=== PATIENT | male | born 1950 | race Caucasian/White ===

== ENCOUNTER → 2017-07-03 | Outpatient (CLI) | payer OTHER, BC ==
--- NOTE | 2017-07-03 09:52 | DIAGNOSTIC IMAGING REPORT ---
L ANKLE MIN 3 VIEWS ROUTINE, L FOOT MIN 3 VIEWS ROUTINE HISTORY: 66 years-old Male LEFT ANKLE AND FOOT PAIN acute left foot and ankle pain without reported trauma COMPARISON: None available TECHNIQUE: 3 views of the left foot and 3 views of the left ankle FINDINGS: ANKLE: There is mild soft tissue swelling about the ankle. No acute fracture, dislocation or osteochondral defect. There is minimal marginal spurring about the ankle. No large joint effusion or opaque foreign body. FOOT: Minimal degenerative changes of the first MTP joint. There is no acute fracture or dislocation. No opaque foreign body. IMPRESSION: 1. No acute fracture or dislocation identified within the left foot or ankle. 2. Mild soft tissue swelling about the ankle. The above report was generated using voice recognition software. It may contain grammatical, syntax or spelling errors. Electronically signed by: Antoine Moore M.D. 07/03/2017 9:51 AM Dictated Date/Time: 07/03/2017 9:49 AM
== END | disposition home or self-care (01) ==
LOC: C.RAD1850 09:35
PROVIDERS: ATTEND Student in an Organized Health Care Education/Training Program
DX: M25.572 Pain in left ankle and joints of left foot (principal)

== ENCOUNTER 2020-07-23 20:48 | Observation (INO) ==
[2020-07-23] MEDS ORDERED: SODIUM CHLORIDE 0.9% 1000ML 1,000 ML IV ONE (21:26)
[2020-07-23 21:36] LABS: Basophils # (auto) 0.03 K/uL (0-0.2); Basophils % (auto) 0.3 %; Eosinophils % (auto) 2.2 %; Hematocrit (blood only) 51.3 % (42-52); Hemoglobin 17.3 g/dL (14.0-18.0); Immature Granulocytes # (auto) 0.03 K/uL (0.00-0.02); Immature Granulocytes % (auto) 0.3 %; Lymphocytes # (auto) 2.68 K/uL (1.2-3.4); Lymphocytes % (auto) 29.4 %; Mean Corpuscular Hemoglobin 33.5 pg (25-34); Mean Corpuscular Hgb Conc 33.7 g/dL (32-36); Mean Corpuscular Volume 99.4 fL (80-100); Mean Platelet Volume 10.9 fL (7.4-10.4); Monocytes # (auto) 0.73 K/uL (0.11-0.59); Neutrophils # (auto) 5.44 K/uL (1.4-6.5); Neutrophils % (auto) 59.8 %; Platelet Count 216 K/uL (130-400); RDW Coefficient of Variation 13.6 % (11.5-14.5); RDW Standard Deviation 49.4 fL (36.4-46.3); Red Blood Count 5.16 M/uL (4.7-6.1); White Blood Count 9.11 K/uL (4.8-10.8)
[2020-07-23] MEDS ORDERED: OPTIRAY 320 125ml IV ONE (21:51)
[2020-07-23 21:58] LABS: Alanine Aminotransferase 31 U/L (12-78); Albumin Level 3.7 gm/dl (3.4-5.0); Aspartate Aminotransferase 20 U/L (15-37); BUN Creatinine Ratio 12.7 (10-20); Blood Urea Nitrogen 10 mg/dl (7-18); Calcium 9.2 mg/dl (8.5-10.1); Carbon Dioxide 27 mmol/L (21-32); Chloride 106 mmol/L (98-107); Est GFR (African American) 105.3; Est GFR (Non-African American) 90.9; Glucose 102 mg/dl (70-99); Magnesium 1.9 mg/dl (1.8-2.4); Potassium 3.7 mmol/L (3.5-5.1); Sodium 142 mmol/L (136-145)
[2020-07-23 22:00] LABS: Partial Thromboplastin Time 28.4 Seconds (21.0-31.0); Prothrombin Time 10.5 Seconds (9.0-12.0)
[2020-07-23 22:08] LABS: Alkaline Phosphatase 84 U/L (45-117); Bilirubin,Total 0.3 mg/dl (0.2-1); Globulin 3.9 gm/dl (2.5-4.0); Lipase 2557 U/L (73-393); Total Protein 7.6 gm/dl (6.4-8.2); Troponin I < 0.015 ng/ml (0-0.045)
[2020-07-23 23:16] LABS: Appearance Urine Cloudy (Clear); Bacteria Urine Automated Negative (Negative); Bilirubin Urine Negative (Negative); Blood Urine Negative (Negative); Cast Urine Automated 0 /lpf (0-5); Color Urine Yellow; Epithelial Cell Urine Auto 0-5 /lpf (0-5); Glucose Urine UA Negative (Negative); Ketones Urine Trace (Negative); Leukocyte Esterase Urine Negative (Negative); Nitrite Urine Negative (Negative); Protein Urine Negative (Negative); RBC Urine Automated 0-4 /hpf (0-4); Specific Gravity Urine 1.025 (1.000-1.030); Urobilinogen Urine Negative (Negative)
--- NOTE | 2020-07-24 02:34 | Emergency Department Note ---
Impression & Plan Stroke-like symptoms, Slurred speech, Peripheral arterial disease, Chronic pancreatitis, Abdominal aortic aneurysm (AAA) 3.0 cm to 5.5 cm in diameter in male ED Provider Note NAME: JOEL ROLDAN AGE: 69 SEX: M ARRIVES VIA: Walk-In INFORMANT: Patient, , daughter ED PROVIDER(S): Connor Butler MD CHIEF COMPLAINT: Slurred speech, left hip pain, ambulatory dysfunction. PLAN: Disposition: Admit MEDICAL DECISION MAKING: The patient is a pleasant 69-year-old gentleman with a past medical history of NIDDM 2, hypertension, hyperlipidemia who presents emergency department accompanied by his concern for slurred speech prior to arrival in the setting of the patient having 2 weeks of acutely worsening left hip and thigh pain where he reports he was in the garage and his leg gave out from from under him and he fell. He reports having a single glass of wine tonight and does not drink more than that on a daily basis. The patient reports his left hip pain has been present for over a year but that 2 weeks ago he began to have increasing pain with exertion and while he has improvement with rest did develop resting pain which was present along the left lateral hip and proximal-mid anterior thigh. The patient's was concerned for his slurred speech however the patient himself feels as though he did not have any slurred speech and feels as though he did not need to come to the hospital. Further he relates his diffi culty walking has been ongoing for the past 2 weeks given the pain in his hip/thigh. Otherwise, denies any fevers, chills, cough, congestion, nausea, vomiting, diarrhea, urinary symptoms. On arrival the patient is fatigued appearing but no acute distress, afebrile stable vital signs. He has no focal neurologic deficits. His speech is fluent without overt dysarthria or aphasia. Normal strength in all extremities. 5/5 strength and SILT x 4 extremities. Cerebellar function intact including fin bennett-to-nose and alternating palms. However, upon ambulation the patient has significant impaired gait where he is unable to bear weight on his left leg and has difficulty maintaining balance because of this which he reports is related to his pain. He does have dopplerable monophasic PT and DP pulses of the left foot has palpable DP and PT pulses of the right foot. Refill is symmetric and less than 2 seconds in bilateral lower extremities. EKG without overt acute ischemia. Chest x-ray negative for acute cardiopulmonary process per my preliminary review. WBC, H/H and platelets within normal limits. Chemistry without metabolic acidosis. Electrolytes and LFTs are unremarkable. Troponin negative/undetectable. The patient's lipase is elevated at 2500 without prior values for comparison is of unclear significance given the patient has no abdominal pain or report of nausea and vomiting. UA negative for infection but with trace ketones consistent with the patient's clinically dry appearance. Of note, the patient's blood alcohol was 96 and while was drawn from his IV site which was prepped with chlorhexidine certainly is suggestive of more than 1 glass of wine. However I did review this with the patient and his family and he denied having more than a glass of wine and the patient family do not feel he has ever had an issue with alcohol in the past. Thus, unclear etiology to this elevation in his blood alcohol. Per preliminary stat read report CT of the head and CTA of the head and neck were negative for ICH, ischemia or severe narrowing or occlusion of large vessels. Per preliminary stat read report, CT abdomen pelvis did demonstrate diffuse atherosclerotic changes of the aorta and branches. Note is made of infrarenal AAA measuring approximately 5 cm. Associated areas of plaque of severe stenosis are noted. In particular, occlusion of the left common femoral and left internal iliac arteries were described. Additionally, there is advanced stenosis of the right iliac arteries as well. Further, there is note of minimal thickening of the fundus of the gallbladder as well as dystrophic calcification in the pancreas suggesting chronic pancreatitis which does correlate to the patient's lipase. I did review the CT findings with [facility] radiologist Dr. Curry, who does describe there is reconstitution within the external iliac artery which explains the patient's present pulses however she does note there is severe arterial disease in the external iliac as well. I did meet with the patient and his family and he continued to have no significant change in his clinical status since initial evaluation. Unfortunately, our vascular surgeon is not available at this time and so we did agree with plan to consult [facility] vascular surgery regarding the patient's iliac occlusion in relation to his symptoms, which are suspicous for proximal claudication of LLE. However, it was the patient's preference to not be transferred if this was not absolutely necessary. Arterial studies were ordered and while pending I did discuss the case/imaging with [facility], Dr. Gonzalez, and we agree that given the patient does have distal pulses present and no exam findings to suggest acute limb ischemia the patient's progression of symptoms and CT findings are suggestive of a chronic occlusive process that does not necessarily require emergent intervention or transfer. However, he offered to accept the patient for transfer if we have any concerns. In the interim the patient did have arterial duplexes completed and per preliminary stat read report there is no complete arterial occlusion though there is severe peripheral arterial disease with monophasic waveforms throughout the left lower extremity. On reevaluation the patient continued to deny any additional complaints. Given the complexity of the patient's findings in the setting of his symptoms, we did agree to admit the patient for further observation and evaluation. Given he denies drinking more than a glass of wine unclear if transient slurred speech could be attributed to alcohol and so MRI could be considered to further exclude TIA/stroke. Consultation with vascular surgery ARACELI Karina Poole could be considered as she is listed occupational health physiotherapist from 8a-5p. Case was discussed with Dr. Javed, [facility] hospitalist, who will evaluate the patient for admission. Triage Nursing notes reviewed and agree them. Prior medical records reviewed Vital Signs: reviewed and remarkable for no significant abnormalities. Differential diagnosis: Infection, dehydration, metabolic abnormality, hypo/hyperglycemia, electrolyte disturbance, anemia, hypoxia, cardiac sources, intracerebral event, toxicologic, neurologic, as well as other pathologies. ER treatment provided: See below. Diagnostics interpreted by me: ECG: Normal sinus rhythm, 83 bpm, no ectopy, no overt ST elevation or depression, QTC 455, QRS 90. Cardiac Monitoring: An order for continuous cardiac monitoring was placed and demonstrated normal sinus rhythm, 83 bpm, no ectopy. Laboratory studies: See below Imaging studies: CXR: No acute cardiopulmonary process per my preliminary review. -- Preliminary Findings Only See Final Report For Complete Findings CT HEAD: No ICH, mass effect or edema. No evidence of acute cortical stroke. Visualized sinuses and mastoid air cells are clear. Radiologist: Lauri Manning M.D. Study ready at 22:51 and initial results transmitted at 22:53 -- Preliminary Findings Only See Final Report For Complete Findings CTA HEAD: No central occlusion related to the [place] Radiologist: Lauri Manning M.D. Study ready at 22:54 and initial results transmitted at 23:00 -- Preliminary Findings Only See Final Report For Complete Findings CTA NECK: No occlusions, high-grade stenoses or dissections. Pulmonary emphysema/cysts. Scarring in the lung apices. Radiologist: Lauri Manning M.D. Study ready at 22:53 and initial results transmitted at 22:58 - Preliminary Findings Only See Final Report For Complete Findings CT ABDOMEN & PELVIS With Contrast: Diffuse atherosclerotic changes of the aorta and its branches. Infrarenal abdominal aortic aneurysm measuring approximately 5cm. Associated plaque with areas of severe luminal stenosis. Occlusion of the left common and left internal iliac arteries. Areas of advanced luminal stenosis in the right iliac arteries Small hiatal hernia/thickening in the distal esophagus. Minimal thickening in the fundus of the gallbladder wall. Mild fatty liver. Dystrophic calcification in the pancreas suggesting chronic pancreatitis. Renal cysts. Radiation seeds in the prostate. Colonic diverticula without diverticulitis. Unremarkable appendix. Pulmonary emphysema. Radiologist: Lauri Manning M.D. Study ready at 23:03 and initial results transmitted at 23:10 Preliminary Findings Only See Final Report For Complete Findings US ARTERIAL BILATERAL LOWER EXTREMITIES: Atherosclerotic changes, left greater than right. No evidence of arterial occlusion. High-grade stenosis suggested in the right common femoral artery Dampened velocities and monophasic waveforms throughout the arterial system on the left side. ABIs Right 0.9 Left 0.4-0.5 Radiologist: Lauri Manning M.D. Study ready at 03:19 and initial results transmitted at 03:23 Consultation(s): [facility] Vascular Surgery, Dr. Gonzalez Case was discussed with Dr. Javed, [facility] hospitalist, who will evaluate the patient for admission. HPI: The patient is a pleasant 69-year-old gentleman with a past medical history of NIDDM 2, hypertension, hyperlipidemia who presents emergency department accompanied by his concern for slurred speech prior to arrival in the setting of the patient having 2 weeks of acutely worsening left hip and thigh pain where he reports he was in the garage and his leg gave out from from under him and he fell. He reports having a single glass of wine tonight and does not drink more than that on a daily basis. The patient reports his left hip pain has been present for over a year but that 2 weeks ago he began to have increasing pain with exertion and while he has improvement with rest did develop resting pain which was present along the left lateral hip and proximal-mid anterior thigh. The patient's was concerned for his slurred speech however the patient himself feels as though he did not have any slurred speech and feels as though he did not need to come to the hospital. Further he relates his difficulty walking has been ongoing for the past 2 weeks given the pain in his hip/thigh. Otherwise, denies any fevers, chills, cough, congestion, nausea, vomiting, diarrhea, urinary symptoms. ROS: See above HPI for pertinent positives & negatives. A total of 10 systems reviewed and were otherwise negative. PAST MEDICAL HISTORY:See Below PAST SURGICAL HISTORY:See Below FAMILY HISTORY:See Below SOCIAL HISTORY:See Below HOME MEDICATIONS:See Below ALLERGIES:See Below VITALS:See Below PHYSICAL EXAMINATION: GENERAL: Awake, alert, fatigued-appearing, in no distress HENT: Normocephalic, atraumatic. Oropharynx with dry mucous membranes and otherwise unremarkable. EYES: Normal conjunctiva. Sclera non-icteric. EOMI. No nystamgus. PEARRL. NECK: Supple. No nuchal rigidity. FROM. No JVD. RESPIRATORY: Clear to auscultation. CARDIAC: Regular rate, normal rhythm. Extremities warm and well perfused. RLE palpable DP/PT pulses. LLE monophasic dopplerable DP/PT pulses. Capillary refill < 2s and symmetric BLE. ABDOMEN: Soft, non-distended. No tenderness to palpation. No rebound or guarding. No masses. RECTAL: Deferred. MUSCULOSKELETAL: Chest examination reveals no tenderness. The back is symmetrical on inspection without obvious abnormality. There is no CVA tenderness to palpation. No joint edema. LOWER EXTREMITIES: Calves are equal size bilaterally and non-tender. No edema. No discoloration. NEURO: Normal sensorium. No sensory or motor deficits noted. Speech is fluent without dysarthria. 5/5 strength and SILT x 4 extremities. Cerebellar function intact including [id number] and alternating palms. SKIN: No rash or jaundice noted. Connor Butler MD Past Med/Surg History Medical History HLD (hyperlipidemia) Hypertension Social History Smoking Status: Current every day smoker Tobacco Type: Cigars Preferred Language: [place] Feels Safe at Home: Yes Allergies Allergies Allergy/AdvReac Type Severity Reaction Status Date / Time No Known Allergies Allergy Unverified 07/23/20 22:51 Home Meds Home Medications Medication Instructions Recorded Confirmed atorvastatin 40 mg PO DAILY 07/23/20 07/23/20 hydrochlorothiazide 25 mg PO DAILY 07/23/20 07/23/20 lisinopril 20 mg PO DAILY 07/23/20 07/23/20 metformin 1,000 mg PO BID 07/23/20 07/23/20 Results & Data (ED) Vital Signs Vital Signs - 24 hr 07/23/20 20:57 07/23/20 21:30 07/23/20 22:00 Temperature 37.3 C Temperature Source Temporal Artery Scan Pulse Rate 84 84 83 Pulse Rate [Finger] Pulse Rate from SpO2 Sensor 85 83 Pulse Rhythm Regular Pulse Strength Normal Respiratory Rate 18 20 19 Respiratory Effort / Characteristics Non-Labored Spontaneous Respiratory Depth Normal Respiratory Pattern Regular Blood Pressure 144/82 H 133/80 139/81 Blood Pressure [Left Arm] Blood Pressure Mean 102 90 99 Blood Pressure Mean [Left Arm] Blood Pressure Position Sitting Pulse Oximetry 98 94 96 Oxygen Delivery Method Room Air Sepsis Recent Fever Within 48 Hours No Sepsis New/Unexplained Change in Mental Status No Sepsis Action Taken by Nursing No Action Required 07/23/20 22:30 07/23/20 22:55 07/23/20 23:00 Temperature Temperature Source Pulse Rate 88 86 Pulse Rate [Finger] Pulse Rate from SpO2 Sensor 88 86 Pulse Rhythm Pulse Strength Respiratory Rate 16 17 Respiratory Effort / Characteristics Respiratory Depth Respiratory Pattern Blood Pressure 143/72 H 162/88 H 139/81 Blood Pressure [Left Arm] Blood Pressure Mean 112 121 100 Blood Pressure Mean [Left Arm] Blood Pressure Position Pulse Oximetry 96 96 Oxygen Delivery Method Sepsis Recent Fever Within 48 Hours Sepsis New/Unexplained Change in Mental Status Sepsis Action Taken by Nursing 07/23/20 23:30 07/24/20 00:00 07/24/20 00:30 Temperature Temperature Source Pulse Rate 78 84 82 Pulse Rate [Finger] Pulse Rate from SpO2 Sensor 78 85 82 Pulse Rhythm Pulse Strength Respiratory Rate 17 15 16 Respiratory Effort / Characteristics Respiratory Depth Respiratory Pattern Blood Pressure 132/75 144/85 H 149/92 H Blood Pressure [Left Arm] Blood Pressure Mean 96 98 102 Blood Pressure Mean [Left Arm] Blood Pressure Position Pulse Oximetry 94 95 95 Oxygen Delivery Method Sepsis Recent Fever Within 48 Hours Sepsis New/Unexplained Change in Mental Status Sepsis Action Taken by Nursing 07/24/20 03:00 07/24/20 04:11 07/24/20 06:10 Temperature Temperature Source Pulse Rate 79 Pulse Rate [Finger] 86 90 Pulse Rate from SpO2 Sensor Pulse Rhythm Pulse Strength Respiratory Rate 18 18 18 Respiratory Effort / Characteristics Respiratory Depth Respiratory Pattern Blood Pressure 133/84 Blood Pressure [Left Arm] 176/95 H 166/96 H Blood Pressure Mean 100 Blood Pressure Mean [Left Arm] 122 119 Blood Pressure Position Pulse Oximetry 94 94 95 Oxygen Delivery Method Room Air Room Air Room Air Sepsis Recent Fever Within 48 Hours Sepsis New/Unexplained Change in Mental Status Sepsis Action Taken by Nursing Laboratory Data Attestation: I reviewed the patient's lab results. Result diagrams: 07/23/20 21:29 07/23/20 21:29 Lab Results 07/23/20 07/23/20 07/23/20 Range/Units 21:29 21:29 21:29 WBC 9.11 (4.8-10.8) K/uL RBC 5.16 (4.7-6.1) M/uL Hgb 17.3 (14.0-18.0) g/dL Hct 51.3 (42-52) % MCV 99.4 (80-100) fL MCH 33.5 (25-34) pg MCHC 33.7 (32-36) g/dL RDW Std Deviation 49.4 H (36.4-46.3) fL RDW Coeff of Matt 13.6 (11.5-14.5) % Plt Count 216 (130-400) K/uL MPV 10.9 H (7.4-10.4) fL Immature Gran % (Auto) 0.3 % Neut % (Auto) 59.8 % Lymph % (Auto) 29.4 % [place] % (Auto) 8.0 % Eos % (Auto) 2.2 % Baso % (Auto) 0.3 % Neut # (Auto) 5.44 (1.4-6.5) K/uL Lymph # (Auto) 2.68 (1.2-3.4) K/uL [place] # (Auto) 0.73 H (0.11-0.59) K/uL Eos # (Auto) 0.20 (0-0.5) K/uL Baso # (Auto) 0.03 (0-0.2) K/uL Immature Gran # (Auto) 0.03 H (0.00-0.02) K/uL ESR (0-14) mm/hr PT 10.5 (9.0-12.0) Seconds INR 1.0 (0.9-1.1) APTT 28.4 (21.0-31.0) Seconds PTT Ratio 1.0 Sodium 142 (136-145) mmol/L Potassium 3.7 (3.5-5.1) mmol/L Chloride 106 (98-107) mmol/L Carbon Dioxide 27 (21-32) mmol/L Anion Gap 9.0 (3-11) BUN 10 (7-18) mg/dl Creatinine 0.82 (0.6-1.4) mg/dl Est Cr Clr Drug Dosing 92.0 ml/min Est GFR ( Amer) 105.3 Est GFR (Non-Af Amer) 90.9 BUN/Creatinine Ratio 12.7 (10-20) Glucose 102 H (70-99) mg/dl Calcium 9.2 (8.5-10.1) mg/dl Phosphorus 4.0 (2.5-4.9) mg/dl Magnesium 1.9 (1.8-2.4) mg/dl Total Bilirubin 0.3 (0.2-1) mg/dl AST 20 (15-37) U/L ALT 31 (12-78) U/L Alkaline Phosphatase 84 (45-117) U/L Troponin I < 0.015 (0-0.045) ng/ml Total Protein 7.6 (6.4-8.2) gm/dl Albumin 3.7 (3.4-5.0) gm/dl Globulin 3.9 (2.5-4.0) gm/dl Albumin/Globulin Ratio 1.0 (0.9-2) Lipase 2557 H (73-393) U/L TSH 2.310 (0.300-4.500) uIu/ml Urine Color Urine Appearance (Clear) Urine pH (4.5-7.5) Ur Specific [place] (1.000-1.030) Urine Protein (Negative) Urine Glucose (UA) (Negative) Urine Ketones (Negative) Urine Blood (Negative) Urine Nitrite (Negative) Urine Bilirubin (Negative) Urine Urobilinogen (Negative) Ur Leukocyte Esterase (Negative) Urine WBC (Auto) (0-5) /hpf Urine RBC (Auto) (0-4) /hpf U Hyaline Cast (Auto) (0-5) /lpf U Epithel Cells (Auto) (0-5) /lpf Urine Bacteria (Auto) (Negative) Ethyl Alcohol mg/dL (0-3) mg/dl SARS-CoV-2 Ag (Rapid) (Negative) 07/23/20 07/23/20 07/24/20 Range/Units 22:52 23:05 04:05 WBC (4.8-10.8) K/uL RBC (4.7-6.1) M/uL Hgb (14.0-18.0) g/dL Hct (42-52) % MCV (80-100) fL MCH (25-34) pg MCHC (32-36) g/dL RDW Std Deviation (36.4-46.3) fL RDW Coeff of Matt (11.5-14.5) % Plt Count (130-400) K/uL MPV (7.4-10.4) fL Immature Gran % (Auto) % Neut % (Auto) % Lymph % (Auto) % [place] % (Auto) % Eos % (Auto) % Baso % (Auto) % Neut # (Auto) (1.4-6.5) K/uL Lymph # (Auto) (1.2-3.4) K/uL [place] # (Auto) (0.11-0.59) K/uL Eos # (Auto) (0-0.5) K/uL Baso # (Auto) (0-0.2) K/uL Immature Gran # (Auto) (0.00-0.02) K/uL ESR (0-14) mm/hr PT (9.0-12.0) Seconds INR (0.9-1.1) APTT (21.0-31.0) Seconds PTT Ratio Sodium (136-145) mmol/L Potassium (3.5-5.1) mmol/L Chloride (98-107) mmol/L Carbon Dioxide (21-32) mmol/L Anion Gap (3-11) BUN (7-18) mg/dl Creatinine (0.6-1.4) mg/dl Est Cr Clr Drug Dosing ml/min Est GFR ( Amer) Est GFR (Non-Af Amer) BUN/Creatinine Ratio (10-20) Glucose (70-99) mg/dl Calcium (8.5-10.1) mg/dl Phosphorus (2.5-4.9) mg/dl Magnesium (1.8-2.4) mg/dl Total Bilirubin (0.2-1) mg/dl AST (15-37) U/L ALT (12-78) U/L Alkaline Phosphatase (45-117) U/L Troponin I (0-0.045) ng/ml Total Protein (6.4-8.2) gm/dl Albumin (3.4-5.0) gm/dl Globulin (2.5-4.0) gm/dl Albumin/Globulin Ratio (0.9-2) Lipase (73-393) U/L TSH (0.300-4.500) uIu/ml Urine Color Yellow Urine Appearance Cloudy A (Clear) Urine pH 5.0 (4.5-7.5) Ur Specific [place] 1.025 (1.000-1.030) Urine Protein Negative (Negative) Urine Glucose (UA) Negative (Negative) Urine Ketones Trace H (Negative) Urine Blood Negative (Negative) Urine Nitrite Negative (Negative) Urine Bilirubin Negative (Negative) Urine Urobilinogen Negative (Negative) Ur Leukocyte Esterase Negative (Negative) Urine WBC (Auto) 1-5 (0-5) /hpf Urine RBC (Auto) 0-4 (0-4) /hpf U Hyaline Cast (Auto) 0 (0-5) /lpf U Epithel Cells (Auto) 0-5 (0-5) /lpf Urine Bacteria (Auto) Negative (Negative) Ethyl Alcohol mg/dL 96.2 H (0-3) mg/dl SARS-CoV-2 Ag (Rapid) Negative (Negative) 07/24/20 Range/Units 05:48 WBC (4.8-10.8) K/uL RBC (4.7-6.1) M/uL Hgb (14.0-18.0) g/dL Hct (42-52) % MCV (80-100) fL MCH (25-34) pg MCHC (32-36) g/dL RDW Std Deviation (36.4-46.3) fL RDW Coeff of Matt (11.5-14.5) % Plt Count (130-400) K/uL MPV (7.4-10.4) fL Immature Gran % (Auto) % Neut % (Auto) % Lymph % (Auto) % [place] % (Auto) % Eos % (Auto) % Baso % (Auto) % Neut # (Auto) (1.4-6.5) K/uL Lymph # (Auto) (1.2-3.4) K/uL [place] # (Auto) (0.11-0.59) K/uL Eos # (Auto) (0-0.5) K/uL Baso # (Auto) (0-0.2) K/uL Immature Gran # (Auto) (0.00-0.02) K/uL ESR 17 H (0-14) mm/hr PT (9.0-12.0) Seconds INR (0.9-1.1) APTT (21.0-31.0) Seconds PTT Ratio Sodium (136-145) mmol/L Potassium (3.5-5.1) mmol/L Chloride (98-107) mmol/L Carbon Dioxide (21-32) mmol/L Anion Gap (3-11) BUN (7-18) mg/dl Creatinine (0.6-1.4) mg/dl Est Cr Clr Drug Dosing ml/min Est GFR ( Amer) Est GFR (Non-Af Amer) BUN/Creatinine Ratio (10-20) Glucose (70-99) mg/dl Calcium (8.5-10.1) mg/dl Phosphorus (2.5-4.9) mg/dl Magnesium (1.8-2.4) mg/dl Total Bilirubin (0.2-1) mg/dl AST (15-37) U/L ALT (12-78) U/L Alkaline Phosphatase (45-117) U/L Troponin I (0-0.045) ng/ml Total Protein (6.4-8.2) gm/dl Albumin (3.4-5.0) gm/dl Globulin (2.5-4.0) gm/dl Albumin/Globulin Ratio (0.9-2) Lipase (73-393) U/L TSH (0.300-4.500) uIu/ml Urine Color Urine Appearance (Clear) Urine pH (4.5-7.5) Ur Specific [place] (1.000-1.030) Urine Protein (Negative) Urine Glucose (UA) (Negative) Urine Ketones (Negative) Urine Blood (Negative) Urine Nitrite (Negative) Urine Bilirubin (Negative) Urine Urobilinogen (Negative) Ur Leukocyte Esterase (Negative) Urine WBC (Auto) (0-5) /hpf Urine RBC (Auto) (0-4) /hpf U Hyaline Cast (Auto) (0-5) /lpf U Epithel Cells (Auto) (0-5) /lpf Urine Bacteria (Auto) (Negative) Ethyl Alcohol mg/dL (0-3) mg/dl SARS-CoV-2 Ag (Rapid) (Negative) Administered Medications Discontinued Medications Aspirin (Aspirin 81 Mg Chew) 324 mg PO NOW ONE Stop: 07/24/20 05:11 Last Admin: 07/24/20 05:19 Dose: 324 mg Documented by: [id number] Sodium Chloride (Nss 1000ml) 1,000 mls @ 999 mls/hr IV .Q1H1M ONE Stop: 07/23/20 22:26 Last Infusion: 07/23/20 22:32 Dose: 0 mls/hr Documented by: [id number] Admin: 07/23/20 21:30 Dose: 999 mls/hr Documented by: [id number] Ioversol (Optiray 320 125ml) 118 ml IV ONCE ONE Stop: 07/23/20 21:52 Last Admin: 07/23/20 21:52 Dose: 118 ml Documented by: [id number] Discharge Plan Visit Data Chief Complaint: Stroke/CVA Symptoms Stated Complaint: slurred speech, left side weakness, balance off ED Provider: Connor Butler Discharge Problem: Stroke-like symptoms, Slurred speech, Peripheral arterial disease, Chronic pancreatitis, Abdominal aortic aneurysm (AAA) 3.0 cm to 5.5 cm in diameter in male Patient Disposition: Admitted As Inpatient Discharge Instructions Interventions: ED Discharge Assessment Last Done: 07/24/20 06:18 Forms Stand Alone Forms: [facility] Prescriptions Prescriptions: No Action atorvastatin 40 mg tablet 40 mg PO DAILY RF: 0 metformin 500 mg tablet 1,000 mg PO BID RF: 0 lisinopril 20 mg tablet 20 mg PO DAILY RF: 0 hydrochlorothiazide 25 mg tablet 25 mg PO DAILY RF: 0 Referrals Referrals: Jeremy Kaiser DO [Primary Care Provider] - Discharge Problem: Chronic pancreatitis Qualifiers: Pancreatitis type: unspecified pancreatitis type Qualified Code(s): K86.1 - Other chronic pancreatitis
[2020-07-24] MEDS ORDERED: ASPIRIN 81 MG CHEW PO ONE (05:10)
--- NOTE | 2020-07-24 05:19 | History & Physical Report ---
Date of Service July 24, 2020 Assessment & Plan (1) Slurred speech: Mr. Alok Salgado is a past medical history HTN, HLD, Pre-diabetic, who presents with CC of Slurred Speech. Complaints of only dizziness from skipping lunch and shoveling show for two hours, then drinking on an empty stomach but only one glass of wine. Family was concerned about acute stroke via slurred speech. But he notes no neuro symptoms. He has had signs of left pain that is claudication related which is diagnosed by extensive peripheral vascular disease on workup. - TIA currently working diagnosis. - He does have genetic and smoking as accelerated risk factors. He notes pre- diabetes well controlled on Metformin for 20 years or so. He notes well controlled HTN. He recently just started a statin within past year. - He has occulsion of major vessels in left leg but there is collateral flow and no need for surgical transfer. Current vascular surgical services unavailable until 07/28. - Plan will be for a TIA workup and follow up for outpatient management of his extensive peripheral disease. - No signs of acute process on cranial imaging thus far. Since he has extensive disease elsewhere I suspect has some some cranial. Will get Brain MRI and Neck MRA for full workup for clinical picture. - ESR for vasculitis workup. - Neuro consult appreciated - Neuro checks. - Echo for consideration for extensive plaque disease and to rule out PFO for cause of event. FENGI: Heart healthy, DM2 diet. DVT ppx: SCDs, no anticoagulation increase of acute stroke although unlikely. Dipso: PCU/tele - Obs Code: Full Code (2) Peripheral arterial disease: Increase atorvastatin to 80mg. - Presense of such extensive disease is worrisome for widespead disease that is undiagnosed and finally presenting with symptoms from a longstanding process. US ARTERIAL BILATERAL LOWER EXTREMITIES: Atherosclerotic changes, left greater than right. No evidence of arterial occlusion. High-grade stenosis suggested in the right common femoral artery Dampened velocities and monophasic waveforms throughout the arterial system on the left side. This appears to have been chronic for many years as he developed collateral vessel in the present of having occlusion of major arterial vessels in his left leg. However, he is now having narrowing of colateral vessels. With extensive findings on imaging, he probably is finally experience symptoms of complications from lab of blood flow. Will put in Consult for vascular but Dr. Polanco not available until 07/28. No signs of acute process and this could be worked up as outpatient for options for treatment. (3) Claudication of left lower extremity: This is the most likely etiology of his leg pain. defer benefit for meds such as cilostazol. (4) Chronic pancreatitis: He notes no acute symptoms currently. Notes no alcohol abuse. Had an elevated Lipase but findings of chronic pancreatitis on CT ABD. He has no abdominal pain. Defer if further workup is needed. Does not appear acute. He denies alcohol abuse, which could be cause. He did have a mildly elevated EtOH in ED of 92. (5) Abdominal aortic aneurysm (AAA) 3.0 cm to 5.5 cm in diameter in male: Undiagnosed. 5.0cm. Defer futher workup. Not 5.5cm so usually that's the cut off for surgery, but would need outpatient follow up to ensure doesn't get bigger. (6) Hypertension: notes well controll. Well continue with home Lisinopril and HCTZ. (7) Pre-diabetes: notes well controlled Hgb A1C ordered hold Metformin since received IV contrast for kidney protection. (8) HLD (hyperlipidemia): Lipid panel ordered (9) Tobacco abuse: smoking cessation CTA NECK: Pulmonary emphysema/cysts. Scarring in the lung apices. wheezing on exam, suspect lung disease present has no complaints of dyspnea History of Present Illness Chief Complaint: Slurred speech Primary Care Provider: Jeremy Kaiser DO Mr. Alok Salgado is a past medical history HTN, HLD, Pre-diabetic, who presents with CC of Slurred Speech. He notes events of today of being waking up at 6am, having oatmeal, later eating breakfast "cyr and eggs." Then, he notes skipping lunch, early afternoon he spent 2 hours show shoveling/extrenous work and then had dizziness denies room spinning type. He does know how long this last but it resovled before, he went to his daughter's house "down the street" to visit. He notes he had one glass of wine at his daughters and was going to drive back to his house to eat dinner. Instead, he is vague, but endorses family thought he had slurred speech. However, he doesn't note speaking any differently or having any acute symptoms since dizziness earlier in the day. He thought dizziness was from skipping lunch. In the ED, he had a workup for TIA with normal neuro findings on exam. He denied having any chest pain, shortness of breath, nausea, diaphoresis. He notes he has been suffering from left leg pain that has been recently chronic for maybe a year but that has worsened in intensity for the past 2 week. It went from only with exertion to starting to hurt at rest as well. He saw his PCP this past Monday and had an Xray of left hip that showed no acute bony abnormality. He notes it is located proximal thigh of left leg anteriorly to medial thigh. It is not relieved with NSAIDs. He states his father had a genetic heart condition and lived to 72, but thinks dad his dad had severe atherosclerotic disease. He drinks glass of wine daily. He smokes cigars daily. He notes hx of well controlled. He states he is prediabetic for many years and has been on Metformin many years, denies Type 2 DM diagnosis. He notes starting atorvastatin 20mg about 6 months to a year ago. He takes HCTZ and Lisinopril for HTN. He states he takes baby ASA. In the ED, he had no acute neuro symptoms but was found to have severe extensive atherosclerotic disease on workup. He had a CT ABD With Contrast: Diffuse atherosclerotic changes of the aorta and its branches. Infrarenal abdominal aortic aneurysm measuring approximately 5cm. Associated plaque with areas of severe luminal stenosis. Occlusion of the left common and left internal iliac arteries. Areas of advanced luminal stenosis in the right iliac arteries. US ARTERIAL BILATERAL LOWER EXTREMITIES: Atherosclerotic changes, left greater than right. No evidence of arterial occlusion. High-grade stenosis suggested in the right common femoral artery Dampened velocities and monophasic waveforms throughout the arterial system on the left side. CT HEAD:No ICH, mass effect or edema. No evidence of acute cortical stroke. CTA HEAD: No central occlusion related to the [place] CTA NECK:No occlusions, high-grade stenoses or dissections. Pulmonary emphysema/cysts. Scarring in the lung apices. He notes no acute symptoms currently. Notes no alcohol abuse. Had an elevated Lipase but findings of chronic pancreatitis on CT ABD. He has no abdominal pain. Allergies Allergy/AdvReac Type Severity Reaction Status Date / Time No Known Allergies Allergy Unverified 07/23/20 22:51 Home Medications Medication Instructions Recorded Confirmed Type atorvastatin 40 mg PO DAILY 07/23/20 07/23/20 History hydrochlorothiazide 25 mg PO DAILY 07/23/20 07/23/20 History lisinopril 20 mg PO DAILY 07/23/20 07/23/20 History metformin 1,000 mg PO BID 07/23/20 07/23/20 History Past Med/Surg History Medical History HLD (hyperlipidemia) Hypertension Social History Smoking Status: Current every day smoker Tobacco Type: Cigars Preferred Language: Polish Feels Safe at Home: Yes Review of Systems Review of Systems: All systems reviewed & are unremarkable except as noted in HPI & below Constitutional: no fever, no chills and no fatigue Eyes: no blind spots and no diplopia Ear, Nose, Mouth, Throat: no nasal congestion, no nasal obstruction and no epistaxis Respiratory: no cough, no dyspnea and no dyspnea on exertion Cardiovascular: + lightheadedness and + claudication; no chest pain, no chest pain at rest, no chest pain with activity, no palpitations, no edema and no calf pain Gastrointestinal: no abdominal pain, no nausea and no vomiting Genitourinary: no dysuria and no urinary frequency Musculoskeletal: no back pain and no neck pain Integumentary: no rash and no lesions Neurologic: as per Subjective / HPI and + abnormal speech (per family, not at bedside); no unsteadiness, no falls, no localized weakness, no generalized weakness, no loss of sensation, no numbness, no syncope and no memory loss Endocrine: no polydipsia, no polyphagia and no polyuria Physical Exam Constitutional: WD/WN, vitals as above + obese, cooperative and comfortable; no acute distress and not ill appearing Eyes: PERRL, conjunctivae normal, anicteric sclerae ENMT: external ear and nose normal, oropharynx normal Neck: trachea midline, no thyromegaly Respiratory: no respiratory distress and no labored breathing Auscultation: + wheezes (diffuse inspiratory at bilateral bases); no rales Cardiovascular: RRR, no murmur, no edema Extremities: no calf tenderness Gastrointestinal (Abdomen): Inspection/Auscultation: + abdomen distended and normal bowel sounds Percussion/Palpation: abdomen soft; abdomen nontender, no guarding and abdomen not rigid Musculoskeletal: no cyanosis or clubbing, extremities motor strength 5/5 feet are cold bilaterally but N/V intact. Motor intact. Skin: no rashes, warm and dry Neurologic: CN's II-XI intact bilaterally, moves all extremities and awake; no focal motor deficits and not confused Cranial Nerves: EOM intact bilaterally Psychiatric: Orientation: alert and oriented x 3 does seem mildly vague with some details of dizziness to arrival to ED in history taking. Results & Data Results & Data ([facility]) Vital Signs (Past 12 Hours) Vital Signs Temp Pulse Pulse Resp BP BP Pulse Ox 07/24/20 04:11 86 18 176/95 H 94 07/24/20 03:00 79 18 133/84 94 07/24/20 00:30 82 16 149/92 H 95 07/24/20 00:00 84 15 144/85 H 95 07/23/20 23:30 78 17 132/75 94 07/23/20 23:00 86 17 139/81 96 07/23/20 22:55 88 16 162/88 H 96 07/23/20 22:30 143/72 H 07/23/20 22:00 83 19 139/81 96 07/23/20 21:30 84 20 133/80 94 07/23/20 20:57 37.3 C 84 18 144/82 H 98 Laboratory Results Laboratory Results - last 24 hr 07/23/20 07/23/20 07/23/20 21:29 21:29 21:29 WBC 9.11 RBC 5.16 Hgb 17.3 Hct 51.3 MCV 99.4 MCH 33.5 MCHC 33.7 RDW Std Deviation 49.4 H RDW Coeff of Matt 13.6 Plt Count 216 MPV 10.9 H Immature Gran % (Auto) 0.3 Neut % (Auto) 59.8 Lymph % (Auto) 29.4 Winkler % (Auto) 8.0 Eos % (Auto) 2.2 Baso % (Auto) 0.3 Neut # (Auto) 5.44 Lymph # (Auto) 2.68 Winkler # (Auto) 0.73 H Eos # (Auto) 0.20 Baso # (Auto) 0.03 Immature Gran # (Auto) 0.03 H PT 10.5 INR 1.0 APTT 28.4 PTT Ratio 1.0 Sodium 142 Potassium 3.7 Chloride 106 Carbon Dioxide 27 Anion Gap 9.0 BUN 10 Creatinine 0.82 Est Cr Clr Drug Dosing 92.0 Est GFR ( Amer) 105.3 Est GFR (Non-Af Amer) 90.9 BUN/Creatinine Ratio 12.7 Glucose 102 H Calcium 9.2 Phosphorus 4.0 Magnesium 1.9 Total Bilirubin 0.3 AST 20 ALT 31 Alkaline Phosphatase 84 Troponin I < 0.015 Total Protein 7.6 Albumin 3.7 Globulin 3.9 Albumin/Globulin Ratio 1.0 Lipase 2557 H TSH 2.310 Urine Color Urine Appearance Urine pH Ur Specific [place] Urine Protein Urine Glucose (UA) Urine Ketones Urine Blood Urine Nitrite Urine Bilirubin Urine Urobilinogen Ur Leukocyte Esterase Urine WBC (Auto) Urine RBC (Auto) U Hyaline Cast (Auto) U Epithel Cells (Auto) Urine Bacteria (Auto) Ethyl Alcohol mg/dL SARS-CoV-2 Ag (Rapid) 07/23/20 07/23/20 07/24/20 22:52 23:05 04:05 WBC RBC Hgb Hct MCV MCH MCHC RDW Std Deviation RDW Coeff of Matt Plt Count MPV Immature Gran % (Auto) Neut % (Auto) Lymph % (Auto) [place] % (Auto) Eos % (Auto) Baso % (Auto) Neut # (Auto) Lymph # (Auto) [place]inkler # (Auto) Eos # (Auto) Baso # (Auto) Immature Gran # (Auto) PT INR APTT PTT Ratio Sodium Potassium Chloride Carbon Dioxide Anion Gap BUN Creatinine Est Cr Clr Drug Dosing Est GFR ( Amer) Est GFR (Non-Af Amer) BUN/Creatinine Ratio Glucose Calcium Phosphorus Magnesium Total Bilirubin AST ALT Alkaline Phosphatase Troponin I Total Protein Albumin Globulin Albumin/Globulin Ratio Lipase TSH Urine Color Yellow Urine Appearance Cloudy A Urine pH 5.0 Ur Specific [place] 1.025 Urine Protein Negative Urine Glucose (UA) Negative Urine Ketones Trace H Urine Blood Negative Urine Nitrite Negative Urine Bilirubin Negative Urine Urobilinogen Negative Ur Leukocyte Esterase Negative Urine WBC (Auto) 1-5 Urine RBC (Auto) 0-4 U Hyaline Cast (Auto) 0 U Epithel Cells (Auto) 0-5 Urine Bacteria (Auto) Negative Ethyl Alcohol mg/dL 96.2 H SARS-CoV-2 Ag (Rapid) Negative Diagnostic Findings CT ABD With Contrast: Diffuse atherosclerotic changes of the aorta and its branches. Infrarenal abdominal aortic aneurysm measuring approximately 5cm. Associated plaque with areas of severe luminal stenosis. Occlusion of the left common and left internal iliac arteries. Areas of advanced luminal stenosis in the right iliac arteries. US ARTERIAL BILATERAL LOWER EXTREMITIES: Atherosclerotic changes, left greater than right. No evidence of arterial occlusion. High-grade stenosis suggested in the right common femoral artery Dampened velocities and monophasic waveforms throughout the arterial system on the left side. CT HEAD:No ICH, mass effect or edema. No evidence of acute cortical stroke. CTA HEAD: No central occlusion related to the [place] CTA NECK:No occlusions, high-grade stenoses or dissections. Pulmonary emphysema/cysts. Scarring in the lung apices. Code Status & VTE Plan Code Status Full VTE Prophylaxis Plan VTE Prophylaxis will be ordered: Yes Reason for no VTE drug order: Contraindicated Supervising Physician Co-Signing Physician Notes Patient seen and examined, chart reviewed, case discussed with Dr. Alexander and I agree with his assessment and plan as documented above. Briefly, patient is a 69yo C male with history of HTN, DM, extensive atherosclerotic disease presenting with transient neurological deficit - slurred speech which occurred after shoveling snow. Patient also found to have significant atherosclerotic disease of bilateral LE, L > R with collateral vessels. On exam he is afebrile, mildly hypertensive otherwise HD stable, NAD Skin - no rash HEENT - NC/AT, PERRL, EOMI, MMM, Neck supple Heart - +S1/S2, regular, no m/r/g Lung s- CTA Abd - +BS, soft, NT/ND Ext - No edema. feet are cool - palpable pulses in RLE, dopplerable in LLE Neuro - no deficits. Speech clear, CN intact, MS 5/5 in UE/LE bilaterally Labs and images reviewed. Elevated lipase - history of chronic pancreatitis. No abdominal pain Assessment/Plan: ?TIA -Check MRI/MRA -Check 2D echo -Increase statin -ASA 81mg po daily -Neurology consultation appreciated LLE pain - ?claudication, patient with atherosclerotic disease. -ASA and Statin -Vascular surgery consultation appreciated. No ischemia of limb at present Remainder of plan as above Resident Activity Tracking Resident Involvement: Resident Care Provided Care Provided: Adult [facility] Medicine
--- NOTE | 2020-07-24 06:17 | Ultrasound Report ---
US arterial duplex LE BI CLINICAL HISTORY: Proximal claudication/rest pain COMPARISON STUDY: No previous studies for comparison. TECHNIQUE: Bilateral ankle to brachial indices were obtained. Grayscale, color and duplex Doppler son ography of the arterial systems of the lower extremities was then performed. FINDINGS: Right ankle-brachial index measured 0.92 when using posterior tibial artery and 0.90 when u sing dorsalis pedis. The left ankle to brachial index measured 0.51 when using posterior tibial arter y and 0.39 when using the dorsalis pedis. There is no evidence for arterial occlusion within the lowe r extremity. However, there is monophasic flow throughout the left lower extremity which raises the p ossibility of inflow disease. There are no elevated velocities within the left lower extremity. Moder ate atherosclerotic plaque is noted. A mildly elevated peak systolic velocity of 295 cm/s is noted wi thin the right common femoral artery. No additional elevated velocities are identified. There is biph asic flow throughout the right lower extremity IMPRESSION: 1. Monophasic flow throughout the left lower extremity which suggests inflow disease. Diminished left ankle to brachial index of 0.5. 2. Biphasic flow throughout the right lower extremity. Mildly elevated peak systolic velocity within the right common femoral artery. 3. Moderate atherosclerotic plaque within the lower extremities. ACT 112: Negative or not required by law. Electronically signed by: Juanjose Stephens M.D. 07/24/2020 6:16 AM
[2020-07-24 06:44] LABS: Estimated Average Glucose 137 mg/dl; Hemoglobin A1C 6.4 % (4.5-5.6)
--- NOTE | 2020-07-24 06:48 | Billing Data ---
Date of Service July 24, 2020 Coding Level of Care Code 08095 OBS Care - Level 3
[2020-07-24 06:54] LABS: Chol HDL Ratio 5; Cholesterol 123 mg/dl (0-200); HDL Cholesterol 26 mg/dl; LDL Cholesterol Calculated 43 mg/dl; Triglycerides 272 mg/dl (0-150); Troponin I < 0.015 ng/ml (0-0.045); VLDL Cholesterol 54 mg/dl
--- NOTE | 2020-07-24 07:07 | CT Scan Report ---
HEAD CTA HISTORY: imbalance, transient slurred speech TECHNIQUE: Multiaxial CT images of the head were performed following the intravenous administration o f contrast to evaluate the major cerebral vessels. Maximum intensity projection images were also obta ined. A dose lowering technique was utilized adhering to the principles of ALARA. COMPARISON: Head CT 07/23/2020. FINDINGS: There is no mass, hematoma, midline shift, or acute infarct. Visualized intracranial biomedical engineering internship al carotid arteries, distal vertebral arteries, and basilar artery are widely patent. There is no sig nificant stenosis, occlusion, or aneurysm seen within the bilateral ACAs, MCAs, or brilliandeer lopper. IMPRESSION: No significant stenosis, occlusion, or aneurysm within the [place]. ACT 112: Negative or not required by law. Electronically signed by: Rolando Santos M.D. 07/24/2020 7:06 AM
[2020-07-24] MEDS ORDERED: GADOBUTROL 30ML VIAL IV ONE (07:08)
--- NOTE | 2020-07-24 07:38 | CT Scan Report ---
ABDOMEN AND PELVIS CT WITH IV CONTRAST CT DOSE: 1812.85 mGy.cm HISTORY: elevated lipase,left hip pain TECHNIQUE: Multiaxial CT images of the abdomen and pelvis were performed following the use of intrave nous contrast. A dose lowering technique was utilized adhering to the principles of ALARA. COMPARISON STUDY: None. FINDINGS: Mild emphysema at the lung bases. No pneumoperitoneum. No pneumatosis. No suspicious lytic or blastic osseous lesions. The liver, gallbladder, adrenal glands, and pancreas are within normal li mits. A few bilateral renal hypodense lesions. These likely represent cysts. No hydronephrosis. Calci fications within the renal sinuses appear to be vascular. No retroperitoneal lymphadenopathy. There i s a 5.3 x 5.1 cm infrarenal abdominal aortic aneurysm. The left common iliac artery is completely occ luded with reconstitution at the left external iliac artery. There is also mild aneurysmal dilatation of the distal right common iliac artery measuring 1.9 cm. The bladder is unremarkable. Multiple brac hytherapy seeds noted within the prostate gland. Colonic diverticulosis. No evidence for acute divert iculitis. Small left omental nodule on image 194 measuring 9 mm. This contains fat and calcification. Therefore, this likely benign. No bowel wall thickening or obstruction. Normal appendix. Multiple pu nctate calcification seen scattered throughout the pancreas consistent with a chronic pancreatitis. N o peripancreatic inflammatory change to suggest an acute pancreatitis at this time. Mild distal esoph ageal thickening. IMPRESSION: 1. Mild distal esophageal thickening. This could represent a mild esophagitis. 2. Otherwise, no bowel wall thickening or obstruction within the abdomen. 3. A 5.3 x 5.1 cm infrarenal abdominal aortic aneurysm. 4. The left common iliac arteries completely occluded with reconstitution at the left external iliac artery. 5. 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 6. Emphysema. 7. Chronic pancreatitis. No evidence for acute pancreatitis. 8. Additional findings as described above. ACT 112: Negative or not required by law. Electronically signed by: Rolando Santos M.D. 07/24/2020 7:37 AM
--- NOTE | 2020-07-24 07:53 | CT Scan Report ---
CT OF THE HEAD WITHOUT CONTRAST CLINICAL HISTORY: imbalance, transient slurred speech COMPARISON STUDY: No previous studies for comparison. TECHNIQUE: Helical axial images of the head were obtained without IV contrast. Automated exposure con trol was utilized for the study. A dose lowering technique was utilized adhering to the principles o f ALARA. FINDINGS: No acute intracranial hemorrhage, midline shift or mass effect is present. White matter hyp odensity suggests small vessel disease. The ventricular system is unremarkable. The basal cisterns ar e patent. No extra-axial collections are present. There are no findings to suggest acute dural sinus thrombosis or acute territorial infarct. No significant calvarial abnormalities are present. Visualiz ed portions of the sinuses and mastoid air cells are clear. IMPRESSION: No acute intracranial findings. ACT 112: Negative or not required by law. Electronically signed by: Juanjose Stephens M.D. 07/24/2020 7:52 AM
--- NOTE | 2020-07-24 07:55 | Magnetic Resonance Report ---
NECK CTA HISTORY: Fall. TIA/slurred speech TECHNIQUE: Multiaxial CT images of the neck were performed following the intravenous administration o f contrast to evaluate the major cervical vessels. Maximum intensity projection images were also obta ined. All measurements were calculated based on NASCET criteria. A dose lowering technique was utili zed adhering to the principles of ALARA. COMPARISON STUDY: Neck CTA 07/23/2020. FINDINGS: The aortic arch and proximal great vessels are widely patent. There is no significant sten osis, occlusion, or dissection identified within the bilateral common carotid, internal carotid, or v ertebral arteries. IMPRESSION: No significant stenosis, occlusion, or dissection identified within the carotid or vertebral arteries . ACT 112: Negative or not required by law. Electronically signed by: Rolando Santos M.D. 07/24/2020 7:53 AM
--- NOTE | 2020-07-24 08:00 | CT Scan Report ---
CT ANGIOGRAPHY OF THE NECK WITH CONTRAST CLINICAL HISTORY: imbalance, transient slurred speech COMPARISON STUDY: No previous studies for comparison. Technique: CT angiography of the carotid and vertebral arteries was obtained using [employer] Core 320 IV and 3D reconstruction on an independent workstation. NASCET criteria was utilized. Automated exposure c ontrol was utilized for the study. A dose lowering technique was utilized adhering to the principles of ALARA. Findings: There is no cervical lymphadenopathy. No acute cervical spine fracture is noted. Emphysema is noted within the lung apices. Less likely, this could reflect cystic lung disease. The bilateral c ommon carotid, cervical internal carotid and vertebral arteries are patent. There is no intraluminal thrombus. There is no dissection or aneurysm within the major vessels within the neck. Mild to modera te atherosclerotic plaque is noted without associated stenosis. IMPRESSION: No stenosis or dissection within the major vessels of the neck. ACT 112: Negative or not required by law. Electronically signed by: Juanjose Stephens M.D. 07/24/2020 7:59 AM
[2020-07-24] MEDS ORDERED: ONDANSETRON INJ 2 MG/ML 2 ML VIAL IV PRN (08:01)
[2020-07-24] MEDS ORDERED: POLYETHYLENE (MIRALAX) 17 GM PACK PO PRN (08:01)
[2020-07-24] MEDS ORDERED: NITROGLYCERIN SL 0.4 MG/TAB TAB SL PRN (08:01)
[2020-07-24] MEDS ORDERED: ACETAMINOPHEN 325 MG TAB PO PRN (08:01)
[2020-07-24] MEDS ORDERED: PHARMACIST DISCHARGE MED REC CONSULT PRN (08:01)
[2020-07-24] MEDS ORDERED: MAGNESIUM HYDROXIDE SUSP 30 ML UDC PO PRN (08:01)
[2020-07-24] MEDS ORDERED: ALUMINUM/MAGNESIUM SUSP 30 ML UDC PO PRN (08:01)
--- NOTE | 2020-07-24 08:05 | XRay Report ---
XR chest 1V portable HISTORY: Atypical Chest Pain COMPARISON: None. FINDINGS: The lungs are clear. Cardiac silhouette is normal in size. No pleural effusions. No pneumot horax. IMPRESSION: No acute process. ACT 112: Negative or not required by law. Electronically signed by: Rolando Santos M.D. 07/24/2020 8:04 AM
--- NOTE | 2020-07-24 08:40 | Magnetic Resonance Report ---
MRI OF THE BRAIN WITHOUT AND WITH IV CONTRAST CLINICAL HISTORY: TIA/slurred speech COMPARISON STUDY: Head CT and CTA of the head July 23, 2020. TECHNIQUE: Utilizing a 1.5 Mar magnet and dedicated coil, multiplanar, multiecho imaging of the br ain was performed pre and postcontrast administration. IV administration of 9.2 mL of Gadavist contr ast was uneventful. Thin cut T1 post contrast imaging was performed. FINDINGS: There are no foci of restricted diffusion to suggest acute infarct. No acute intracranial h emorrhage, midline shift or mass effect is present. Ventricular system is normal. Basilar cisterns ar e patent. There are no extra-axial collections. Flow-voids for the major intracranial vessels are pre sent. No intracranial mass or pathologic enhancement is identified. This exam is mildly compromised b y motion artifact. There is no suspicious calvarial replacement. Moderate white matter T2 hyperintens e foci suggest small vessel disease. IMPRESSION: 1. No acute intracranial findings. 2. No intracranial mass or pathologic enhancement. 3. White matter T2 hyperintense foci suggestive of small vessel disease. ACT 112: Negative or not required by law. Electronically signed by: Juanjose Stephens M.D. 07/24/2020 8:38 AM
[2020-07-24] MEDS ORDERED: metFORMIN HCL 500 MG TAB PO SCH (09:00)
[2020-07-24] MEDS ORDERED: hydroCHLOROthiazide 25 MG TAB PO SCH (09:00)
[2020-07-24] MEDS ORDERED: lisinopril 20 MG TAB PO SCH (09:00)
[2020-07-24] MEDS ORDERED: ATORVASTATIN 40 MG TAB PO SCH ×2 (09:00→21:00)
[2020-07-24] MEDS ORDERED: ASPIRIN 81 MG ECTAB PO SCH (09:00)
--- NOTE | 2020-07-24 10:07 | Neurology Consultation ---
Date of Consultation July 24, 2020 Assessment & Plan (1) Slurred speech: Episode of slurred speech likely related to alcohol intoxication. Symptoms not highly suggestive of TIA or stroke. However, patient does have several stroke risk factors including tobacco use, diabetes mellitus, h ypertension, and dyslipidemia. He has been found to have peripheral vascular disease as well. Patient informed me that he takes a daily low-dose aspirin as an outpatient. He should continue with this medication. He should continue with atorvastatin as well as his treatment for hypertension and diabetes mellitus. Smoking cessation needs to be stressed. Follow-up with vascular surgery recommendations regarding peripheral vascular disease. Follow-up with results of echocardiogram. No further immediate neurologic recommendations. History of Present Illness Reason for Consultation: Slurred speech Requesting Physician: Kevin Alexander DO Attending Physician: Sierra Rucker MD History of Present Illness The patient is a 69-year-old male who presented to the emergency department yesterday for further evaluation of slurred speech that had been noted by family members yesterday afternoon. He had been out shoveling snow for several hours when he began to feel dizzy. He had not eaten since breakfast. He remarks that he then went to his daughter's house and consumed 2 glasses of wine. His speech became slurred and he was brought to the emergency department for further evaluation given concern for possible TIA. Past medical history is notable for diabetes mellitus, hypertension, and hyperlipidemia. He has been complaining of chronic left leg pain as well. He has undergone thorough neuro imaging including CT of the head, CT angiography of the head and neck, MRI of the brain, and MRA of the neck. Other than chronic cerebrovascular disease, no significant abnormalities were identified. Imaging described in further detail below. A lower extremity arterial duplex does reveal diminished flow within the left lower limb. Vascular surgery has been consulted for this issue. Family history noncontributory Allergies Allergy/AdvReac Type Severity Reaction Status Date / Time No Known Allergies Allergy Unverified 07/23/20 22:51 Home Medications Medication Instructions Recorded Confirmed Type atorvastatin 40 mg PO DAILY 07/23/20 07/23/20 History hydrochlorothiazide 25 mg PO DAILY 07/23/20 07/23/20 History lisinopril 20 mg PO DAILY 07/23/20 07/23/20 History metformin 1,000 mg PO BID 07/23/20 07/23/20 History Patient History Medical History HLD (hyperlipidemia) Hypertension Social History Smoking Status: Current every day smoker Tobacco Type: Cigars Second Hand Exposure: Yes; Hx Alcohol Use: Yes Alcohol type: wine Hx Substance Use: No Preferred Language: Kiswahili Communication Ability: Effective 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[employer] Assembly Required: No Beliefs That Will Affect Care: None Current Living Situation: Spouse Feels Safe at Home: Yes Assistive Devices: Cane Review of Systems Constitutional: no fever and no chills Eyes: no blind spots and no diplopia Ear, Nose, Mouth, Throat: no hearing loss Respiratory: no cough and no dyspnea Cardiovascular: no chest pain and no palpitations Gastrointestinal: no nausea and no vomiting Genitourinary: no dysuria Musculoskeletal: no myalgia Integumentary: no rash and no lesions Neurologic: as per Subjective / HPI; no gait abnormality, no localized weakness, no loss of sensation, no headache(s), no confusion and no memory loss Psychiatric: no depression and no anxiety Hematologic / Lymphatic: no easy bleeding and no easy bruising Exam (Neuro) Constitutional: well developed and well nourished; no acute distress Eyes: normal visual jimenez by confrontation, PERRL, normal accommodation and EOM intact bilaterally; no fundoscopic abnormality, no nystagmus and no papilledema Cardiovascular: Vessels: normal carotid upstroke; no carotid bruit Neurologic: Oriented to:: Person, Place and Time Memory: Short Term Intact and Remote Intact Attention: Span Intact and Concentration Intact Language: Naming Objects and Repeating Phrases Speech Fluency: negative Dysarthria Speech Aphasia: negative Aphasia Fund of Knowledge: Current Events, Past History and Vocabulary Cranial Nerves: Normal II (Visual jimenez full to confrontation, visual acuity normal), III, IV, (Pupils equal round reactive to light and accommodation, eye movements normal), V (Facial sensation intact), VII (There is no facial droop or weakness), VIII (Hearing intact), IX, X (Palate elevates to midline), XI (Shoulder shrug intact) and XII (Tongue protrudes to midline) Motor Strength: Normal Lower Extremities and Normal Upper Extremities; negative Pronator Drift Motor Tone: Normal Lower Extremities and Normal Upper Extremities Muscle Bulk/Involuntary Movements: No Involuntary Movements; negative Muscle Atrophy Sensation: Light Touch Intact, Pain/Temperature Intact, Vibration Intact and Proprioception Intact Coordination: Normal; negative Limited Balance, Dysdiadochokinesia, Finger-Nose Abnormal and Heel-Dougherty Abnormal Deep Tendon Reflexes: Rt Triceps: 1+, Lt Triceps: 1+, Rt Biceps: 1+, Lt Biceps: 1+, Rt Brachioradialis: 1+, Lt Brachiora dialis: 1+, Rt Patellar: 1+, Lt Patellar: 1+, Rt Ankle: 1+ and Lt Ankle: 1+ S pecial Tests: negative Babinski Present Gait: Normal Station and Gait Results & Data ([facility]) Vital Signs (Past 12 Hours) Vital Signs Temp Pulse Pulse Resp BP BP Pulse Ox 07/24/20 07:55 36.9 C 87 20 164/94 H 96 07/24/20 06:10 90 18 166/96 H 95 07/24/20 04:11 86 18 176/95 H 94 07/24/20 03:00 79 18 133/84 94 07/24/20 00:30 82 16 149/92 H 95 07/24/20 00:00 84 15 144/85 H 95 07/23/20 23:30 78 17 132/75 94 07/23/20 23:00 86 17 139/81 96 07/23/20 22:55 88 16 162/88 H 96 07/23/20 22:30 143/72 H 07/23/20 22:00 83 19 139/81 96 Laboratory Results WBC 9.11, hemoglobin 17.3, hematocrit 51.3, platelet count 216, ESR 17, sodium 142, potassium 3.7, BUN 10, creatinine 0.82, glucose 102, hemoglobin A1c 6.4, calcium 9.2, magnesium 1.9, AST 20, ALT 31, troponin less than 0.015, triglycerides 272, cholesterol 123, LDL 43, VLDL 54, HDL 26, lipase 2557, TSH 2.310, ethyl alcohol level 96.[address] of the head negative for hemorrhage or acute process. CTA of the head and neck negative for stenosis, occlusion, aneurysm, or dissection. MRI of the brain negative for acute or subacute stroke. There is evidence of moderate chronic small vessel ischemic disease. MRA of the neck negative. These findings were observed by the interpreting radiologist. I reviewed the images and agree. An electrocardiogram reveals a normal sinus rhythm, 83 bpm. Coding Level of Care Code 44924 Initial Inpt Care Lvl 3 Diagnoses Slurred speech R47.81
--- NOTE | 2020-07-24 10:47 | Consultation ---
Date of Consultation July 24, 2020 Assessment & Plan (1) Abdominal aortic aneurysm (AAA) 3.0 cm to 5.5 cm in diameter in male: Pt with large AAA (5.3cm) by CT, as well as L common iliac art occlusion with reconstitution by collaterals in external iliac art. Recommend CTAngio to be performed prior to discharge and will see as outpt in office to discuss surgical options. Pt is agreeable. (2) Claudication of left lower extremity: Left hip/thigh claudication sx likely caused by L iliac occlusion. Will see in office as outpt to discuss surgical options after his CTA. Pt agreeable. Please call if needed otherwise. History of Present Illness Reason for Consultation: LLE claudication, AAA Attending Physician: Sierra Rucker MD History of Present Illness 69 yo m with hx of HTN, pre-diabetes, hyperlipidemia, admitted with possible TIA d/t slurred speech, seen in consultation today for claudication of LLE and AAA noted on imaging. Pt states he takes metformin daily and did not eat lunch yesterday, then worked outside [employer] for afew hrs, then drank some wine at his daughter's house and his family made him come to ED d/t his speech was not clear for a few minutes. No hx of TIA/CVA in past. Pt states no prior knowledge of AAA. Admits L hip/thigh claudication after walking about 1 block distance. Denies rest pain, ulcers, discoloration of LLE. No sx in RLE. No hx of cardiac problems or seeing beam dyer in past. Denies SMITH, fever, chest pa in, SOB, abd pain, N/V, other complaints. Arterial US demonstrates monophasic flow in LLE and JENNA of 0.5. CT with contrast demonstrates 5.3 x 5.1 cm AAA and L common iliac occlusion. CTA neck demonstrates no carotid stenosis. Allergies Allergy/AdvReac Type Severity Reaction Status Date / Time No Known Allergies Allergy Unverified 07/23/20 22:51 Home Medications Medication Instructions Recorded Confirmed Type atorvastatin 40 mg PO DAILY 07/23/20 07/23/20 History hydrochlorothiazide 25 mg PO DAILY 07/23/20 07/23/20 History lisinopril 20 mg PO DAILY 07/23/20 07/23/20 History metformin 1,000 mg PO BID 07/23/20 07/23/20 History Patient History Medical History HLD (hyperlipidemia) Hypertension Social History Smoking Status: Current every day smoker Tobacco Type: Cigars Second Hand Exposure: Yes; Hx Alcohol Use: Yes Alcohol type: wine Hx Substance Use: No Preferred Language: Albanian Communication Ability: 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 Beliefs That Will Affect Care: None Current Living Situation: Spouse Feels Safe at Home: Yes Assistive Devices: Cane Review of Systems Review of Systems: All systems reviewed & are unremarkable except as noted in HPI & below Physical Exam Constitutional: WD/WN, vitals as above healthy appearing, cooperative and comfortable; not in distress Eyes: PERRL, conjunctivae normal, anicteric sclerae ENMT: Ears: no hearing impairment Neck: trachea midline Respiratory: normal respiratory effort, lungs clear to auscultation Auscultation: + diminished lung sounds Cardiovascular: RRR, no murmur, no edema Vessels: abdominal aortic pulse present, femoral pulses present (+3 RLE, nonpalpable LLE), posterior tibial pulses present (+2 RLE, nonpalpable LLE), dorsalis pedis pulses present (+2 RLE, +1 LLE) and brachial pulses present; + abnormal peripheral pulses Extremities: normal capillary refill; no edema Gastrointestinal (Abdomen): normal bowel sounds, soft, nontender, no hepatosplenomegaly Percussion/Palpation: + pulsatile mass (difficult to palpate d/t body habitus) Musculoskeletal: no cyanosis or clubbing, extremities motor strength 5/5 Skin: no rashes, warm and dry Neurologic: moves all extremities and awake; no focal motor deficits and not confused Psychiatric: A+Ox3, euthymic affect Results & Data ([facility]) Vital Signs (Past 12 Hours) Vital Signs Temp Pulse Pulse Resp BP BP Pulse Ox 07/24/20 08:01 90 20 157/89 H 98 07/24/20 08:00 79 07/24/20 07:55 36.9 C 87 20 164/94 H 96 07/24/20 06:10 90 18 166/96 H 95 07/24/20 04:11 86 18 176/95 H 94 07/24/20 03:00 79 18 133/84 94 07/24/20 00:30 82 16 149/92 H 95 07/24/20 00:00 84 15 144/85 H 95 07/23/20 23:30 78 17 132/75 94 07/23/20 23:00 86 17 139/81 96 07/23/20 22:55 88 16 162/88 H 96
[2020-07-24] MEDS ORDERED: OPTIRAY 320 125ml IV ONE (13:52)
--- NOTE | 2020-07-24 14:27 | CT Scan Report ---
CT angio abd pelvis wo/w con CLINICAL HISTORY: Abdominal aortic aneurysm. COMPARISON STUDY: CT of the abdomen and pelvis July 23, 2020. TECHNIQUE: Unenhanced and arterial phase imaging of the abdomen and pelvis was performed. Intravenous injection 119 cc of Optiray 320 IV was uneventful. Sagittal and coronal reconstructions were viewed as well as maximal intensity projections on an independent 3-D workstation. Automated exposure contro l was utilized for the study. A dose lowering technique was utilized adhering to the principles of A CRISTIANA. FINDINGS: Moderate emphysema is noted within the lower lungs. A 5 mm left lower lobe nodule on image 47 of 411 is noted. No pneumatosis, free air or portal venous gas is present. Arterial phase images o f the liver, spleen, adrenal glands and pancreas are unremarkable with exception of parenchymal calci fications within the pancreas which suggests chronic pancreatitis. There is no peripancreatic infiltr ation. No biliary or pancreatic ductal dilatation is noted. Water attenuation bilateral renal lesions reflect cysts. Nephrograms are symmetric. There is colonic diverticulosis without evidence for acute diverticulitis. There is no evidence for a bowel obstruction. The appendix is normal. No lymphadenop athy is present. There are brachytherapy seeds within the prostate. There are no suspicious osseous l esions within the visualized skeletal structures. Note is made of a 5.2 x 5.1 cm infrarenal abdominal aortic aneurysm which contains extensive mural th rombus. Aneurysmal dilatation begins 2.8 cm inferior to the takeoff of the single bilateral renal art eries. There is mild stenosis at origin of the left renal artery. The celiac axis and superior mesent neville artery are patent. There is probable backfilling of the inferior mesenteric artery. There is occ lusion of the left common iliac artery with reconstitution at the level of the left iliac bifurcation . Note is made of moderate stenosis of the left external iliac artery. Note is made of mild dilatatio n of the right common iliac artery, measuring 1.8 cm. There is also mild dilatation of the right inte rnal iliac artery, measuring 1.1 cm with extensive mural thrombus which results in severe stenosis of this vessel. The right external carotid artery contains moderate plaque but is patent without severe stenosis. Right common femoral artery is also patent. There is no dissection. There is no evidence f or rupture. Note is made of angulation of the proximal right common iliac artery just beyond the bifu rcation. IMPRESSION: 1. 5.2 x 5.1 cm infrarenal abdominal aortic aneurysm which contains extensive mural thrombus. Aneurys mal dilatation begins 2.8 cm inferior to the origins of the single bilateral renal arteries. Angulati on of the proximal right common iliac artery just beyond the bifurcation. Mild aneurysmal dilatation of the right common iliac artery, measuring 1.8 cm. Occluded left common iliac artery with reconstitu tion at the level of the left iliac bifurcation. No rupture. 2. No acute process within the abdomen or pelvis. 3. Emphysema. 4. Colonic diverticulosis without evidence for acute diverticulitis. ACT 112: Negative or not required by law. Electronically signed by: Juanjose Stephens M.D. 07/24/2020 2:25 PM
--- NOTE | 2020-07-24 15:23 | Discharge Summary ---
Date of Service July 24, 2020 Admission HPI Per Admitting Provider Mr. Alok Salgado is a past medical history HTN, HLD, Pre-diabetic, who presents with CC of Slurred Speech. He notes events of today of being waking up at 6am, having oatmeal, later eating breakfast "cyr and eggs." Then, he notes skipping lunch, early afternoon he spent 2 hours show shoveling/extrenous work and then had dizziness denies room spinning type. He does know how long this last but it resovled before, he went to his daughter's house "down the street" to visit. He notes he had one glass of wine at his daughters and was going to drive back to his house to eat dinner. Instead, he is vague, but endorses family thought he had slurred speech. However, he doesn't note speaking any differently or having any acute symptoms since dizziness earlier in the day. He thought dizziness was from skipping lunch. In the ED, he had a workup for TIA with normal neuro findings on exam. He denied having any chest pain, shortness of breath, nausea, diaphoresis. He notes he has been suffering from left leg pain that has been recently chronic for maybe a year but that has worsened in intensity for the past 2 week. It went from only with exertion to starting to hurt at rest as well. He saw his PC P this past Monday and had an Xray of left hip that showed no acute bony abnormality. He notes it is located proximal thigh of left leg anteriorly to medial thigh. It is not relieved with NSAIDs. He states his father had a genetic heart condition and lived to 72, but thinks dad his dad had severe atherosclerotic disease. He drinks glass of wine daily. He smokes cigars daily. He notes hx of well controlled. He states he is prediabetic for many years and has been on Metformin many years, denies Type 2 DM diagnosis. He notes starting atorvastatin 20mg about 6 months to a year ago. He takes HCTZ and Lisinopril for HTN. He states he takes baby ASA. In the ED, he had no acute neuro symptoms but was found to have severe extensive atherosclerotic disease on workup. He had a CT ABD With Contrast: Diffuse atherosclerotic changes of the aorta and its branches. Infrarenal abdominal aortic aneurysm measuring approximately 5cm. Associated plaque with areas of severe luminal stenosis. Occlusion of the left common and left internal iliac arteries. Areas of advanced luminal stenosis in the right iliac arteries. US ARTERIAL BILATERAL LOWER EXTREMITIES: Atherosclerotic changes, left greater than right. No evidence of arterial occlusion. High-grade stenosis suggested in the right common femoral artery Dampened velocities and monophasic waveforms throughout the arterial system on the left side. CT HEAD:No ICH, mass effect or edema. No evidence of acute cortical stroke. CTA HEAD: No central occlusion related to the alutiiq of Jeffery CTA NECK:No occlusions, high-grade stenoses or dissections. Pulmonary emphysema/cysts. Scarring in the lung apices. He notes no acute symptoms currently. Notes no alcohol abuse. Had an elevated Lipase but findings of chronic pancreatitis on CT ABD. He has no abdominal pain. Admission Exam Per Admitting Provider Constitutional: WD/WN, vitals as above + obese, cooperative and comfortable; no acute distress and not ill appearing Eyes: PERRL, conjunctivae normal, anicteric sclerae ENMT: external ear and nose normal, oropharynx normal Neck: trachea midline, no thyromegaly Respiratory: no respiratory distress and no labored breathing Auscultation: + wheezes (diffuse inspiratory at bilateral bases); no rales Cardiovascular: RRR, no murmur, no edema Extremities: no calf tenderness Gastrointestinal (Abdomen): Inspection/Auscultation: + abdomen distended and normal bowel sounds Percussion/Palpation: abdomen soft; abdomen nontender, no guarding and abdomen not rigid Musculoskeletal: no cyanosis or clubbing, extremities motor strength 5/5 feet are cold bilaterally but N/V intact. Motor intact. Skin: no rashes, warm and dry Neurologic: CN's II-XI intact bilaterally, moves all extremities and awake; no focal motor deficits and not confused Cranial Nerves: EOM intact bilaterally Psychiatric: Orientation: alert and oriented x 3 does seem mildly vague with some details of dizziness to arrival to ED in history taking. Principal Diagnosis Slurred Speech Abdominal Aortic Aneurysm Peripheral Vascular Disease Discharge Exam Constitutional Well-appearing 69-year-old gentleman who is lying back in his hospital, relaxed, and is interactive, engaged, alert, and oriented fully throughout our discussion. NAD. Respiratory Good respiratory effort with symmetric expansion of chest. Lungs did demonstrate some wheezing in upper lung jimenez, otherwise were CTAB. Cardiovascular RRR, no murmur, no edema Neurologic CN II - XII grossly intact. Upper and lower extremity strength is 5/5 bilaterally. Sensation to light touch is grossly intact. Biceps, brachioradialis, patellar, and Achilles' reflexes globally 2+. No clonus. Gait not assessed. Psychiatric A+Ox3, euthymic affect Discharge Data Allergies Allergy/AdvReac Type Severity Reaction Status Date / Time No Known Allergies Allergy Unverified 07/23/20 22:51 Consultations 07/24/20 03:40 ED Decision to Admit Stat 07/24/20 08:01 Consult Case Management - Discharge Planning Routine Consult Neurology Routine Consult Vascular Surgery Routine Ordered Studies 07/23/20 21:23 NECK CTA HISTORY: Fall. TIA/slurred speech TECHNIQUE: Multiaxial CT images of the neck were performed following the intravenous administration of contrast to evaluate the major cervical vessels. Maximum intensity projection images were also obtained. All measurements were calculated based on NASCET criteria. A dose lowering technique was utilized adhering to the principles of ALARA. COMPARISON STUDY: Neck CTA 07/23/2020. FINDINGS: The aortic arch and proximal great vessels are widely patent. There is no significant stenosis, occlusion, or dissection identified within the bilateral common carotid, internal carotid, or vertebral arteries. IMPRESSION: No significant stenosis, occlusion, or dissection identified within the carotid or vertebral arteries. ---- MRI OF THE BRAIN WITHOUT AND WITH IV CONTRAST CLINICAL HISTORY: TIA/slurred speech COMPARISON STUDY: Head CT and CTA of the head July 23, 2020. TECHNIQUE: Utilizing a 1.5 Mar magnet and dedicated coil, multiplanar, multiecho imaging of the brain was performed pre and postcontrast administration. IV administration of 9.2 mL of Gadavist contrast was uneventful. Thin cut T1 post contrast imaging was performed. FINDINGS: There are no foci of restricted diffusion to suggest acute infarct. No acute intracranial hemorrhage, midline shift or mass effect is present. Ventricular system is normal. Basilar cisterns are patent. There are no extra- axial collections. Flow-voids for the major intracranial vessels are present. No intracranial mass or pathologic enhancement is identified. This exam is mildly compromised by motion artifact. There is no suspicious calvarial replacement. Moderate white matter T2 hyperintense foci suggest small vessel disease. IMPRESSION: 1. No acute intracranial findings. 2. No intracranial mass or pathologic enhancement. 3. White matter T2 hyperintense foci suggestive of small vessel disease. ---- 07/23/20 22:[address] WITH IV CONTRAST CT DOSE: 1812.85 mGy.cm HISTORY: elevated lipase,left hip pain TECHNIQUE: Multiaxial CT images of the abdomen and pelvis were performed following the use of intravenous contrast. A dose lowering technique was utilized adhering to the principles of ALARA. COMPARISON STUDY: None. FINDINGS: Mild emphysema at the lung bases. No pneumoperitoneum. No pneumatosis. No suspicious lytic or blastic osseous lesions. The liver, gallbladder, adrenal glands, and pancreas are within normal limits. A few bilateral renal hypodense lesions. These likely represent cysts. No hydronephrosis. Calcifications within the renal sinuses appear to be vascular. No retroperitoneal lymphadenopathy. The re is a 5.3 x 5.1 cm infrarenal abdominal aortic aneurysm. The left common iliac artery is completely occluded with reconstitution at the left external iliac artery. There is also mild aneurysmal dilatation of the distal right common iliac artery measuring 1.9 cm. The bladder is unremarkable. Multiple brachytherapy seeds noted within the prostate gland. Colonic diverticulosis. No evidence for acute diverticulitis. Small left omental nodule on image 194 measuring 9 mm. This contains fat and calcification. Therefore, this likely benign. No bowel wall thickening or obstruction. Normal appendix. Multiple punctate calcification seen scattered throughout the pancreas consistent with a chronic pancreatitis. No peripancreatic inflammatory change to suggest an acute pancreatitis at this time. Mild distal esophageal thickening. IMPRESSION: 1. Mild distal esophageal thickening. This could represent a mild esophagitis. 2. Otherwise, no bowel wall thickening or obstruction within the abdomen. 3. A 5.3 x 5.1 cm infrarenal abdominal aortic aneurysm. 4. The left common iliac arteries completely occluded with reconstitution at the left external iliac artery. 5. 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 6. Emphysema. 7. Chronic pancreatitis. No evidence for acute pancreatitis. 8. Additional findings as described above. ----- 07/24/20 00:55 US arterial duplex LE BI CLINICAL HISTORY: Proximal claudication/rest pain COMPARISON STUDY: No previous studies for comparison. TECHNIQUE: Bilateral ankle to brachial indices were obtained. Grayscale, color and duplex Doppler sonography of the arterial systems of the lower extremities was then performed. FINDINGS: Right ankle-brachial index measured 0.92 when using posterior tibial a rtery and 0.90 when using dorsalis pedis. The left ankle to brachial index measured 0.51 when using posterior tibial artery and 0.39 when using the dorsalis pedis. There is no evidence for arterial occlusion within the lower extremity. However, there is monophasic flow throughout the left lower extremity which raises the possibility of inflow disease. There are no elevated velocities within the left lower extremity. Moderate atherosclerotic plaque is noted. A mildly elevated peak systolic velocity of 295 cm/s is noted within the right common femoral artery. No additional elevated velocities are identified. There is biphasic flow throughout the right lower extremity IMPRESSION: 1. Monophasic flow throughout the left lower extremity which suggests inflow disease. Diminished left ankle to brachial index of 0.5. 2. Biphasic flow throughout the right lower extremity. Mildly elevated peak systolic velocity within the right common femoral artery. 3. Moderate atherosclerotic plaque within the lower extremities. ---- 07/24/20 09:56 CT angio abd pelvis wo/w con CLINICAL HISTORY: Abdominal aortic aneurysm. COMPARISON STUDY: CT of the abdomen and pelvis July 23, 2020. TECHNIQUE: Unenhanced and arterial phase imaging of the abdomen and pelvis was performed. Intravenous injection 119 cc of Optiray 320 IV was uneventful. Sagittal and coronal reconstructions were viewed as well as maximal intensity projections on an independent 3-D workstation. Automated exposure control was utilized for the study. A dose lowering technique was utilized adhering to the principles of ALARA. FINDINGS: Moderate emphysema is noted within the lower lungs. A 5 mm left lower lobe nodule on image 47 of 411 is noted. No pneumatosis, free air or portal venous gas is present. Arterial phase images of the liver, spleen, adrenal glands and pancreas are unremarkable with exception of parenchymal calcifications within the pancreas which suggests chronic pancreatitis. There is no peripancreatic infiltration. No biliary or pancreatic ductal dilatation is noted. Water attenuation bilateral renal lesions reflect cysts. Nephrograms are symmetric. There is colonic diverticulosis without evidence for acute diverticulitis. There is no evidence for a bowel obstruction. The appendix is normal. No lymphadenopathy is present. There are brachytherapy seeds within the prostate. There are no suspicious osseous lesions within the visualized skeletal structures. Note is made of a 5.2 x 5.1 cm infrarenal abdominal aortic aneurysm which contains extensive mural thrombus. Aneurysmal dilatation begins 2.8 cm inferior to the takeoff of the single bilateral renal arteries. There is mild stenosis at origin of the left renal artery. The celiac axis and superior mesenteric artery are patent. There is probable backfilling of the inferior mesenteric artery. There is occlusion of the left common iliac artery with reconstitution at the level of the left iliac bifurcation. Note is made of moderate stenosis of the left external iliac artery. Note is made of mild dilatation of the right common iliac artery, measuring 1.8 cm. There is also mild dilatation of the right internal iliac artery, measuring 1.1 cm with extensive mural thrombus which results in severe stenosis of this vessel. The right external carotid artery contains moderate plaque but is patent without severe stenosis. Right common femoral artery is also patent. There is no dissection. There is no evidence for rupture. Note is made of angulation of the proximal right common iliac artery just beyond the bifurcation. IMPRESSION: 1. 5.2 x 5.1 cm infrarenal abdominal aortic aneurysm which contains extensive mural thrombus. Aneurysmal dilatation begins 2.8 cm inferior to the origins of the single bilateral renal arteries. Angulation of the proximal right common iliac artery just beyond the bifurcation. Mild aneurysmal dilatation of the right common iliac artery, measuring 1.8 cm. Occluded left common iliac artery with reconstitution at the level of the left iliac bifurcation. No rupture. 2. No acute process within the abdomen or pelvis. 3. Emphysema. 4. Colonic diverticulosis without evidence for acute diverticulitis. ---- XR chest 1V portable HISTORY: Atypical Chest Pain COMPARISON: None. FINDINGS: The lungs are clear. Cardiac silhouette is normal in size. No pleural effusions. No pneumothorax. IMPRESSION: No acute process. Hospital Course (1) Slurred speech: Alok Salgado is a very pleasant 69-year-old gentleman with a notable past medical history of HTN, HLD, and pre-diabetes who presented to [facility] on 07/24 at the recommendation of his family for evaluation of slurred speech, "dizziness," and a fall in the setting of a skipped meal, strenuous physical activity, and alcohol intake, subsequently found to have no evidence of acute ischemic changes or intracranial processes on CT/MRI. He also complained of ongoing LLE pain with exertion, and was found to have extensive vascular disease on imaging while here. Incidentally, he was found to have a large, 5.3cm AAA on CT. Slurred Speech - Clinically, patient reported feeling "off" yesterday after having skipping lunch, engaging in strenuous shoveling/snowblowing, and subsequently consuming 2 glasses of wine; felt somewhat "dizzy," but not really lightheaded or vertigo. Later in the evening, he reported walking through his daughter's garage when he tripped and fell. Around this time, family reported that he was slurring his speech. No reports of FNDs, sensory disturbances, or cardiac symptoms. Resolved prior to presentation. - R/O TIA and CVA -- especially in setting of extensive vascular disease - Head CT negative for acute insults / changes - Head MRI demonstrated some hyperintense foci suggestive of small vessel disease - Neck CTA negative for significant stenosis - ECG demonstrated NSR without acute ST-T changes - Awaiting echocardiogram, r/o PFO - ESR was mildly elevated at 17 - Troponin < 0.015 x 2 - CBC, electrolytes WNL - EtOH notably positive at 96.2 mg/dL - Neurology consulted, appreciate insight and recommendations: - Impression of symptoms was likely d/t alcohol intoxication rather than TIA/CVA, however, does have multiple risk factors (tobacco use, HTN, HLD, PVD) - Continue ASA 81, lipid control, blood sugar control, HTN control - Await echocardiogram Peripheral Arterial Disease with intermittent claudication - Clinically, patient reports several months of worsening LLE pain worse with exertion, relieved by rest - Imaging w/u demonstrated significant arterial disease: - US of b/l lower extremities demonstrated significant atherosclerotic changes (L>R) with JENNA of ~0.5 in LLE - CT Abd/Pelvis and CT-A demonstrated "left common iliac arteries completely occluded with reconstitution at the left external iliac artery" and "mild aneurysmal dilatation of the right common iliac artery measuring 1.9 cm." - Vascular surgery consulted, appreciate insight and recommendations: Likely cause of claudication symptoms is the left iliac occlusion -- f/u as outpatient to discuss interventional options - Atorvastatin increased from 40 --> 80mg PO daily - Continue ASA 81, lipid control, blood sugar control (A1c 6.4% at this visit), HTN control as medical therapy Abdominal Aortic Aneurysm - No signs or symptoms of acute process, discovered incidentally w/ CT Abdomen/Pelvis - CT-A demonstrated: "5.2 x 5.1 cm infrarenal abdominal aortic aneurysm which contains extensive mural thrombus. Aneurysmal dilatation begins 2.8 cm inferior to the origins of the single bilateral renal arteries" - Vascular surgery aware: discuss interventional management strategies as outpatient, will require close f/u (and, if immediate intervention deferred, q6mo US) - No need for anticoagulation at present per vascular surgery - Counselled on smoking cessation Chronic Pancreatitis - CT abdomen/pelvis revealing of imaging changes consistent with chronic pancreatitis - Lipase notably elevated to >2000 in ED - No symptoms. Patient denied alcohol abuse on admission. TGs elevated, but not grossly. Is on HCTZ. - EtOH was mildly elevated on admission to 92, which was noted - Continue to follow clinically in outpatient setting HTN - Patient notes this is usually well-controlled, but was found to have pressures between 140-160s/90s while here - Continue lisinopril-HCTZ at present dose for now, consider changes / augmentation in outpatient setting, especially in setting of significant vascular disease - Counselled on regular exercise, healthy diet as lifestyle modifications Pre-Diabetes - A1c returned at 6.4% - Continue metformin 1000mg PO b.i.d. - Consider augmentation in outpatient setting: given ASCVD, can consider SGLT1 or GLP1 in future - Lifestyle counselling as above HLD - Lipid panel revealing of TG 272; Chol 123, LDL 43, VLDL 54, HDL low at 26 - Atorvastatin 40mg --> 80mg PO daily prior to d/c given extensive vascular disease Tobacco Abuse - Patient endorses multi-year h/o cigar use - Counselled on cessation and its effects with relation to ASCVD, AAA - Consider low-dose lung CT per USPSTF in outpatient setting Pulmonary Emphysema on Imaging - CT Abd/Pelvis suggestive of emphysematous changes in the lungs - Significant tobacco use history, as above - Wheezing was appreciable on physical examination, although patient denies any sort of dyspnea - Consider PFTs in outpatient setting, ?COPD (2) Peripheral arterial disease: (3) Abdominal aortic aneurysm (AAA) 3.0 cm to 5.5 cm in diameter in male: (4) Claudication of left lower extremity: (5) Pre-diabetes: (6) Hypertension: (7) Chronic pancreatitis: Total Time Total Time Spent Total Time Spent (In Minutes): see attending attestation Discharge Plan Discharge Items Patient Disposition: Home - Self-Care Reason For Visit: SLURRED SPEECH Discharge Diagnosis: Slurred Speech Abdominal Aortic Aneurysm Peripheral Arterial Disease Condition on Discharge: Good Activity: Per Instructions section Non-emergency contact: Primary Care Provider and Surgeon Call non-emergency contact if: you have any medication questions, your symptoms worsen, your pain is unusual for you and your temperature is above 101 Follow-up/Referrals: Jeremy Kaiser, [Primary Care Provider] - 07/28/20 9:50 am Diet: Carb Consistent or DM2 and Heart Healthy Addtl Attending Provider Instructions: You were seen at [facility] on 07/24/20 primarily for evaluation of slurred speech and a fall, but also ongoing leg pain. Upon your arrival to the Emergency Room, you underwent several tests to determine the cause of these symptoms. You received blood tests, an ECG, head scans (CT, MRI, and a form of MRI that allows for visualization of your head and neck blood vessels), and imaging of your abdomen and legs' blood vessels. These tests did not demonstrate any acute (new) changes within the brain or neck that might suggest an immediate cause of your symptoms, like a major stroke. The CT scan of your abdomen did show the presence of an abdominal aortic aneurysm (also called AAA; an enlargement of the blood vessel at a particular area), imaging findings that might be suggestive of inflammatory changes within the pancreas ("chronic pancreatitis") and emphysema within the lungs. Further, a scan of your legs demonstrated reduced flow in some of the arteries of your legs due to buildup of plaque. Based on these findings, it is difficult to elucidate the exact cause of your slurred speech and fall. Certainly, low blood sugar following missing a meal, then engaging in rigorous physical activity (e.g., shoveling snow/using snowblower) followed by alcohol consumption could produce these symptoms. Further, while the head scans did not demonstrate evidence of a stroke, it is possible that a mini-stroke (transient ischemic attack, TIA) could have occurred/contributed and self-resolved without evidence on imaging. The findings of plaque in your leg's arteries likely explains the pain you have been experiencing while walking around. ---- Moving forward, please follow-up with your PCP within 1 week to discuss this visit. You should focus on addressing the various factors we talked about that can progress the development of plaque, as well as the AAA: notably, controlling blood pressure, optimizing blood sugar control, reducing your cholesterol, smoking cessation, and regular exercise. You were seen by physical therapy prior to discharge to ensure you had a safe functional status prior to reporting home. Further, please follow-up with vascular surgery within the next 2-3 weeks to discuss interventional planning for your peripheral vascular disease (plaque in the legs) as well as the AAA. If you experience any recurrence of your symptoms, or new, sudden-onset weakness, slurred speech, numbness/tingling, chest/abdominal pain, or other concerning symptoms, please do not hesitate to report to the ER for prompt evaluation (or by calling 911). ---- MEDICATION CHANGES - ADD: aspirin 81mg (baby aspirin) by mouth, once daily - CHANGE: atorvastatin 40mg once daily was increased to: --> atorvastatin 80mg once daily, by mouth Pending Studies at Discharge: No Stand-Alone Forms: My [facility] [employer] Smoking Cessation Medications and DC Order Prescriptions: New aspirin 81 mg Tablet,Delayed Release (Dr/Ec) 81 mg PO DAILY 30 Days Qty: 30 RF: 1 atorvastatin 80 mg tablet 80 mg PO DAILY Qty: 30 RF: 1 Continued metformin 500 mg tablet 1,000 mg PO BID RF: 0 lisinopril 20 mg tablet 20 mg PO DAILY RF: 0 hydrochlorothiazide 25 mg tablet 25 mg PO DAILY RF: 0 Discontinued atorvastatin 40 mg tablet 40 mg PO DAILY RF: 0 Discharge Orders: Discharge Order (Routine); Ordered 07/24/20 Ordered By: Santos Guevara/Other Patient Handouts: Quit-Smoking Tools Help for ..., Prediabetes, 5 Steps for Eating Healthier, Aneurysm Abdominal Aortic, PAD, Smoking and PAD, A1C Admission Data Admit Date/Time: 07/24/20 05:11 Attending Provider: Sierra Rucker Admit Provider: Promise Javed Primary Care Provider: Jeremy Kaiser Other Providers: Promise Javed ; Jignesh Crespo ; Blayne Polanco Other Interventions: Discharge Summary Assessment (RN) Last Done: 07/24/20 15:56 Supervising Physician Co-Signing Physician Notes Resident Physician Supervision Note: I independently interviewed and examined the patient and verified the chacko history and physical, reviewed labs and image studies, discussed the case with the resident Dr. Rod and agree with the findings and care plan. Resident Activity Tracking Resident Involvement: Resident Care Provided Care Provided: Adult Hospital Medicine
--- NOTE | 2020-07-24 19:58 | XCELERA ---
[id number]
--- NOTE | 2020-07-25 06:02 | Electrocardiogram Report ---
Test Reason : Blood Pressure : / mmHG Vent. Rate : 083 BPM Atrial Rate : 083 BPM P-R Int : 162 ms QRS Dur : 090 ms QT Int : 388 ms P-R-T Axes : 058 074 056 degrees QTc Int : 455 ms Normal sinus rhythm Normal ECG No previous ECGs available Confirmed by Angelo Arguelles ([id number]) on 07/25/2020 6:02:29 AM Referred By: REFERRED SELF Confirmed By:Angelo Arguelles
[2020-07-26] MEDS ORDERED: metFORMIN HCL 500 MG TAB PO SCH (08:00)
== END 2020-07-24 16:42 | disposition home or self-care (01) ==
LOC: 1E 20:48 → ED 20:48 → SUATTDRO 07-24 05:11 → 1E 07-24 06:18

== ENCOUNTER 2021-05-26 12:15 | Inpatient (IN) ==
[2021-05-26 13:24] LABS: Basophils # (auto) 0.01 K/uL (0-0.2); Basophils % (auto) 0.1 %; Eosinophils # (auto) 0.01 K/uL (0-0.5); Eosinophils % (auto) 0.1 %; Hematocrit (blood only) 50.3 % (42-52); Hemoglobin 17.9 g/dL (14.0-18.0); Immature Granulocytes # (auto) 0.02 K/uL (0.00-0.02); Immature Granulocytes % (auto) 0.2 %; Lymphocytes # (auto) 1.69 K/uL (1.2-3.4); Lymphocytes % (auto) 16.6 %; Mean Corpuscular Hemoglobin 34.5 pg (25-34); Mean Corpuscular Hgb Conc 35.6 g/dL (32-36); Mean Corpuscular Volume 96.9 fL (80-100); Mean Platelet Volume 11.2 fL (7.4-10.4); Monocytes # (auto) 0.72 K/uL (0.11-0.59); Monocytes % (auto) 7.1 %; Neutrophils # (auto) 7.75 K/uL (1.4-6.5); Neutrophils % (auto) 75.9 %; Platelet Count 261 K/uL (130-400); RDW Coefficient of Variation 13.7 % (11.5-14.5); RDW Standard Deviation 48.6 fL (36.4-46.3); Red Blood Count 5.19 M/uL (4.7-6.1)
[2021-05-26 13:36] LABS: Partial Thromboplastin Time 25.9 Seconds (21.0-31.0)
[2021-05-26 13:43] LABS: Albumin Level 3.4 gm/dl (3.4-5.0); BUN Creatinine Ratio 18.3 (10-20); Calcium 10.4 mg/dl (8.5-10.1); Creatinine Clr Calc Pharmacy 62.9 ml/min; Est GFR (African American) 88.6 ml/min; Est GFR (Non-African American) 76.5 ml/min; Potassium 3.7 mmol/L (3.5-5.1)
[2021-05-26 13:50] LABS: Albumin Globulin Ratio 0.8 (0.9-2); Bilirubin,Total 0.6 mg/dl (0.2-1); Globulin 4.5 gm/dl (2.5-4.0); Total Protein 7.9 gm/dl (6.4-8.2); Troponin I 4.17 ng/ml (0-0.045)
[2021-05-26] MEDS ORDERED: Heparin IV Adult Wt-Based Low-Dose WITH Bolus Protocol STA (14:17)
--- NOTE | 2021-05-26 14:24 | XRay Report ---
SINGLE VIEW CHEST CLINICAL HISTORY: Atypical chest pain. FINDINGS: 2 AP, portable, upright chest radiographs are compared to study dated 07/23/2020. The cardi omediastinal silhouette is unremarkable noting atherosclerotic calcification of the thoracic aorta. E mphysema and chronic interstitial thickening is similar to previous. No airspace consolidation or lar ge pleural effusion is identified. Question a subcentimeter nodular density in the right midlung. No pneumothorax is seen. The bony thorax is grossly intact. IMPRESSION: 1. Emphysematous change with no acute cardiopulmonary abnormality. 2. Question a subcentimeter nodular density in the right midlung. Follow-up with a nonemergent chest CT is recommended for further evaluation and to exclude underlying pulmonary lesion. ACT 112: Negative or not required by law. Electronically signed by: Mc Nelson M.D. 05/26/2021 2:23 PM
[2021-05-26] MEDS ORDERED: METOPROLOL TARTRATE 1 MG/ML VIAL IV STA (14:27)
--- NOTE | 2021-05-26 14:27 | Emergency Department Note ---
Impression & Plan NSTEMI (non-ST elevated myocardial infarction), Hematuria, Abnormal ECG ED Provider Note NAME: JOEL ROLDAN AGE: 70 SEX: M : 1950 ARRIVES VIA: Walk-In INFORMANT: Patient ED PROVIDER(S): Santos Leal DO CHIEF COMPLAINT: Chest pain and hematuria HPI: Patient is a 70-year-old male who presents the ER for chest pressure which started last night around 7pm. He was seen several days ago and diagnosed with hematuria and urinary retention. Wheeler was placed. Last night around 8:53 PM he had a small episode of chest pressure/heaviness. He notes it felt like indigestion and it resolved. He went to an outpatient PCP who referred him in due to the chest pain. He has had some intermittent hematuria for the past day. Denies any belly pain, nausea, vomiting, or diarrhea. No dysuria, urgency, or frequency. No other exacerbating or remitting factors. ROS: See above HPI for pertinent positives & negatives. A total of 10 systems reviewed and were otherwise negative. PAST MEDICAL HISTORY:See Below PAST SURGICAL HISTORY:See Below FAMILY HISTORY:See Below SOCIAL HISTORY:See Below HOME MEDICATIONS:See Below ALLERGIES:See Below VITALS:See Below PHYSICAL EXAMINATION: GENERAL: Sitting up in bed, alert, well appearing, well nourished, no distress, non-toxic EYE EXAM: normal conjunctiva. PERRL and EOM's grossly intact. OROPHARYNX: no exudate, no erythema, lips, buccal mucosa, and tongue normal and mucous membranes are moist NECK: supple, no nuchal rigidity, no adenopathy, non-tender LUNGS: Clear to auscultation. Normal chest wall mechanics HEART: no murmurs, S1 normal and S2 normal ABDOMEN: abdomen soft, non-tender, normo-active bowel sounds, no masses, no rebound or guarding. UPPER EXTREMITIES: upper extremities are grossly normal. LOWER EXTREMITIES: No pitting edema. Calves are equal bilateral. NEURO EXAM: Normal sensorium, cranial nerves II-XII grossly intact, normal speech, no gross weakness of arms, no gross weakness of legs. MEDICAL DECISION MAKING: Patient is a 70-year-old male who presents the ER referred in by PCP for chest pain which he had last night as well as hematuria in his Wheeler. Past medical history includes diabetes, PAD pancreatitis and hypertension as well as tobacco use. IV was established blood work was obtained. Labs show no significant leukocytosis or anemia. INR unremarkable. BMP slightly elevated glucose. LFTs bilirubin was unremarkable. Troponin was elevated at 4.1. EKG showed diffuse ST wave and ischemic changes. He has no chest pain at this time. Discussed with Dr. Wes Howard who reviewed troponin blood work as well as EKG. Discussed with the interventionalist who evaluate the patient at bedside. He will watch him through the night and is he is pain-free currently. Recommended to complete work-up for hematuria at this time. Patient was given aspirin. Given IV fluids. Blood pressure improved and heart rate trended down to the 80s. Discussed with Wes rodriguez her in regards to heparin bolus which he recommended holding due to the hematuria. Will defer to the hospitalist and cardiology from here. Triage Nursing notes reviewed. Limited review of prior medical records performed Vital Signs: reviewed and remarkable for HTN, hypotension Differential diagnosis: Differential diagnoses includes but is not limited to acute coronary syndrome, myocardial infarction, pericarditis, pulmonary embolus, aortic dissection, pneumonia, pneumothorax, musculoskeletal, shingles, esophageal. ER treatment provided: See below Diagnostics interpreted by me: ECG: Sinus rhythm rate 102 ST depressions in the inferior leads as well as V3 through V6 with T wave inversions Septal Q waves EKG is new from earlier this year. Cardiac Monitoring: An order was placed for continuous cardiac monitoring. The monitor shows a rate of 98 with sinus rhythm. Laboratory studies: As stated above and show below. Imaging studies: Portable AP upright 1 view chest shows no focal infiltrate or pneumothorax Consultation(s): Discussed with Dr. Wes Gomez as stated above Discussed with Sarah Garcia at bedside Discussed with the hospitalist for further evaluation Procedures: none Critical Care: None Past Med/Surg History Medical History HLD (hyperlipidemia) Hypertension Stroke-like symptoms Social History Smoking Status: Current some day smoker Tobacco Type: Cigars Second Hand Exposure: Yes; Hx Alcohol Use: Yes Alcohol type: wine Hx Substance Use: No Preferred Language: Estonian Communication Ability: Effective Video Games Mechanic Required: No Beliefs That Will Affect Care: None marital status: Current Living Situation: Spouse Feels Safe at Home: Yes Assistive Devices: Cane Allergies Allergies Allergy/AdvReac Type Severity Reaction Status Date / Time No Known Allergies Allergy Verified 05/26/21 14:58 Home Meds Home Medications Medication Instructions Recorded Confirmed hydrochlorothiazide 25 mg tablet 25 mg PO DAILY 07/23/20 05/26/21 lisinopril 20 mg tablet 20 mg PO DAILY 07/23/20 05/26/21 metformin 500 mg tablet 1,000 mg PO BIDM 07/23/20 05/26/21 icosapent ethyl 1 gram capsule 1 g PO BID 05/22/21 05/26/21 atorvastatin 80 mg tablet 80 mg PO HS 05/26/21 05/26/21 Previous Rx's Medication Instructions Recorded aspirin 81 mg tablet,delayed 81 mg PO DAILY 30 Days #30 tab 07/24/20 release doxycycline hyclate 100 mg tablet 100 mg PO Q12H 21 Days #42 tab 05/22/21 Results & Data (ED) Vital Signs Vital Signs - 24 hr 05/26/21 12:21 05/26/21 14:26 05/26/21 14:30 Temperature 36.7 C Temperature Source Temporal Artery Scan Pulse Rate 119 H 94 H 95 H Pulse Rate from SpO2 Sensor 94 H 89 Pulse Rhythm Regular Pulse Strength Normal Respiratory Rate 20 21 17 Respiratory Effort / Characteristics Non-Labored Spontaneous Respiratory Depth Normal Respiratory Pattern Regular Blood Pressure 91/58 L 107/71 Blood Pressure Mean 69 83 Blood Pressure Position Sitting Pulse Oximetry 95 95 94 Oxygen Delivery Method Room Air Sepsis Recent Fever Within 48 Hours No Sepsis New/Unexplained Change in Mental Status N/A Sepsis Action Taken by Nursing No Action Required 05/26/21 15:00 05/26/21 15:30 Temperature Temperature Source Pulse Rate 89 89 Pulse Rate from SpO2 Sensor 89 87 Pulse Rhythm Pulse Strength Respiratory Rate 23 20 Respiratory Effort / Characteristics Respiratory Depth Respiratory Pattern Blood Pressure 130/80 127/82 Blood Pressure Mean 96 97 Blood Pressure Position Pulse Oximetry 96 96 Oxygen Delivery Method Room Air Room Air Sepsis Recent Fever Within 48 Hours Sepsis New/Unexplained Change in Mental Status Sepsis Action Taken by Nursing Laboratory Data Result diagrams: 05/26/21 13:04 05/26/21 13:04 Lab Results 05/26/21 05/26/21 05/26/21 Range/Units 13:04 13:04 13:04 WBC 10.20 (4.8-10.8) K/uL RBC 5.19 (4.7-6.1) M/uL Hgb 17.9 (14.0-18.0) g/dL Hct 50.3 (42-52) % MCV 96.9 (80-100) fL MCH 34.5 H (25-34) pg MCHC 35.6 (32-36) g/dL RDW Std Deviation 48.6 H (36.4-46.3) fL RDW Coeff of Matt 13.7 (11.5-14.5) % Plt Count 261 (130-400) K/uL MPV 11.2 H (7.4-10.4) fL Immature Gran % (Auto) 0.2 % Neut % (Auto) 75.9 % Lymph % (Auto) 16.6 % Johnston % (Auto) 7.1 % Eos % (Auto) 0.1 % Baso % (Auto) 0.1 % Neut # (Auto) 7.75 H (1.4-6.5) K/uL Lymph # (Auto) 1.69 (1.2-3.4) K/uL Johnston # (Auto) 0.72 H (0.11-0.59) K/uL Eos # (Auto) 0.01 (0-0.5) K/uL Baso # (Auto) 0.01 (0-0.2) K/uL Immature Gran # (Auto) 0.02 (0.00-0.02) K/uL PT 10.0 (9.0-12.0) Seconds INR 1.0 (0.9-1.1) APTT 25.9 (21.0-31.0) Seconds PTT Ratio 1.0 Sodium 139 (136-145) mmol/L Potassium 3.7 (3.5-5.1) mmol/L Chloride 106 (98-107) mmol/L Carbon Dioxide 25 (21-32) mmol/L Anion Gap 8.0 (3-11) BUN 18 (7-18) mg/dl Creatinine 1.00 (0.6-1.4) mg/dl Est Cr Clr Drug Dosing 62.9 ml/min Est GFR ( Amer) 88.6 ml/min Est GFR (Non-Af Amer) 76.5 ml/min BUN/Creatinine Ratio 18.3 (10-20) Glucose 126 H (70-99) mg/dl Calcium 10.4 H (8.5-10.1) mg/dl Total Bilirubin 0.6 (0.2-1) mg/dl AST 43 H (15-37) U/L ALT 35 (12-78) U/L Alkaline Phosphatase 100 (45-117) U/L Troponin I 4.170 H* (0-0.045) ng/ml Total Protein 7.9 (6.4-8.2) gm/dl Albumin 3.4 (3.4-5.0) gm/dl Globulin 4.5 H (2.5-4.0) gm/dl Albumin/Globulin Ratio 0.8 L (0.9-2) Administered Medications Discontinued Medications Aspirin (Aspirin Chew 324 Mg) 243 mg PO NOW STA Stop: 05/26/21 14:46 Last Admin: 05/26/21 15:01 Dose: 243 mg Documented by: [id number] Heparin Sodium/Dextrose (Heparin Iv Adult Wt-Based Low-Dose With Bolus Protocol) 1 ea N/A NOW STA; Protocol Stop: 05/26/21 14:18 Last Admin: 05/26/21 15:04 Dose: Not Given Documented by: [id number] Sodium Chloride (Nss) 500 mls @ 999 mls/hr IV .Q31M ONE Stop: 05/26/21 15:13 Last Infusion: 05/26/21 15:30 Dose: 0 mls/hr Documented by: [id number] Admin: 05/26/21 14:58 Dose: 999 mls/hr Documented by: [id number] Metoprolol Tartrate (Metoprolol Tartrate 1 Mg/Ml Vial) 2.5 mg IV NOW STA Stop: 05/26/21 14:28 Last Admin: 05/26/21 15:05 Dose: Not Given Documented by: [id number] Imaging Data Radiologist's Impression: Chest X-Ray 05/26/21 12:24 SINGLE VIEW CHEST CLINICAL HISTORY: Atypical chest pain. FINDINGS: 2 AP, portable, upright chest radiographs are compared to study dated 07/23/2020. The cardiomediastinal silhouette is unremarkable noting atherosclerotic calcification of the thoracic aorta. Emphysema and chronic interstitial thickening is similar to previous. No airspace consolidation or large pleural effusion is identified. Question a subcentimeter nodular density in the right midlung. No pneumothorax is seen. The bony thorax is grossly intact. IMPRESSION: 1. Emphysematous change with no acute cardiopulmonary abnormality. 2. Question a subcentimeter nodular density in the right midlung. Follow-up with a nonemergent chest CT is recommended for further evaluation and to exclude underlying pulmonary lesion. ACT 112: Negative or not required by law. Electronically signed by: Mc Nelson M.D. 05/26/2021 2:23 PM Discharge Plan Visit Data Chief Complaint: Hematuria Stated Complaint: BLOOD IN URINE, PAIN IN THAT AREA ED Provider: Santos Leal Discharge Problem: NSTEMI (non-ST elevated myocardial infarction), Hematuria, Abnormal ECG Discharge Instructions Interventions: ED Discharge Assessment Last Done: 05/26/21 14:47 Forms Stand Alone Forms: My [facility] [facility] Prescriptions Prescriptions: No Action metformin 500 mg tablet 1,000 mg PO BIDM RF: 0 lisinopril 20 mg tablet 20 mg PO DAILY RF: 0 hydrochlorothiazide 25 mg tablet 25 mg PO DAILY RF: 0 aspirin 81 mg Tablet,Delayed Release (Dr/Ec) 81 mg PO DAILY 30 Days Qty: 30 RF: 1 icosapent ethyl 1 gram capsule 1 g PO BID RF: 0 doxycycline hyclate 100 mg tablet 100 mg PO Q12H 21 Days Qty: 42 RF: 0 atorvastatin 80 mg tablet 80 mg PO HS RF: 0 Referrals Referrals: Jeremy Kaiser DO [Primary Care Provider] -
[2021-05-26] MEDS ORDERED: HEPARIN SOD (PORCINE) 1000 UNIT/ML IV ONE ×2 (14:33→14:45)
[2021-05-26] MEDS ORDERED: ASPIRIN CHEW 324 MG PO STA ×2 (14:43→14:45)
[2021-05-26] MEDS ORDERED: SODIUM CHLORIDE 0.9% 500 ML IV ONE (14:43)
[2021-05-26] MEDS ORDERED: HEPARIN SODIUM/DEXTROSE 25,000 UNITS/500 ML BAG IV SCH (14:45)
--- NOTE | 2021-05-26 15:14 | Cardiology Consultation ---
Date of Consultation May 26, 2021 Assessment & Plan (1) NSTEMI (non-ST elevated myocardial infarction): (2) Peripheral arterial disease: (3) Hypertension: (4) Hematuria: 1. NSTEMI: He presents with a positive troponin and anterolateral T wave inversions with a description of brief chest tightness the evening before presentation. A myocardial infarction last evening is possibly consistent with his current presentation, however his description does not suggest it and it is possible that it is more recent. He is not having ST elevation is not having discomfort currently however it is clearly a recent event. I discussed the possibility of going to the [facility] with him for at least a diagnostic procedure, including the possibility of worsening hematuria if we have to modify his antiplatelet regimen (he is already on aspirin). He is agreeable, I did discuss with Dr. Garcia and we decided to consider catheterization today. 2. Peripheral arterial disease: He does have well-defined peripheral arterial disease involving his legs. 3. Hypertension: He does have a history of hypertension in the past has had significant blood pressure elevations although currently they are not. 4. Hematuria: He does have hematuria, however his hemoglobin has not changed and is not clear to the extent of it or the cause of it. He has not seen a urologist as yet. This could potentially be an issue depending on what needs to be done with his coronary artery disease. I would recommend continuing his aspirin, atorvastatin, lisinopril and adding a beta-antonio and heparin but keeping a close eye on his hematuria. History of Present Illness Reason for Consultation: NSTEMI History of Present Illness This is a 70-year-old male who has a history of hypertension, hyperlipidemia and a history of smoking. He also has a history of prostate cancer. He has extensive peripheral vascular disease which has been evaluated in the past as well as an infrarenal abdominal aortic aneurysm. In general he appears to be a poor historian. He was in the emergency room on May 22, 2021 for difficulty with urination and hematuria, a catheter was placed and arrangements were made for him to see urology as an outpatient. He was not anemic with a hemoglobin of 17.9 at that visit. He presents now with some discomfort related to his catheter, however on further questioning he reported having some chest tightness last evening. When I discussed with him he is a little bit vague about the description of discomfort but he tells me he had some tightness around 7 or 8:00 last evening which lasted about 5 minutes in his estimation. Other than that he denies chest discomfort to me. Of note he did have a pharmacologic stress test on September 15, 2020 which was negative for ischemia. At the moment he denies chest symptoms. Despite the hematuria his hemoglobin is 17.9 today, identical to his visit several days ago. Allergies Allergy/AdvReac Type Severity Reaction Status Date / Time No Known Allergies Allergy Verified 05/26/21 14:58 Home Medications Medication Instructions Recorded Confirmed Type hydrochlorothiazide 25 mg tablet 25 mg PO DAILY 07/23/20 05/26/21 History lisinopril 20 mg tablet 20 mg PO DAILY 07/23/20 05/26/21 History metformin 500 mg tablet 1,000 mg PO BIDM 07/23/20 05/26/21 History aspirin 81 mg tablet,delayed 81 mg PO DAILY 30 Days #30 tab 07/24/20 05/26/21 Rx release doxycycline hyclate 100 mg tablet 100 mg PO Q12H 21 Days #42 tab 05/22/21 05/26/21 Rx icosapent ethyl 1 gram capsule 1 g PO BID 05/22/21 05/26/21 History atorvastatin 80 mg tablet 80 mg PO HS 05/26/21 05/26/21 History Patient History Medical History HLD (hyperlipidemia) Hypertension Stroke-like symptoms Social History Smoking Status: Current some day smoker Tobacco Type: Cigars Second Hand Exposure: Yes; Hx Alcohol Use: Yes Alcohol type: wine Hx Substance Use: No Preferred Language: Faroese Communication Ability: Effective Chief Information Security Officer Required: No Beliefs That Will Affect Care: None marital status: Current Living Situation: Spouse Feels Safe at Home: Yes Assistive Devices: Cane Review of Systems Review of Systems: All systems reviewed & are unremarkable except as noted in HPI & below Physical Exam Physical Exam: Constitutional: Alert, cooperative and in no distress. HEENT: Unremarkable Neck: No jugular venous distention, carotid pulses are normal and equal bilaterally without bruits. Pulmonary: Clear to auscultation bilaterally. Cardiac: Regular rhythm with no murmur, gallop or rub. Abdomen: Soft, nontender with normal bowel sounds. Extremities: No edema. Distal pulses are nonpalpable. Neurologic: No focal findings. Gait was not tested. Skin: No rash, ecchymoses or petechiae. Results & Data ([facility]) Vital Signs (Past 12 Hours) Vital Signs Temp Pulse Resp BP Pulse Ox 05/26/21 15:00 89 23 130/80 96 05/26/21 14:30 95 H 17 107/71 94 05/26/21 14:26 94 H 21 95 05/26/21 12:21 36.7 C 119 H 20 91/58 L 95 Laboratory Results Cardiac Enzymes 05/26/21 Range/Units 13:04 AST 43 H (15-37) U/L Troponin I 4.170 H* (0-0.045) ng/ml Coagulation 05/26/21 Range/Units 13:04 PT 10.0 (9.0-12.0) Seconds APTT 25.9 (21.0-31.0) Seconds CBC 05/26/21 Range/Units 13:04 WBC 10.20 (4.8-10.8) K/uL RBC 5.19 (4.7-6.1) M/uL Hgb 17.9 (14.0-18.0) g/dL Hct 50.3 (42-52) % Plt Count 261 (130-400) K/uL Neut # (Auto) 7.75 H (1.4-6.5) K/uL Lymph # (Auto) 1.69 (1.2-3.4) K/uL [place] # (Auto) 0.72 H (0.11-0.59) K/uL Eos # (Auto) 0.01 (0-0.5) K/uL Baso # (Auto) 0.01 (0-0.2) K/uL Comprehensive Metabolic Panel 05/26/21 Range/Units 13:04 Sodium 139 (136-145) mmol/L Potassium 3.7 (3.5-5.1) mmol/L Chloride 106 (98-107) mmol/L Carbon Dioxide 25 (21-32) mmol/L BUN 18 (7-18) mg/dl Creatinine 1.00 (0.6-1.4) mg/dl Glucose 126 H (70-99) mg/dl Calcium 10.4 H (8.5-10.1) mg/dl AST 43 H (15-37) U/L ALT 35 (12-78) U/L Alkaline Phosphatase 100 (45-117) U/L Total Protein 7.9 (6.4-8.2) gm/dl Albumin 3.4 (3.4-5.0) gm/dl Intake and Output 05/26/21 05/26/21 05/26/21 06:59 14:59 22:59 Other: Weight 71.8 kg Patient Weight 05/27/21 06:59 Weight 71.8 kg Diagnostic Findings An electrocardiogram demonstrates sinus rhythm with an anteroseptal myocardial infarction of indeterminate age and anterolateral T wave inversions. The last electrocardiogram I see is from July 2020 and was normal. PG Care Time/CCT Total # of Minutes Spent Total Time Spent with Patient: Total time spent is greater than 50% in coordination of care (as documented) at patient's floor/unit and/or counseling patient: Coding Level of Care Code 00316 Initial Inpt Care Lvl 3 Diagnoses NSTEMI (non-ST elevated myocardial infarction) I21.4 Peripheral arterial disease I73.9 Hypertension I10 Hematuria R31.9
--- NOTE | 2021-05-26 16:47 | XCELERA ---
[id number]
--- NOTE | 2021-05-26 17:11 | Ultrasound Report ---
RENAL ULTRASOUND CLINICAL HISTORY: hematuria COMPARISON STUDY: CTA of the abdomen and pelvis July 24, 2020. TECHNIQUE: Sonography of the kidneys and the urinary bladder was performed. FINDINGS: Right kidney measures 11.5 cm in maximal dimension and the left measures 11.4 cm. There is no hydronephrosis. Several renal cysts are noted. The largest is a 3.4 cm left renal cyst. Renal echo genicity, size and cortical thickness are normal. No renal calculi or masses are identified by sonogr aphy. Hweeler balloon within the bladder is present. IMPRESSION: 1. No hydronephrosis. 2. Several renal cysts. ACT 112: Negative or not required by law. Electronically signed by: Juanjose Stephens M.D. 05/26/2021 5:09 PM
--- NOTE | 2021-05-26 20:24 | History & Physical Report ---
Date of Service May 26, 2021 Assessment & Plan (1) NSTEMI (non-ST elevated myocardial infarction): Plan: Will admit to MED/tele consult cardio place on heparin IV will need to monitor trop first set above 4 likely will need cardiac cath during stay. (2) Tobacco abuse: Plan: order nicotine patch in am. (3) Pre-diabetes: Plan: recommend life style changes (4) Peripheral arterial disease: Plan: cont. asa atorvastatin (5) Hypertension: Plan: resume home meds (6) Hematuria: Plan: currently has a blas bag with no gross hematuria today. consider Urology consult History of Present Illness Chief Complaint: chest pain Primary Care Provider: Jeremy Kaiser, DO 70 yo male with h/o of HTN, hyperlipidemia, peripheral vascular disease and smoking comes in with a presentation of chest pain. Patient reports his chest pain occured yesterday evening at 7 while he was watching TV, He reports the pain lasted for a few minutes and then subsided. He denies any SOB. Patient is more concerned about his hematuria. Allergies Allergy/AdvReac Type Severity Reaction Status Date / Time No Known Allergies Allergy Verified 05/26/21 14:58 Home Medications Medication Instructions Recorded Confirmed Type hydrochlorothiazide 25 mg tablet 25 mg PO DAILY 07/23/20 05/26/21 History lisinopril 20 mg tablet 20 mg PO DAILY 07/23/20 05/26/21 History metformin 500 mg tablet 1,000 mg PO BIDM 07/23/20 05/26/21 History aspirin 81 mg tablet,delayed 81 mg PO DAILY 30 Days #30 tab 07/24/20 05/26/21 Rx release doxycycline hyclate 100 mg tablet 100 mg PO Q12H 21 Days #42 tab 05/22/21 05/26/21 Rx icosapent ethyl 1 gram capsule 1 g PO BID 05/22/21 05/26/21 History atorvastatin 80 mg tablet 80 mg PO HS 05/26/21 05/26/21 History Past Med/Surg History Medical History HLD (hyperlipidemia) Hypertension Stroke-like symptoms Social History Smoking Status: Current some day smoker Tobacco Type: Cigars Second Hand Exposure: No; Do You Dip or Chew Tobacco: No; Hx Alcohol Use: Yes Alcohol type: wine Hx Substance Use: No Preferred Language: Kiswahili Communication Ability: Effective Unclaimed Property Officer Required: No Beliefs That Will Affect Care: None marital status: Current Living Situation: Spouse Other Information That Helps Us Care for You: No Feels Safe at Home: Yes Safety Concerns: Feels Safe At This Time Assistive Devices: Glasses Review of Systems Review of Systems: All systems reviewed & are unremarkable except as noted in HPI & below Physical Exam Constitutional: WD/WN, vitals as above Eyes: PERRL, conjunctivae normal, anicteric sclerae ENMT: external ear and nose normal, oropharynx normal Neck: trachea midline, no thyromegaly Respiratory: normal respiratory effort, lungs clear to auscultation Cardiovascular: RRR, no murmur, no edema Gastrointestinal (Abdomen): normal bowel sounds, soft, nontender, no hepatosplenomegaly Musculoskeletal: no cyanosis or clubbing, extremities motor strength 5/5 Skin: no rashes, warm and dry Neurologic: PERRL, EOMI, accommodation nl, no face palsy, no dysarthria Psychiatric: A+Ox3, euthymic affect Genitourinary: blas bag filled with dark yellow urine Lymphatic: no cervical or axillary lymphadenopathy Results & Data Results & Data ([facility]) Vital Signs (Past 12 Hours) Vital Signs Temp Pulse Resp BP Pulse Ox 05/26/21 20:00 83 20 98 05/26/21 19:30 83 23 98 05/26/21 19:00 83 20 98 05/26/21 18:30 89 24 98 05/26/21 18:00 85 22 98 05/26/21 17:30 83 20 97 05/26/21 17:00 86 21 129/72 97 05/26/21 16:44 85 20 96 05/26/21 16:00 87 16 96 05/26/21 15:30 89 20 127/82 96 05/26/21 15:00 89 23 130/80 96 05/26/21 14:30 95 H 17 107/71 94 05/26/21 14:26 94 H 21 95 05/26/21 12:21 36.7 C 119 H 20 91/58 L 95 PG Care Time/CCT Total # of Minutes Spent Total Time Spent with Patient: Total time spent is greater than 50% in coordination of care (as documented) at patient's floor/unit and/or counseling patient: Coding Level of Care Code 37901 Initial Inpt Care Lvl 3 Diagnoses NSTEMI (non-ST elevated myocardial infarction) I21.4 Tobacco abuse Z72.0 Pre-diabetes R73.03 Peripheral arterial disease I73.9 Hypertension I10 Hematuria R31.9 Hematuria type: unspecified type (1) Hematuria Hematuria type: unspecified type Qualified Code(s): R31.9 - Hematuria, unspecified
[2021-05-26] MEDS ORDERED: PHARMACY GLYCEMIC MGMT CONSULT PRN (21:10)
[2021-05-26] MEDS ORDERED: CARBOHYDRATES FOR HYPOGLYCEMIA PO PRN (21:30)
[2021-05-26] MEDS ORDERED: GLUCAGON FOR INJ 1 MG VIAL IM PRN (21:30)
[2021-05-26] MEDS ORDERED: INSULIN ASPART 100 UNITS/ML 3 ML PEN SC ONE (21:30)
[2021-05-26] MEDS ORDERED: INSULIN GLARGINE SOLOSTAR 100 UNITS/ML 3 ML PEN SC ONE (21:30)
[2021-05-26] MEDS ORDERED: DEXTROSE 50% 50 ML SYRINGE IV PRN (21:30)
[2021-05-26] MEDS ORDERED: GLUCOSE 10 TABS/TUBE PO PRN (21:30)
[2021-05-26] MEDS ORDERED: GLUCOSE 40% GEL 15 GM TUBE PO PRN (21:30)
[2021-05-26] MEDS: METOPROLOL TARTRATE 25 MG TAB PO SCH (22:19)
[2021-05-26] MEDS: ATORVASTATIN 40 MG TAB PO SCH (22:19)
[2021-05-26] MEDS ORDERED: Heparin IV Adult Wt-Based Standard *NO* Bolus Protocol IV ONE (22:44)
[2021-05-26] MEDS: HEPARIN SODIUM/DEXTROSE 25,000 UNITS/500 ML BAG IV SCH (23:47)
[2021-05-26 23:54] LABS: Basophils # (auto) 0.01 K/uL (0-0.2); Basophils % (auto) 0.1 %; Eosinophils # (auto) 0.15 K/uL (0-0.5); Eosinophils % (auto) 1.6 %; Hematocrit (blood only) 44.6 % (42-52); Hemoglobin 15.6 g/dL (14.0-18.0); Immature Granulocytes # (auto) 0.01 K/uL (0.00-0.02); Immature Granulocytes % (auto) 0.1 %; Lymphocytes # (auto) 1.87 K/uL (1.2-3.4); Lymphocytes % (auto) 20.3 %; Mean Corpuscular Hemoglobin 33.8 pg (25-34); Mean Corpuscular Volume 96.5 fL (80-100); Mean Platelet Volume 10.7 fL (7.4-10.4); Monocytes # (auto) 1.13 K/uL (0.11-0.59); Monocytes % (auto) 12.3 %; Neutrophils # (auto) 6.05 K/uL (1.4-6.5); Neutrophils % (auto) 65.6 %; Platelet Count 265 K/uL (130-400); RDW Coefficient of Variation 13.7 % (11.5-14.5); RDW Standard Deviation 48.7 fL (36.4-46.3); Red Blood Count 4.62 M/uL (4.7-6.1); White Blood Count 9.22 K/uL (4.8-10.8)
[2021-05-27 00:06] LABS: Partial Thromboplastin Time 25.8 Seconds (21.0-31.0); Prothrombin Time 10.2 Seconds (9.0-12.0)
[2021-05-27 03:12] LABS: Basophils # (auto) 0.02 K/uL (0-0.2); Basophils % (auto) 0.2 %; Eosinophils # (auto) 0.15 K/uL (0-0.5); Eosinophils % (auto) 1.7 %; Hematocrit (blood only) 44.8 % (42-52); Hemoglobin 15.7 g/dL (14.0-18.0); Immature Granulocytes # (auto) 0.02 K/uL (0.00-0.02); Immature Granulocytes % (auto) 0.2 %; Lymphocytes # (auto) 2.31 K/uL (1.2-3.4); Lymphocytes % (auto) 26.5 %; Mean Corpuscular Hemoglobin 33.8 pg (25-34); Mean Corpuscular Volume 96.3 fL (80-100); Mean Platelet Volume 10.4 fL (7.4-10.4); Monocytes # (auto) 1.11 K/uL (0.11-0.59); Monocytes % (auto) 12.7 %; Neutrophils # (auto) 5.11 K/uL (1.4-6.5); Neutrophils % (auto) 58.7 %; Platelet Count 255 K/uL (130-400); RDW Coefficient of Variation 13.7 % (11.5-14.5); RDW Standard Deviation 48.4 fL (36.4-46.3); Red Blood Count 4.65 M/uL (4.7-6.1); White Blood Count 8.72 K/uL (4.8-10.8)
[2021-05-27 03:26] LABS: Partial Thromboplastin Ratio 1.6; Partial Thromboplastin Time 42.4 Seconds (21.0-31.0)
[2021-05-27 04:23] LABS: Albumin Globulin Ratio 0.7 (0.9-2); Albumin Level 2.7 gm/dl (3.4-5.0); BUN Creatinine Ratio 17.6 (10-20); Bilirubin,Total 0.5 mg/dl (0.2-1); Calcium 9.3 mg/dl (8.5-10.1); Creatinine Clr Calc Pharmacy 60.5 ml/min; Est GFR (African American) 84.5 ml/min; Est GFR (Non-African American) 72.9 ml/min; Globulin 3.7 gm/dl (2.5-4.0); Potassium 3.6 mmol/L (3.5-5.1); Total Protein 6.4 gm/dl (6.4-8.2)
[2021-05-27 04:32] LABS: Troponin I 5.25 ng/ml (0-0.045)
[2021-05-27 05:19] LABS: Appearance Urine Turbid (Clear); Bacteria Urine Automated Negative (Negative); Bilirubin Urine Negative (Negative); Blood Urine 3+ (Negative); Color Urine Orange; Epithelial Cell Urine Auto 0-5 /lpf (0-5); Glucose Urine UA Negative (Negative); Ketones Urine 1+ (Negative); Leukocyte Esterase Urine 1+ (Negative); Nitrite Urine Negative (Negative); Protein Urine 2+ (Negative); RBC Urine Automated >30 /hpf (0-4); Specific Gravity Urine 1.017 (1.000-1.030); Urobilinogen Urine Negative (Negative)
[2021-05-27 07:58] LABS: Estimated Average Glucose 157 mg/dl; Hemoglobin A1C 7.1 % (4.5-5.6)
[2021-05-27 08:12] LABS: Partial Thromboplastin Time 53.2 Seconds (21.0-31.0)
[2021-05-27] MEDS: INSULIN ASPART 100 UNITS/ML 3 ML PEN SC SCH ×4 (09:07→20:40)
[2021-05-27] MEDS: ASPIRIN 81 MG ECTAB PO SCH (09:07)
[2021-05-27] MEDS: lisinopril 20 MG TAB PO SCH (09:11)
[2021-05-27] MEDS: METOPROLOL TARTRATE 25 MG TAB PO SCH ×2 (09:11→20:57)
[2021-05-27 10:00] LABS: Partial Thromboplastin Ratio 2.1
[2021-05-27 10:02] LABS: Partial Thromboplastin Time 54.8 Seconds (21.0-31.0)
--- NOTE | 2021-05-27 10:04 | Hospitalist Progress Note ---
Date of Service May 27, 2021 Assessment & Plan (1) Hematuria: Plan: Alok Salgado is a 70-year-old patient here for abdominal discomfort and hematuria. Incidentally found to have NSTEMI. NSTEMI Patient reported mild chest tightness in the day preceding admission, otherwise did not have any overt chest paincurrently no chest pain or cardiac symptoms EKG with NSR and no ST/T changes Echocardiogram with normal LV function and no wall motion abnormalities Cardiology consulted -Discussed the possibility of going to the [facility], including the possibility of worsening hematuria if we have to modify his antiplatelet regimen Plan for cath in a.m. Continue aspirin Continue heparin drip Continue metoprolol tartrate 12.5 mg p.o. 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 Urology can help manage hematuria as needed. Hypertension Metoprolol as above Continue lisinopril 20 mg daily Diabetes mellitus type 2 Hold home Metformin Sliding scale insulin while admitted Tobacco abuse Consider nicotine patch while in hospital DVT prophylaxis: Heparin drip for NSTEMI as above Diet: HH, DM 2, n.p.o. at midnight for cath tomorrow Dispo: [facility] telemetry Code: Full code (2) NSTEMI (non-ST elevated myocardial infarction): (3) Tobacco abuse: (4) Hypertension: Admission and Anticipated Discharge Date Admission Date: May 26, 2021 Supervising Physician Co-Signing Physician Notes Resident Physician Supervision Note: I independently interviewed and examined the patient and verified the chacko history and physical, reviewed labs and image studies and agree with resident Dr. Price findings and care plan. Subjective No acute events overnight. Patient reporting resolution of catheter related symptoms. He mentions that initially he had come in due to catheter discomfort and noticing blood in his urine. He feels that the urine is looking better and he no longer has abdominal discomfort. He mentions that he had a mild chest tightness in the the day preceding his hospital admission but no overt chest pain. Denies current chest pain, palpitations, shortness of breath, nausea, vomiting or any other concerning symptoms. Review of Systems Review of Systems: per subjective Physical Exam Physical Exam: GENERAL: A&Ox3. NAD. CHEST/LUNGS: CTAB A/P. No crackles, wheezes, rales, rhonchi. HEART: RRR. No m/g/r. No carotid bruits. ABDOMEN: NT/ND, soft. BS+ x4 : Wheeler in place draining christopher-colored urine EXTREMITIES: No cyanosis, no clubbing, no edema SKIN: Warm and dry. No rashes or lesions. PSYCHIATRIC: Euthymic affect, no SI, no pressured speech, no hallucinations NEUROLOGIC: No FND. CN II-XII grossly intact. Results & Data Results & Data ([facility]) Vital Signs (Past 12 Hours) Vital Signs Temp Pulse Pulse Resp BP Pulse Ox 05/27/21 09:16 82 132/76 05/27/21 07:47 36.6 C 80 18 100/60 94 05/27/21 04:00 36.7 C 80 16 102/55 L 96 05/27/21 00:00 82 05/26/21 23:16 36.7 C 81 18 109/66 93 Resident Activity Tracking Resident Involvement: Resident Care Provided Care Provided: Adult Hospital Medicine (1) Hematuria Hematuria type: unspecified type Qualified Code(s): R31.9 - Hematuria, unspecified
--- NOTE | 2021-05-27 10:41 | Urology Consultation ---
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 - Labs reviewed, Wbc and creatinine normal. Hemoglobin stable. - Urine culture from 05/22 negative for infection - No acute intervention warranted at this time - Maintain Blas catheter, can gently irrigate as needed for clots, retention, and suprapubic pain - Plan for follow-up with urology as scheduled on 05/31 for voiding trial and further work-up - Continue supportive care and close monitoring - Prioritize cardiac treatment given recent findings, continue anticoagulants per cardiology. Urology can help manage hematuria as needed. - Will continue to follow peripherally Supervising Physician Co-Signing Physician Notes Discussed patient with [facility]. Agree with plan. Hematuria is mild and likely radiation induced. Will need hematuria work up as outpatient to rule out malignancy. Priority should be addressing cardiac concerns. Urology will manage hematuria with whatever anticoagulation patient requires from cardiac perspective. History of Present Illness Reason for Consultation: hematuria, h/o prosate ca Attending Physician: Sierra Rucker MD History of Present Illness 70yo M with a past medical history of HTN, PAD, pre-diabetes, and tobacco use admitted with NSTEMI and hematuria. Urology consulted for hematuria, history of prostate cancer Patient initially presented to the ED on 05/22 for difficulty with urination and hematuria. He was found to be in urinary retention. A Blas catheter was placed and he was discharged home. He then presented again to the ED yesterday with complaints of chest pain and continued hematuria in his catheter. He was found to have an elevated troponin and EKG showing diffuse ST wave and ischemic changes. He was admitted for further work-up and evaluation. Chart review: Afebrile Wbc 8.72 Hgb 15.7 Cr 1.04 Urinalysis with 3+ blood, 1+ leukocytes, >30RBC, negative bacteria, negative nitrates Urine culture from 05/22 negative for infection On heparin gtt BETH IMPRESSION: 1. No hydronephrosis. 2. Several renal cysts. Patient examined at bedside today. Awake, resting in bed on arrival. He denies any pain or discomfort at present. Blas catheter intact, draining christopher urine. Denies dysuria. No fevers or chills. No nausea or vomiting. Tolerating diet. He does report occasional bladder spasms. Patient states that prior to his ED visit on 05/22, he had no urinary issues or symptoms. He first noticed some blood and difficulty with urination on 05/22. He reported to the ED, had a Blas catheter placed, and felt much better. However he then began to feel nauseous, and noted some intermittent hematuria. He then presented to the ED yesterday with chest pain and hematuria. Hx of prostate cancer s/p brachytherapy and radiation therapy Followed with Urology in [facility] Has not seen urology in >5 years He reports his PSA has been undetectable Allergies Allergy/AdvReac Type Severity Reaction Status Date / Time No Known Allergies Allergy Verified 05/26/21 14:58 Home Medications Medication Instructions Recorded Confirmed Type hydrochlorothiazide 25 mg tablet 25 mg PO DAILY 07/23/20 05/26/21 History lisinopril 20 mg tablet 20 mg PO DAILY 07/23/20 05/26/21 History metformin 500 mg tablet 1,000 mg PO BIDM 07/23/20 05/26/21 History aspirin 81 mg tablet,delayed 81 mg PO DAILY 30 Days #30 tab 07/24/20 05/26/21 Rx release doxycycline hyclate 100 mg tablet 100 mg PO Q12H 21 Days #42 tab 05/22/21 05/26/21 Rx icosapent ethyl 1 gram capsule 1 g PO BID 05/22/21 05/26/21 History atorvastatin 80 mg tablet 80 mg PO HS 05/26/21 05/26/21 History Patient History Medical History HLD (hyperlipidemia) Hypertension Stroke-like symptoms Social History Smoking Status: Current some day smoker Tobacco Type: Cigars Second Hand Exposure: No; Do You Dip or Chew Tobacco: No; Hx Alcohol Use: Yes Alcohol type: wine Hx Substance Use: No Preferred Language: Armenian Communication Ability: Effective Security Installation Technician Required: No Beliefs That Will Affect Care: None marital status: Current Living Situation: Spouse Other Information That Helps Us Care for You: No Feels Safe at Home: Yes Safety Concerns: Feels Safe At This Time Assistive Devices: None Review of Systems Review of Systems: All systems reviewed & are unremarkable except as noted in HPI & below Physical Exam Constitutional: well developed and well nourished; no acute distress and not ill appearing Neck: normal visual inspection Respiratory: normal respiratory effort and able to speak in complete sentences; no labored breathing and no audible wheezes Gastrointestinal (Abdomen): Inspection/Auscultation: abdomen normal to inspec tion; abdomen not distended Musculoskeletal: Head/Neck/Chest: normocephalic Skin: No visible rashes or lesions to exposed skin areas Neurologic: moves all extremities and awake Psychiatric: Orientation: alert, oriented x 3 and cooperative Genitourinary: Blas catheter intact, draining christopher urine Results & Data ([facility]) Vital Signs (Past 12 Hours) Vital Signs Temp Pulse Pulse Resp BP Pulse Ox 05/27/21 09:16 82 132/76 05/27/21 07:47 36.6 C 80 18 100/60 94 05/27/21 04:00 36.7 C 80 16 102/55 L 96 05/27/21 00:00 82 05/26/21 23:16 36.7 C 81 18 109/66 93 PG Care Time/CCT Total # of Minutes Spent Total Time Spent with Patient: Total time spent is greater than 50% in coordination of care (as documented) at patient's floor/unit and/or counseling patient: Coding Level of Care Code 37607 Initial Inpt Care Lvl 2 Diagnoses Hematuria R31.9 Hematuria type: unspecified type Acute urinary retention R33.8 (1) Hematuria Hematuria type: unspecified type Qualified Code(s): R31.9 - Hematuria, unspecified
--- NOTE | 2021-05-27 10:47 | Pharmacy Report ---
Pharmacy Glycemic Short Note 2 - Date of Service May 27, 2021 - Glycemic Short BSG Results (Last 24 hours): 05/26/21 05/26/21 05/27/21 13:04 22:18 03:02 Glucose 126 H 117 H POC Glucose 121 H 05/27/21 09:05 Glucose POC Glucose 127 H OUTPATIENT ANTIDIABETIC REGIMEN: * Metformin * A1c = 7.1% on 05/27/21 ASSESSMENT: * 70yo T2DM male with adequate outpatient control per recent A1c. * Pt admitted for NSTEMI- currently NPO for cath. * Pt is maintained on oral antidiabetic agents as an outpatient * Oral agents are not recommended for inpatient use d/t drug interactions, changing PO intake, and difficulty titrating for acute hyper/hypoglycemia. ADA recommends re-initiating outpatient oral agents 1-2 days prior to discharge if/when appropriate if they were held on admission. * Will hold oral agents for admission and utilize SQ basal bolus insulin regimen which is the recommended regimen for inpatient glycemic control. * Will initiate weight based insulin dosing for insulin brenda patient and titrate based on BSG trends. PLAN FOR INPATIENT GLYCEMIC CONTROL: * Hold outpatient oral diabetes medications * Basal insulin * Lantus 7 units SQ HS * Bolus insulin * NovoLog per scale ACHS or Q6hrs while NPO * Goal Range: Low 110 mg/dL - High 140 mg/dL * Correction Factor: 25 mg/dL/unit * Nutritional / Prandial insulin per carb ratio of 1 unit per 10 grams CHO consumed PLAN FOR DISCHARGE: * No changes needed at dc. A1c in goal range.
--- NOTE | 2021-05-27 13:06 | Electrocardiogram Report ---
Test Reason : Blood Pressure : / mmHG Vent. Rate : 102 BPM Atrial Rate : 102 BPM P-R Int : 152 ms QRS Dur : 084 ms QT Int : 394 ms P-R-T Axes : 061 068 105 degrees QTc Int : 513 ms Poor data quality, interpretation may be adversely affected Sinus tachycardia Septal infarct , age undetermined Abnormal ECG When compared with ECG of 23-JUL-2020 21:35, Confirmed by Vidal Elizabeth ([id number]) on 05/27/2021 1:05:32 PM Referred By: REFERRED SELF Confirmed By:Vidal Elizabeth
--- NOTE | 2021-05-27 13:31 | Electrocardiogram Report ---
Test Reason : Blood Pressure : / mmHG Vent. Rate : 084 BPM Atrial Rate : 084 BPM P-R Int : 150 ms QRS Dur : 092 ms QT Int : 424 ms P-R-T Axes : 072 087 095 degrees QTc Int : 501 ms Normal sinus rhythm T wave abnormality, consider anterolateral ischemia Prolonged QT Abnormal ECG When compared with ECG of 26-MAY-2021 12:54, (unconfirmed) No significant change Confirmed by Vidal Elizabeth ([id number]) on 05/27/2021 1:31:16 PM Referred By: REFERRED SELF Confirmed By:Vidal Elizabeth
[2021-05-27] MEDS: HEPARIN SODIUM/DEXTROSE 25,000 UNITS/500 ML BAG IV SCH (18:56)
[2021-05-27] MEDS: ATORVASTATIN 40 MG TAB PO SCH (20:57)
[2021-05-27] MEDS: INSULIN GLARGINE SOLOSTAR 100 UNITS/ML 3 ML PEN SC SCH (21:56)
[2021-05-28] MEDS ORDERED: OXYBUTYNIN CHLORIDE 5 MG TAB PO STA (02:10)
[2021-05-28] MEDS ORDERED: Nursing to Pharmacy Communication SCH (03:30)
[2021-05-28 06:40] LABS: Basophils # (auto) 0.02 K/uL (0-0.2); Basophils % (auto) 0.2 %; Eosinophils % (auto) 1.2 %; Hematocrit (blood only) 46.4 % (42-52); Immature Granulocytes # (auto) 0.02 K/uL (0.00-0.02); Immature Granulocytes % (auto) 0.2 %; Lymphocytes # (auto) 1.99 K/uL (1.2-3.4); Lymphocytes % (auto) 24.3 %; Mean Corpuscular Hemoglobin 33.5 pg (25-34); Mean Corpuscular Hgb Conc 34.5 g/dL (32-36); Mean Corpuscular Volume 97.1 fL (80-100); Mean Platelet Volume 11.2 fL (7.4-10.4); Monocytes # (auto) 0.83 K/uL (0.11-0.59); Monocytes % (auto) 10.1 %; Neutrophils # (auto) 5.23 K/uL (1.4-6.5); Platelet Count 254 K/uL (130-400); RDW Coefficient of Variation 13.4 % (11.5-14.5); Red Blood Count 4.78 M/uL (4.7-6.1); White Blood Count 8.19 K/uL (4.8-10.8)
[2021-05-28 07:00] LABS: Partial Thromboplastin Ratio 2.5
[2021-05-28] MEDS ORDERED: OXYBUTYNIN CHLORIDE 5 MG TAB PO ONE (07:00)
[2021-05-28 07:11] LABS: Partial Thromboplastin Time 65.9 Seconds (21.0-31.0)
--- NOTE | 2021-05-28 07:41 | Urology Progress Note ---
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 - Labs reviewed, Wbc normal. Hemoglobin stable. - Urine culture from 05/22 negative for infection - No acute intervention warranted at this time - Maintain Wheeler catheter, can gently irrigate as needed for clots, retention, and suprapubic pain - Will arrange outpatient follow-up with urology for voiding trial and further work-up following discharge - Will need hematuria work-up as outpatient to rule out malignancy including CT urogram and cystoscopy - Continue supportive care and close monitoring - Priority should be addressing cardiac concerns. Urology will manage hematuria with whatever anticoagulation patient requires from cardiac perspective. - Will continue to follow peripherally Admission and Anticipated Discharge Date Admission Date: May 26, 2021 Subjective Pt examined at bedside this AM. Awake, resting in bed on arrival. Appears comfortable, no acute distress. Denies any pain or discomfort at present. No fevers or chills. Denies n/v. Wheeler intact and draining concentrated christopher urine with a few small clots noted in catheter bag He does report noticing some hematuria yesterday, but nothing since No dysuria He has been NPO for a cardiac procedure today Review of Systems Constitutional: as per Subjective / HPI Gastrointestinal: as per Subjective / HPI Genitourinary: + as per Subjective / HPI Physical Exam Constitutional: well developed and well nourished; no acute distress and not ill appearing Neck: normal visual inspection Respiratory: normal respiratory effort and able to speak in complete sentences; no labored breathing and no audible wheezes Gastrointestinal (Abdomen): Inspection/Auscultation: abdomen normal to inspection; abdomen not distended Musculoskeletal: Head/Neck/Chest: normocephalic Skin: No visible rashes or lesions to exposed skin areas Neurologic: moves all extremities and awake Psychiatric: Orientation: alert, oriented x 3 and cooperative Genitourinary: Wheeler catheter intact, draining concentrated christopher urine Results & Data ([facility]) Vital Signs (Past 12 Hours) Vital Signs Temp Pulse Pulse Resp BP Pulse Ox 05/28/21 04:33 36.5 C 82 19 132/81 94 05/28/21 00:33 70 05/27/21 23:11 36.5 C 77 18 129/71 92 PG Care Time/CCT Total # of Minutes Spent Total Time Spent with Patient: Total time spent is greater than 50% in coordination of care (as documented) at patient's floor/unit and/or counseling patient: Coding Level of Care Code 76003 Subseq Hosp Care Lvl 2 Diagnoses Hematuria R31.9 Hematuria type: unspecified type Acute urinary retention R33.8 History of prostate cancer Z85.46 (1) Hematuria Hematuria type: unspecified type Qualified Code(s): R31.9 - Hematuria, unspecified
[2021-05-28] MEDS: METOPROLOL TARTRATE 25 MG TAB PO SCH ×2 (07:56→21:35)
[2021-05-28] MEDS: ASPIRIN 81 MG ECTAB PO SCH (07:56)
[2021-05-28] MEDS: lisinopril 20 MG TAB PO SCH (07:56)
[2021-05-28] MEDS: INSULIN ASPART 100 UNITS/ML 3 ML PEN SC SCH ×4 (07:57→20:33)
--- NOTE | 2021-05-28 08:04 | Hospitalist Progress Note ---
Date of Service May 28, 2021 Assessment & Plan (1) Hematuria: Plan: Alok Salgado is a 70-year-old patient here for abdominal discomfort and hematuria. Incidentally found to have NSTEMI. NSTEMI Patient reported mild chest tightness in the day preceding admission, otherwise did not have any overt chest paincurrently no chest pain or cardiac symptoms EKG with NSR and no ST/T changes Echocardiogram with normal LV function and no wall motion abnormalities Cardiology consulted Cath today showing 80% proximal LAD stenosis drug-eluting stent placed DC heparin drip Continue aspirin Start clopidogrel 75 mg daily Continue metoprolol tartrate 12.5mg p.o. 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 Urology can help manage hematuria as needed. Hypertension Metoprolol as above Continue lisinopril 20 mg daily Diabetes mellitus type 2 Hold home Metformin Sliding scale insulin while admitted Tobacco abuse Consider nicotine patch while in hospital DVT prophylaxis: Heparin drip for NSTEMI as above Diet: HH, DM 2 Dispo: PCU Code: Full code (2) NSTEMI (non-ST elevated myocardial infarction): (3) Tobacco abuse: (4) Hypertension: Admission and Anticipated Discharge Date Admission Date: May 26, 2021 Supervising Physician Co-Signing Physician Notes Resident Physician Supervision Note: I independently interviewed and examined the patient and verified the chacko history and physical, reviewed labs and image studies and agree with resident Dr. Price findings and care plan. Subjective Patient seen at bedside after his catheterization. He is laying in bed comfortably and has no complaints. Denies chest pain, palpitations, shortness of breath, nausea, vomiting, abdominal pain. Discussed his findings on cath, patient understands and agreeable to plan going forward. Review of Systems Review of Systems: per subjective Physical Exam Physical Exam: GENERAL: A&Ox3. NAD. CHEST/LUNGS: CTAB A/P. No crackles, wheezes, rales, rhonchi. HEART: RRR. No m/g/r. No carotid bruits. ABDOMEN: NT/ND, soft. BS+ x4 : Wheeler in place draining christopher-colored urine EXTREMITIES: No cyanosis, no clubbing, no edema SKIN: Warm and dry. No rashes or lesions. PSYCHIATRIC: Euthymic affect, no SI, no pressured speech, no hallucinations NEUROLOGIC: No FND. CN II-XII grossly intact. Results & Data Results & Data ([facility]) Vital Signs (Past 12 Hours) Vital Signs Temp Pulse Pulse Resp BP Pulse Ox 05/28/21 04:33 36.5 C 82 19 132/81 94 05/28/21 00:33 70 05/27/21 23:11 36.5 C 77 18 129/71 92 Resident Activity Tracking Resident Involvement: Resident Care Provided Care Provided: Adult Hospital Medicine (1) Hematuria Hematuria type: unspecified type Qualified Code(s): R31.9 - Hematuria, unspecified
[2021-05-28] MEDS ORDERED: fentaNYL citrate 100 MCG/2 ML VIAL ONE (08:23)
[2021-05-28] MEDS ORDERED: HEPARIN (PORCINE) 1000 UNIT/ML 10 ML (CATH LAB USE ONLY) ONE (08:23)
[2021-05-28] MEDS ORDERED: niCARdipine HCL INJ 2.5 MG/ML 10 ML AMP ONE (08:23)
[2021-05-28] MEDS ORDERED: MIDAZOLAM HCL 1 MG/ML 2ML VIAL ONE (08:23)
[2021-05-28] MEDS ORDERED: NITROGLYCERIN/D5W 100MCG/ML 20ML SYR ONE (08:24)
[2021-05-28] MEDS ORDERED: TICAGRELOR 90 MG TAB PO ONE (09:07)
--- NOTE | 2021-05-28 09:17 | Cardiac Catheterization ---
Cardiac Cath Procedure Full Procedure Date May 28, 2021 Pre-Procedure Diagnosis Pre-Procedure Diagnosis: Angina AUC Score AUC Score: 2 Post-Procedure Diagnosis Post-Procedure Diagnosis: Moderate CAD and Successful PCI Procedure(s) Performed Procedure(s) Performed: Coronary Angiography, Drug Eluting Stent and IVUS [employer] Sarah Garcia MD Estimated Blood Loss Estimated Blood Loss: None Medication(s) Medication(s): 51435 units of heprin Summary of Findings 80% proximal LAD dz succsessfully stented. Pre dilation with 2.0x 15mm ballon and stented with 3.5x18 mm SANTIAGO with IVUS done post to confirm expansion and opposition Hemodynamics Rest Ao:: 119/64 Final Ao: 123/85 LV: not done Recommendations Recommendations: PCI without planned CABG Radiation Exposure (mGy) 1297 mGy Contrast (mls) 80 Fluids (cc crystalloids) Fluids (cc crystalloids): 0 I attest to the content of the Intraoperative Record and any orders documented therein. Any exceptions are noted below. 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 Training Coordinator Cardiac Status Clinical evaluation leading to the procedure CAD Presenation: Unstable angina Anginal Classification: CCS III Heart Failure: No Cardiogenic Shock within 24 Hours: No Cardiac Arrest within 24 Hours: No Imaging Studies Past 6 Months: No Stress Studies Past 6 Months: No Standard Exercise Test: No Stress Echocardiogram: No Stress Testing w/SPECT MPI: No Cardiac CTA: No STEMI OR Non-STEMI Symptom Onset Date: 05/25/21 Symptom Onset Time: 06:00 Thrombolytics: No Coronary Anatomy Dominant: Right Left Main (% Stenosis): Normal LAD (% Stenosis): Proximal (80%) and Distal (60%) Circumflex (% Stenosis): Normal RCA (% Stenosis): Normal Diagnostic Physicians Name: Sarah Garcia MD Closure Device Percutaneous Entry Location: Radial Closure Device: Radial Band Recommendations: PCI without planned CABG PCI Indication: PCI for high risk Non-SHEEBA First Noted: First EKG Reason For Delay in PCI:: pt bleeding Lesion Segment Name: LAD Culprit Artery: Yes Stenosis Prior to Rx (%): 80% IVUS: Yes Lesion Complexity: Non-High/Non-C Lesion Length (mm): 15mm Thrombus Present: No Bifurcation Lesion: No Guidewire Across Lesion: Yes Intraprocedure Events Significant Disection: No
--- NOTE | 2021-05-28 15:04 | Electrocardiogram Report ---
Test Reason : Blood Pressure : / mmHG Vent. Rate : 078 BPM Atrial Rate : 078 BPM P-R Int : 154 ms QRS Dur : 092 ms QT Int : 414 ms P-R-T Axes : 061 074 066 degrees QTc Int : 471 ms Normal sinus rhythm Septal infarct , age undetermined T wave abnormality, consider anterolateral ischemia Abnormal ECG When compared with ECG of 26-MAY-2021 23:06, No significant change was found Confirmed by Vidal Elizabeth ([id number]) on 05/28/2021 3:04:30 PM Referred By: REFERRED SELF Confirmed By:Vidal Elizabeth
[2021-05-28] MEDS: INSULIN GLARGINE SOLOSTAR 100 UNITS/ML 3 ML PEN SC SCH (20:33)
[2021-05-28] MEDS: ATORVASTATIN 40 MG TAB PO SCH (21:34)
[2021-05-29 07:02] LABS: Basophils # (auto) 0.02 K/uL (0-0.2); Basophils % (auto) 0.2 %; Eosinophils # (auto) 0.07 K/uL (0-0.5); Eosinophils % (auto) 0.8 %; Hematocrit (blood only) 47.6 % (42-52); Hemoglobin 16.5 g/dL (14.0-18.0); Immature Granulocytes # (auto) 0.03 K/uL (0.00-0.02); Immature Granulocytes % (auto) 0.3 %; Lymphocytes # (auto) 1.74 K/uL (1.2-3.4); Lymphocytes % (auto) 18.7 %; Mean Corpuscular Hemoglobin 33.5 pg (25-34); Mean Corpuscular Hgb Conc 34.7 g/dL (32-36); Mean Corpuscular Volume 96.6 fL (80-100); Mean Platelet Volume 10.8 fL (7.4-10.4); Monocytes # (auto) 0.96 K/uL (0.11-0.59); Monocytes % (auto) 10.3 %; Neutrophils # (auto) 6.48 K/uL (1.4-6.5); Neutrophils % (auto) 69.7 %; Platelet Count 278 K/uL (130-400); RDW Coefficient of Variation 13.4 % (11.5-14.5); RDW Standard Deviation 47.6 fL (36.4-46.3); Red Blood Count 4.93 M/uL (4.7-6.1)
[2021-05-29 07:09] LABS: Partial Thromboplastin Time 26.2 Seconds (21.0-31.0)
--- NOTE | 2021-05-29 07:10 | Discharge Summary ---
Date of Service May 29, 2021 Admission HPI Per Admitting Provider 70 yo male with h/o of HTN, hyperlipidemia, peripheral vascular disease and smoking comes in with a presentation of chest pain. Patient reports his chest pain occured yesterday evening at 7 while he was watching TV, He reports the pain lasted for a few minutes and then subsided. He denies any SOB. Patient is more concerned about his hematuria. Admission Exam Per Admitting Provider Constitutional: WD/WN, vitals as above Eyes: PERRL, conjunctivae normal, anicteric sclerae ENMT: external ear and nose normal, oropharynx normal Neck: trachea midline, no thyromegaly Respiratory: normal respiratory effort, lungs clear to auscultation Cardiovascular: RRR, no murmur, no edema Gastrointestinal (Abdomen): normal bowel sounds, soft, nontender, no hepatosplenomegaly Musculoskeletal: no cyanosis or clubbing, extremities motor strength 5/5 Skin: no rashes, warm and dry Neurologic: PERRL, EOMI, accommodation nl, no face palsy, no dysarthria Psychiatric: A+Ox3, euthymic affect Genitourinary: blas bag filled with dark yellow urine Lymphatic: no cervical or axillary lymphadenopathy Principal Diagnosis NSTEMI Discharge Exam Vitals reviewed General: Grossly A&O. NAD. Cooperative. HEENT: Atraumatic, normocephalic. EOMI Pulm: CTAB. -wheezes, -rales, -rhonchi. Symmetrical chest rise. No respiratory distress. Cardiac: RRR, -mrg. Radial pulses intact and symmetrical. No LE edema. DP pulses 2+ bilat. Abdominal: Nontender, nondistended, soft. Back: No cva ttp. Integ: TR band site w/o erythema or bleeding. Discharge Data Allergies Allergy/AdvReac Type Severity Reaction Status Date / Time No Known Allergies Allergy Verified 05/26/21 14:58 Consultations 05/26/21 14:48 ED Decision to Admit Stat 05/27/21 08:17 Consult Cardiology Routine 05/27/21 10:04 Consult Urology Routine Procedures Performed Operation Date: 05/26/21 15:00 <No data on this case meets the specified criteria> Operation Date: 05/27/21 09:45 <No data on this case meets the specified criteria> Operation Date: 05/28/21 08:30 Actual Procedures p Cath, Left with Cors and Vent - MD chen Schmid Cineradiography w/Routine Exam - MD chen Schmid Drug Eluting Stent SGl Vessel - MD chen Schmid IVUS Coronary Single Vessel - Sarah Garcia MD Ordered Studies cbc and bmp stable. 05/07/21 lyme IgM equivocal but bands negative. 05/22/21 uc neg. 05/26/21 echo. ef 55-60. mild MR. mild concentric lvh. No RWMA. 05/28/21 cardiac cath: 80% proximal LAD dz succsessfully stented. Pre dilation with 2.0x 15mm ballon and stented with 3.5x18 mm SANTIAGO with IVUS done post to confirm expansion and opposition 05/28/21 ecg Vent. Rate : 078 BPM Atrial Rate : 078 BPM P-R Int : 154 ms QRS Dur : 092 ms QT Int : 414 ms P-R-T Axes : 061 074 066 degrees QTc Int : 471 ms Normal sinus rhythm Septal infarct , age undetermined T wave abnormality, consider anterolateral ischemia Abnormal ECG When compared with ECG of 26-MAY-2021 23:06, No significant change was found Confirmed by Vidal Elizabeth ([id number]) on 05/28/2021 3:04:30 PM 05/29/21 06:42 05/29/21 06:42 Coagulation 05/29/21 Range/Units 06:42 APTT 26.2 (21.0-31.0) Seconds CBC 05/29/21 Range/Units 06:42 WBC 9.30 (4.8-10.8) K/uL RBC 4.93 (4.7-6.1) M/uL Hgb 16.5 (14.0-18.0) g/dL Hct 47.6 (42-52) % Plt Count 278 (130-400) K/uL Neut # (Auto) 6.48 (1.4-6.5) K/uL Lymph # (Auto) 1.74 (1.2-3.4) K/uL [place] # (Auto) 0.96 H (0.11-0.59) K/uL Eos # (Auto) 0.07 (0-0.5) K/uL Baso # (Auto) 0.02 (0-0.2) K/uL Comprehensive Metabolic Panel 05/29/21 Range/Units 06:42 Sodium 140 (136-145) mmol/L Potassium 3.9 (3.5-5.1) mmol/L Chloride 108 H (98-107) mmol/L Carbon Dioxide 26 (21-32) mmol/L BUN 11 (7-18) mg/dl Creatinine 0.91 (0.6-1.4) mg/dl Glucose 124 H (70-99) mg/dl Calcium 9.4 (8.5-10.1) mg/dl Intake and Output 05/28/21 05/29/21 05/29/21 22:59 06:59 14:59 Intake Total 200 / 598.75 200 / 598.75 Output Total 150 / 800 Balance 200 / -201.25 50 / -201.25 Intake: Oral 200 / 400 200 / 400 Output: Urine 150 / 150 Other: Weight 68.6 kg Weight Measurement Method Standing Scale Chest X-Ray 05/26/21 12:24 SINGLE VIEW CHEST CLINICAL HISTORY: Atypical chest pain. FINDINGS: 2 AP, portable, upright chest radiographs are compared to study dated 07/23/2020. The cardiomediastinal silhouette is unremarkable noting atherosclerotic calcification of the thoracic aorta. Emphysema and chronic interstitial thickening is similar to previous. No airspace consolidation or l arge pleural effusion is identified. Question a subcentimeter nodular density in the right midlung. No pneumothorax is seen. The bony thorax is grossly intact. IMPRESSION: 1. Emphysematous change with no acute cardiopulmonary abnormality. 2. Question a subcentimeter nodular density in the right midlung. Follow-up with a nonemergent chest CT is recommended for further evaluation and to exclude underlying pulmonary lesion. ACT 112: Negative or not required by law. Electronically signed by: Mc Nelson M.D. 05/26/2021 2:23 PM Renal Ultrasound 05/26/21 15:54 RENAL ULTRASOUND CLINICAL HISTORY: hematuria COMPARISON STUDY: CTA of the abdomen and pelvis July 24, 2020. TECHNIQUE: Sonography of the kidneys and the urinary bladder was performed. FINDINGS: Right kidney measures 11.5 cm in maximal dimension and the left measures 11.4 cm. There is no hydronephrosis. Several renal cysts are noted. The largest is a 3.4 cm left renal cyst. Renal echogenicity, size and cortical thickness are normal. No renal calculi or masses are identified by sonography. Blas balloon within the bladder is present. IMPRESSION: 1. No hydronephrosis. 2. Several renal cysts. ACT 112: Negative or not required by law. Electronically signed by: Juanjose Stephens M.D. 05/26/2021 5:09 PM Hospital Course (1) Hematuria: Alok Salgado is a 70-year-old patient w/ PMHx of prostate cancer, HTN, DM2 here for abdominal discomfort and hematuria. Incidentally found to have NSTEMI. F/u w/ PCP in 1 wk. F/u w/ urology on 05/31/21. F/u w/ cardiology. NSTEMI Patient reported mild chest tightness in the day preceding admission, otherwise did not have any overt chest paincurrently no chest pain or cardiac symptoms trop 4.17 at admission peaked to 8.18 Echocardiogram with normal LV function and no wall motion abnormalities Cath showing 80% proximal LAD stenosis drug-eluting stent placed Continue aspirin 81mg Start clopidogrel 75 mg daily Added metoprolol tartrate 12.5mg p.o. twice daily Continue atorvastatin 80 mg daily Hematuria with history of prostate cancer Patient recently having issues with hematuria and urinary retention Urology consulted - Hematuria likely secondary to radiation therapy, suspect radiation cystitis - No acute intervention warranted at this time - Sending home w/ Blas catheter, can gently irrigate as needed for clots, retention, and suprapubic pain. Duration of blas per urology. - Plan for follow-up with urology as scheduled on 05/31 for voiding trial and further work-up - Continue supportive care and close monitoring - Outpatient voiding trial by urology. - Added Ditropan 5mg PO daily PRN for bladder spasms; Hypertension -Metoprolol as above -Continue lisinopril 20 mg daily -Discontinued home HCTZ because BPs at goal w/ the above regimen. Will defer to PCP to restart if needed. Diabetes mellitus type 2 Restart home Metformin as outpatient. Tobacco abuse Continue smoking cessation counseling as outpatient. Patient was full code during this admission. (2) NSTEMI (non-ST elevated myocardial infarction): (3) Tobacco abuse: (4) Hypertension: Total Time Total Time Spent Total Time Spent (In Minutes): <30 Discharge Plan Discharge Items Patient Disposition: Home - Self-Care Reason For Visit: NSTEMI Discharge Diagnosis: NSTEMI Activity: Per Instructions section Non-emergency contact: Primary Care Provider, Envelope Folder and Urologist Call non-emergency contact if: you have any medication questions, your symptoms worsen and you have a fever Follow-up/Referrals: Vidal Elizabeth MD [Physician] - 06/03/21 10:30 am (Please follow up with Dr. Elizabeth on 06/03/21 at 10:30 am. Please arrive to the office at 10:15 am for your appointment. If you are unable to keep this appointment, please call the office to reschedule at [phone].) Jeremy Kaiser, [Primary Care Provider] - (f/u w/ pcp w/in 1 wk of hosp discharge) Emily Senior CRNP [Nurse Practitioner] - 05/31/21 9:15 am (Please follow up with KHANH Islas on Monday05/31/21 at 9:15 am. Please arrive to the office at 9:00 am for your appointment. If you are unable to keep this appointment, please call the office to reschedule at [phone].) Diet: Regular Addtl Attending Provider Instructions: Hi Mr. Salgado, You were admitted to [facility] for blood in urine and abdominal discomfort secondary to urinary retention. You were incidentally found to have a heart attack (NSTEMI: heart attack supported by lab markers but without classic ekg changes). You were sent to the cardiac dairy lab technician and had a stent placed. The farm worker provided medication recommendations and added several medications (see below). I also added a medication called Ditropan for overactive bladder symptoms, to be taken as needed once a day. You will be sent home with a blas catheter, duration to be determined by urology. You have a f/u appointment with your urologist on Monday05/31/21 Please follow up with your farm worker, urologist, and primary care providers after you leave the hospital. This should occur within 1-2 wks (1 wk for PCP). Call to inquire if you do not get called about an appointment. Smoking cessation: Smoking is a large risk factor for heart disease and stroke. I encourage cutting back on tobacco use. Over the counter nicotine patches/gum can be helpful. Your PCP may be able to assist in the process. new prescriptions: sent to [facility] Ditropan 1 tab (5mg) daily PRN for bladder spasms. The downside is it can contribute to urinary retention, but you currently have a blas catheter. Urology will adjust dosing as needed Plavix 75mg (for the stent) metoprolol tartrate 25mg BID continue baby aspirin and atorvastatin 80mg daily Home HCTZ (hydrochlorothiazide) has been temporarily discontinued because you have been started on metoprolol which also lowers blood pressure. Your PCP will restart the HCTZ if needed. Continue lisinopril 20mg daily. return precautions: If you develop any new or worsening symptoms including fe flora, chills, sweats, chest pain, chest pressure, difficulty breathing, uncontrolled nausea/vomiting, rash, wheezing, passing out or nearly passing out, bleeding, black/bloody bowel movements, or other new or concerning symptoms please call your primary care physician, or call 911 for re-evaluation in the emergency department if you are very concerned. Pending Studies at Discharge: No Stand-Alone Forms: [facility], Smoking Cessation Medications and DC Order Prescriptions: New clopidogrel 75 mg Tablet 75 mg PO QAM 30 Days Qty: 30 RF: 1 metoprolol tartrate 25 mg Tablet 12.5 mg PO BID 30 Days Qty: 30 RF: 1 oxybutynin chloride 5 mg tablet 5 mg PO DAILY PRN (Reason: bladder spasms) Qty: 30 RF: 0 Continued metformin 500 mg tablet 1,000 mg PO BIDM RF: 0 lisinopril 20 mg tablet 20 mg PO DAILY RF: 0 aspirin 81 mg Tablet,Delayed Release (Dr/Ec) 81 mg PO DAILY 30 Days Qty: 30 RF: 1 icosapent ethyl 1 gram capsule 1 g PO BID RF: 0 atorvastatin 80 mg tablet 80 mg PO HS RF: 0 Discontinued hydrochlorothiazide 25 mg tablet 25 mg PO DAILY RF: 0 doxycycline hyclate 100 mg tablet 100 mg PO Q12H 21 Days Qty: 42 RF: 0 Discharge Orders: Discharge Order (Routine); Ordered 05/29/21 Ordered By: Dale Guevara/Other Patient Handouts: Exercise: Why Fitness Matters, Diabetes: Meal Planning, Type 2 Diabetes Admission Data Admit Date/Time: 05/26/21 15:40 Attending Provider: Sierra Rucker Admit Provider: Charlie Jiménez Primary Care Provider: Jeremy Kaiser Other Providers: Charlie Jiménez ; Vidal Elizabeth ; Tristan Barrett Other Interventions: Discharge Summary Assessment (RN) Last Done: 05/29/21 11:33 Supervising Physician Co-Signing Physician Notes Resident Physician Supervision Note: I independently interviewed and examined the patient and verified the chacko history and physical, reviewed labs and image studies and agree with resident Dr. Noble findings and care plan. Resident Activity Tracking Resident Involvement: Resident Care Provided Care Provided: Adult Hospital Medicine
[2021-05-29 07:32] LABS: BUN Creatinine Ratio 12.6 (10-20); Calcium 9.4 mg/dl (8.5-10.1); Creatinine Clr Calc Pharmacy 69.1 ml/min; Est GFR (African American) 99.3 ml/min; Est GFR (Non-African American) 85.7 ml/min; Potassium 3.9 mmol/L (3.5-5.1)
[2021-05-29] MEDS: INSULIN ASPART 100 UNITS/ML 3 ML PEN SC SCH (08:43)
[2021-05-29] MEDS: METOPROLOL TARTRATE 25 MG TAB PO SCH (08:45)
[2021-05-29] MEDS ORDERED: CLOPIDOGREL BISULFATE 75 MG TAB PO SCH (09:00)
[2021-05-29] MEDS: ASPIRIN 81 MG ECTAB PO SCH (09:21)
[2021-05-29] MEDS: lisinopril 20 MG TAB PO SCH (09:21)
[2021-05-29] MEDS ORDERED: OXYBUTYNIN CHLORIDE 5 MG TAB PO STA (10:39)
--- NOTE | 2021-05-29 11:12 | Cardiology Progress Note ---
Date of Service May 29, 2021 Assessment & Plan (1) NSTEMI (non-ST elevated myocardial infarction): Plan: -troponin I level peaked at 8.18. -SANTIAGO to the proximal LAD yesterday. -60% distal LAD stenosis noted. -continued dual anti-platelet therapy for at least 1 year. -continue metoprolol, atorvastatin, and lisinopril. -stable for hospital discharge. -follow-up with Dr. Elizabeth. (2) Peripheral arterial disease: Plan: -previously documented disease in lower extremities. (3) Hypertension: Plan: -adequate control on current regimen. Admission and Anticipated Discharge Date Admission Date: May 26, 2021 Subjective The patient is resting comfortably in the bedside chair without complaints of chest pain or dyspnea. He is anxious for hospital discharge. Physical Exam Physical Exam: In general this is a well-developed well-nourished white male in no acute distress. HEENT exam is negative. Neck is supple with full carotid upstrokes. There are no carotid bruits. Jugular venous pressure is flat at 90. There is no thyromegaly. Cardiovascular exam reveals a regular rhythm with a normal S1 and S2. No S3, S4, or murmurs are noted. Lungs are clear without rales, rhonchi, or wheezes. Abdomen is soft and nontender without bruits. Extremities reveal a dry dressing over the right radial artery at the wrist. No ecchymoses or bruits. There is no peripheral edema. Results & Data ([facility]) Vital Signs (Past 12 Hours) Vital Signs Temp Pulse Pulse Pulse Resp BP Pulse Ox 05/29/21 10:58 36.6 C 73 19 132/78 96 05/29/21 09:08 89 05/29/21 07:20 81 05/29/21 06:58 36.6 C 80 18 132/84 95 05/29/21 03:15 36.7 C 85 18 118/69 95 Diagnostic Findings manager parking is benign. PG Care Time/CCT Total # of Minutes Spent Total Time Spent with Patient: Total time spent is greater than 50% in coordination of care (as documented) at patient's floor/unit and/or counseling patient: Coding Level of Care Code 43254 Subseq Hosp Care Lvl 3 Diagnoses NSTEMI (non-ST elevated myocardial infarction) I21.4 Peripheral arterial disease I73.9 Hypertension I10
== END 2021-05-29 13:44 | disposition home or self-care (01) | DRG 247 ==
LOC: ED 12:15 → 2W 15:40 → SUATTDRO 15:40 → 2W 20:40 → 2S 05-28 14:14
DX: I10 Essential (primary) hypertension; Z79.899 Other long term (current) drug therapy; Z20.822 Contact with and (suspected) exposure to COVID-19; E11.51 Type 2 diabetes mellitus with diabetic peripheral angiopathy without gangrene; I21.4 Non-ST elevation (NSTEMI) myocardial infarction; Z79.84 Long term (current) use of oral hypoglycemic drugs; E78.5 Hyperlipidemia, unspecified; Z79.82 Long term (current) use of aspirin; Z85.46 Personal history of malignant neoplasm of prostate; I25.10 Atherosclerotic heart disease of native coronary artery without angina pectoris; Y84.2 Radiological procedure and radiotherapy as the cause of abnormal reaction of the patient, or of later complication, without mention of misadventure at the time of the procedure; N30.41 Irradiation cystitis with hematuria; R31.9 Hematuria, unspecified; R33.9 Retention of urine, unspecified; F17.290 Nicotine dependence, other tobacco product, uncomplicated

== ENCOUNTER 2021-06-02 06:37 | Inpatient (IN) ==
--- NOTE | 2021-06-02 07:14 | Emergency Department Note ---
History of Present Illness General Chief complaint: Catheter Replacement Stated complaint: BOGGS BLOCKED Time Seen by Provider: 06/02/21 06:46 History of Present Illness Provider complaint: Boggs catheter not draining. Onset (ago): hour(s) 4 Location: genitals Severity: mild Pain Consistency: + constant Maximum Pain Intensity: 6 Current Pain Intensity: 6 Quality: + aching Relieved By: + none Exacerbated By: + none Associated symptoms: no chest pain, no cough, no fever/chills, no headaches, no nausea/vomiting or no shortness of breath 70-year-old male presents emergency department for catheter blockage. Patient states his Boggs catheter stopped draining approximately 4 hours ago. He is reports pain in the suprapubic area. Patient reports no nausea vomiting or diarrhea. No fevers. Patient states he was recently seen in the emergency d epartment yesterday for similar symptoms. Home Medications Medication Instructions Recorded Confirmed Type lisinopril 20 mg tablet 20 mg PO QAM 07/23/20 06/02/21 History metformin 500 mg tablet 1,000 mg PO BID 07/23/20 06/02/21 History icosapent ethyl 1 gram capsule 1 g PO BID 05/22/21 06/02/21 History atorvastatin 80 mg tablet 80 mg PO HS 05/26/21 06/02/21 History clopidogrel 75 mg tablet 75 mg PO QAM 30 Days #30 tab 05/29/21 06/02/21 Rx metoprolol tartrate 25 mg tablet 12.5 mg PO BID 30 Days #30 tab 05/29/21 06/02/21 Rx oxybutynin chloride 5 mg tablet 5 mg PO DAILY PRN #30 tab 05/29/21 06/02/21 Rx aspirin 81 mg tablet,delayed 81 mg PO QAM 06/02/21 06/02/21 History release Allergies Allergy/AdvReac Type Severity Reaction Status Date / Time No Known Allergies Allergy Verified 05/26/21 14:58 Past Med/Surg History Medical History Abdominal aortic aneurysm (AAA) 3.0 cm to 5.5 cm in diameter in male Acute Lyme disease Chronic pancreatitis Claudication of left lower extremity Gross hematuria HLD (hyperlipidemia) Hypertension NSTEMI (non-ST elevated myocardial infarction) Peripheral arterial disease Pre-diabetes Stroke-like symptoms Tobacco abuse Surgical History History of heart artery stent Social History Smoking Status: Current some day smoker Tobacco Type: Cigars Second Hand Exposure: No; Hx Alcohol Use: Yes Alcohol type: wine Hx Substance Use: No Preferred Language: Namibian Communication Ability: Effective Russian Language Professor Required: No Beliefs That Will Affect Care: None marital status: Current Living Situation: Spouse Feels Safe at Home: Yes Assistive Devices: None Review of Systems A total of 6 systems reviewed and were otherwise negative Physical Exam Vital Signs Vital Signs - 24 hr 06/02/21 06:41 Temperature 36.5 C Temperature Source Temporal Artery Scan Pulse Rate 105 H Respiratory Rate 18 Respiratory Effort / Characteristics Non-Labored Spontaneous Respiratory Depth Normal Respiratory Pattern Regular Blood Pressure 125/79 Blood Pressure Mean 94 Blood Pressure Position Sitting Pulse Oximetry 95 Oxygen Delivery Method Room Air Sepsis Recent Fever Within 48 Hours No Sepsis New/Unexplained Change in Mental Status No Sepsis Action Taken by Nursing No Action Required Physical Exam GENERAL: He is oriented to person, place, and time. He appears well-developed and well-nourished. He does not appear distressed. HENT: Exam performed. - Head: Normocephalic and atraumatic. - Right Ear: External ear normal. No mastoid tenderness. - Left Ear: External ear normal. No mastoid tenderness. - Mouth/Throat: The oropharynx is clear and moist. No trismus in the jaw. No dental abscesses or uvula swelling. No oropharyngeal exudate or tonsillar abscesses. EYES: Conjunctivae and EOM are normal. Pupils are equal, round, and reactive to light. Right eye exhibits no discharge. Left eye exhibits no discharge. No scleral icterus. NECK: Normal range of motion. Neck supple. No JVD present. No spinous process tenderness present. No carotid bruit present. No rigidity. No tracheal deviation and normal range of motion present. No Brudzinski's sign and no Kernig's sign noted. CV: Normal rate, regular rhythm, normal heart sounds and intact distal pulses. There is no peripheral edema. Palpable radial pulses bue. PULM/CHEST: Effort normal and breath sounds normal. No respiratory distress. No stridor. He has no wheezes. He has no rales. - Chest Wall: He exhibits no tenderness. ABD: The abdomen is soft. Bowel sounds are normal. He has no distension. No mass is present. There is no tenderness. There is no rebound, no guarding, no Root's sign and no tenderness at McBurney's point. Rovsig negative. : Boggs catheter in place with blood in the Boggs bag. MUSC/SKEL: Normal range of motion. There is no peripheral edema, tenderness or deformity. LYMPH: No cervical adenopathy. NEURO: He is alert and oriented to person, place, and time. He has normal strength. No cranial nerve deficit or sensory deficit. Coordination and gait normal. GCS eye subscore is 4. GCS verbal subscore is 5. GCS motor subscore is 6. Cerebellar tests wnl. SKIN: Skin is warm and dry. He is not diaphoretic. PSYCH: He has a normal mood and affect. Behavior is normal. Judgment and thought content normal. Course Course 0646: The patient was evaluated in room C6. A complete history and physical exam was performed EMR reviewed. Patient had Boggs catheter placed on Monday. Patient was seen in the emergency department yesterday for catheter not draining and had the catheter irrigated and then is started working properly. 0745: Catheter was replaced by nursing. No drainage. Discussed with urology Dr. Morrison who recommends putting three-way catheter in and try to irrigate out clot. He states his nurse practitioner will be down to evaluate the patient. 0820: Urology PRINCIPAL CLERK Domolarossy at bedside. 0855: Urology placed three-way Boggs catheter. They recommend that the patient be admitted for continuous irrigation. Asked that patient be admitted to the hospital service. [facility] hospitalist will be contacted. 0905: Discussed with Dr. Martinez who agrees to admit the patient. Medical Decision Making Laboratory Data Result diagrams: 06/02/21 07:40 Lab Results 06/02/21 Range/Units 07:40 Sodium 140 (136-145) mmol/L Potassium 3.8 (3.5-5.1) mmol/L Chloride 110 H (98-107) mmol/L Carbon Dioxide 23 (21-32) mmol/L Anion Gap 7.0 (3-11) BUN 13 (7-18) mg/dl Creatinine 0.76 (0.6-1.4) mg/dl Est Cr Clr Drug Dosing 82.8 ml/min Est GFR ( Amer) 107.9 ml/min Est GFR (Non-Af Amer) 93.1 ml/min BUN/Creatinine Ratio 17.1 (10-20) Glucose 134 H (70-99) mg/dl Calcium 10.0 (8.5-10.1) mg/dl [facility] Narrative 0646: The patient was evaluated in room C6. A complete history and physical exam was performed EMR reviewed. Patient had Boggs catheter placed on Monday. Patient was seen in the emergency department yesterday for catheter not draining and had the catheter irrigated and then is started working properly. 0745: Catheter was replaced by nursing. No drainage. Discussed with urology Dr. Morrison who recommends putting three-way catheter in and try to irrigate out clot. He states his nurse practitioner will be down to evaluate the patient. 0820: Urology PRINCIPAL CLERK Domolarossy at bedside. 0855: Urology placed three-way Boggs catheter. They recommend that the patient be admitted for continuous irrigation. Asked that patient be admitted to the hospital service. [facility] any hospitalist will be contacted. 0905: Discussed with Dr. Martinez who agrees to admit the patient. Impression & Plan Acute urinary retention Discharge Plan Visit Data Chief Complaint: Catheter Replacement Stated Complaint: BOGGS BLOCKED ED Provider: Umair Conway Discharge Problem: Acute urinary retention Patient Disposition: Being Evaluated by Hospitalist Forms Stand Alone Forms: [facility] [place] [employer] Prescriptions Prescriptions: No Action metformin 500 mg tablet 1,000 mg PO BID RF: 0 lisinopril 20 mg tablet 20 mg PO QAM RF: 0 icosapent ethyl 1 gram capsule 1 g PO BID RF: 0 atorvastatin 80 mg tablet 80 mg PO HS RF: 0 clopidogrel 75 mg Tablet 75 mg PO QAM 30 Days Qty: 30 RF: 1 metoprolol tartrate 25 mg Tablet 12.5 mg PO BID 30 Days Qty: 30 RF: 1 oxybutynin chloride 5 mg tablet 5 mg PO DAILY PRN (Reason: bladder spasms) Qty: 30 RF: 0 aspirin 81 mg tablet,delayed release (DR/EC) 81 mg PO QAM RF: 0 Referrals Referrals: Jeremy Kaiser DO [Primary Care Provider] -
[2021-06-02 08:10] LABS: BUN Creatinine Ratio 17.1 (10-20); Creatinine Clr Calc Pharmacy 82.8 ml/min; Est GFR (African American) 107.9 ml/min; Est GFR (Non-African American) 93.1 ml/min; Potassium 3.8 mmol/L (3.5-5.1)
--- NOTE | 2021-06-02 09:05 | Urology Consultation ---
Date of Consultation June 02, 2021 Assessment & Plan (1) Gross hematuria: (2) Blocked urinary catheter: 70 year old male with multiple comorbidities presented to the emergency department with complaint of Wheeler catheter not draining and suprapubic pain. - Patient seen and evaluated with Dr. Morrison, urologist convention manager - Pt afebrile, hemodynamically stable, creatinine 0.76, no other lab work pending at this time - Wheeler catheter was exchanged to a 3 way 24F hematuria catheter at bedside - Wheeler manually irrigated by hand with initial return of moderate amount of small clots, irrigated until clear light red - Recommend admit to medicine service for further monitoring and medical tano gemelías - Initiate continuous bladder irrigation - Bladder US now for further evaluation of clot - Keep NPO for now - Continue supportive care - Urology will manage hematuria with the anticoagulation patient requires from cardiac perspective - Dr. Morrison assisted at bedside with successful catheter placement, see attending notes for further details - Will continue to follow closely with primary team Supervising Physician Co-Signing Physician Notes I have seen and examined Mr. Salgado and agree with the above documentation. Catheter was exchanged this morning for a 24 Occitan, three-way hematuria catheter. Hand irrigation was performed with return of a small amount of clots, after which the catheter flushed and aspirated easily suggesting good position in the bladder. Hematuria persists, therefore I would recommend continuing CBI overnight. As the hematuria lessens, this can be weaned and eventually stopped. I suspect with his history of brachytherapy and radiation, he has a contracted and friable bladder. Bleeding is exacerbated by his anticoagulation, but I would recommend he continue the anticoagulation for now as he is only 1 week out from a recent [place]. He is already planning for evaluation of his gross hematuria with CT urogram and cystoscopy. If his urine does not clear with continuous bladder irrigation, he may require cystoscopy and fulguration, but this would also be a risk with his recent [place]. For now would recommend continuing bladder irrigation overnight, perform hand irrigation as needed if the catheter clots off. He may have bladder spasms, which can mimic the Wheeler clotting off, for which he could receive belladonna and opium suppositories. History of Present Illness Reason for Consultation: Hematuria, Obstructed Wheeler Requesting Physician: Dr. Conway History of Present Illness 70 year old male with past medical history of prostate cancer, abdominal aortic aneurysm, prediabetes, peripheral arterial disease, chronic pancreatitis, NSTEMI and coronary artery stent (May 2021), hypertension, and acute urinary retention presented to the emergency department with complaint of Wheeler catheter not draining and suprapubic pain. Patient is known to our service for recent history of acute urinary retention and hematuria. He has history of prostate cancer s/p brachytherapy and radiation. He was initially evaluated at [facility] ER on 05/22 for difficulty voiding and he was found to be in urinary retention. A Wheeler catheter was placed and he was discharged to home. He subsequently was hospitalized at [facility] from 05/26 - 05/29/21 for NSTEMI and coronary artery stent placement. Our service was consulted during his admission for hematuria, hx of prostate cancer. He had an outpatient follow-up with our service on 05/31/21 and successfully passed his voiding trial. He is pending hematuria work-up with CT urogram and cystoscopy. Unfortunately, he returned to the ER on 06/01 with c/o passing large clots and then inability to void, so Wheeler catheter was replaced. He returned to ER this morning with blocked Wheeler catheter and suprapubic discomfort. A 16F Wheeler catheter was replaced by nursing without much urinary output noted. Creatinine 0.76 today. Urology service was consulted by ER physician for further evaluation. Patient was seen and examined in ER this AM, personally and then with Dr. Morrison, urologist convention manager. He is awake, alert and resting in ER litter. He reports waking up around 0200 with suprapubic discomfort and noted that his Wheeler catheter was not draining appropriately, which prompted him to return to ER. He reports ongoing hematuria. Continues to have mild suprapubic discomfort. Reports he was passing medium to large clots after his voiding trial. 16 F Wheeler catheter was replaced in ER today. Wheeler intact and draining rivera red urine, slightly thick appearing with a few clots noted in tubing. He denies nausea or vomiting. No fever or chills. Denies constipation. No chest pain, shortness of breath, or dizziness. Last meal was dinner yesterday. He had a sip of water with his medications this morning. Wheeler catheter was exchanged personally at bedside with Dr. Morrison. 16F Wheeler catheter was removed. Patient prepped using sterile technique, lidocaine jelly was inserted into urethra, then a 3 way 24F catheter was inserted without difficulty with return of rivera red urine with small clots. Wheeler catheter was then manually irrigated by hand using sterile water with initial return of moderate amount of small clots. Irrigated with approximately 300 mL. Irrigated until urine was clear light red. Wheeler catheter was connected and draining at conclusion of procedure. Patient tolerated procedure well. No additional concerns at this time. Allergies Allergy/AdvReac Type Severity Reaction Status Date / Time No Known Allergies Allergy Verified 05/26/21 14:58 Home Medications Medication Instructions Recorded Confirmed Type lisinopril 20 mg tablet 20 mg PO QAM 07/23/20 06/02/21 History metformin 500 mg tablet 1,000 mg PO BID 07/23/20 06/02/21 History icosapent ethyl 1 gram capsule 1 g PO BID 05/22/21 06/02/21 History atorvastatin 80 mg tablet 80 mg PO HS 05/26/21 06/02/21 History clopidogrel 75 mg tablet 75 mg PO QAM 30 Days #30 tab 05/29/21 06/02/21 Rx metoprolol tartrate 25 mg tablet 12.5 mg PO BID 30 Days #30 tab 05/29/21 06/02/21 Rx oxybutynin chloride 5 mg tablet 5 mg PO DAILY PRN #30 tab 05/29/21 06/02/21 Rx aspirin 81 mg tablet,delayed 81 mg PO QAM 06/02/21 06/02/21 History release Patient History Medical History Abdominal aortic aneurysm (AAA) 3.0 cm to 5.5 cm in diameter in male Acute Lyme disease Chronic pancreatitis Claudication of left lower extremity Gross hematuria HLD (hyperlipidemia) Hypertension NSTEMI (non-ST elevated myocardial infarction) Peripheral arterial disease Pre-diabetes Stroke-like symptoms Tobacco abuse Surgical History History of heart artery stent Social History Smoking Status: Current some day smoker Tobacco Type: Cigars Second Hand Exposure: No; Do You Dip or Chew Tobacco: No; Tobacco Cessation Education Requested by Patient: No Hx Alcohol Use: Yes Alcohol type: wine Hx Substance Use: No Preferred Language: Bolivian Communication Ability: Effective Care Provider Required: No Beliefs That Will Affect Care: None marital status: Current Living Situation: Spouse Feels Safe at Home: Yes Safety Concerns: Feels Safe At This Time Assistive Devices: CPAP and Glasses Review of Systems Constitutional: as per Subjective / HPI Respiratory: as per Subjective / HPI Cardiovascular: as per Subjective / HPI Gastrointestinal: as per Subjective / HPI Genitourinary: + as per Subjective / HPI Musculoskeletal: no problem reported Integumentary: no problem reported Neurologic: no problem reported Psychiatric: no problem reported Physical Exam Constitutional: well developed and well nourished; no acute distress and not ill appearing Respiratory: normal respiratory effort and able to speak in complete sentences; no respiratory distress and no labored breathing Cardiovascular: Extremities: no pedal edema Gastrointestinal (Abdomen): Inspection/Auscultation: abdomen normal to inspection; abdomen not distended Percussion/Palpation: abdomen soft; abdomen nontender and no guarding Neurologic: moves all extremities and awake Psychiatric: Orientation: alert, oriented x 3 and cooperative Genitourinary: + circumcised Bladder nondistended, no significant tenderness on palpation Wheeler catheter was exchanged personally at bedside with Dr. Morrison. 16F Wheeler catheter was removed. Patient prepped using sterile technique, lidocaine jelly was inserted into urethra, then a 3 way 24F catheter was inserted without difficulty with return of rivera red urine with small clots. Wheeler catheter was then manually irrigated by hand using sterile water with initial return of moderate amount of small clots. Irrigated with approximately 300 mL. Irrigated until urine was clear light red. Wheeler catheter was connected and draining at conclusion of procedure. Patient tolerated procedure well. Results & Data ([facility]) Vital Signs (Past 12 Hours) Vital Signs Temp Pulse Resp BP Pulse Ox 06/02/21 06:41 36.5 C 105 H 18 125/79 95 PG Care Time/CCT Total # of Minutes Spent Total Time Spent with Patient: Total time spent is greater than 50% in coordination of care (as documented) at patient's floor/unit and/or counseling patient: Coding Level of Care Code 74376 Initial Inpt Care Lvl 3 Diagnoses Gross hematuria R31.0 Blocked urinary catheter T83.098A
--- NOTE | 2021-06-02 09:12 | History & Physical Report ---
Date of Service June 02, 2021 Assessment & Plan (1) Acute urinary retention: Plan: Continuous bladder irrigation - management per urology US bladder pending Discussed case with KHANH Morrissey (2) Gross hematuria: Plan: Stop icosapent ethyl - suspect this is significantly contributing towards ongoing hematuria and likely will need to be stopped indefinitely. Triglycerides previously normal. Half life 37-89 hours. Given recent cardiac stent placed on 05/28 due to NSTEMI will need to continue DAPT unless hematuria does not resolve. Suspect secondary to radiation cystitis - management per urology (3) History of heart artery stent: Plan: Continue ASA, clopidogrel, metoprolol tartrate, lisinopril and atorvastatin (4) Peripheral arterial disease: Plan: Continue ASA, clopidogrel and atorvastatin (5) Type 2 diabetes mellitus: Plan: HbA1C 7.1 May 27 Hold metformin Insulin sliding scale for correction only, BSG ACHS. Plan: VTE Prophylaxis - SCD, chemical prophylaxis contraindicated Diet - heart healthy, T2DM Disposition - observation status to med/tele (due to recent NSTEMI) Admission and Anticipated Discharge Date Admission Date: June 01, 2021 History of Present Illness Chief Complaint: Gross hematuria and urinary retention Primary Care Provider: Jeremy Kaiser DO Alok Salgado is a 70 year old male with recent NSTEMI who presents to the ER for evaluation of urinary retention and gross hematuria. 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 Initially seen in the ER on May 22 for hematuria and a blas catheter was placed for urine retention due to PVR > 300ml. He was to follow up with urology however presented back to the ER 4 days later with chest pain and was diagnosed with NSTEMI. He was started on dual antiplatelets at that time and recommended to blas up with urology regarding the urine retention and hematuria. Planning on CT urogram and cystoscopy as outpatient. He followed up with urology and passed voiding trial on May 31 and blas was discontinued. The following day (yesterday) however he had to return to the ER with gross hematuria and urine retention and blas cather was again placed. He returns today due to suprapubic discomfort despite blas catheter in place and the blas catheter no longer draining. It is currently draining red urine with some clots in the tubing. Urology have been contacted and plan to place a three way catheter for continuous bladder irrigation and recommend admission under medicine at this time. Allergies Allergy/AdvReac Type Severity Reaction Status Date / Time No Known Allergies Allergy Verified 05/26/21 14:58 Home Medications Medication Instructions Recorded Confirmed Type lisinopril 20 mg tablet 20 mg PO QAM 07/23/20 06/02/21 History metformin 500 mg tablet 1,000 mg PO BID 07/23/20 06/02/21 History icosapent ethyl 1 gram capsule 1 g PO BID 05/22/21 06/02/21 History atorvastatin 80 mg tablet 80 mg PO HS 05/26/21 06/02/21 History clopidogrel 75 mg tablet 75 mg PO QAM 30 Days #30 tab 05/29/21 06/02/21 Rx metoprolol tartrate 25 mg tablet 12.5 mg PO BID 30 Days #30 tab 05/29/21 06/02/21 Rx oxybutynin chloride 5 mg tablet 5 mg PO DAILY PRN #30 tab 05/29/21 06/02/21 Rx aspirin 81 mg tablet,delayed 81 mg PO QAM 06/02/21 06/02/21 History release Past Med/Surg History Medical History Abdominal aortic aneurysm (AAA) 3.0 cm to 5.5 cm in diameter in male Acute Lyme disease Chronic pancreatitis Claudication of left lower extremity Gross hematuria HLD (hyperlipidemia) Hypertension NSTEMI (non-ST elevated myocardial infarction) Peripheral arterial disease Pre-diabetes Stroke-like symptoms Tobacco abuse Surgical History History of heart artery stent Social History Smoking Status: Current some day smoker Tobacco Type: Cigars Second Hand Exposure: No; Do You Dip or Chew Tobacco: No; Tobacco Cessation Education Requested by Patient: No Hx Alcohol Use: Yes Alcohol type: wine Hx Substance Use: No Preferred Language: Liberian Communication Ability: Effective Bandoleer Packer Required: No Beliefs That Will Affect Care: None marital status: Current Living Situation: Spouse Feels Safe at Home: Yes Safety Concerns: Feels Safe At This Time Assistive Devices: CPAP and Glasses Review of Systems Review of Systems: All systems reviewed & are unremarkable except as noted in HPI & below Physical Exam Constitutional: WD/WN, vitals as above Eyes: + anicteric sclerae; normal pupil size ENMT: external ear and nose normal, oropharynx normal Neck: trachea midline, no thyromegaly Respiratory: normal respiratory effort, lungs clear to auscultation Cardiovascular: RRR, no murmur, no edema Gastrointestinal (Abdomen): Inspection/Auscultation: abdomen normal to inspection and normal bowel sounds; abdomen not distended Percussion/Palpation: + abdomen tender (mild suprapubic) and abdomen soft; no guarding and abdomen not rigid Musculoskeletal: no cyanosis or clubbing, extremities motor strength 5/5 Skin: no rashes, warm and dry Neurologic: moves all extremities and awake; not confused Psychiatric: A+Ox3, euthymic affect Results & Data Results & Data ([facility]) Vital Signs (Past 12 Hours) Vital Signs Temp Pulse Resp BP Pulse Ox 06/02/21 06:41 36.5 C 105 H 18 125/79 95 Laboratory Results Abnormal lab results 06/02/21 06/02/21 06/02/21 Range/Units 07:40 09:51 14:17 WBC 12.80 H (4.8-10.8) K/uL RBC 4.38 L (4.7-6.1) M/uL Hct 41.9 L (42-52) % RDW Std Deviation 47.9 H (36.4-46.3) fL MPV 10.7 H (7.4-10.4) fL Neut # (Auto) 10.60 H (1.4-6.5) K/uL Lymph # (Auto) 1.04 L (1.2-3.4) K/uL [place] # (Auto) 1.09 H (0.11-0.59) K/uL Immature Gran # (Auto) 0.03 H (0.00-0.02) K/uL Chloride 110 H (98-107) mmol/L Glucose 134 H (70-99) mg/dl POC Glucose 111 H (70-99) mg/dl Medications Administered ER Medications Given: None Code Status & VTE Plan Code Status Full VTE Prophylaxis Plan VTE Prophylaxis will be ordered: Yes Reason for no VTE drug order: Contraindicated PG Care Time/CCT Total # of Minutes Spent Total Time Spent with Patient: Total time spent is greater than 50% in coordination of care (as documented) at patient's floor/unit and/or counseling patient: Coding Level of Care Code INT OBSERVATION CARE 70M LVL 3 Diagnoses Acute urinary retention R33.8 History of heart artery stent Z95.5 Peripheral arterial disease I73.9 Gross hematuria R31.0 Type 2 diabetes mellitus E11.9
[2021-06-02 10:10] LABS: Basophils # (auto) 0.01 K/uL (0-0.2); Basophils % (auto) 0.1 %; Eosinophils # (auto) 0.03 K/uL (0-0.5); Eosinophils % (auto) 0.2 %; Hematocrit (blood only) 41.9 % (42-52); Hemoglobin 14.6 g/dL (14.0-18.0); Immature Granulocytes # (auto) 0.03 K/uL (0.00-0.02); Immature Granulocytes % (auto) 0.2 %; Lymphocytes # (auto) 1.04 K/uL (1.2-3.4); Lymphocytes % (auto) 8.1 %; Mean Corpuscular Hemoglobin 33.3 pg (25-34); Mean Corpuscular Hgb Conc 34.8 g/dL (32-36); Mean Corpuscular Volume 95.7 fL (80-100); Mean Platelet Volume 10.7 fL (7.4-10.4); Monocytes # (auto) 1.09 K/uL (0.11-0.59); Monocytes % (auto) 8.5 %; Neutrophils % (auto) 82.9 %; Platelet Count 300 K/uL (130-400); RDW Coefficient of Variation 13.6 % (11.5-14.5); RDW Standard Deviation 47.9 fL (36.4-46.3); Red Blood Count 4.38 M/uL (4.7-6.1)
--- NOTE | 2021-06-02 12:34 | Ultrasound Report ---
US retro bladder ltd CLINICAL HISTORY: Hematuria, evaluate bladder for clot retention COMPARISON STUDY: CT of the abdomen and pelvis July 24, 2020. Renal ultrasound May 26, 2021. TECHNIQUE: Sonography of the bladder was performed. FINDINGS: Hweeler balloon within the bladder is noted. Evaluation of the bladder is difficult given sub optimal distention. There is an apparent 2.2 x 2.1 x 1.1 cm echogenic focus within the bladder, adjac ent to the Wheeler. This could reflect a clot. Bladder wall thickening is noted. IMPRESSION: Apparent 2.2 x 2.1 x 1.1 cm echogenic focus within the bladder, adjacent to the Wheeler ca theter. This may reflect a clot. ACT 112: Negative or not required by law. Electronically signed by: Juanjose Stephens M.D. 06/02/2021 12:32 PM
[2021-06-02] MEDS ORDERED: OXYBUTYNIN CHLORIDE 5 MG TAB PO PRN (13:44)
[2021-06-02] MEDS ORDERED: DEXTROSE 50% 50 ML SYRINGE IV PRN (19:38)
[2021-06-02] MEDS ORDERED: GLUCOSE 40% GEL 15 GM TUBE PO PRN (19:38)
[2021-06-02] MEDS ORDERED: CARBOHYDRATES FOR HYPOGLYCEMIA PO PRN (19:38)
[2021-06-02] MEDS ORDERED: GLUCAGON FOR INJ 1 MG VIAL SQ PRN (19:38)
[2021-06-02] MEDS ORDERED: GLUCOSE 10 TABS/TUBE PO PRN (19:38)
[2021-06-02] MEDS: ATORVASTATIN 40 MG TAB PO SCH (20:28)
[2021-06-02] MEDS: METOPROLOL TARTRATE 25 MG TAB PO SCH (20:28)
[2021-06-02] MEDS: INSULIN ASPART 100 UNITS/ML 3 ML PEN SC SCH (21:27)
[2021-06-03] MEDS: CLOPIDOGREL BISULFATE 75 MG TAB PO SCH (06:16)
[2021-06-03] MEDS ORDERED: BELLADONNA/OPIUM SUPP 60 MG SUPP PR PRN (06:30)
[2021-06-03 07:19] LABS: Basophils # (auto) 0.01 K/uL (0-0.2); Basophils % (auto) 0.1 %; Eosinophils # (auto) 0.03 K/uL (0-0.5); Eosinophils % (auto) 0.2 %; Hematocrit (blood only) 40.3 % (42-52); Hemoglobin 13.9 g/dL (14.0-18.0); Immature Granulocytes # (auto) 0.02 K/uL (0.00-0.02); Immature Granulocytes % (auto) 0.2 %; Lymphocytes # (auto) 1.47 K/uL (1.2-3.4); Lymphocytes % (auto) 11.4 %; Mean Corpuscular Hemoglobin 32.7 pg (25-34); Mean Corpuscular Hgb Conc 34.5 g/dL (32-36); Mean Corpuscular Volume 94.8 fL (80-100); Monocytes # (auto) 1.26 K/uL (0.11-0.59); Monocytes % (auto) 9.8 %; Neutrophils # (auto) 10.09 K/uL (1.4-6.5); Neutrophils % (auto) 78.3 %; Platelet Count 308 K/uL (130-400); RDW Coefficient of Variation 13.5 % (11.5-14.5); RDW Standard Deviation 46.9 fL (36.4-46.3); Red Blood Count 4.25 M/uL (4.7-6.1); White Blood Count 12.88 K/uL (4.8-10.8)
[2021-06-03] MEDS: METOPROLOL TARTRATE 25 MG TAB PO SCH ×2 (07:30→19:58)
[2021-06-03] MEDS: lisinopril 20 MG TAB PO SCH (07:30)
[2021-06-03] MEDS: ASPIRIN 81 MG ECTAB PO SCH (07:31)
[2021-06-03 07:51] LABS: BUN Creatinine Ratio 13.4 (10-20); Calcium 9.4 mg/dl (8.5-10.1); Est GFR (African American) 109.1 ml/min; Est GFR (Non-African American) 94.1 ml/min; Potassium 3.4 mmol/L (3.5-5.1)
[2021-06-03] MEDS: INSULIN ASPART 100 UNITS/ML 3 ML PEN SC SCH ×3 (07:58→16:54)
--- NOTE | 2021-06-03 08:44 | Urology Progress Note ---
Date of Service June 03, 2021 Assessment & Plan (1) Gross hematuria: Plan: 70 year old male with multiple comorbidities admitted for gross hematuria with blocked Blas catheter. - Plan of care reviewed with Dr. Barrett, urologist environmental projects advisor - Pt afebrile, hemodynamically stable, lab work reviewed - creatinine 0.74, Hgb 13.9, WBC 12.88 - Bladder US reviewed and noted small amount of clot measuring 2.2 x 2.1 x 1.1 cm within the bladder - 3 way 24F hematuria catheter intact, patent and draining clear light rivera red urine with CBI running on slow - No manual irrigation needed overnight - CBI clamped at 0830, RN aware - will reassess later this AM - Plan to titrate CBI with hope of discontinuing later today presuming urine appropriate and he continues to progress as expected - Maintain Blas catheter - Continue supportive care and management per primary service - Urology will manage hematuria with the DAPT patient requiring from cardiac perspective - He is pending hematuria work-up as an outpatient - Recommend CT urogram while inpatient to expedite w/u, will arrange sooner outpatient cystoscopy - Will continue to follow closely with primary team Admission and Anticipated Discharge Date Admission Date: June 02, 2021 Supervising Physician Co-Signing Physician Notes Discussed patient with [facility]. Agree with plan. Continue CBI, titrate when possible. Will attempt to wean off CBI and likely leave blas in place upon discharge. Recommend CTU in house to expedite hematuria workup. Will plan on clinic cystoscopy and void trial next week if possible. Suspect radiation cystitis as cause, may benefit from hyperbaric oxygen therapy in immediate future if that is the case. Subjective Patient awake and sitting up in bed. No acute issues overnight. Tolerating Blas catheter, notes intermittent bladder spasms overnight relieved with prn oxybutynin. No abdominal or suprapubic pain at present. 3 way 24F Blas intact, patent and draining clear light rivera red urine with CBI running on slow. No manual irrigation required overnight. CBI clamped at time of visit @0830, RN aware. No nausea or vomiting. No fever or chills. Review of Systems Constitutional: as per Subjective / HPI Gastrointestinal: as per Subjective / HPI Genitourinary: + as per Subjective / HPI Physical Exam Constitutional: well developed and well nourished; no acute distress Respiratory: normal respiratory effort; no respiratory distress and no labored breathing Cardiovascular: Extremities: no pedal edema Gastrointestinal (Abdomen): Inspection/Auscultation: abdomen normal to inspection; abdomen not distended Musculoskeletal: Head/Neck/Chest: normocephalic and head atraumatic Extremities: extremities normal to inspection Skin: no rashes, warm and dry Neurologic: moves all extremities and awake Psychiatric: Orientation: alert and oriented x 3 Genitourinary: 3 way 24F Blas intact, patent and draining clear light rivera red urine with CBI running on slow Results & Data ([facility]) Vital Signs (Past 12 Hours) Vital Signs Temp Pulse Pulse Resp BP BP Pulse Ox 06/03/21 07:29 36.7 C 88 16 149/78 H 96 06/03/21 04:00 36.8 C 94 H 18 133/76 95 06/02/21 23:00 37.3 C 88 18 117/67 92 06/02/21 22:19 78 PG Care Time/CCT Total # of Minutes Spent Total Time Spent with Patient: Total time spent is greater than 50% in coordination of care (as documented) at patient's floor/unit and/or counseling patient: Coding Level of Care Code 10129 Subseq Hosp Care Lvl 2 Diagnoses Gross hematuria R31.0
[2021-06-03] MEDS: OXYBUTYNIN CHLORIDE 5 MG TAB PO PRN ×2 (09:57→17:57)
[2021-06-03] MEDS ORDERED: POTASSIUM CHLORIDE CRTAB 20 MEQ TABCR PO STA (09:58)
[2021-06-03] MEDS ORDERED: OPTIRAY 320 100ml IV ONE (11:20)
--- NOTE | 2021-06-03 11:52 | CT Scan Report ---
CT abdomen pelvis wo/w con CLINICAL HISTORY: Hematuria protocol TECHNIQUE: Helical axial images of the abdomen and pelvis were obtained. Automated dose lowering tech niques and/or adjustment according to patient size were utilized for this exam. This exam was perfor med with and without intravenous contrast. COMPARISON: Comparison is made to CT abdomen and pelvis 07/24/2020 FINDINGS: Lower chest: No acute abnormality Liver: Unremarkable. No focal lesions are seen. Gallbladder and biliary tree: The gallbladder is contracted. No intra- or extrahepatic biliary ductal dilation. Pancreas: Calcifications are noted in the pancreas which may be secondary to chronic pancreatitis. Spleen: Unremarkable. Adrenals: Unremarkable. Kidneys and ureters: Bilateral renal cysts are unchanged. Bladder: Wheeler catheter is seen. There is a large amount of heterogeneous hypodensity with a few foci of air which may be due to instrumentation. Reproductive organs: Radiation beads are noted in the prostate. Bowel: Diverticulosis is seen without evidence of diverticulitis. The appendix is unremarkable. Lymph nodes Retroperitoneal: Unremarkable. Mesenteric: Unremarkable. Pelvic: Unremarkable. Peritoneum: Normal Vessels: There is an infrarenal abdominal aortic aneurysm measuring up to 54 mm in diameter. This is unchanged from prior exam. There is noticeable mural thrombus with severe stenosis in the middle of t he aneurysm. The origins of the renal, celiac, and superior mesenteric arteries are normal. Flow is s een in the bilateral iliac arteries. 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 Abdominal wall: Unremarkable. Bones: Minimal degenerative changes are seen. No evidence of acute fracture. IMPRESSION: 1. Large soft tissue mass in the bladder occupying almost the entire lumen likely represents a clot, however underlying soft tissue mass cannot be excluded. A Wheeler catheter is seen with expected air i n the bladder. No evidence of abnormal mass in the kidneys or ureters. 2. Large infrarenal abdominal aortic aneurysm with significant luminal narrowing due to mural thromb us, similar in appearance to prior exam. Small right iliac aneurysm. ACT 112: Negative or not required by law. Electronically signed by: Morgan Lee M.D. 06/03/2021 11:50 AM
--- NOTE | 2021-06-03 12:47 | Hospitalist Progress Note ---
Date of Service June 03, 2021 Assessment & Plan (1) Acute urinary retention: Plan: Continuous bladder irrigation - management per urology CT A/P with IV contrast, possible cystoscopy per urology recommendations therefore will consult cardiology for pre-op clearance given recent [place] Discussed case with KHANH Morrissey (2) Gross hematuria: Plan: Stopped icosapent ethyl - suspect this is significantly contributing towards ongoing hematuria and likely will need to be stopped indefinitely. Triglycerides previously normal. Half life 37-89 hours. Given recent cardiac stent placed on 05/28 due to NSTEMI will need to continue DAPT unless hematuria does not resolve. Suspect secondary to radiation cystitis - management per urology (3) History of heart artery stent: Plan: Continue ASA, clopidogrel, metoprolol tartrate, lisinopril and atorvastatin (4) Peripheral arterial disease: Plan: Continue ASA, clopidogrel and atorvastatin (5) Type 2 diabetes mellitus: Plan: HbA1C 7.1 May 27 Hold metformin Patient refusing insulin and BSG checks therefore will stop these Plan: VTE Prophylaxis - SCD, chemical prophylaxis contraindicated Diet - heart healthy, T2DM Disposition - continue observation status to med/tele (due to recent NSTEMI) Admission and Anticipated Discharge Date Admission Date: June 02, 2021 Subjective Having occasional bladder spasms, blood clot on CT today, irrigated by urology. Patient otherwise feeling well. No fever or chills. Very mild suprapubic tenderness. Diluted red urine in catheter. No chest pain, shortness of breath or dizziness. Review of Systems Review of Systems: All systems reviewed & are unremarkable except as noted in HPI & below Physical Exam Constitutional: WD/WN, vitals as above Eyes: + anicteric sclerae; normal pupil size ENMT: external ear and nose normal, oropharynx normal Neck: trachea midline, no thyromegaly Respiratory: normal respiratory effort, lungs clear to auscultation Cardiovascular: RRR, no murmur, no edema Gastrointestinal (Abdomen): Inspection/Auscultation: abdomen normal to inspection and normal bowel sounds; abdomen not distended Percussion/Palpation: + abdomen tender (mild suprapubic) and abdomen soft; no guarding and abdomen not rigid Musculoskeletal: no cyanosis or clubbing, extremities motor strength 5/5 Skin: no rashes, warm and dry Neurologic: moves all extremities and awake; not confused Psychiatric: A+Ox3, euthymic affect Results & Data Results & Data ([facility]) Vital Signs (Past 12 Hours) Vital Signs Temp Pulse Resp BP Pulse Ox 06/03/21 12:35 36.4 C L 66 16 111/66 94 06/03/21 07:29 36.7 C 88 16 149/78 H 96 06/03/21 04:00 36.8 C 94 H 18 133/76 95 PG Care Time/CCT Total # of Minutes Spent Total Time Spent with Patient: Total time spent is greater than 50% in coordination of care (as documented) at patient's floor/unit and/or counseling patient: Coding Level of Care Code 88693 Subseq Hosp Care Lvl 2 Diagnoses Acute urinary retention R33.8 Gross hematuria R31.0 History of heart artery stent Z95.5 Peripheral arterial disease I73.9 Type 2 diabetes mellitus E11.9
[2021-06-03] MEDS: SULFA/TRIMETH 400/80MG TAB PO SCH ×2 (14:50→19:57)
--- NOTE | 2021-06-03 15:33 | Cardiology Consultation ---
Date of Consultation June 03, 2021 Assessment & Plan (1) CAD (coronary artery disease): (2) History of heart artery stent: (3) Tobacco abuse: (4) Preop cardiovascular exam: ASSESSMENT/PLAN: 1. CAD s/p LAD PCI and recent NSTEMI: No angina or heart failure symptoms. Would continue aspirin 81 mg daily indefinitely. Would continue Plavix 75 mg daily for 1 year if able. Would certainly want to continue now on less strongly contraindicated given recent PCI (such as for life threatening bleed). Continue high-intensity statin therapy. Continue beta-antonio and THIEN-inhibitor. 2. Tobacco abuse: Recommended that he stop smoking. 3. Hematuria: As per urology. Discussed with Dr. Ferreira. Currently, he is hoping that he will be able to conservatively manage his hematuria as irrigation has been successful so far this hospital stay. He is agreeable for dual anti- platelet therapy given recent PCI at this time. 4. Preoperative cardiac assessment: No surgery or procedures currently planned. Because he did have evidence of myocardial infarction on 05/26/2021, he would be considered higher risk for any procedure at this point. Cystoscopy itself is likely low risk from a procedural standpoint. If significant bleeding requires cystoscopy, would proceed as necessary. 5. Disposition: Cardiology will sign off at this time. Please call with any other questions or concerns. A message has been sent to cardiology office to reschedule his previously scheduled appointment with Dr. Elizabeth. Patient care communicated directly with Dr. Ferreira of Urology. Thank you for allowing me to participate in the care of your patient. Please call for any other questions or concerns. Sincerely, Carlos A Arguelles M.D. History of Present Illness Reason for Consultation: Preoperative cardiac assessment Requesting Physician: Brien Martinez MD Attending Physician: Brien Martinez MD History of Present Illness Mr. Salgado is a pleasant 70-year-old gentleman with a history significant for CAD s/p LAD PCI (05/28/21), NSTEMI, hypertension, dyslipidemia, prediabetes, peripheral arterial disease and AAA (followed by [facility] vascular). He also has a history of chronic pancreatitis, prostate cancer s/p brachytherapy and radiation, now with radiation cystitis and recent issues with hematuria. His primary escalator constructor is Dr. Elizabeth. He was recently hospitalized on 05/26/2021. According to records his chief complaint was chest pain and hematuria. His chest pain was reportedly the day before presentation. He underwent troponin evaluation which was elevated and peaked at 8.18. He was seen by Urology during that hospitalization and there was no plan for acute intervention and plan was to maintain Wheeler catheter with gentle irrigation. He therefore underwent cardiac catheterization on 05/28/[address] Garcia. He was found to have proximal LAD 80%, distal LAD 60%, and otherwise no other CAD. He underwent PCI of his LAD with 3.5 x 18 mm SANTIAGO. He was discharged on aspirin and Plavix and scheduled to see Dr. Elizabeth today. Unfortunately, he continues to have chi hematuria but presented to the ER today with suprapubic discomfort despite Wheeler catheter in place. There was no further drainage and was found to have further clot burden. Fortunately, urology was able to irrigate with continuous bladder irrigation and he feels much better. Suprapubic pain has resolved. He states that he has not had any chest discomfort since discharge. He also states that he did not have any chest discomfort prior to last hospitalization despite several records recording that he reported such chest discomfort at that time. He states that he is active but does not perform dedicated exercise. He denies shortness of breath, syncope, near-syncope, palpitations, or edema. Dr. Martinez has requested cardiology consultation for preoperative evaluation for possible cystoscopy. Review of systems: As above. Review of systems otherwise negative/unremarkable. Family history: No known premature CAD, however his father had some form of cardiac disorder which she believes was hereditary. Social history: Has smoked cigarettes up to 1 pack per day in the past but now smokes cigars, 1 daily. He consumes 1 glass of wine per day. He lives at home with his . He has a daughter (Cindy fall) who is a dietitian at [employer]. He has a son in [place]. He was unaccompanied in his hospital room. Allergies Allergy/AdvReac Type Severity Reaction Status Date / Time No Known Allergies Allergy Verified 05/26/21 14:58 Home Medications Medication Instructions Recorded Confirmed Type lisinopril 20 mg tablet 20 mg PO QAM 07/23/20 06/02/21 History metformin 500 mg tablet 1,000 mg PO BID 07/23/20 06/02/21 History icosapent ethyl 1 gram capsule 1 g PO BID 05/22/21 06/02/21 History atorvastatin 80 mg tablet 80 mg PO HS 05/26/21 06/02/21 History clopidogrel 75 mg tablet 75 mg PO QAM 30 Days #30 tab 05/29/21 06/02/21 Rx metoprolol tartrate 25 mg tablet 12.5 mg PO BID 30 Days #30 tab 05/29/21 06/02/21 Rx oxybutynin chloride 5 mg tablet 5 mg PO DAILY PRN #30 tab 05/29/21 06/02/21 Rx aspirin 81 mg tablet,delayed 81 mg PO QAM 06/02/21 06/02/21 History release Patient History Medical History (Updated 06/03/21 @ 15:58 by Angelo Arguelles MD) Abdominal aortic aneurysm (AAA) 3.0 cm to 5.5 cm in diameter in male Acute Lyme disease CAD (coronary artery disease) Chronic pancreatitis Claudication of left lower extremity Gross hematuria HLD (hyperlipidemia) Hypertension NSTEMI (non-ST elevated myocardial infarction) Peripheral arterial disease Pre-diabetes Stroke-like symptoms Tobacco abuse Surgical History History of heart artery stent Social History Smoking Status: Current some day smoker Tobacco Type: Cigars Second Hand Exposure: No; Hx Alcohol Use: Yes Alcohol type: wine Hx Substance Use: No Preferred Language: Cuban Communication Ability: Effective Motor Home Electrical 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 Alert and oriented. HEENT: Anicteric sclera. Neck: No JVD. No bruits. Normal carotid upstrokes bilaterally. Cardiac: PMI was nondisplaced. No ventricular heave. Regular. Normal S1-S2. No murmurs, rubs, or gallops. Pulmonary: Clear to auscultation bilaterally without wheezes, rales, or rhonchi. Abdomen: Soft, nontender, nondistended, with normoactive bowel sounds. No bruits noted. Extremities: 2+ radial pulses bilaterally. 2+ posterior tibialis pulses bilaterally. No edema or cyanosis. Psychiatric: Affect appears appropriate. Results & Data ([facility]) Vital Signs (Past 12 Hours) Vital Signs Temp Pulse Resp BP Pulse Ox 06/03/21 12:35 36.4 C L 66 16 111/66 94 06/03/21 07:29 36.7 C 88 16 149/78 H 96 06/03/21 04:00 36.8 C 94 H 18 133/76 95 Laboratory Results Laboratory Results - last 24 hr 06/02/21 06/03/21 06/03/21 20:30 06:39 06:39 WBC 12.88 H RBC 4.25 L Hgb 13.9 L Hct 40.3 L MCV 94.8 MCH 32.7 MCHC 34.5 RDW Std Deviation 46.9 H RDW Coeff of Matt 13.5 Plt Count 308 MPV 11.0 H Immature Gran % (Auto) 0.2 Neut % (Auto) 78.3 Lymph % (Auto) 11.4 [place] % (Auto) 9.8 Eos % (Auto) 0.2 Baso % (Auto) 0.1 Neut # (Auto) 10.09 H Lymph # (Auto) 1.47 [place]ette # (Auto) 1.26 H Eos # (Auto) 0.03 Baso # (Auto) 0.01 Immature Gran # (Auto) 0.02 Sodium 139 Potassium 3.4 L Chloride 106 Carbon Dioxide 23 Anion Gap 10.0 BUN 10 Creatinine 0.74 Est Cr Clr Drug Dosing 85.0 Est GFR ( Amer) 109.1 Est GFR (Non-Af Amer) 94.1 BUN/Creatinine Ratio 13.4 Glucose 120 H POC Glucose 138 H Calcium 9.4 06/03/21 07:40 WBC RBC Hgb Hct MCV MCH MCHC RDW Std Deviation RDW Coeff of Matt Plt Count MPV Immature Gran % (Auto) Neut % (Auto) Lymph % (Auto) [place] % (Auto) Eos % (Auto) Baso % (Auto) Neut # (Auto) Lymph # (Auto) [place] # (Auto) Eos # (Auto) Baso # (Auto) Immature Gran # (Auto) Sodium Potassium Chloride Carbon Dioxide Anion Gap BUN Creatinine Est Cr Clr Drug Dosing Est GFR ( Amer) Est GFR (Non-Af Amer) BUN/Creatinine Ratio Glucose POC Glucose 126 H Calcium Diagnostic Findings Cardiac catheterization report reviewed as summarized in HPI. Telemetry personally reviewed: Sinus rhythm. No arrhythmia. Echo report reviewed from 05/26/2021: Normal LV size, wall motion, systolic function. EF 55-60%. Mild MR. Medications Administered Current Inpatient Medications Aspirin (Aspirin 81 Mg Ectab) 81 mg PO QAM [facility] Stop: 07/03/21 08:59 Last Admin: 06/03/21 07:31 Dose: 81 mg Documented by: Atorvastatin Calcium (Atorvastatin 40 Mg Tab) 80 mg PO HS [facility] Stop: 07/02/21 20:59 Last Admin: 06/02/21 20:28 Dose: 80 mg Documented by: Belladonna Alkaloids/Opium (Belladonna/Opium Supp 60 Mg Supp) 60 mg MD DAILY PRN PRN Reason: bladder spams Stop: 06/17/21 06:29 Clopidogrel Bisulfate (Clopidogrel Bisulfate 75 Mg Tab) 75 mg PO DAILYBB [facility] Stop: 07/03/21 06:29 Last Admin: 06/03/21 06:16 Dose: 75 mg Documented by: Dextrose (Dextrose 50% 50 Ml Syringe) 25 - 50 ml IV UD PRN; Protocol PRN Reason: Hypoglycemia Protocol Stop: 07/02/21 19:37 Glucagon (Glucagon For Inj 1 Mg Vial) 1 mg SQ UD PRN; Protocol PRN Reason: Hypoglycemia Protocol Stop: 07/02/21 19:37 Glucose (Glucose 10 Tabs/Tube) 4 - 8 tabs PO UD PRN; Protocol PRN Reason: Hypoglycemia Protocol Stop: 07/02/21 19:37 Glucose (Glucose 40% Gel 15 Gm Tube) 15 - 30 gm PO UD PRN; Protocol PRN Reason: Hypoglycemia Protocol Stop: 07/02/21 19:37 Insulin Aspart (Insulin Aspart 100 Units/Ml 3 Ml Pen) 0 units SC ACHS [facility] Stop: 07/02/21 20:59 Last Admin: 06/03/21 11:37 Dose: Not Given Documented by: Lisinopril (Lisinopril 20 Mg Tab) 20 mg PO QAM [facility] Stop: 07/03/21 08:59 Last Admin: 06/03/21 07:30 Dose: 20 mg Documented by: Metoprolol Tartrate (Metoprolol Tartrate 25 Mg Tab) 12.5 mg PO BID [facility] Stop: 07/02/21 20:59 Last Admin: 06/03/21 07:30 Dose: 12.5 mg Documented by: Miscellaneous (Carbohydrates For Hypoglycemia ) 15 - 30 gm PO UD PRN PRN Reason: Hypoglycemia Protocol Stop: 07/02/21 19:37 Oxybutynin Chloride (Oxybutynin Chloride 5 Mg Tab) 5 mg PO Q8H PRN PRN Reason: bladder spasms Stop: 07/02/21 13:43 Last Admin: 06/03/21 09:57 Dose: 5 mg Documented by: Trimethoprim/Sulfamethoxazole (Sulfa/Trimeth 400/80mg Tab) 1 tab PO Q12 EDEN Stop: 06/13/21 12:44 Last Admin: 06/03/21 14:50 Dose: 1 tab Documented by: PG Care Time/CCT Total # of Minutes Spent Total Time Spent with Patient: Total time spent is greater than 50% in coordination of care (as documented) at patient's floor/unit and/or counseling patient: Coding Level of Care Code 75087 Initial Inpt Care Lvl 2 Diagnoses CAD (coronary artery disease) I25.10 History of heart artery stent Z95.5 Tobacco abuse Z72.0 Preop cardiovascular exam Z01.810
[2021-06-03] MEDS: ATORVASTATIN 40 MG TAB PO SCH (19:58)
[2021-06-04] MEDS: LIDOCAINE 5% OINT 30 GM TUBE EXT PRN ×2 (01:41→19:40)
[2021-06-04] MEDS: OXYBUTYNIN CHLORIDE 5 MG TAB PO PRN ×3 (03:40→21:55)
[2021-06-04] MEDS: CLOPIDOGREL BISULFATE 75 MG TAB PO SCH (06:09)
[2021-06-04] MEDS: METOPROLOL TARTRATE 25 MG TAB PO SCH ×2 (08:28→20:48)
[2021-06-04] MEDS: ASPIRIN 81 MG ECTAB PO SCH (08:28)
[2021-06-04] MEDS: SULFA/TRIMETH 400/80MG TAB PO SCH ×2 (08:28→20:48)
[2021-06-04] MEDS: lisinopril 20 MG TAB PO SCH (08:28)
[2021-06-04 08:39] LABS: Basophils # (auto) 0.01 K/uL (0-0.2); Basophils % (auto) 0.1 %; Eosinophils # (auto) 0.04 K/uL (0-0.5); Eosinophils % (auto) 0.3 %; Hematocrit (blood only) 40.2 % (42-52); Hemoglobin 13.6 g/dL (14.0-18.0); Immature Granulocytes # (auto) 0.03 K/uL (0.00-0.02); Immature Granulocytes % (auto) 0.2 %; Lymphocytes # (auto) 1.42 K/uL (1.2-3.4); Lymphocytes % (auto) 10.3 %; Mean Corpuscular Hemoglobin 33.2 pg (25-34); Mean Corpuscular Hgb Conc 33.8 g/dL (32-36); Mean Platelet Volume 10.9 fL (7.4-10.4); Monocytes # (auto) 1.12 K/uL (0.11-0.59); Monocytes % (auto) 8.1 %; Neutrophils # (auto) 11.23 K/uL (1.4-6.5); Platelet Count 313 K/uL (130-400); RDW Coefficient of Variation 13.6 % (11.5-14.5); RDW Standard Deviation 48.6 fL (36.4-46.3); White Blood Count 13.85 K/uL (4.8-10.8)
[2021-06-04 09:02] LABS: BUN Creatinine Ratio 11.1 (10-20); Calcium 9.6 mg/dl (8.5-10.1); Creatinine Clr Calc Pharmacy 70.7 ml/min; Est GFR (African American) 101.1 ml/min; Est GFR (Non-African American) 87.2 ml/min; Potassium 3.6 mmol/L (3.5-5.1)
--- NOTE | 2021-06-04 09:16 | Urology Progress Note ---
Date of Service June 04, 2021 Assessment & Plan (1) Gross hematuria: (2) Acute urinary retention: Plan: 70 year old male with multiple comorbidities admitted for gross hematuria with blocked Wheeler catheter. - Plan of care reviewed with Dr. Morrison, urologist sales operations consultant - Pt afebrile, hemodynamically stable, lab work reviewed - creatinine 0.89, Hgb 13.6, WBC 13.85 - CTAP wo/w con 06/03 reviewed and noted large amount of clot within bladder, Wheeler in position - 24F hematuria catheter intact, patent and draining clear light rivera red urine, few small clots, with CBI running on slow - Catheter hand irrigated again this morning with moderate clot return - Continue CBI for now, titrate as appropriate - Patient was started on PO Bactrim empirically yesterday given CBI - Maintain Wheeler catheter - Continue supportive care and management per primary service - Will hold on any surgical intervention for now - Urology will manage hematuria with the DAPT patient requiring from cardiac perspective - Will continue to follow closely with primary team Admission and Anticipated Discharge Date Admission Date: June 02, 2021 Subjective Patient seen and examined at bedside this morning. No acute issues overnight. CTAP w/wo con from yesterday noted large amount of clot within the bladder, Wheeler in place. Moderate to large amount of clot was hand irrigated by urology yesterday afternoon. Wheeler catheter intact, patent and draining clear light rivera red urine, few small clots, with CBI running on slow. Per chart review, no hand irrigation required by nursing overnight. He reports 2 episodes of bladder spasms overnight, oxybutynin provides moderate relief. No abdominal or suprapubic discomfort at present. No nausea or vomiting. No fever or chills. Manual irrigation completed at bedside this AM. Moderate amount of clot was again irrigated - but the urine did not entirely clear. CBI running slow with pink/light fruit punch colored urine at completion. Patient tolerated well. Review of Systems Constitutional: as per Subjective / HPI Gastrointestinal: as per Subjective / HPI Genitourinary: + as per Subjective / HPI Physical Exam Constitutional: well developed and well nourished; no acute distress Respiratory: normal respiratory effort; no respiratory distress and no labored breathing Cardiovascular: Extremities: no pedal edema Gastrointestinal (Abdomen): Inspection/Auscultation: abdomen normal to inspection; abdomen not distended Percussion/Palpation: abdomen soft; abdomen nontender and no guarding Musculoskeletal: Head/Neck/Chest: normocephalic and head atraumatic Extremities: extremities normal to inspection Skin: no rashes, warm and dry Neurologic: moves all extremities and awake Psychiatric: Orientation: alert and oriented x 3 Genitourinary: 3 way 24F Wheeler intact, patent and draining clear light rivera red urine, few small clots noted, with CBI running on slow Manual irrigation completed at bedside. Moderate amount of clot was again irrigated - but the urine did not entirely clear. CBI running slow with pink/light fruit punch colored urine at completion. Patient tolerated well. Results & Data ([facility]) Vital Signs (Past 12 Hours) Vital Signs Temp Pulse Pulse Resp BP BP Pulse Ox 06/04/21 08:41 37.1 C 95 H 15 127/86 95 06/04/21 04:09 37 C 86 18 105/67 94 06/03/21 23:00 37.1 C 83 18 97/59 L 93 06/03/21 22:18 85 PG Care Time/CCT Total # of Minutes Spent Total Time Spent with Patient: Total time spent is greater than 50% in coordination of care (as documented) at patient's floor/unit and/or counseling patient: Coding Level of Care Code 66664 Subseq Hosp Care Lvl 2 Diagnoses Gross hematuria R31.0 Acute urinary retention R33.8
--- NOTE | 2021-06-04 14:05 | Hospitalist Progress Note ---
Date of Service June 04, 2021 Assessment & Plan (1) Acute urinary retention: Plan: Continuous bladder irrigation - management per urology Appreciate ongoing urology management of this (2) Gross hematuria: Plan: Stopped icosapent ethyl - suspect this is significantly contributing towards ongoing hematuria and likely will need to be stopped indefinitely. Triglycerides previously normal. Half life 37-89 hours. Given recent cardiac stent placed on 05/28 due to NSTEMI will need to continue DAPT unless hematuria does not resolve. Suspect secondary to radiation cystitis - management per urology (3) History of heart artery stent: Plan: Continue ASA, clopidogrel, metoprolol tartrate, lisinopril and atorvastatin (4) Peripheral arterial disease: Plan: Continue ASA, clopidogrel and atorvastatin (5) Type 2 diabetes mellitus: Plan: HbA1C 7.1 May 27 Hold metformin Patient refusing insulin and BSG checks therefore will stop these Plan: VTE Prophylaxis - SCD, chemical prophylaxis contraindicated Diet - heart healthy, T2DM Disposition - switched to admission status to med/tele Admission and Anticipated Discharge Date Admission Date: June 02, 2021 Subjective No change in symptoms. No clots in catheter at present time. Rendon red urine. No suprapubic pain. No chest pain, shortness of breath or dizziness. Review of Systems Review of Systems: All systems reviewed & are unremarkable except as noted in HPI & below Physical Exam Constitutional: WD/WN, vitals as above Neck: trachea midline, no thyromegaly Respiratory: normal respiratory effort Gastrointestinal (Abdomen): Inspection/Auscultation: abdomen normal to inspection and normal bowel sounds; abdomen not distended Percussion/Palpation: + abdomen tender (mild suprapubic) and abdomen soft; no guarding and abdomen not rigid Musculoskeletal: no cyanosis or clubbing, extremities motor strength 5/5 Skin: no rashes, warm and dry Neurologic: moves all extremities and awake; not confused Psychiatric: A+Ox3, euthymic affect Genitourinary: Wheeler catheter draining red urine Results & Data Results & Data ([facility]) Vital Signs (Past 12 Hours) Vital Signs Temp Pulse Pulse Resp BP BP Pulse Ox 06/04/21 11:50 36.6 C 79 16 113/70 96 06/04/21 11:44 82 06/04/21 08:41 37.1 C 95 H 15 127/86 95 06/04/21 04:09 37 C 86 18 105/67 94 PG Care Time/CCT Total # of Minutes Spent Total Time Spent with Patient: Total time spent is greater than 50% in coordination of care (as documented) at patient's floor/unit and/or counseling patient: Coding Level of Care Code 87908 Subseq Obs Care Lvl 2 Diagnoses Acute urinary retention R33.8 Gross hematuria R31.0 History of heart artery stent Z95.5 Peripheral arterial disease I73.9 Type 2 diabetes mellitus E11.9
[2021-06-04] MEDS: ATORVASTATIN 40 MG TAB PO SCH (20:48)
[2021-06-05] MEDS: CLOPIDOGREL BISULFATE 75 MG TAB PO SCH (06:16)
[2021-06-05] MEDS: SULFA/TRIMETH 400/80MG TAB PO SCH ×2 (08:18→21:31)
[2021-06-05] MEDS: METOPROLOL TARTRATE 25 MG TAB PO SCH ×2 (08:18→21:30)
[2021-06-05] MEDS: lisinopril 20 MG TAB PO SCH (08:18)
[2021-06-05] MEDS: ASPIRIN 81 MG ECTAB PO SCH (08:18)
[2021-06-05 08:29] LABS: Basophils # (auto) 0.02 K/uL (0-0.2); Basophils % (auto) 0.2 %; Eosinophils # (auto) 0.07 K/uL (0-0.5); Eosinophils % (auto) 0.5 %; Hematocrit (blood only) 38.2 % (42-52); Hemoglobin 12.7 g/dL (14.0-18.0); Immature Granulocytes # (auto) 0.03 K/uL (0.00-0.02); Immature Granulocytes % (auto) 0.2 %; Lymphocytes # (auto) 1.35 K/uL (1.2-3.4); Lymphocytes % (auto) 10.1 %; Mean Corpuscular Hemoglobin 32.2 pg (25-34); Mean Corpuscular Hgb Conc 33.2 g/dL (32-36); Mean Platelet Volume 10.5 fL (7.4-10.4); Monocytes # (auto) 0.91 K/uL (0.11-0.59); Monocytes % (auto) 6.8 %; Neutrophils # (auto) 10.95 K/uL (1.4-6.5); Neutrophils % (auto) 82.2 %; Platelet Count 316 K/uL (130-400); RDW Coefficient of Variation 13.7 % (11.5-14.5); RDW Standard Deviation 48.7 fL (36.4-46.3); Red Blood Count 3.94 M/uL (4.7-6.1); White Blood Count 13.33 K/uL (4.8-10.8)
[2021-06-05 08:55] LABS: BUN Creatinine Ratio 11.9 (10-20); Calcium 9.9 mg/dl (8.5-10.1); Creatinine Clr Calc Pharmacy 69.1 ml/min; Est GFR (African American) 99.3 ml/min; Est GFR (Non-African American) 85.7 ml/min
--- NOTE | 2021-06-05 09:51 | Urology Progress Note ---
Date of Service June 05, 2021 Assessment & Plan (1) Hematuria: Plan: Most likely explanation for hematuria is radiation cystitis, although urinary tract infection may be contributing. This is exacerbated by anticoagulation, but I would still prioritize anticoagulation given his recent WA. Hand irrigation performed this morning with return of moderate clots. At the end of the irrigation, his bladder was flushing well. I trialed clamping his CBI for approximately 30 minutes, but over this time the urine became red once again, suggesting ongoing bleeding. I do not think this is a significant active bleed, but I worry it is enough to cause clot formation, and he is not quite ready for a voiding trial yet. Although cystoscopy with possible fulguration may address the hematuria more quickly, he is high risk for anesthesia given his recent WA. We will hold off operative intervention for now, continuing CBI and letting the bleeding stop on its own. PLAN: -Continue CBI, wean as able. Hand irrigate as needed for catheter obstruction with clots. -If urine is clear on slow drip for 1 hour, would recommend clamping trial. If urine then remains clear for 30 minutes with CBI clamped, can perform a voiding trial. -Urology will plan for office cystoscopy in the upcoming weeks. -Continue antibiotics Admission and Anticipated Discharge Date Admission Date: June 02, 2021 Subjective He reports no issues with the continuous bladder irrigation, did not require hand irrigation overnight. Denies significant pain in the bladder, but has some irritation at the distal urethra He was able to sleep a little bit overnight. Has not been up and ambulating much yet Review of Systems Constitutional: as per Subjective / HPI Gastrointestinal: as per Subjective / HPI Genitourinary: + as per Subjective / HPI Physical Exam Genitourinary: Wheeler catheter in good position, running light pink on slow drip CBI. Hand irrigation performed with moderate clot return. Hematuria now clears quickly with CBI, but is still persistent. Results & Data ([facility]) Vital Signs (Past 12 Hours) Vital Signs Temp Pulse Pulse Resp BP Pulse Ox 06/05/21 08:47 98 H 06/05/21 08:24 36.9 C 104 H 18 133/76 94 06/05/21 02:37 36.7 C 85 18 113/75 95 06/04/21 22:48 36.9 C 82 18 102/68 95 06/04/21 22:21 76 PG Care Time/CCT Total # of Minutes Spent Total Time Spent with Patient: Total time spent is greater than 50% in coordination of care (as documented) at patient's floor/unit and/or counseling patient: Coding Level of Care Code 70796 Subseq Hosp Care Lvl 2 Diagnoses Hematuria R31.9 Hematuria type: unspecified type (1) Hematuria Hematuria type: unspecified type Qualified Code(s): R31.9 - Hematuria, unspecified
[2021-06-05] MEDS: OXYBUTYNIN CHLORIDE 5 MG TAB PO PRN ×2 (10:25→21:30)
[2021-06-05] MEDS: LIDOCAINE 5% OINT 30 GM TUBE EXT PRN (11:42)
--- NOTE | 2021-06-05 13:56 | Hospitalist Progress Note ---
Date of Service June 05, 2021 Assessment & Plan (1) Acute urinary retention: Plan: Continuous bladder irrigation - management per urology, trial without catheter per urology recommendations. Appreciate ongoing urology management of this (2) Gross hematuria: Plan: Stopped icosapent ethyl - suspect this is significantly contributing towards ongoing hematuria and likely will need to be stopped indefinitely. Triglycerides previously normal. Half life 37-89 hours. Given recent cardiac stent placed on 05/28 due to NSTEMI will need to continue DAPT unless hematuria does not resolve. Suspect secondary to radiation cystitis - management per urology (3) History of heart artery stent: Plan: Continue ASA, clopidogrel, metoprolol tartrate, lisinopril and atorvastatin (4) Peripheral arterial disease: Plan: Continue ASA, clopidogrel and atorvastatin (5) Type 2 diabetes mellitus: Plan: HbA1C 7.1 May 27 Hold metformin Patient refusing insulin and BSG checks therefore will stop these Plan: VTE Prophylaxis - SCD, chemical prophylaxis contraindicated Diet - heart healthy, T2DM Disposition - stable for transfer to med/surg, no arrhythmia on telemetry Admission and Anticipated Discharge Date Admission Date: June 05, 2021 Subjective Continue to have clear red urine. Relatively frequent bladder spasms with mild relief from oxybutynin. Belladonna suppository did not help. Urology planning on trial without catheter. No fever or chills. Review of Systems Review of Systems: All systems reviewed & are unremarkable except as noted in HPI & below Physical Exam Constitutional: WD/WN, vitals as above Respiratory: normal respiratory effort, lungs clear to auscultation normal respiratory effort Cardiovascular: RRR, no murmur, no edema Gastrointestinal (Abdomen): Inspection/Auscultation: abdomen normal to inspection and normal bowel sounds; abdomen not distended Percussion/Palpation: abdomen soft; abdomen nontender, no guarding and abdomen not rigid Musculoskeletal: no cyanosis or clubbing, extremities motor strength 5/5 Skin: no rashes, warm and dry Neurologic: moves all extremities and awake; not confused Psychiatric: A+Ox3, euthymic affect Results & Data Results & Data ([facility]) Vital Signs (Past 12 Hours) Vital Signs Temp Pulse Pulse Resp BP Pulse Ox 06/05/21 08:47 98 H 06/05/21 08:24 36.9 C 104 H 18 133/76 94 06/05/21 02:37 36.7 C 85 18 113/75 95 PG Care Time/CCT Total # of Minutes Spent Total Time Spent with Patient: Total time spent is greater than 50% in coordination of care (as documented) at patient's floor/unit and/or counseling patient: Coding Level of Care Code 02559 Subseq Hosp Care Lvl 1 Diagnoses Acute urinary retention R33.8 Gross hematuria R31.0 History of heart artery stent Z95.5 Peripheral arterial disease I73.9 Type 2 diabetes mellitus E11.9
[2021-06-05] MEDS: ATORVASTATIN 40 MG TAB PO SCH (21:31)
[2021-06-06] MEDS: CLOPIDOGREL BISULFATE 75 MG TAB PO SCH (05:52)
[2021-06-06 08:03] LABS: Basophils # (auto) 0.02 K/uL (0-0.2); Basophils % (auto) 0.2 %; Eosinophils # (auto) 0.09 K/uL (0-0.5); Eosinophils % (auto) 0.8 %; Hematocrit (blood only) 36.2 % (42-52); Hemoglobin 12.3 g/dL (14.0-18.0); Immature Granulocytes # (auto) 0.03 K/uL (0.00-0.02); Immature Granulocytes % (auto) 0.3 %; Lymphocytes # (auto) 1.16 K/uL (1.2-3.4); Lymphocytes % (auto) 10.4 %; Mean Corpuscular Hemoglobin 33.3 pg (25-34); Mean Corpuscular Volume 98.1 fL (80-100); Mean Platelet Volume 10.5 fL (7.4-10.4); Monocytes # (auto) 1.13 K/uL (0.11-0.59); Monocytes % (auto) 10.1 %; Neutrophils # (auto) 8.76 K/uL (1.4-6.5); Neutrophils % (auto) 78.2 %; Platelet Count 328 K/uL (130-400); RDW Coefficient of Variation 13.6 % (11.5-14.5); RDW Standard Deviation 48.6 fL (36.4-46.3); Red Blood Count 3.69 M/uL (4.7-6.1); White Blood Count 11.19 K/uL (4.8-10.8)
[2021-06-06] MEDS: lisinopril 20 MG TAB PO SCH (08:45)
[2021-06-06] MEDS: METOPROLOL TARTRATE 25 MG TAB PO SCH (08:45)
[2021-06-06] MEDS: ASPIRIN 81 MG ECTAB PO SCH (08:45)
[2021-06-06 08:48] LABS: Calcium 10.2 mg/dl (8.5-10.1); Creatinine Clr Calc Pharmacy 62.9 ml/min; Est GFR (African American) 88.6 ml/min; Est GFR (Non-African American) 76.5 ml/min; Potassium 4.9 mmol/L (3.5-5.1)
[2021-06-06] MEDS: SULFA/TRIMETH 400/80MG TAB PO SCH (08:48)
--- NOTE | 2021-06-06 09:50 | Urology Progress Note ---
Date of Service June 06, 2021 Assessment & Plan (1) Hematuria: Plan: We discussed his hematuria and management options, including replacing a catheter and performing hand irrigation or continuing to monitor. Since he has been voiding without a catheter for the last 18 hours, he would like to avoid having one replaced. He may still have some clot in the bladder, which is gradually lysing and causing the cranberry red urine. As long as he is able to continue voiding, this can be monitored. I think it would be reasonable to discharge home today. He understands that if he becomes unable to void, he will have to return to the emergency department. If he develops urinary retention, I would favor placement of a 18 [place] coud catheter, as I do not think he needs continuous bladder irrigation at this point. We discussed potentially starting Flomax to help with bladder emptying. I am not sure how much this will help, given his history of radiation in the pelvis, but overall there are low risks associated with this medication. Plan/recommendations: Okay for discharge from urology perspective Recommend starting Flomax, 0.4 mg by mouth, daily If he develops urinary retention, would recommend placement of 18 [place] coud catheter Urology will coordinate outpatient follow-up with cystoscopy for direct visualization of bladder/completion of hematuria work-up. Admission and Anticipated Discharge Date Admission Date: June 05, 2021 Subjective Yesterday after our morning visit, the catheter started draining poorly when he was up for a walk. He also had some bladder spasms. The catheter was able to be repositioned, but eventually got blocked off again. He had approximately 200 mL in his bladder on bladder scan at that time and we elected to perform a voiding trial. Since then he has been able to void with some straining. The urine is still dark vincenzo red, but he has not seen any clots. This morning he reports he is not having any significant discomfort. Review of Systems Genitourinary: + as per Subjective / HPI (Ongoing blood in the urine) Physical Exam Physical Exam: Resting comfortably in bed, no acute distress Genitourinary: Vincenzo red urine with no obvious clots. Results & Data ([facility]) Vital Signs (Past 12 Hours) Vital Signs Temp Pulse Resp BP Pulse Ox 06/06/21 07:19 36.7 C 83 18 122/80 94 06/05/21 23:04 36.8 C 100 H 18 109/71 94 PG Care Time/CCT Total # of Minutes Spent Total Time Spent with Patient: Total time spent is greater than 50% in coordination of care (as documented) at patient's floor/unit and/or counseling patient: Coding Level of Care Code 89142 Subseq Hosp Care Lvl 2 Diagnoses Hematuria R31.9 Hematuria type: unspecified type (1) Hematuria Hematuria type: unspecified type Qualified Code(s): R31.9 - Hematuria, unspecified
[2021-06-06] MEDS: OXYBUTYNIN CHLORIDE 5 MG TAB PO PRN (10:42)
[2021-06-06] MEDS ORDERED: TAMSULOSIN HCL 0.4 MG CAP PO ONE (12:00)
--- NOTE | 2021-06-06 13:00 | Discharge Summary ---
Date of Service June 06, 2021 Admission HPI Per Admitting Provider Alok Salgado is a 70 year old male with recent NSTEMI who presents to the ER for evaluation of urinary retention and gross hematuria. 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 Initially seen in the ER on May 22 for hematuria and a blas catheter was placed for urine retention due to PVR > 300ml. He was to follow up with urology however presented back to the ER 4 days later with chest pain and was diagnosed with NSTEMI. He was started on dual antiplatelets at that time and recommended to blas up with urology regarding the urine retention and hematuria. Planning on CT urogram and cystoscopy as outpatient. He followed up with urology and passed voiding trial on May 31 and blas was discontinued. The following day (yesterday) however he had to return to the ER with gross hematuria and urine retention and blas cather was again placed. He returns today due to suprapubic discomfort despite f oley catheter in place and the blas catheter no longer draining. It is currently draining red urine with some clots in the tubing. Urology have been contacted and plan to place a three way catheter for continuous bladder irrigation and recommend admission under medicine at this time. Principal Diagnosis Urinary retention Hematuria - suspected radiation cystitis Discharge Exam Constitutional WD/WN, vitals as above Eyes + anicteric sclerae; normal pupil size ENMT external ear and nose normal, oropharynx normal Respiratory normal respiratory effort Gastrointestinal (Abdomen) Percussion/Palpation: abdomen soft; abdomen nontender, no guarding and abdomen not rigid Neurologic awake; not confused Psychiatric A+Ox3, euthymic affect Discharge Data Allergies Allergy/AdvReac Type Severity Reaction Status Date / Time No Known Allergies Allergy Verified 05/26/21 14:58 Consultations 06/02/21 08:58 ED Decision to Admit Stat 06/02/21 09:09 Consult Urology Routine 06/03/21 12:54 Consult Cardiology Routine Ordered Studies 06/02/21 09:10 US retro bladder ltd Urgent IMPRESSION: Apparent 2.2 x 2.1 x 1.1 cm echogenic focus within the bladder, adjacent to the Blas catheter. This may reflect a clot. 06/03/21 09:10 CT abdomen pelvis wo/w con Urgent IMPRESSION: 1. Large soft tissue mass in the bladder occupying almost the entire lumen likely represents a clot, however underlying soft tissue mass cannot be excluded. A Blas catheter is seen with expected air in the bladder. No evidence of abnormal mass in the kidneys or ureters. 2. Large infrarenal abdominal aortic aneurysm with significant luminal narrowing due to mural thrombus, similar in appearance to prior exam. Small right iliac aneurysm. Hospital Course (1) Acute urinary retention: Alok Salgado is a 70 year old male admitted to [facility] from June 02 - 2020 due to hematuria causing urinary retention despite blas catheter insertion. Suspect this is from radiation cystitis in the setting of recent dual antiplatelets and Vascepa (icosapent ethyl) use. He should continue the aspirin and clopidogrel due to recent NSTEMI but the Vascepa can be discontinued. After multiple days of continuous bladder irrigation the bleeding has subsided and he passed trial without catheter a day prior to discharge. He is still having gross hematuria on discharge and will continue on Bactrim for prophylaxis for a further 3 days per urology recommendations. He was started on tamsulosin to help with continued passage of small blood clots. He will continue to folley up with urology for management of this. (2) Gross hematuria: (3) History of heart artery stent: (4) Peripheral arterial disease: (5) Type 2 diabetes mellitus: Total Time Total Time Spent Total Time Spent (In Minutes): 35 Discharge Plan Discharge Items Patient Disposition: Home - Self-Care Reason For Visit: URINARY RETENTION,HEMATURIA Discharge Diagnosis: Urine retention, Hematuria Activity: Resume your previous activity Non-emergency contact: Primary Care Provider and Urologist Call non-emergency contact if: you have any medication questions and your symptoms worsen Follow-up/Referrals: Cheikh Morrison MD [Physician] - 06/11/21 10:10 am Jeremy Kaiser DO [Primary Care Provider] - (PLEASE CALL YOUR PRIMARY CARE PHYSICIAN TO SCHEDULE A DISCHARGE FOLLOW-UP APPOINTMENT FOR 7-10 DAYS.) Diet: Carb Consistent or DM2 and Heart Healthy Addtl Attending Provider Instructions: You were admitted to [facility] from June 02 - 2020 due to hematuria causing urinary retention despite blas catheter insertion. Suspect this is from radiation cystitis in the setting of recent dual antiplatelets and Vescepa (icosapent ethyl) use. Please continue the aspirin and clopidogrel due to your recent heart attack but the Vescepa can be discontinued. After multiple days of continuous bladder irrigation the bleeding has subsided and after trial without a catheter you are managing to pass urine freely. If this occurs again please call your urologist or in an emergency return to the ER. You have been started on tamsulosin to help with continued passage of small blood clots. Please follow up with urology as below for continued management of this. From [facility] Urology: You are scheduled for your cystoscopy on 06/11/21 at 10:[address] Morrison. Location: [address] [place] [address]. Call office at [phone] if you have any questions. Blas Catheter care: Keep the catheter well secured with either a leg back or leg strap with large bag. Empty your bag when it's about half full. Use mild soap (such as Dove or Dial) and water to wash the catheter and the head of your penis daily, or more frequently if needed. You may shower as normal. Please avoid tub baths or soaking until catheter removed. Wearing sweat pants while you have the catheter is recommended, they will be more comfortable. Pending Studies at Discharge: No Stand-Alone Forms: My [facility] [employer], Smoking Cessation Medications and DC Order Prescriptions: New tamsulosin 0.4 mg Capsule 0.4 mg PO QAM Qty: 30 RF: 0 sulfamethoxazole-trimethoprim [Bactrim DS] 800-160 mg tablet 1 tab PO BID 3 Days Qty: 6 RF: 0 Continued metformin 500 mg tablet 1,000 mg PO BID RF: 0 lisinopril 20 mg tablet 20 mg PO QAM RF: 0 atorvastatin 80 mg tablet 80 mg PO HS RF: 0 clopidogrel 75 mg Tablet 75 mg PO QAM 30 Days Qty: 30 RF: 1 metoprolol tartrate 25 mg Tablet 12.5 mg PO BID 30 Days Qty: 30 RF: 1 oxybutynin chloride 5 mg tablet 5 mg PO DAILY PRN (Reason: bladder spasms) Qty: 30 RF: 0 aspirin 81 mg tablet,delayed release (DR/EC) 81 mg PO QAM RF: 0 Discontinued icosapent ethyl 1 gram capsule 1 g PO BID RF: 0 Discharge Orders: Discharge Order (Routine); Ordered 06/06/21 Ordered By: Brien Martinez Admission Data Admit Date/Time: 06/05/21 08:04 Attending Provider: Brien Martinez Admit Provider: Brien Martinez Primary Care Provider: Jeremy Kaiser Other Providers: Brien Martinez ; Cheikh Morrison ; Angelo Arguelles Other Interventions: Discharge Summary Assessment (RN) Last Done: 06/06/21 13:03 Coding Level of Care Code D/C DAY MANAGEMENT >30 MINS Diagnoses Acute urinary retention R33.8 Gross hematuria R31.0 History of heart artery stent Z95.5 Peripheral arterial disease I73.9 Type 2 diabetes mellitus E11.9
[2021-06-07] MEDS ORDERED: TAMSULOSIN HCL 0.4 MG CAP PO SCH (09:00)
== END 2021-06-06 13:32 | disposition home or self-care (01) | DRG 698 ==
LOC: 2W 06:37 → ED 06:37 → OBSVTOIN 09:09 → 2W 13:06

== ENCOUNTER 2021-06-10 12:11 | Observation (INO) ==
[2021-06-10] MEDS ORDERED: SODIUM CHLORIDE 0.9% 1000ML 500 ML IV ONE (12:46)
[2021-06-10] MEDS ORDERED: fentaNYL citrate 100 MCG/2 ML VIAL IV STA ×2 (12:49→15:55)
--- NOTE | 2021-06-10 12:49 | Emergency Department Note ---
Impression & Plan Acute urinary retention, Hematuria ED Provider Note Name: JOEL ROLDAN Age: 70 Sex: M Arrives Via: Walk-In Informant: Patient ED Provider: Cheikh Benson MD Chief Complaint: urinary retention Impression: Acute Urinary Retention Gross Hematuria Medical Decision Makin yr old pleasant male with complex last few weeks, having hematuria & urinary retention issues complicated by ACS requiring stenting and needing to take ASA & Plavix. He was sent over by Urology clinic for evaluation, hospitalization and prep for OR later this afternoon. HgB stable though a bit tachy and low BP. Review appears vitals are actually often like this. Was given fluid bolus and both improved. He appears well and comfortable, receiving periodic IV pain medications. Large blas already in place, and given extensive attempts at getting this to work this morning at Uro, further intervention in ED not attempted. I do not feel he is septic nor is transfusion indicated at this kiara. Prior Medical Record and Triage/Nursing Notes reviewed by Me Additional history obtained from chart Differentials:Bleeding dyscrasia, bladder ulcer/tumor, Infection, dehydration, metabolic/electrolyte disturbance, anemia, amongst others Vital Signs: reviewed and remarkable for hypotn/tachy Interventions: See Below Labs:Reviewed and remarkable for no significant abnormalities Imaging:See Below EKG:Per My Interpretation: Indication Pre-Op: NSR 100 bpm, qtc 443. No Ectopy. No Ischemia. Compared to EKG 06/09/21, no significant changes. Consults:hospitalist Plan: Disposition:Hospitalization Condition: Good History of Present Illness:70 yr old male arrives for evaluation of urinary retention. Patient with recent issues with hematuria causing urinary obstructions. He was noted to have OR last week resulting in further blood thinner use and worsening bladder bleeding/obstruction. He has been seen multiple times by ED and Urology over last few days for reoccurring obstructions. Seen this morning at urology and reports 2 hours attempting to clear bladder of clot yet continued blockage of blas. Notes mild suprapubic discomfort. States tired and thirsty. No nausea, vomiting, fevers, chills, back pain, chest pain, headache, neck pain, falls, trauma, injuries, flank pain, leg swelling, calf pain, nor other symptoms. Some bruising right groin from recent cath. Nothing makes urinary retention better nor worse. No medications prior to arrival. Currently on aspirin 81mg daily, and plavix 75mg daily. ROS: See above HPI for pertinent positives & negatives. A total of 10 systems reviewed and were otherwise negative. Past Medical History:See Below Past Surgical History:See Below Family History:See Below Social History:See Below Home Medications:See Below Allergies:NKDA Vitals:Blood Pressure: 89/57, Pulse 117, RR 16, T 36.6C, O2 96% on RA Physical Exam: GENERAL: Patient is tired/dehydrated appearing and in mild distress. EYES: No scleral icterus, unremarkable pupils. ENT: Mucous membranes dry, no nasal congestion. NECK: No masses appreciated, nomeningismus, trachea is midline. RESPIRATORY: No dyspnea. Clear to auscultation and equal bilaterally. No wheeze, no rhonchi. CARDIOVASCULAR: Regular rate and rhythm.No murmurs, rubs, gallops appreciated. GASTROINTESTINAL: Abdomen soft, mild suprapubic TTP, no peritonitis.Bowel sounds positive.No masses appreciated. : Blas in place with small amount blood in bag. Suprapubic fullness and TTP. BACK: No midline tenderness, no CVA tenderness EXTREMITIES: Normal motion all extremities, no cyanosis, no edema. NEUROLOGIC: Alert and oriented, no acute motor or sensory deficits, no focal weakness, cranial nerves grossly intact. SKIN: Healing bruise right going. No rash, no jaundice, no diaphoresis. PSYCH: Appropriate GCS: 15 ED Course: Times/Reassessments: improvement BP.tachy and patient more comfortable Cheikh Benson MD Past Med/Surg History Medical History Abdominal aortic aneurysm (AAA) 3.0 cm to 5.5 cm in diameter in male Acute Lyme disease CAD (coronary artery disease) Chronic pancreatitis Claudication of left lower extremity Gross hematuria HLD (hyperlipidemia) Hypertension NSTEMI (non-ST elevated myocardial infarction) Peripheral arterial disease Pre-diabetes Stroke-like symptoms Tobacco abuse Surgical History History of heart artery stent Social History Smoking Status: Current some day smoker Tobacco Type: Cigars Second Hand Exposure: No; Do You Dip or Chew Tobacco: No; Hx Alcohol Use: Yes Alcohol type: wine Hx Substance Use: No Preferred Language: Kiswahili Communication Ability: Effective Shredding Specialist Required: No Beliefs That Will Affect Care: None marital status: Current Living Situation: Spouse Feels Safe at Home: Yes Safety Concerns: Feels Safe At This Time Assistive Devices: None Allergies Allergies Allergy/AdvReac Type Severity Reaction Status Date / Time No Known Allergies Allergy Verified 06/10/21 13:06 Home Meds Home Medications Medication Instructions Recorded Confirmed atorvastatin 80 mg tablet 80 mg PO HS 05/26/21 06/10/21 aspirin 81 mg tablet,delayed 81 mg PO QAM 06/02/21 06/10/21 release lisinopril 30 mg tablet 30 mg PO DAILY 06/10/21 06/10/21 metformin 500 mg tablet,extended 500 mg PO BID 06/10/21 06/10/21 release 24 hr Previous Rx's Medication Instructions Recorded metoprolol tartrate 25 mg tablet 12.5 mg PO BID 30 Days #30 tab 05/29/21 oxybutynin chloride 5 mg tablet 5 mg PO DAILY PRN #30 tab 05/29/21 tamsulosin 0.4 mg capsule 0.4 mg PO QAM #30 cap 06/06/21 Results & Data (ED) Vital Signs Vital Signs - 24 hr 06/10/21 12:13 06/10/21 14:11 06/10/21 16:25 Temperature 36.6 C Temperature Source Temporal Artery Scan Pulse Rate 117 H 90 Pulse Rate [Apical] 90 Respiratory Rate 16 18 18 Respiratory Effort / Characteristics Non-Labored Blood Pressure 89/57 L 127/63 Blood Pressure [Left Arm] 106/59 L Blood Pressure Mean 67 Blood Pressure Mean [Left Arm] 74 Blood Pressure Position Sitting Blood Pressure Position [Left Arm] Lying Pulse Oximetry 96 97 97 Oxygen Delivery Method Room Air Room Air Room Air Sepsis Recent Fever Within 48 Hours No Sepsis New/Unexplained Change in Mental Status No Sepsis Action Taken by Nursing No Action Required Laboratory Data Result diagrams: 06/11/21 07:26 06/11/21 07:26 Lab Results 06/10/21 06/10/21 06/10/21 Range/Units 12:50 12:50 12:50 WBC 10.91 H (4.8-10.8) K/uL RBC 3.11 L (4.7-6.1) M/uL Hgb 10.3 L (14.0-18.0) g/dL Hct 30.0 L (42-52) % MCV 96.5 (80-100) fL MCH 33.1 (25-34) pg MCHC 34.3 (32-36) g/dL RDW Std Deviation 49.8 H (36.4-46.3) fL RDW Coeff of Matt 14.1 (11.5-14.5) % Plt Count 422 H (130-400) K/uL MPV 10.4 (7.4-10.4) fL Immature Gran % (Auto) 0.2 % Neut % (Auto) 79.2 % Lymph % (Auto) 10.8 % Fergus % (Auto) 9.4 % Eos % (Auto) 0.2 % Baso % (Auto) 0.2 % Neut # (Auto) 8.64 H (1.4-6.5) K/uL Lymph # (Auto) 1.18 L (1.2-3.4) K/uL Fergus # (Auto) 1.03 H (0.11-0.59) K/uL Eos # (Auto) 0.02 (0-0.5) K/uL Baso # (Auto) 0.02 (0-0.2) K/uL Immature Gran # (Auto) 0.02 (0.00-0.02) K/uL PT 9.9 (9.0-12.0) Seconds INR 1.0 (0.9-1.1) APTT 24.8 (21.0-31.0) Seconds PTT Ratio 0.9 D-Dimer 950 H* (0-500) ug/L FEU Sodium 136 (136-145) mmol/L Potassium 4.3 (3.5-5.1) mmol/L Chloride 107 (98-107) mmol/L Carbon Dioxide 22 (21-32) mmol/L Anion Gap 7.0 (3-11) BUN 22 H (7-18) mg/dl Creatinine 1.17 (0.6-1.4) mg/dl Est Cr Clr Drug Dosing 53.8 ml/min Est GFR ( Amer) 73.3 ml/min Est GFR (Non-Af Amer) 63.2 ml/min BUN/Creatinine Ratio 18.7 (10-20) Glucose 115 H (70-99) mg/dl Calcium 9.9 (8.5-10.1) mg/dl Magnesium 2.2 (1.8-2.4) mg/dl Total Bilirubin 0.3 (0.2-1) mg/dl Direct Bilirubin < 0.1 (0-0.2) mg/dl AST 18 (15-37) U/L ALT 29 (12-78) U/L Alkaline Phosphatase 80 (45-117) U/L Troponin I < 0.015 (0-0.045) ng/ml Total Protein 6.8 (6.4-8.2) gm/dl Albumin 2.6 L (3.4-5.0) gm/dl COVID-19 Eval Order SARS-CoV-2 (PCR) (Negative) Blood Type Antibody Screen Crossmatch 06/10/21 06/10/21 06/10/21 Range/Units 12:50 13:05 13:05 WBC (4.8-10.8) K/uL RBC (4.7-6.1) M/uL Hgb (14.0-18.0) g/dL Hct (42-52) % MCV (80-100) fL MCH (25-34) pg MCHC (32-36) g/dL RDW Std Deviation (36.4-46.3) fL RDW Coeff of Matt (11.5-14.5) % Plt Count (130-400) K/uL MPV (7.4-10.4) fL Immature Gran % (Auto) % Neut % (Auto) % Lymph % (Auto) % Fergus % (Auto) % Eos % (Auto) % Baso % (Auto) % Neut # (Auto) (1.4-6.5) K/uL Lymph # (Auto) (1.2-3.4) K/uL Fergus # (Auto) (0.11-0.59) K/uL Eos # (Auto) (0-0.5) K/uL Baso # (Auto) (0-0.2) K/uL Immature Gran # (Auto) (0.00-0.02) K/uL PT (9.0-12.0) Seconds INR (0.9-1.1) APTT (21.0-31.0) Seconds PTT Ratio D-Dimer (0-500) ug/L FEU Sodium (136-145) mmol/L Potassium (3.5-5.1) mmol/L Chloride (98-107) mmol/L Carbon Dioxide (21-32) mmol/L Anion Gap (3-11) BUN (7-18) mg/dl Creatinine (0.6-1.4) mg/dl Est Cr Clr Drug Dosing ml/min Est GFR ( Amer) ml/min Est GFR (Non-Af Amer) ml/min BUN/Creatinine Ratio (10-20) Glucose (70-99) mg/dl Calcium (8.5-10.1) mg/dl Magnesium (1.8-2.4) mg/dl Total Bilirubin (0.2-1) mg/dl Direct Bilirubin (0-0.2) mg/dl AST (15-37) U/L ALT (12-78) U/L Alkaline Phosphatase (45-117) U/L Troponin I (0-0.045) ng/ml Total Protein (6.4-8.2) gm/dl Albumin (3.4-5.0) gm/dl COVID-19 Eval Order Covid19 at [facility] SARS-CoV-2 (PCR) NEGATIVE (Negative) Blood Type B Positive Antibody Screen NEGATIVE Crossmatch See Detail Administered Medications Aspirin (Aspirin 81 Mg Ectab) 81 mg PO QAM EDEN Stop: 07/11/21 08:59 Last Admin: 06/11/21 08:38 Dose: 81 mg Documented by: [id number] Atorvastatin Calcium (Atorvastatin 40 Mg Tab) 80 mg PO HS EDEN Stop: 07/10/21 20:59 Last Admin: 06/10/21 21:21 Dose: 80 mg Documented by: [id number] Clopidogrel Bisulfate (Clopidogrel Bisulfate 75 Mg Tab) 75 mg PO QAM EDEN Stop: 07/11/21 08:59 Last Admin: 06/11/21 08:38 Dose: 75 mg Documented by: [id number] Lactated Ringer's (Lr) 1,000 mls @ 100 mls/hr IV .Q10H EDEN Stop: 07/10/21 14:29 Last Admin: 06/11/21 10:37 Dose: 100 mls/hr Documented by: [id number] Infusion: 06/11/21 07:24 Dose: 100 mls/hr Documented by: [id number] Admin: 06/10/21 21:24 Dose: 100 mls/hr Documented by: [id number] Infusion: 06/10/21 21:24 Dose: 100 mls/hr Documented by: [id number] Admin: 06/10/21 15:08 Dose: 100 mls/hr Documented by: [id number] Insulin Aspart (Insulin Aspart 100 Units/Ml 3 Ml Pen) 0 units SC ACHS EDEN Stop: 07/10/21 19:09 Last Admin: 06/11/21 08:38 Dose: Not Given Documented by: [id number] Admin: 06/10/21 21:15 Dose: Not Given Documented by: [id number] Cosigned by: [id number] Admin: 06/10/21 20:45 Dose: Not Given Documented by: [id number] Cosigned by: [id number] Lisinopril (Lisinopril 10 Mg Tab) 10 mg PO DAILY [facility] Stop: 07/11/21 08:59 Last Admin: 06/11/21 08:48 Dose: Not Given Documented by: [id number] Metoprolol Tartrate (Metoprolol Tartrate 25 Mg Tab) 12.5 mg PO BID [facility] Stop: 07/10/21 20:59 Last Admin: 06/11/21 08:36 Dose: 12.5 mg Documented by: [id number] Admin: 06/10/21 21:24 Dose: Not Given Documented by: [id number] Morphine Sulfate (Morphine Sulfate 2 Mg/Ml Carp) 2 mg IV Q4 PRN PRN Reason: moderate to severe pain Stop: 06/24/21 19:09 Last Admin: 06/11/21 02:07 Dose: 2 mg Documented by: [id number] Admin: 06/10/21 20:10 Dose: 2 mg Documented by: [id number] Discontinued Medications Fentanyl Citrate (Fentanyl Citrate 100 Mcg/2 Ml Vial) 50 mcg IV NOW STA Stop: 06/10/21 12:50 Last Admin: 06/10/21 13:02 Dose: 50 mcg Documented by: [id number] Fentanyl Citrate (Fentanyl Citrate 100 Mcg/2 Ml Vial) 50 mcg IV NOW STA Stop: 06/10/21 15:56 Last Admin: 06/10/21 16:04 Dose: 50 mcg Documented by: [id number] Sodium Chloride (Nss 1000ml) 500 mls @ 999 mls/hr IV .Q31M ONE Stop: 06/10/21 13:16 Last Infusion: 06/10/21 13:35 Dose: 0 mls/hr Documented by: [id number] Admin: 06/10/21 13:03 Dose: 999 mls/hr Documented by: [id number] Gentamicin Sulfate 420 mg/ (Dextrose) 110.5 mls @ 100 mls/hr IV PREOP ONE Stop: 06/10/21 16:51 Last Infusion: 06/10/21 19:12 Dose: 0 mls/hr Documented by: [id number] Admin: 06/10/21 17:07 Dose: 100 mls/hr Documented by: [id number] Ceftriaxone Sodium 2,000 mg/ (Dextrose) 70 mls @ 140 mls/hr IV NOW STA Stop: 06/10/21 16:39 Last Infusion: 06/10/21 19:11 Dose: 0 mls/hr Documented by: [id number] Admin: 06/10/21 16:34 Dose: 140 mls/hr Documented by: [id number] Lidocaine HCl (Lidocaine 2% Jelly 5 Ml Tube) 0 ml EXT Q2H EDEN Stop: 07/10/21 19:14 Last Admin: 06/10/21 19:17 Dose: 1 ml Documented by: [id number] Lidocaine HCl (Lidocaine 2% Jelly 5 Ml Tube) Confirm Administered Dose 5 ml .ROUTE .STK-MED ONE Stop: 06/10/21 19:17 Last Admin: 06/10/21 19:19 Dose: Not Given Documented by: [id number] Discharge Plan Visit Data Chief Complaint: Catheter Replacement Stated Complaint: BLOCKED CATHETER ED Provider: Cheikh Benson Discharge Problem: Acute urinary retention, Hematuria Patient Disposition: Admitted As Inpatient Discharge Instructions Interventions: ED Discharge Assessment Last Done: 06/10/21 16:25 Discharge Problem: Hematuria Qualifiers: Hematuria type: gross Qualified Code(s): R31.0 - Gross hematuria
[2021-06-10 13:33] LABS: Basophils # (auto) 0.02 K/uL (0-0.2); Basophils % (auto) 0.2 %; Eosinophils # (auto) 0.02 K/uL (0-0.5); Eosinophils % (auto) 0.2 %; Hemoglobin 10.3 g/dL (14.0-18.0); Immature Granulocytes # (auto) 0.02 K/uL (0.00-0.02); Immature Granulocytes % (auto) 0.2 %; Lymphocytes # (auto) 1.18 K/uL (1.2-3.4); Lymphocytes % (auto) 10.8 %; Mean Corpuscular Hemoglobin 33.1 pg (25-34); Mean Corpuscular Hgb Conc 34.3 g/dL (32-36); Mean Corpuscular Volume 96.5 fL (80-100); Mean Platelet Volume 10.4 fL (7.4-10.4); Monocytes # (auto) 1.03 K/uL (0.11-0.59); Monocytes % (auto) 9.4 %; Neutrophils # (auto) 8.64 K/uL (1.4-6.5); Neutrophils % (auto) 79.2 %; Partial Thromboplastin Ratio 0.9; Partial Thromboplastin Time 24.8 Seconds (21.0-31.0); Platelet Count 422 K/uL (130-400); Prothrombin Time 9.9 Seconds (9.0-12.0); RDW Coefficient of Variation 14.1 % (11.5-14.5); RDW Standard Deviation 49.8 fL (36.4-46.3); Red Blood Count 3.11 M/uL (4.7-6.1); White Blood Count 10.91 K/uL (4.8-10.8)
--- NOTE | 2021-06-10 13:35 | XRay Report ---
XR chest 1V portable HISTORY: 70 years-old Male pre-op preoperative exam. No acute chest complaints COMPARISON: Chest radiograph 05/16/2021 TECHNIQUE: Portable AP view the chest FINDINGS: Cardiomediastinal and hilar silhouettes are within normal limits. Calcified plaque of the thoracic ao rta. Emphysema. Mild chronic interstitial coarsening without pneumothorax, pleural effusion, airspace consolidation or overt pulmonary edema. A millimeter nodular density of the right midlung redemonstr ated. No acute fracture. Degenerative changes of the shoulders and spine. IMPRESSION: 1. Emphysema without acute process. 2. 8mm right midlung nodule redemonstrated. Correlation with a nonemergent follow-up chest CT recomme nded. ACT 112: Negative or not required by law. The above report was generated using voice recognition software. It may contain grammatical, syntax o r spelling errors. Electronically signed by: Luciano Moore M.D. 06/10/2021 1:33 PM
[2021-06-10 13:36] LABS: D Dimer 950 ug/L FEU (0-500)
[2021-06-10 13:45] LABS: Alanine Aminotransferase 29 U/L (12-78); Albumin Level 2.6 gm/dl (3.4-5.0); Aspartate Aminotransferase 18 U/L (15-37); BUN Creatinine Ratio 18.7 (10-20); Bilirubin Direct < 0.1 mg/dl (0-0.2); Blood Urea Nitrogen 22 mg/dl (7-18); Calcium 9.9 mg/dl (8.5-10.1); Carbon Dioxide 22 mmol/L (21-32); Chloride 107 mmol/L (98-107); Creatinine Clr Calc Pharmacy 53.8 ml/min; Est GFR (African American) 73.3 ml/min; Est GFR (Non-African American) 63.2 ml/min; Glucose 115 mg/dl (70-99); Magnesium 2.2 mg/dl (1.8-2.4); Potassium 4.3 mmol/L (3.5-5.1); Sodium 136 mmol/L (136-145)
[2021-06-10 13:50] LABS: Alkaline Phosphatase 80 U/L (45-117); Bilirubin,Total 0.3 mg/dl (0.2-1); Total Protein 6.8 gm/dl (6.4-8.2); Troponin I < 0.015 ng/ml (0-0.045)
--- NOTE | 2021-06-10 14:03 | Electrocardiogram Report ---
Test Reason : Blood Pressure : / mmHG Vent. Rate : 100 BPM Atrial Rate : 100 BPM P-R Int : 146 ms QRS Dur : 088 ms QT Int : 344 ms P-R-T Axes : 050 059 053 degrees QTc Int : 443 ms Normal sinus rhythm Nonspecific T wave abnormality Abnormal ECG When compared with ECG of 09-JUN-2021 09:30, No significant change was found Confirmed by Freddy Barrow ([id number]) on 06/10/2021 2:03:00 PM Referred By: Cheikh Morrison Confirmed By:Salas Barrow
--- NOTE | 2021-06-10 14:38 | Urology Consultation ---
Date of Consultation June 10, 2021 Assessment & Plan (1) Gross hematuria: (2) Acute urinary retention: (3) Obstructed Blas catheter: 70 year-old male patient, with history of prostate cancer s/p brachytherapy and radiation therapy and recent NSTEMI, admitted with gross hematuria and clot retention. -Plan of care reviewed with Dr. Morrison. -Patient with multiple hospital evaluations secondary to hematuria and clot retention. He was seen in the urology office today, unfortunately urine was unable to be cleared with manual irrigation. -Patient is afebrile. Vital signs reviewed - tachycardic and hypotensive. -Labs reviewed - white count 10.91, hgb 10.3, creatinine 1.17. -Preliminary urine culture 06/09 positive for >100,000 cfu gram negative bacilli. -Recommend supportive care, lab monitoring, and antibiotic therapy - await final culture. -Given persistent gross hematuria with clot retention, recommend proceeding with surgical intervention. Discussed options with patient and he is agreeable. -Recommend NPO. -Plan to proceed to OR for cystoscopy, clot evacuation, and possible fulguration with Dr. Morrison. -OR notified. Chest x-ray and EKG in chart. COVID-19 negative. Patient will be given IV Ceftriaxone routinely per primary team. Will in addition add IV Gentamicin preoperatively. -Will continue to follow closely while inpatient. Supervising Physician Co-Signing Physician Notes I have seen and examined and agree with the above documentation. Unfortunately at this time he has failed conservative management for his hematuria and clot retention of urine. We discussed the relative risks and benefits of proceeding to the OR for cystoscopy and clot evacuation. He expressed understanding and agreed to proceed to the OR. History of Present Illness Reason for Consultation: Gross hematuria, clot retention Requesting Physician: KHANH Mercado History of Present Illness 70 year old male patient, with past medical history of prostate cancer s/p brachytherapy/radiation, abdominal aortic aneurysm, prediabetes, peripheral arterial disease, chronic pancreatitis, NSTEMI and coronary artery stent (May 2021), hypertension, acute urinary retention, and other comorbidities listed below, presented to the emergency room today after direction of our service due to persistent gross hematuria with clot retention. Patient is known to our service for recent history of acute urinary retention and hematuria. As above, he has history of prostate cancer s/p brachytherapy and radiation. He was initially evaluated at [facility] ER on 05/22 for difficulty voiding and he was found to be in urinary retention. A Blas catheter was placed and he was discharged to home. He subsequently was hospitalized at [facility] from 05/26 - 05/29/21 for NSTEMI and coronary artery stent placement. Our service was consulted during his admission for hematuria, hx of prostate cancer. He had an outpatient follow-up with our service on 05/31/21 and successfully passed his voiding trial. Unfortunately, he returned to the ER on 06/01 and was ultimately admitted until 06/06. During his most recent admission, CBI was initiated for a period of time and was ultimately discontinued. He was voiding spontaneously prior to discharge and subsequently discharged home without blas catheter. Unfortunately since discharge, patient has had two ER visits along with outpatient nursing visits with urology secondary to urinary retention requiring catheter placement and clot retention with catheter blockage. He is being admitted by medicine service for continued care and planned surgical intervention later this evening. Urology consulted for gross hematuria, clot retention. As above, patient well known to [facility] urology service. Chart review: Patient afebrile. Tachycardic at 117, hypotensive at 89/57. Wbc 10.91 Hgb 10.3 Creatinine 1.17 Urinalysis 06/09 with >30 rbc, 10-30 wbc, +1 bacteria Preliminary urine culture 06/09 with >100,000 cfu gram negative bacilli. Imaging reviewed from 06/03 - CT abd/pelvis with/without contrast: IMPRESSION: 1. Large soft tissue mass in the bladder occupying almost the entire lumen likely represents a clot, however underlying soft tissue mass cannot be excluded. A Blas catheter is seen with expected air in the bladder. No evidence of abnormal mass in the kidneys or ureters. 2. Large infrarenal abdominal aortic aneurysm with significant luminal narrowing due to mural thrombus, similar in appearance to prior exam. Small right iliac aneurysm. Patient seen and examined at bedside in the emergency room. He is awake, alert, comfortable. Non-toxic in appearance. Reports he is feeling "okay" at current time. Currently pain is controlled after administration of PRN Fentanyl. Mild pain to suprapubic region. Continues to report hematuria. Denies dysuria. Tole rating blas catheter. Denies nausea or vomiting. Denies fevers or chills. Currently no chest pain or shortness of breath. Reports the last time he ate or drank anything was around 6 am this morning. He states his last dose of Plavix was this morning. Denies additional urologic concerns today. Allergies Allergy/AdvReac Type Severity Reaction Status Date / Time No Known Allergies Allergy Verified 06/10/21 13:06 Home Medications Medication Instructions Recorded Confirmed Type atorvastatin 80 mg tablet 80 mg PO HS 05/26/21 06/10/21 History metoprolol tartrate 25 mg tablet 12.5 mg PO BID 30 Days #30 tab 05/29/21 06/10/21 Rx oxybutynin chloride 5 mg tablet 5 mg PO DAILY PRN #30 tab 05/29/21 06/10/21 Rx aspirin 81 mg tablet,delayed 81 mg PO QAM 06/02/21 06/10/21 History release tamsulosin 0.4 mg capsule 0.4 mg PO QAM #30 cap 06/06/21 06/10/21 Rx lisinopril 30 mg tablet 30 mg PO DAILY 06/10/21 06/10/21 History metformin 500 mg tablet,extended 500 mg PO BID 06/10/21 06/10/21 History release 24 hr Patient History Medical History Abdominal aortic aneurysm (AAA) 3.0 cm to 5.5 cm in diameter in male Acute Lyme disease CAD (coronary artery disease) Chronic pancreatitis Claudication of left lower extremity Gross hematuria HLD (hyperlipidemia) Hypertension NSTEMI (non-ST elevated myocardial infarction) Peripheral arterial disease Pre-diabetes Stroke-like symptoms Tobacco abuse Surgical History History of heart artery stent Social History Smoking Status: Never smoker Tobacco Type: Cigars Second Hand Exposure: No; Hx Alcohol Use: Yes Alcohol type: wine Hx Substance Use: No Preferred Language: Danish Communication Ability: Effective Transmitter Chief Required: No Beliefs That Will Affect Care: None marital status: Current Living Situation: Spouse Feels Safe at Home: Yes Assistive Devices: Glasses Review of Systems Constitutional: as per Subjective / HPI; no fever and no chills Eyes: no problem reported Ear, Nose, Mouth, Throat: no problem reported Respiratory: no cough and no dyspnea Cardiovascular: no chest pain and no edema Gastrointestinal: as per Subjective / HPI Genitourinary: + as per Subjective / HPI Musculoskeletal: as per Subjective / HPI Neurologic: + dizziness (Mild intermittent ) Endocrine: no fatigue Hematologic / Lymphatic: as per Subjective / HPI Physical Exam Constitutional: well developed and well nourished; no acute distress and not ill appearing ENMT: Ears: no external ear abnormality Nose: no external nose abnormality Neck: normal visual inspection and trachea midline Respiratory: normal respiratory effort and able to speak in complete sentences; no respiratory distress and no audible wheezes Cardiovascular: Extremities: no calf tenderness and no edema Gastrointestinal (Abdomen): Inspection/Auscultation: abdomen normal to inspection; abdomen not distended Percussion/Palpation: abdomen soft; abdomen nontender and no guarding Musculoskeletal: Moves all extremities without difficulty. Skin: No visible rashes, lesions, or wounds noted. Neurologic: moves all extremities and awake Psychiatric: Orientation: alert, oriented x 3 and cooperative Affect: euthymic affect Genitourinary: Blas catheter intact and patent with leg bag. Urine draining appropriately, dark red in color. Results & Data ([facility]) Vital Signs (Past 12 Hours) Vital Signs Temp Pulse Resp BP Pulse Ox 06/10/21 12:13 36.6 C 117 H 16 89/57 L 96 PG Care Time/CCT Total # of Minutes Spent Total Time Spent with Patient: Total time spent is greater than 50% in coordination of care (as documented) at patient's floor/unit and/or counseling patient: Coding Level of Care Code 22176 Initial Inpt Care Lvl 3 Diagnoses Acute urinary retention R33.8 Obstructed Blas catheter T83.091A Encounter type: initial encounter Gross hematuria R31.0 (1) Obstructed Blas catheter Encounter type: initial encounter Qualified Code(s): T83.091A - Other mechanical complication of indwelling urethral catheter, initial encounter
[2021-06-10] MEDS: LACTATED RINGER'S 1,000 ML IV SCH ×2 (15:08→21:24)
--- NOTE | 2021-06-10 15:11 | History & Physical Report ---
Date of Service June 10, 2021 Assessment & Plan (1) Acute urinary retention: Plan: Acute on chronic- blas in place - As above- treatment and therapy to Urology (2) Obstructed Blas catheter: Plan: Continue manual irrigation until evaluated by urology - follow up recommendations following operative findings - ? CBI (3) Gross hematuria: Plan: As above (4) UTI (urinary tract infection): Plan: With gram negative bacilli on preliminary interpretation from UA done - resend UA with culture - Rocephin 2GM IV now - Rocephin 2GM IV daily - Follow culture results and adjust abx therapy as warranted (5) CAD (coronary artery disease): Plan: 80% proximal LAD treated with SANTIAGO -2020 - Continue ASA - Continue PLAVIX - Continue BB- Metoprolol 12.5 mg PO BID - Continue THIEN- may need to lower THIEN dosing secondary to lower BP with additon of BB - follow while in house (6) Hypertension: Plan: As above (7) Abdominal aortic aneurysm (AAA) 3.0 cm to 5.5 cm in diameter in male: Plan: infrarenal abdominal aortic aneurysm measuring up to 54 mm in diameter- Patient states he follows this up with [facility] through [facility] every 6 months with ultrasound/CT scans - Reports discrepancy between our records- notes that his physician's interpretation is 4.3cm - Continue BB, Lipid lowering medications, continue to follow up with outside team (8) Peripheral arterial disease: Plan: As above- noted left illiac occlusion with colalteral flow - follows as above (9) Type 2 diabetes mellitus: Plan: Hold Metformin- transition to sliding scale - NPO- Aspart with CF 20, 0 carb coverage- - Goal <180 follow and adjust as needed (10) History of prostate cancer: Plan: Managed with brachytherapy- defer follow up and treatment to urology/hemonc/radonc (11) Chronic pancreatitis: (12) Severe protein-calorie malnutrition: (13) Acute blood loss anemia: History of Present Illness Chief Complaint: ongoing gross hematuria Primary Care Provider: Jeremy Kaiser, DO 70 YOM with past medical history of: CAD, NSTEMI(stent placed to LAD ), HTN, DMII, PAD, Urinary retention, prostate cancer with brachytherapy and radiation therapy, hematuria, AAA (5.3x5.1)- he has this followed at [place] with CT and ultrasounds every 6 months. Last reported measurement he recalls 4.3. and left common iliac artery occlusion. Patient comes to the emergency department today after following up in urologist office for hematuria and blocked Blas catheter. Today he had 18F caudae catheter removed and replaced, it has been irrigated x1 in the [facility] for clot formation with return of dark blood tinged urine. Urology has been consulted and plans to take patient to operating room this evening for cystoscopy evaluation and treatment as identified. His preliminary urine from yesterday was notable for gram negative bacilli, will send another UA with culture as re-irrigated and instrumented today and will start antibiotics. Patient was recently admitted in May for NSTEMI, where he had a SANTIAGO placed to his LAD on , prior to that he had an ED visit on for hematuria and difficulty with urination. 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 He had a urine culture at that time as well that was negative. He had a follow up with urology on for voiding trial- which it appears he passed- he returned to the [facility] on for replacement of Blas catheter and admission to the hospital on for blocked urinary catheter. He had manual irrigation done at that time as well as CBI titrated to light pink color. he was doing well following that and was di scharged. Patient return to [facility] 06/09/21 for clogged Blas catheter, this was changed out and followed up with Urology today 06/10/21 for the above findings. Patient will be admitted by the hospitalist service and continue to follow HGB and hemodynamics. UA with culture sent with frequent instrumentation and exchanges, mild elevation of WBC and elevation of NLR. With his recent stent placement would aim to keep HGB ~10. He has been consented for blood and typed and crossed by [facility]. Will also be continuing ASA and Plavix through pre-op, intra-op, and post-operative phases unless becomes bleeding becomes a serious threat. His risk probability for perioperative [place] or Cardiac arrest with a Urological procedure is 0.23% Allergies Allergy/AdvReac Type Severity Reaction Status Date / Time No Known Allergies Allergy Verified 06/10/21 13:06 Home Medications Medication Instructions Recorded Confirmed Type atorvastatin 80 mg tablet 80 mg PO HS 05/26/21 06/10/21 History metoprolol tartrate 25 mg tablet 12.5 mg PO BID 30 Days #30 tab 05/29/21 1 08/10/20 Rx oxybutynin chloride 5 mg tablet 5 mg PO DAILY PRN #30 tab 05/29/21 06/10/21 Rx aspirin 81 mg tablet,delayed 81 mg PO QAM 06/02/21 06/10/21 History release tamsulosin 0.4 mg capsule 0.4 mg PO QAM #30 cap 06/06/21 06/10/21 Rx lisinopril 30 mg tablet 30 mg PO DAILY 06/10/21 06/10/21 History metformin 500 mg tablet,extended 500 mg PO BID 06/10/21 06/10/21 History release 24 hr Past Med/Surg History Medical History Abdominal aortic aneurysm (AAA) 3.0 cm to 5.5 cm in diameter in male Acute Lyme disease CAD (coronary artery disease) Chronic pancreatitis Claudication of left lower extremity Gross hematuria HLD (hyperlipidemia) Hypertension NSTEMI (non-ST elevated myocardial infarction) Peripheral arterial disease Pre-diabetes Stroke-like symptoms Tobacco abuse Surgical History History of heart artery stent Social History Smoking Status: Never smoker Tobacco Type: Cigars Second Hand Exposure: No; Hx Alcohol Use: Yes Alcohol type: wine Hx Substance Use: No Preferred Language: Kittitian Communication Ability: Effective Java Engineer Required: No Beliefs That Will Affect Care: None marital status: Current Living Situation: Spouse Feels Safe at Home: Yes Assistive Devices: Glasses Review of Systems Review of Systems: REVIEW OF SYSTEMS: Constitutional: No fever, sweats or chills Eyes: No diplopia, no worsening or blurred vision ENT: normal hearing, no trouble swallowing Respiratory: No cough, sputum, dyspnea at rest or on exertion Cardiovascular: No chest pain, tightness or palpitations Abdomen: No pain, nausea, vomiting, diarrhea or constipation Musculoskeletal: No joint pain, calf pain, swelling Neurologic: No weakness, numbness/tingling, or balance problems Psychiatric: No anxiety or depression Skin: No rash or itch Physical Exam Physical Exam: PHYSICAL EXAM: General: awake, alert, no apparent distress Head: Normocephalic, atraumatic ENT: PERRL, EOMI, no pharyngeal exudate, mucous membranes moist Neuro: AAO x 3, speech clear and appropriate, strength intact bilaterally 5/5, sensation intact and equal all extremities and dermatomes, no pronator drift Chest: equal rise and fall of the chest, no accessory muscle use, no heaves or thrills, Clear to auscultation, on room air, Cardiac: Regular rate and rhythm, telemetry reviewed-NSR, skin warm dry, cap refill <3 seconds, peripheral pulses +2 no JVD, no murmur, no edema GI: NABS x 4 quadrants, soft, nontender to palpation, no rebound, guarding or tenderness : Spontaneously voiding, no pain, no CVA tenderness, Extremities: feet are cool with 1+ pulses, Normal inspection, no peripheral edema or erythema, calfs nontender to palpation Psych: Normal mood and affect Skin: no rash or erythema Results & Data Results & Data ([facility]) Vital Signs (Past 12 Hours) Vital Signs Temp Pulse Resp BP Pulse Ox 06/10/21 12:13 36.6 C 117 H 16 89/57 L 96 Laboratory Results Abnormal lab results 06/10/21 06/10/21 06/10/21 Range/Units 12:50 12:50 12:50 WBC 10.91 H (4.8-10.8) K/uL RBC 3.11 L (4.7-6.1) M/uL Hgb 10.3 L (14.0-18.0) g/dL Hct 30.0 L (42-52) % RDW Std Deviation 49.8 H (36.4-46.3) fL Plt Count 422 H (130-400) K/uL Neut # (Auto) 8.64 H (1.4-6.5) K/uL Lymph # (Auto) 1.18 L (1.2-3.4) K/uL Cecil # (Auto) 1.03 H (0.11-0.59) K/uL D-Dimer 950 H* (0-500) ug/L FEU BUN 22 H (7-18) mg/dl Glucose 115 H (70-99) mg/dl Albumin 2.6 L (3.4-5.0) gm/dl Diagnostic Findings Chest X-Ray 06/10/21 12:47 XR chest 1V portable HISTORY: 70 years-old Male pre-op preoperative exam. No acute chest complaints COMPARISON: Chest radiograph 05/16/2021 TECHNIQUE: Portable AP view the chest FINDINGS: Cardiomediastinal and hilar silhouettes are within normal limits. Calcified plaque of the thoracic aorta. Emphysema. Mild chronic interstitial coarsening without pneumothorax, pleural effusion, airspace consolidation or overt pulmonary edema. A millimeter nodular density of the right midlung redemonstrated. No acute fracture. Degenerative changes of the shoulders and spine. IMPRESSION: 1. Emphysema without acute process. 2. 8mm right midlung nodule redemonstrated. Correlation with a nonemergent follow-up chest CT recommended. ACT 112: Negative or not required by law. The above report was generated using voice recognition software. It may contain grammatical, syntax or spelling errors. Electronically signed by: Luciano Moore M.D. 06/10/2021 1:33 PM Medications Administered Home Medications atorvastatin 80 mg tablet 80 mg PO HS 05/26/21 [History Confirmed 06/10/21] metoprolol tartrate 25 mg tablet 12.5 mg PO BID 30 Days #30 tab 05/29/21 [Rx Confirmed 06/10/21] oxybutynin chloride 5 mg tablet 5 mg PO DAILY PRN #30 tab 05/29/21 [Rx Confirmed 06/10/21] aspirin 81 mg tablet,delayed release 81 mg PO QAM 06/02/21 [History Confirmed 06/10/21] tamsulosin 0.4 mg capsule 0.4 mg PO QAM #30 cap 06/06/21 [Rx Confirmed 06/10/21] lisinopril 30 mg tablet 30 mg PO DAILY 06/10/21 [History Confirmed 06/10/21] metformin 500 mg tablet,extended release 24 hr 500 mg PO BID 06/10/21 [History Confirmed 06/10/21] Active Medications Lactated Ringer's (Lr) 1,000 mls @ 100 mls/hr IV .Q10H EDEN Stop: 07/10/21 14:29 Last Admin: 06/10/21 15:08 Dose: 100 mls/hr Documented by: Gentamicin Sulfate 420 mg/ (Dextrose) 110.5 mls @ 100 mls/hr IV PREOP ONE Stop: 06/10/21 16:51 ECG Additional Comments: Vent. Rate : 100 BPM Atrial Rate : 100 BPM P-R Int : 146 ms QRS Dur : 088 ms QT Int : 344 ms P-R-T Axes : 050 059 053 degrees QTc Int : 443 ms Normal sinus rhythm Nonspecific T wave abnormality Abnormal ECG When compared with ECG of 09-JUN-2021 09:30, No significant change was found Code Status & VTE Plan Code Status CODE: FULL VTE: SCDs, Asa, Plavix, ambulation VTE Prophylaxis Plan VTE Prophylaxis will be ordered: Yes Supervising Physician Co-Signing Physician Notes Attending Attestation and Admission Note: Pt seen/examined, chart reviewed, care plan d/w KHANH Perry. I agree w/ the chacko components of his documentation. 70yo male with CAD and recent LAD stent, T2DM, HTN, and prior prostate cancer who has had several hospitalizations and multiple office/ER visits for gross hematuria, urinary retention, and blas catheter management. Gross hematuria has been presumed to be from radiation cystitis in the setting of asa/plavix use. He now appears to have a GNR UTI as well (urine cx from 06/09). The LAD stent was placed on 05/28 (had presented on 05/26 with elevated troponin and chest pain in the midst of his gross hematuria). In addition, he and his report significant weight loss - at least 15 pounds - due to poor appetite over the last 3-4 weeks. PMH/PSH/allergies/meds/sochx/famhx - reviewed Vitals - BPs low-normal gen - NAD mouth - MMM neck - no JVD heart - RRR, s1 s2, no murmur lungs - cta b/l abd - soft NT ND BS+ - blas with gross hematuria ext - no edema, pulses not found in b/l feet; cool to touch labs reviewed imaging reviewed recent d/c summary, h/p, etc from prior admissions reviewed A/P: 1. acute blood loss anemia 2nd to gross hematuria with resulting urinary retention, need for blas placement several times, etc -- to OR today by urology for cysto, clot removal, etc. 2. h/o prostate cancer s/p XRT 3. recent NSTEMI - s/p stent placement 4. severe protein calorie malnutrition - patient not eating last 3-4 weeks - etiology?? Could chronic pancreatitis be contributing to this ? Consider creon TID w/ meals. Other etiology?? 5. UTI - rocephin 6. HTN - REDUCE the lisinopril from 30mg to 10mg given his low-normal BPs. Brien Coreas MD PG Care Time/CCT Total # of Minutes Spent Total Time Spent with Patient: Total time spent is greater than 50% in coordination of care (as documented) at patient's floor/unit and/or counseling patient: Coding Level of Care Code 10151 Initial Inpt Care Lvl 3 Diagnoses Abdominal aortic aneurysm (AAA) 3.0 cm to 5.5 cm in diameter in male I71.4 Acute urinary retention R33.8 Obstructed Blas catheter T83.091A Encounter type: initial encounter CAD (coronary artery disease) I25.10 Type 2 diabetes mellitus E11.9 Peripheral arterial disease I73.9 History of prostate cancer Z85.46 Gross hematuria R31.0 Hypertension I10 UTI (urinary tract infection) N39.0 Chronic pancreatitis K86.1 Pancreatitis type: unspecified pancreatitis type Severe protein-calorie malnutrition E43 Acute blood loss anemia D62 (1) Obstructed Blas catheter Encounter type: initial encounter Qualified Code(s): T83.091A - Other mechanical complication of indwelling urethral catheter, initial encounter (2) Chronic pancreatitis Pancreatitis type: unspecified pancreatitis type Qualified Code(s): K86.1 - Other chronic pancreatitis
[2021-06-10] MEDS ORDERED: GENTAMICIN SULFATE 420 MG in DEXTROSE 5% 100 ML IV ONE (15:45)
[2021-06-10] MEDS ORDERED: cefTRIAXone SODIUM 2,000 MG in DEXTROSE 5% 50 ML IV STA ×2 (16:03→16:10)
[2021-06-10] MEDS ORDERED: LIDOCAINE 2% 2 ML VIAL/AMP(20MG/ML) INFIL ONE (16:48)
[2021-06-10] MEDS ORDERED: PROPOFOL IV EMULSION 10 MG/ML 20 ML VIAL IV ONE ×4 (16:48→17:52)
[2021-06-10] MEDS ORDERED: fentaNYL citrate 100 MCG/2 ML VIAL ONE ×2 (17:11→17:36)
[2021-06-10] MEDS ORDERED: MIDAZOLAM HCL 1 MG/ML 2ML VIAL ONE (17:11)
[2021-06-10] MEDS ORDERED: ESMOLOL HCL INJ 10 MG/ML 10ML VIAL IV ONE (17:25)
--- NOTE | 2021-06-10 18:13 | Operative Report ---
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 Small raised up area, likely from catheter trauma, biopsied and fulgurated. Two areas identified with active bleeding, cauterized. Small oozing areas cauterized as well. Specimens Posterior wall bladder biopsy Drains 22 Romanian three-way Wheeler catheter with continuous bladder irrigation running Anesthesia Type MAC Complications None Indications This is a 70-year-old male, recently followed by urology for gross hematuria which started after he was anticoagulated following a recent HI. We have attempted to manage conservatively with CBI and hand irrigation for the past week, but he has persistent hematuria. For that reason we discussed proceeding to the OR for cystoscopy and clot evacuation, as well as fulguration to address his hematuria. Description of Procedure The patient was identified in the holding area and informed consent was confirmed. He was taken to the operating room where general anesthesia was initiated. He was placed in the dorsal lithotomy position with all pressure points appropriately padded. He was prepped and draped in the usual sterile fashion and a preoperative timeout was performed. The Olympus resectoscope was inserted per urethra and panendoscopy was performed. He had some urethral mucosal interruptions, likely from the multiple recent catheterizations. His prostate was atrophic from the radiation. Upon entry into the bladder, visualization was blocked by a large anterior clot. This was flushed through the resectoscope sheath using a Christopher syringe. Once all the clot was removed, the bladder was surveyed. There was notable hypervascularity on the posterior wall of the bladder, consistent with radiation changes. There were two areas of active bleeding identified, one on the left side of the bladder neck, and one on the posterior bladder neck. Both of these were cauterized with the button electrode. On the posterior wall of the bladder there was a heaped up area, likely related to his recent catheters and clot evacuations, however there was a suspicious appearance. Using a cold cup biopsy forcep, I took a biopsy of this area which was sent for analysis labeled as posterior wall bladder biopsy. The button electrode was then used to thoroughly fulgurate this area. Surrounding areas were also fulgurated to obtain hemostasis. When the bladder was decompressed, any small manipulation caused more oozing. The raw areas were fulgurated as best as possible, and the resectoscope was removed atraumatically. A 22 Romanian, three-way Wheeler catheter was inserted per urethra and attached to gravity drainage and continuous bladder irrigation. The urine draining was clear to faint pink. The patient was then awakened from anesthesia and was brought to the PACU in stable condition. He will need to continue the CBI overnight. I attest to the content of the Intraoperative Record and any orders documented therein. Any exceptions are noted below.
[2021-06-10] MEDS ORDERED: BELLADONNA/OPIUM SUPP 60 MG SUPP PR PRN (18:41)
[2021-06-10] MEDS ORDERED: ATROPINE SULFATE 0.1 MG/ML 10ML SYR IV PRN (19:04)
[2021-06-10] MEDS ORDERED: ePHEDrine sulfate 50 MG/ML AMP IV PRN (19:04)
--- NOTE | 2021-06-10 19:04 | Anesthesiology Consultation ---
Date of Service June 10, 2021 Assessment & Plan Chart Review Chart Review: Acceptable Risk for Surgery and Patient NOT seen in Pre Admission Testing Consults Requested none ASA ASA4 Proposed Anesthesia Anesthesia Type: MAC Risk / Benefits Reviewed With: PT / POA / Parent / Guardian, Accepts Plan and Informed Consent Obtained History Surgery Operation Date: 06/10/21 13:25 Proposed Procedures p Cystoscopy, Clot Evacuation, Fulguration - Cheikh Morrison MD Height/Weight Height: 5 ft 6 in Weight: 66.7 kg Allergies Allergy/AdvReac Type Severity Reaction Status Date / Time No Known Allergies Allergy Verified 06/10/21 13:06 Medications Home Medications Medication Instructions Recorded Confirmed Last Taken atorvastatin 80 mg tablet 80 mg PO HS 05/26/21 06/10/21 06/08/21 metoprolol tartrate 25 mg tablet 12.5 mg PO BID 30 Days #30 tab 05/29/21 06/10/21 06/08/21 oxybutynin chloride 5 mg tablet 5 mg PO DAILY PRN #30 tab 05/29/21 06/10/21 05/30/21 aspirin 81 mg tablet,delayed 81 mg PO QAM 06/02/21 06/10/21 06/09/21 release tamsulosin 0.4 mg capsule 0.4 mg PO QAM #30 cap 06/06/21 06/10/21 Unknown lisinopril 30 mg tablet 30 mg PO DAILY 06/10/21 06/10/21 Unknown metformin 500 mg tablet,extended 500 mg PO BID 06/10/21 06/10/21 Unknown release 24 hr Active Medications Generic Name Dose Route Start Last Admin Trade Name Freq PRN Reason Stop Dose Admin Lactated Ringer's 1,000 mls @ 100 mls/hr 06/10/21 14:30 06/10/21 15:08 Lr IV 07/10/21 14:29 100 mls/hr .Q10H EDEN Administration NPO Date Last Intake of Fluids: 06/10/21 Time Last Intake of Fluids: 06:00 Date Last Intake of Solids: 06/10/21 Time Last Intake of Solids: 06:00 Past Medical History Medical History Abdominal aortic aneurysm (AAA) 3.0 cm to 5.5 cm in diameter in male Acute Lyme disease CAD (coronary artery disease) Chronic pancreatitis Claudication of left lower extremity Gross hematuria HLD (hyperlipidemia) Hypertension NSTEMI (non-ST elevated myocardial infarction) Peripheral arterial disease Pre-diabetes Stroke-like symptoms Tobacco abuse Exercise / Class Metabolic Activity II 4-5 Yardwork/Stairs/Walk up hill Past Surgical History Surgical History History of heart artery stent Past Anesthesia History No Hx of Anesthesia Complications and No Family Hx of Anesthesia Complications History of PONV No Hx of PONV and No Hx of Motion Sickness Social History Smoking Status: Never smoker tobacco type: cigars Hx Alcohol Use: Yes Alcohol type: wine alcohol intake frequency: a few times a week Hx Substance Use: No substance use type: does not use Physical Exam Vital Signs Last Vital Signs Temp 36.6 C 06/10/21 18:40 Pulse 102 H 06/10/21 18:40 Resp 14 06/10/21 18:40 BP 119/68 06/10/21 18:40 Pulse Ox 96 06/10/21 18:40 ENMT Mouth: no dentition abnormality Thyromental Distance: > or= 3.5 Finger Breadths Mallampati Class: II Neck normal visual inspection Respiratory normal respiratory effort Auscultation: lungs clear to auscultation bilaterally Cardiovascular Rate/Rhythm: regular rate and regular rhythm Psychiatric Orientation: alert Testing Laboratory Results 06/10/21 12:50 06/10/21 12:50 PT 9.9 Seconds (9.0-12.0) 06/10/21 12:50 INR 1.0 (0.9-1.1) 06/10/21 12:50 APTT 24.8 Seconds (21.0-31.0) 06/10/21 12:50 Blood Type B Positive 06/10/21 12:50 Antibody Screen NEGATIVE 06/10/21 12:50 06/10/21 18:25 POC Glucose 124 H
--- NOTE | 2021-06-10 19:05 | Anesthesiology Progress Note ---
Date of Service June 10, 2021 Anesthesia Post Procedure Vital Signs Vital Signs: Temp Pulse Pulse Pulse Resp BP BP 06/10/21 18:40 36.6 C 102 H 14 119/68 06/10/21 18:30 102 H 23 120/73 06/10/21 18:20 109 H 16 107/64 06/10/21 18:13 37.1 C 113 H 20 101/75 06/10/21 16:52 37 C 99 H 18 122/73 06/10/21 16:25 90 18 127/63 06/10/21 14:11 90 18 106/59 L 06/10/21 12:13 36.6 C 117 H 16 89/57 L Pulse Ox 06/10/21 18:40 96 06/10/21 18:30 100 06/10/21 18:20 96 06/10/21 18:13 99 06/10/21 16:52 98 06/10/21 16:25 97 06/10/21 14:11 97 06/10/21 12:13 96 Pain Intensity Abdomen: Pain Intensity: 3 Transfer of Care Handoff Completed per policy Notes Mental Status: alert / awake / arousable Patient Amnestic to Procedure: Yes Nausea / Vomiting: adequately controlled Pain: adequately controlled Airway Patency, RR, SpO2: stable & adequate BP & HR: stable & adequate Hydration State: stable & adequate Anesthetic Complications: no major complications apparent
[2021-06-10] MEDS ORDERED: OXYBUTYNIN CHLORIDE 5 MG TAB PO PRN (19:10)
[2021-06-10] MEDS ORDERED: POLYETHYLENE (MIRALAX) 17 GM PACK PO PRN (19:10)
[2021-06-10] MEDS ORDERED: GLUCOSE 10 TABS/TUBE PO PRN (19:10)
[2021-06-10] MEDS ORDERED: DEXTROSE 50% 50 ML SYRINGE IV PRN (19:10)
[2021-06-10] MEDS ORDERED: CARBOHYDRATES FOR HYPOGLYCEMIA PO PRN (19:10)
[2021-06-10] MEDS ORDERED: ONDANSETRON INJ 2 MG/ML 2 ML VIAL IV PRN (19:10)
[2021-06-10] MEDS ORDERED: GLUCAGON FOR INJ 1 MG VIAL SQ PRN (19:10)
[2021-06-10] MEDS ORDERED: ACETAMINOPHEN 325 MG TAB PO PRN (19:10)
[2021-06-10] MEDS ORDERED: GLUCOSE 40% GEL 15 GM TUBE PO PRN (19:10)
[2021-06-10] MEDS ORDERED: LIDOCAINE 2% JELLY 5 ML TUBE EXT SCH (19:15)
[2021-06-10] MEDS ORDERED: LIDOCAINE 2% JELLY 5 ML TUBE ONE (19:16)
[2021-06-10] MEDS: MoRPHine SULFATE 2 MG/ML CARP IV PRN (20:10)
[2021-06-10] MEDS ORDERED: LIDOCAINE 2% JELLY 5 ML TUBE EXT PRN (20:30)
[2021-06-10] MEDS: INSULIN ASPART 100 UNITS/ML 3 ML PEN SC SCH ×2 (20:45→21:15)
[2021-06-10] MEDS ORDERED: ATORVASTATIN 40 MG TAB PO SCH (21:00)
[2021-06-10] MEDS: METOPROLOL TARTRATE 25 MG TAB PO SCH (21:24)
[2021-06-10 21:53] LABS: Basophils # (auto) 0.02 K/uL (0-0.2); Basophils % (auto) 0.2 %; Eosinophils # (auto) 0.07 K/uL (0-0.5); Eosinophils % (auto) 0.6 %; Hemoglobin 8.6 g/dL (14.0-18.0); Immature Granulocytes # (auto) 0.03 K/uL (0.00-0.02); Immature Granulocytes % (auto) 0.3 %; Lymphocytes # (auto) 1.87 K/uL (1.2-3.4); Mean Corpuscular Hemoglobin 32.6 pg (25-34); Mean Corpuscular Hgb Conc 33.1 g/dL (32-36); Mean Corpuscular Volume 98.5 fL (80-100); Monocytes # (auto) 1.08 K/uL (0.11-0.59); Monocytes % (auto) 9.2 %; Neutrophils # (auto) 8.63 K/uL (1.4-6.5); Neutrophils % (auto) 73.7 %; Platelet Count 356 K/uL (130-400); RDW Coefficient of Variation 14.1 % (11.5-14.5); RDW Standard Deviation 51.1 fL (36.4-46.3); Red Blood Count 2.64 M/uL (4.7-6.1)
[2021-06-10] MEDS ORDERED: SODIUM CHLORIDE 0.9% 250 ML IV PRN (23:09)
[2021-06-11 01:19] LABS: Appearance Urine Clear (Clear); Bacteria Urine Automated Negative (Negative); Bilirubin Urine Negative (Negative); Blood Urine 2+ (Negative); Cast Urine Automated 0 /lpf (0-5); Color Urine Yellow; Epithelial Cell Urine Auto 0-5 /lpf (0-5); Glucose Urine UA Negative (Negative); Ketones Urine Negative (Negative); Leukocyte Esterase Urine Negative (Negative); Nitrite Urine Negative (Negative); Protein Urine Negative (Negative); Specific Gravity Urine 1.006 (1.000-1.030); Urobilinogen Urine Negative (Negative)
[2021-06-11] MEDS: MoRPHine SULFATE 2 MG/ML CARP IV PRN (02:07)
[2021-06-11] MEDS: LACTATED RINGER'S 1,000 ML IV SCH ×2 (06:15→10:37)
[2021-06-11 07:48] LABS: Basophils # (auto) 0.01 K/uL (0-0.2); Basophils % (auto) 0.1 %; Eosinophils # (auto) 0.08 K/uL (0-0.5); Eosinophils % (auto) 0.8 %; Hematocrit (blood only) 30.3 % (42-52); Hemoglobin 10.3 g/dL (14.0-18.0); Immature Granulocytes # (auto) 0.01 K/uL (0.00-0.02); Immature Granulocytes % (auto) 0.1 %; Lymphocytes # (auto) 0.91 K/uL (1.2-3.4); Lymphocytes % (auto) 8.7 %; Mean Corpuscular Hemoglobin 32.3 pg (25-34); Mean Platelet Volume 9.9 fL (7.4-10.4); Monocytes # (auto) 1.03 K/uL (0.11-0.59); Monocytes % (auto) 9.9 %; Neutrophils # (auto) 8.37 K/uL (1.4-6.5); Neutrophils % (auto) 80.4 %; Platelet Count 326 K/uL (130-400); RDW Coefficient of Variation 14.4 % (11.5-14.5); Red Blood Count 3.19 M/uL (4.7-6.1); White Blood Count 10.41 K/uL (4.8-10.8)
--- NOTE | 2021-06-11 08:08 | Hospitalist Progress Note ---
Date of Service June 11, 2021 Assessment & Plan Admission and Anticipated Discharge Date Admission Date: June 10, 2021 Results & Data Results & Data ([facility]) Vital Signs (Past 12 Hours) Vital Signs Temp Pulse Pulse Resp BP BP BP 06/11/21 07:57 37.0 C 98 H 18 133/77 06/11/21 03:02 36.5 C 87 87 16 111/69 111/69 06/11/21 03:00 36.5 C 94 H 16 111/69 06/11/21 02:00 36.7 C 99 H 16 110/69 06/11/21 01:30 36.8 C 92 H 16 99/62 L 06/11/21 01:13 36.8 C 93 H 16 99/61 L 06/11/21 00:57 36.9 C 100 H 16 93/61 L 06/10/21 22:23 36.6 C 91 H 16 104/65 06/10/21 21:28 37.2 C 91 H 16 109/66 06/10/21 20:16 37.4 C 98 H 16 117/69 Pulse Ox 06/11/21 07:57 94 06/11/21 03:02 94 06/11/21 03:00 96 06/11/21 02:00 06/11/21 01:30 06/11/21 01:13 95 06/11/21 00:57 94 06/10/21 22:23 93 06/10/21 21:28 98 06/10/21 20:16 96
[2021-06-11 08:25] LABS: BUN Creatinine Ratio 13.2 (10-20); Calcium 9.4 mg/dl (8.5-10.1); Est GFR (African American) 109.1 ml/min; Est GFR (Non-African American) 94.1 ml/min; Magnesium 1.6 mg/dl (1.8-2.4); Potassium 4.4 mmol/L (3.5-5.1)
[2021-06-11] MEDS: METOPROLOL TARTRATE 25 MG TAB PO SCH (08:36)
[2021-06-11] MEDS: INSULIN ASPART 100 UNITS/ML 3 ML PEN SC SCH ×2 (08:38→11:58)
[2021-06-11 08:45] LABS: Ferritin 231.4 ng/ml (8-388)
[2021-06-11] MEDS ORDERED: lisinopril 10 MG TAB PO SCH ×2 (09:00)
[2021-06-11] MEDS ORDERED: ASPIRIN 81 MG ECTAB PO SCH (09:00)
[2021-06-11] MEDS ORDERED: CLOPIDOGREL BISULFATE 75 MG TAB PO SCH (09:00)
--- NOTE | 2021-06-11 09:20 | Urology Progress Note ---
Date of Service June 11, 2021 Assessment & Plan (1) Gross hematuria: (2) Acute urinary retention: (3) Obstructed Blas catheter: Plan: 70 year-old male patient, with history of prostate cancer s/p brachytherapy/radiation therapy and recent NSTEMI, admitted with gross hematuria and clot retention. -POD #1 cystoscopy, clot evacuation, fulguration, and bladder biopsy with Dr. Morrison. -Patient clinically progressing as expected post procedure. -He remains afebrile. -Labs reviewed - white count and creatinine stable. Hemoglobin 10.3 this AM. -Preliminary urine culture positive for Pseudomonas aeruginosa, await final. -Urine now clear yellow off CBI, plan for catheter removal this morning. -Recommend continued supportive care, lab monitoring, and antibiotic therapy. -Presuming he is able to void spontaneously without difficulty and continues to feel well, okay to discharge home today from perspective. -Recommend home with 10 day course PO antibiotic therapy for positive culture. -Discussed outpatient referral [facility] to discuss hyperbaric oxygen therapy, he is agreeable and referral placed. -Will arrange outpatient follow-up with urology service for continued care. -Expected clinical course reviewed with patient, all questions answered. Thank you for allowing us to participate in the acute care of Mr. Salgado. Please reconsult us with additional questions, concerns or changes in patient status. Admission and Anticipated Discharge Date Admission Date: June 10, 2021 Supervising Physician Co-Signing Physician Notes I have seen and examined Mr. Salgado and agree with the above documentation. Urine was clear this morning after clot evacuation & fulguration yesterday. R reta for clamping trial of CBI and if urine remains clear, should have a voiding trial. With the radiation changes seen in his bladder, he is at risk for recurrent hematuria and for this reason we discussed referral to the wound center for hyperbaric oxygen. Subjective POD #1 cystoscopy, clot evacuation, fulguration, and bladder biopsy with Dr. Morrison. Patient clinically feeling well this morning. Currently denies pain. Anxious to go home. He tolerated CBI overnight. CBI clamped this AM by Dr. Morrison. On reassessment, urine remains clear yellow. Tolerating blas catheter. Denies fevers or chills. Denies nausea or vomiting. No dizziness/lightheadedness. Chart review: Afebrile. Wbc 10.41 Hgb 10.3 Creatinine 0.74 Preliminary urine culture positive for Pseudomonas aeruginosa. Denies additional urologic concerns today. Review of Systems Constitutional: as per Subjective / HPI; no fever and no chills Gastrointestinal: as per Subjective / HPI; no nausea and no vomiting Genitourinary: + as per Subjective / HPI Physical Exam Constitutional: well developed and well nourished; no acute distress and not ill appearing Respiratory: normal respiratory effort and able to speak in complete sentences; no respiratory distress and no audible wheezes Gastrointestinal (Abdomen): Inspection/Auscultation: abdomen normal to inspection; abdomen not distended Percussion/Palpation: abdomen soft; abdomen nontender and no guarding Psychiatric: Orientation: alert, oriented x 3 and cooperative Affect: euthymic affect Genitourinary: no CVA tenderness Blas catheter intact with CBI clamped. Urine clear yellow without hematuria. Results & Data ([facility]) Vital Signs (Past 12 Hours) Vital Signs Temp Pulse Pulse Resp BP BP BP 06/11/21 07:57 37.0 C 98 H 18 133/77 06/11/21 03:02 36.5 C 87 87 16 111/69 111/69 06/11/21 03:00 36.5 C 94 H 16 111/69 06/11/21 02:00 36.7 C 99 H 16 110/69 06/11/21 01:30 36.8 C 92 H 16 99/62 L 06/11/21 01:13 36.8 C 93 H 16 99/61 L 06/11/21 00:57 36.9 C 100 H 16 93/61 L 06/10/21 22:23 36.6 C 91 H 16 104/65 06/10/21 21:28 37.2 C 91 H 16 109/66 Pulse Ox 06/11/21 07:57 94 06/11/21 03:02 94 06/11/21 03:00 96 06/11/21 02:00 06/11/21 01:30 06/11/21 01:13 95 06/11/21 00:57 94 06/10/21 22:23 93 06/10/21 21:28 98 PG Care Time/CCT Total # of Minutes Spent Total Time Spent with Patient: Total time spent is greater than 50% in coordination of care (as documented) at patient's floor/unit and/or counseling patient: Coding Level of Care Code 69342 Subseq Hosp Care Lvl 2 Diagnoses Gross hematuria R31.0 Acute urinary retention R33.8 Obstructed Blas catheter T83.091A Encounter type: initial encounter (1) Obstructed Blas catheter Encounter type: initial encounter Qualified Code(s): T83.091A - Other mechanical complication of indwelling urethral catheter, initial encounter
--- NOTE | 2021-06-11 15:55 | Discharge Summary ---
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 Last reported measurement he recalls 4.3. and left common iliac artery occlusion. Patient comes to the emergency department today after following up in urologist office for hematuria and blocked Boggs catheter. Today he had 18F caudae catheter removed and replaced, it has been irrigated x1 in the [facility] for clot formation with return of dark blood tinged urine. Urology has been consulted and plans to take patient to operating room this evening for cystoscopy evaluation and treatment as identified. His preliminary urine from yesterday was notable for gram negative bacilli, will send another UA with culture as re-irrigated and instrumented today and will start antibiotics. Patient was recently admitted in May for NSTEMI, where he had a SANTIAGO placed to his LAD on , prior to that he had an ED visit on for hematuria and difficulty with urination. 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 He had a urine culture at that time as well that was negative. He had a follow up with urology on for voiding trial- which it appears he passed- he returned to the [facility] on for replacement of Boggs catheter and admission to the hospital on for blocked urinary catheter. He had manual irrigation done at that time as well as CBI titrated to light pink color. he was doing well following that and was discharged. Patient return to [facility] 06/09/21 for clogged Boggs catheter, this was changed out and followed up with Urology today 06/10/21 for the above findings. Patient will be admitted by the hospitalist service and continue to follow HGB and hemodynamics. UA with culture sent with frequent instrumentation and exchanges, mild elevation of WBC and elevation of NLR. With his recent stent placement would aim to keep HGB ~10. He has been consented for blood and typed and crossed by [facility]. Will also be continuing ASA and Plavix through pre-op, intra-op, and post-operative phases unless becomes bleeding becomes a serious threat. His risk probability for perioperative IA or Cardiac arrest with a Urological procedure is 0.23% Admission Exam Per Admitting Provider PHYSICAL EXAM: General: awake, alert, no apparent distress Head: Normocephalic, atraumatic ENT: PERRL, EOMI, no pharyngeal exudate, mucous membranes moist Neuro: AAO x 3, speech clear and appropriate, strength intact bilaterally 5/5, sensation intact and equal all extremities and dermatomes, no pronator drift Chest: equal rise and fall of the chest, no accessory muscle use, no heaves or thrills, Clear to auscultation, on room air, Cardiac: Regular rate and rhythm, telemetry reviewed-NSR, skin warm dry, cap refill <3 seconds, peripheral pulses +2 no JVD, no murmur, no edema GI: NABS x 4 quadrants, soft, nontender to palpation, no rebound, guarding or tenderness : Spontaneously voiding, no pain, no CVA tenderness, Extremities: feet are cool with 1+ pulses, Normal inspection, no peripheral edema or erythema, calfs nontender to palpation Psych: Normal mood and affect Skin: no rash or erythema Principal Diagnosis Hematuria, acute urinary retention Discharge Exam Constitutional: well-appearing, no acute distress CV: regular rhythm, no murmur appreciated, extremities well-perfused, no LE edema Resp: CTABL, no wheezes/rales/rhonchi appreciated, no increased work of breathing GI: soft, nondistended, nontender, BS normoactive Neuro: AOx4, no focal neurological deficits appreciated Discharge Data Allergies Allergy/AdvReac Type Severity Reaction Status Date / Time No Known Allergies Allergy Verified 06/10/21 13:06 Consultations 06/10/21 13:51 ED Decision to Admit Stat 06/10/21 19:10 Consult Anesthesiology Routine Consult Urology Routine Procedures Performed Operation Date: 06/10/21 13:25 Actual Procedures p Cystoscopy, Clot Evacuation, Fulguration, Bladder Biopsy(Not Applicable) - Cheikh Morrison MD Hospital Course (1) Blocked urinary catheter: Acute urinary retention On admission, patient's history of multiple hospital evaluations secondary to hematuria and clot retention. Patient was afebrile, tachycardic, and hypotensive on arrival. Urology was consulted, and on hospital day one, patient underwent cystoscopy, clot evacuation, fulguration, and bladder biopsy. Patient clinically improved post-procedure, and catheter was draining clear urine. Patient's catheter was removed, and patient was able to void spontaneously and without difficulty. Patient was discharged on hospital day two in stable condition. Urology follow-up was arranged, and PCP follow-up was encouraged. Acute complicated UTI UA performed on admission had signs of infection, and patient was started on empiric antibiotics. Culture resulted positive for Klebsiella sensitive to ciprofloxacin. Upon discharge, patient was given eight days of ciprofloxacin to complete a total 10-day course. PCP follow-up was recommended. Total Time Total Time Spent Total Time Spent (In Minutes): see attending documentation Discharge Plan Discharge Items Patient Disposition: Home - Self-Care Reason For Visit: HEMATURIA, BLOCKED BOGGS CATHETER Discharge Diagnosis: Hematuria, blocked boggs catheter Activity: Resume your previous activity Non-emergency contact: Urologist Call non-emergency contact if: your symptoms worsen Follow-up/Referrals: Cheikh Morrison MD [Physician] - (The Urology office or Dr. Morrison himself will reach out to you with your pathology results and schedule a follow up appt. ) Jeremy Kaiser DO [Primary Care Provider] - 06/15/21 2:10 pm (You will be seeing Dr. Peggy Herrera) Diet: Heart Healthy Addtl Attending Provider Instructions: You were admitted to the hospital for blood in the urine (hematuria) and a bloc ked boggs catheter. Urology performed a procedure to remove the blockage, which was successful. A urinary tract infection was also noted, and you were treated with antibiotics. We feel it is safe for you to continue your recovery from home. A discharge summary will be sent to your primary care physician to ensure continuity of care. Please bring this discharge summary with you to your next office appointment so that your provider can review it at that time. Follow-up appointments: Make a follow-up appointment with your PCP within the next week. It is very important that you follow up with them shortly after discharge from the hospital. Keep all your follow-up appointments as already scheduled. If you cannot make an appointment, notify your provider. Medications: Your medication list has been reviewed and reconciled upon discharge to ensure accuracy and continuity of care. An updated list of all your medications is included with your hospital discharge paperwork. Please review this list closely, and make note of any changes. * We sent a new medication called ciprofloxacin to your pharmacy. Take ciprofloxacin (500mg) one tablet twice daily for eight more days (06/12-06/19). Take your medications as instructed; do not skip a dose of your medicines. Make sure all of your doctors know every medicine you are taking (including ierm-gte-nqjameh medicines, vitamins, and supplements). Call your primary care provider before taking any new medicines (including tcai-asg-jdiwamu medicines, vitamins, and supplements), because some of these may interact with your current medications, or may make your symptoms worse. Tell your primary care provider if you cannot afford your medications. CONTACT YOUR PRIMARY CARE PROVIDER if you experience any of the following: Blood in the urine Low urine output Difficulty following your treatment plan, or difficulty taking medications CALL 911 OR GO TO THE EMERGENCY DEPARTMENT if you experience any of the following: No urine output Sudden, severe abdominal pain or nausea/vomiting Severe chest pain, or chest pain that radiates (moves) to your jaw or arm Sudden, severe shortness of breath or difficulty breathing Thank you for allowing us to participate in your care. Addtl Broach Operator Provider Instructions: Please take all medications as prescribed and keep all follow-ups as scheduled. Please call our office at [phone] with any questions, concerns or need to reschedule appointments for any reason. We are happy to assist you. Tips for your recovery at home: Monitor closely for blood in your urine. Don't be alarmed if you have intermittent episodes of mild hematuria. Worrisome signs/symptoms include bright red urine, urine with clots, or if you are having difficulty urinating. Drink plenty of fluids during the day (enough to keep your urine very light colored). This will help keep a healthy flow of urine. No heavy lifting please, Do not lift >20 lbs until your followup. Avoid constipation and straining while having a bowel movement. Please use a stool softener (Colace) for the first two weeks after your procedure Be sure to finish the antibiotics as prescribed. If you go home with a catheter, please wash tubing where it enters your body twice daily with mild soap (Dove or Dial). Once your catheter is removed, expect some blood in your urine and some burning when you urinate. You should have an appointment to have this removed, if you do not please call our office to arrange. When to call [facility] at [phone]: Your urine contains heavy blood clots You are constantly leaking urine Fever of 101F or higher, chills, nausea, or vomiting Your pain is not relieved with medication Pending Studies at Discharge: No Stand-Alone Forms: [facility] [employer] Medications and DC Order Prescriptions: New ciprofloxacin HCl 500 mg tablet 500 mg PO BID 8 Days Qty: 16 RF: 0 Continued atorvastatin 80 mg tablet 80 mg PO HS RF: 0 metoprolol tartrate 25 mg Tablet 12.5 mg PO BID 30 Days Qty: 30 RF: 1 oxybutynin chloride 5 mg tablet 5 mg PO DAILY PRN (Reason: bladder spasms) Qty: 30 RF: 0 aspirin 81 mg tablet,delayed release (DR/EC) 81 mg PO QAM RF: 0 tamsulosin 0.4 mg Capsule 0.4 mg PO QAM Qty: 30 RF: 0 lisinopril 30 mg tablet 30 mg PO DAILY RF: 0 metformin 500 mg tablet extended release 24 hr 500 mg PO BID RF: 0 Discharge Orders: Discharge Order (Routine); Ordered 06/11/21 Ordered By: Diego Funk Admission Data Admit Date/Time: 06/10/21 16:51 Attending Provider: Benjamin Cuevas Admit Provider: Brien Coreas Primary Care Provider: Jeremy Kaiser Other Providers: Brien Coreas ; Bebe De La Fuente ; Kalie Mariscal ; Casandra Che ; Aurelia Davey ; Kira Floyd ; Kevin Green ; Rubin Watson ; [place] ; Rolando Macdonald ; Elida Macdonald ; Jignesh Perales ; Raiza Benavides ; Mike Figueroa ; Nate Teran ; Andres Cole ; Nilesh Hoover ; Julita Gilliland ; Rajeev Christensen ; Sary Durán ; Daksha Christensen ; Fernando Rincon ; Michelle Hernandez ; Jin Santamaria. ; Laura Carroll ; Jessenia Prasad ; Michelle Pfeiffer. ; Amaya Gomez ; Brodie Kimball ; Promise Wolf ; Jennifer Joyce ; Joseline Turner ; Philly Ogden ; Kd Ogden V ; Kennedy Chu ; Kalie Hernandez ; Luis Shultz ; Argelia Fuentes ; Diamond Luna ; Kd Clancy ; Curt Gilliland ; Morgan Rush ; Mayelin Alicia ; Winnie James ; Kd Daniels ; Joseline Mae ; Marc Pearce ; Tej Hoover ; Noris Clement ; Benjamin Enamorado ; Valencia Garcia ; Terence Hastings ; Luca Redding ; Benjamin Sutton ; Kevin Crowley Jr ; Romelia Stafford ; Cheikh Morrison Other Interventions: Discharge Summary Assessment (RN) Last Done: 06/11/21 13:15 Supervising Physician Co-Signing Physician Notes Attending attestation Pt seen and examined in concert with Dr. Funk. In agreement with the documented findings as noted in the resident documentation with any exceptions or additions as noted here. Resolution of hematuria following cystoscopy, urinating well. On examination, S1/S2 nl RRR no MCG. CTAB. Abd NT/ND BS+ve Acute urinary retention w/ blocked urinary catheter s/p cystoscopy and CBI - urinating well without complaint UTI - complete course of cipro as noted. Else see resident documentation as noted. Attending time spent on this case on the day of discharge: 35 minutes. Resident Activity Tracking Resident Involvement: Resident Care Provided Care Provided: Adult Hospital Medicine
[2021-06-11] MEDS ORDERED: cefTRIAXone SODIUM 2,000 MG in DEXTROSE 5% 50 ML IV SCH ×2 (16:00→16:15)
== END 2021-06-11 13:41 | disposition home or self-care (01) ==
LOC: ED 12:11 → ASU 16:50 → SUATTDRO 16:51 → 3N 16:51 → INTOOBSV 16:51

== ENCOUNTER 2021-06-25 10:56 | Observation (INO) ==
--- NOTE | 2021-06-25 13:56 | Emergency Department Note ---
Impression & Plan Acute radiation cystitis, Hematuria, Acute urinary retention ED Provider Note NAME: JOEL ROLDAN AGE: 70 SEX: M : 1950 ARRIVES VIA: Walk-In INFORMANT: Patient, ED PROVIDER(S): Javier Hurst DO CHIEF COMPLAINT: Hematuria HPI: The patient is a 70-year-old male who presented to the emergency department for an evaluation of hematuria. The patient has a history of radiation cystitis. He has had a history of very bad hematuria as well as bleeding in his bladder. He started having symptoms recently and presented to the emergency department last evening. The patient had his Wheeler catheter irrigated and was able to be sent home. He was sent to urology this morning. When he went to urology the patient reports that he was able to have the Wheeler catheter flushed but he started having more clots and went back into urinary retention. He was instructed by the urologist to come to the emergency department for further evaluation as well as possible cystoscopy to evaluate the cause of bleeding as well as further treatment. The patient is a history of cautery of the bladder in the past because of similar symptoms. The patient describes significant abdominal distention abdominal pain. It worsens with trying to ambulate. The Wheeler catheter has gross blood in the bag. ROS: See above HPI for pertinent positives & negatives. A total of 10 systems reviewed and were otherwise negative. PAST MEDICAL HISTORY: See Below PAST SURGICAL HISTORY: See Below FAMILY HISTORY: See Below SOCIAL HISTORY: See Below HOME MEDICATIONS: See Below ALLERGIES: See Below VITALS: See Below PHYSICAL EXAMINATION: GENERAL: The patient is awake and alert. The patient is somewhat anxious appearing but overall comfortable. EYES: The conjunctivae are clear. The pupils are round and reactive. EARS, NOSE, MOUTH AND THROAT: The nose is without any evidence of any deformity. NECK: The neck is nontender and supple. RESPIRATORY: Normal respiratory effort is noted there is no evidence of wheezing rhonchi or rales CARDIOVASCULAR: Regular rate and rhythm noted there no murmurs rubs or gallops normal S1 normal S2. GASTROINTESTINAL: The abdomen is soft and mildly distended. There is no guarding or rigidity. Wheeler catheter is in place with gross hematuria noted. MUSCULOSKELETAL/EXTREMITIES: There is no evidence of gross deformity full range of motion is noted in the hips and shoulders. SKIN: There is no obvious evidence of any rash. There are no petechiae, pallor or cyanosis noted. NEUROLOGIC: Patient is awake alert and oriented x3. MEDICAL DECISION MAKING: The patient is a 70-year-old male who has a history of radiation cystitis who presented to the emergency department for an evaluation of hematuria and decreased urination. The patient has an indwelling Wheeler catheter. He has been having significant difficulty managing this and going into clot retention. The patient was at the primary urologist office today and was sent to the emergency department because of ongoing symptoms. We attempted to irrigate the Wheeler catheter. I discussed this case with the on-call [facility] urologist. At this time they do feel the patient may be a candidate for other procedure including cystoscopy but likely he will need to be managed as an inpatient. They requested that I discussed the case with the hospitalist group. I discussed this case with the on-call [facility] [address] hospitalist. They have agreed to evaluate the patient in the emergency department for further management and disposition. Triage Nursing notes reviewed. Prior medical records reviewed Vital Signs: reviewed and remarkable for no significant abnormalities Differential diagnosis: Renal colic, UTI, appendicitis, diverticulitis, mesenteric ischemia, aortic pathology, infections, inflammatory bowel disease, PUD, biliary pathology, as well as other pathologies. ER treatment provided: See below Diagnostics interpreted by me: ECG: none Laboratory studies: As stated above and show below. Imaging studies: See below Consultation(s): I discussed this case with Dr. Ferreira who is on-call for the [facility] urology group. He feels the patient may require inpatient management and then either replacement of the Wheeler or possible surgical management or intervention. I discussed his case with Arash who is on-call for the [facility] [address] hospitalist group. They will evaluate the patient in the emergency department for further inpatient management. Past Med/Surg History Medical History Abdominal aortic aneurysm (AAA) 3.0 cm to 5.5 cm in diameter in male Abnormal ECG Acute Lyme disease CAD (coronary artery disease) Chronic pancreatitis Gross hematuria HLD (hyperlipidemia) Hypertension NSTEMI (non-ST elevated myocardial infarction) Peripheral arterial disease Pre-diabetes Slurred speech Stroke-like symptoms Tobacco abuse Surgical History History of heart artery stent Social History Smoking Status: Former smoker Tobacco Type: Cigars Second Hand Exposure: No; Hx Alcohol Use: Yes Alcohol type: wine Hx Substance Use: No Preferred Language: Lao Communication Ability: Effective 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 Beliefs That Will Affect Care: None marital status: Current Living Situation: Spouse Feels Safe at Home: Yes Assistive Devices: None Allergies Allergies Allergy/AdvReac Type Severity Reaction Status Date / Time No Known Allergies Allergy Verified 06/25/21 14:55 Home Meds Home Medications Medication Instructions Recorded Confirmed atorvastatin 80 mg tablet 80 mg PO HS 05/26/21 06/25/21 aspirin 81 mg tablet,delayed 81 mg PO QAM 06/02/21 06/25/21 release metformin 500 mg tablet,extended 500 mg PO BID 06/10/21 06/25/21 release 24 hr lisinopril 5 mg tablet 5 mg PO DAILY 06/24/21 06/25/21 Previous Rx's Medication Instructions Recorded metoprolol tartrate 25 mg tablet 12.5 mg PO BID 30 Days #30 tab 05/29/21 oxybutynin chloride 5 mg tablet 5 mg PO DAILY PRN #30 tab 05/29/21 tamsulosin 0.4 mg capsule 0.4 mg PO QAM #30 cap 06/06/21 ciprofloxacin HCl 500 mg tablet 500 mg PO BID 5 Days #10 tab 06/24/21 (Cipro) Results & Data (ED) Vital Signs Vital Signs - 24 hr 06/25/21 11:10 Temperature 36.8 C Temperature Source Temporal Artery Scan Pulse Rate 105 H Pulse Rhythm Regular Pulse Strength Normal Respiratory Rate 20 Respiratory Effort / Characteristics Non-Labored Spontaneous Respiratory Depth Normal Respiratory Pattern Regular Blood Pressure Position Sitting Pulse Oximetry 97 Oxygen Delivery Method Room Air Sepsis Recent Fever Within 48 Hours No Sepsis New/Unexplained Change in Mental Status No Sepsis Action Taken by Nursing No Action Required Home Medications Current Medication List: was personally reviewed by me Laboratory Data Attestation: I reviewed the patient's lab results. Result diagrams: 06/25/21 14:09 06/25/21 14:09 Lab Results 06/25/21 06/25/21 06/25/21 Range/Units 14:00 14:09 14:09 WBC 11.52 H (4.8-10.8) K/uL RBC 3.49 L (4.7-6.1) M/uL Hgb 11.2 L (14.0-18.0) g/dL Hct 34.2 L (42-52) % MCV 98.0 (80-100) fL MCH 32.1 (25-34) pg MCHC 32.7 (32-36) g/dL RDW Std Deviation 52.5 H (36.4-46.3) fL RDW Coeff of Matt 14.8 H (11.5-14.5) % Plt Count 400 (130-400) K/uL MPV 9.8 (7.4-10.4) fL Immature Gran % (Auto) 0.1 % Neut % (Auto) 83.5 % Lymph % (Auto) 9.5 % Karnes % (Auto) 6.3 % Eos % (Auto) 0.4 % Baso % (Auto) 0.2 % Neut # (Auto) 9.62 H (1.4-6.5) K/uL Lymph # (Auto) 1.10 L (1.2-3.4) K/uL Karnes # (Auto) 0.72 H (0.11-0.59) K/uL Eos # (Auto) 0.05 (0-0.5) K/uL Baso # (Auto) 0.02 (0-0.2) K/uL Immature Gran # (Auto) 0.01 (0.00-0.02) K/uL PT 10.7 (9.0-12.0) Seconds INR 1.1 (0.9-1.1) APTT 26.6 (21.0-31.0) Seconds PTT Ratio 1.0 Sodium (136-145) mmol/L Potassium (3.5-5.1) mmol/L Chloride (98-107) mmol/L Carbon Dioxide (21-32) mmol/L Anion Gap (3-11) BUN (7-18) mg/dl Creatinine (0.6-1.4) mg/dl Est Cr Clr Drug Dosing ml/min Est GFR ( Amer) ml/min Est GFR (Non-Af Amer) ml/min BUN/Creatinine Ratio (10-20) Glucose (70-99) mg/dl Calcium (8.5-10.1) mg/dl Total Bilirubin (0.2-1) mg/dl AST (15-37) U/L ALT (12-78) U/L Alkaline Phosphatase (45-117) U/L Total Protein (6.4-8.2) gm/dl Albumin (3.4-5.0) gm/dl Globulin (2.5-4.0) gm/dl Albumin/Globulin Ratio (0.9-2) Lipase (73-393) U/L SARS-CoV-2 (PCR) NEGATIVE (Negative) 06/25/21 Range/Units 14:09 WBC (4.8-10.8) K/uL RBC (4.7-6.1) M/uL Hgb (14.0-18.0) g/dL Hct (42-52) % MCV (80-100) fL MCH (25-34) pg MCHC (32-36) g/dL RDW Std Deviation (36.4-46.3) fL RDW Coeff of Matt (11.5-14.5) % Plt Count (130-400) K/uL MPV (7.4-10.4) fL Immature Gran % (Auto) % Neut % (Auto) % Lymph % (Auto) % Karnes % (Auto) % Eos % (Auto) % Baso % (Auto) % Neut # (Auto) (1.4-6.5) K/uL Lymph # (Auto) (1.2-3.4) K/uL Karnes # (Auto) (0.11-0.59) K/uL Eos # (Auto) (0-0.5) K/uL Baso # (Auto) (0-0.2) K/uL Immature Gran # (Auto) (0.00-0.02) K/uL PT (9.0-12.0) Seconds INR (0.9-1.1) APTT (21.0-31.0) Seconds PTT Ratio Sodium 141 (136-145) mmol/L Potassium 3.3 L (3.5-5.1) mmol/L Chloride 108 H (98-107) mmol/L Carbon Dioxide 24 (21-32) mmol/L Anion Gap 8.0 (3-11) BUN 10 (7-18) mg/dl Creatinine 0.82 (0.6-1.4) mg/dl Est Cr Clr Drug Dosing 76.7 ml/min Est GFR ( Amer) 104.6 ml/min Est GFR (Non-Af Amer) 90.2 ml/min BUN/Creatinine Ratio 12.7 (10-20) Glucose 115 H (70-99) mg/dl Calcium 8.8 (8.5-10.1) mg/dl Total Bilirubin 0.5 (0.2-1) mg/dl AST 14 L (15-37) U/L ALT 21 (12-78) U/L Alkaline Phosphatase 94 (45-117) U/L Total Protein 7.3 (6.4-8.2) gm/dl Albumin 2.8 L (3.4-5.0) gm/dl Globulin 4.5 H (2.5-4.0) gm/dl Albumin/Globulin Ratio 0.6 L (0.9-2) Lipase 82 (73-393) U/L SARS-CoV-2 (PCR) (Negative) Imaging Data Radiologist's Impression: Abdomen/Pelvis CT 06/25/21 13:52 CT SCAN OF THE ABDOMEN AND PELVIS WITHOUT IV CONTRAST CLINICAL HISTORY: Hematuria. Urinary retention. COMPARISON STUDY: Abdominal CT dated 06/03/2021. TECHNIQUE: CT scan of the abdomen and pelvis is performed from the lung bases to the proximal femora. Images are reviewed in the axial, sagittal, and coronal planes. IV contrast was not administered for this examination. A dose lowering technique was utilized adhering to the principles of ALARA. CT DOSE: 412.57 mGycm FINDINGS: Lung bases: The heart is normal in size and without pericardial effusion. Emphysematous change is seen at the lung bases. The lung bases are otherwise clear. Liver: The unenhanced liver is normal in size, contour, and attenuation. There is no intrahepatic biliary ductal dilatation. Gallbladder: Unremarkable. Spleen: Normal in size and attenuation. Pancreas: Parenchyma calcifications suggest chronic pancreatitis. Adrenal glands: Unremarkable. Kidneys: The unenhanced kidneys are normal in size and without hydronephrosis. There are renovascular calcifications. No definite renal calculi are identified. Bilateral renal cysts measure up to 4.2 cm. Abdominal vasculature: There is advanced atherosclerotic calcification of the abdominal aorta. An infrarenal abdominal aortic aneurysm measures 5.4 x 5.5 cm (AP x transverse). The aneurysm sac measures approximately 10 cm in craniocaudal length. 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 Bowel: There is mild to moderate colonic diverticulosis without CT evidence of acute diverticulitis. Moderate fecal retention is seen throughout the colon. No bowel obstruction is identified. The appendix is well-visualized and normal. Peritoneum: There is no intraperitoneal free air or abdominal ascites. Lymphadenopathy: None. Pelvic viscera: The bladder is distended. A Wheeler catheter is in place. The bladder wall is thickened and there is pericystic inflammation. Gas is present within the bladder lumen. Additionally, there is hyperdense material within the bladder lumen which likely resents blood clots. The prostate gland is diminutive and heterogeneous noting brachytherapy implants in place. Skeletal structures: The skeletal structures are osteopenic. There is mild lumbosacral spondylosis. A large posterior disc bulge is noted at L3-L4. No lytic or blastic lesions are seen. IMPRESSION: 1. The bladder is distended with a Wheeler catheter in place. Findings suggest cystitis, and hyperdense blood clots are present within the bladder lumen. Correlate with clinical findings and urinalysis. Consider nonemergent follow-up with urology to assess for underlying bladder lesion. 2. There is a 5.4 x 5.5 cm infrarenal abdominal aortic aneurysm as detailed above. Vascular surgical consultation is advised based on the aneurysm size and risk of rupture. 3. 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 4. Mild to moderate colonic diverticulosis without CT evidence of acute diverticulitis. 5. Emphysema. 6. There are findings of chronic pancreatitis. 7. Additional findings as above. ACT 112: Positive. There are findings on this exam that require communication between the performing entity and the patient following Patient Test Result Information Act ([place] Act 112) guidelines. Electronically signed by: Mc Nelson M.D. 06/25/2021 2:53 PM Discharge Plan Visit Data Chief Complaint: Urinary Symptoms Stated Complaint: BLOCKED CATHERTER/REFERRED BY UROLOGY ED Provider: Javier Hurst Discharge Problem: Acute radiation cystitis, Hematuria, Acute urinary retention Patient Disposition: Being Evaluated by Hospitalist Forms Stand Alone Forms: My [facility] Prescriptions Prescriptions: No Action lisinopril 5 mg tablet 5 mg PO DAILY RF: 0 atorvastatin 80 mg tablet 80 mg PO HS RF: 0 metoprolol tartrate 25 mg Tablet 12.5 mg PO BID 30 Days Qty: 30 RF: 1 oxybutynin chloride 5 mg tablet 5 mg PO DAILY PRN (Reason: bladder spasms) Qty: 30 RF: 0 aspirin 81 mg tablet,delayed release (DR/EC) 81 mg PO QAM RF: 0 tamsulosin 0.4 mg Capsule 0.4 mg PO QAM Qty: 30 RF: 0 metformin 500 mg tablet extended release 24 hr 500 mg PO BID RF: 0 ciprofloxacin HCl [Cipro] 500 mg tablet 500 mg PO BID 5 Days Qty: 10 RF: 0 Referrals Referrals: Jeremy Kaiser DO [Primary Care Provider] -
[2021-06-25 14:19] LABS: Basophils # (auto) 0.02 K/uL (0-0.2); Basophils % (auto) 0.2 %; Eosinophils # (auto) 0.05 K/uL (0-0.5); Eosinophils % (auto) 0.4 %; Hematocrit (blood only) 34.2 % (42-52); Hemoglobin 11.2 g/dL (14.0-18.0); Immature Granulocytes # (auto) 0.01 K/uL (0.00-0.02); Immature Granulocytes % (auto) 0.1 %; Lymphocytes % (auto) 9.5 %; Mean Corpuscular Hemoglobin 32.1 pg (25-34); Mean Corpuscular Hgb Conc 32.7 g/dL (32-36); Mean Platelet Volume 9.8 fL (7.4-10.4); Monocytes # (auto) 0.72 K/uL (0.11-0.59); Monocytes % (auto) 6.3 %; Neutrophils # (auto) 9.62 K/uL (1.4-6.5); Neutrophils % (auto) 83.5 %; Platelet Count 400 K/uL (130-400); RDW Coefficient of Variation 14.8 % (11.5-14.5); RDW Standard Deviation 52.5 fL (36.4-46.3); Red Blood Count 3.49 M/uL (4.7-6.1); White Blood Count 11.52 K/uL (4.8-10.8)
[2021-06-25 14:40] LABS: Albumin Level 2.8 gm/dl (3.4-5.0); BUN Creatinine Ratio 12.7 (10-20); Calcium 8.8 mg/dl (8.5-10.1); Creatinine Clr Calc Pharmacy 76.7 ml/min; Est GFR (African American) 104.6 ml/min; Est GFR (Non-African American) 90.2 ml/min; Potassium 3.3 mmol/L (3.5-5.1)
[2021-06-25 14:43] LABS: Albumin Globulin Ratio 0.6 (0.9-2); Bilirubin,Total 0.5 mg/dl (0.2-1); Globulin 4.5 gm/dl (2.5-4.0); Total Protein 7.3 gm/dl (6.4-8.2)
[2021-06-25 14:47] LABS: INR 1.1 (0.9-1.1); Partial Thromboplastin Time 26.6 Seconds (21.0-31.0); Prothrombin Time 10.7 Seconds (9.0-12.0)
--- NOTE | 2021-06-25 14:55 | CT Scan Report ---
CT SCAN OF THE ABDOMEN AND PELVIS WITHOUT IV CONTRAST CLINICAL HISTORY: Hematuria. Urinary retention. COMPARISON STUDY: Abdominal CT dated 06/03/2021. TECHNIQUE: CT scan of the abdomen and pelvis is performed from the lung bases to the proximal femora. Images are reviewed in the axial, sagittal, and coronal planes. IV contrast was not administered for this examination. A dose lowering technique was utilized adhering to the principles of ALARA. CT DOSE: 412.57 mGycm FINDINGS: Lung bases: The heart is normal in size and without pericardial effusion. Emphysematous change is see n at the lung bases. The lung bases are otherwise clear. Liver: The unenhanced liver is normal in size, contour, and attenuation. There is no intrahepatic tong iary ductal dilatation. Gallbladder: Unremarkable. Spleen: Normal in size and attenuation. Pancreas: Parenchyma calcifications suggest chronic pancreatitis. Adrenal glands: Unremarkable. Kidneys: The unenhanced kidneys are normal in size and without hydronephrosis. There are renovascular calcifications. No definite renal calculi are identified. Bilateral renal cysts measure up to 4.2 cm . Abdominal vasculature: There is advanced atherosclerotic calcification of the abdominal aorta. An inf rarenal abdominal aortic aneurysm measures 5.4 x 5.5 cm (AP x transverse). The aneurysm sac measures approximately 10 cm in craniocaudal length. There is aneurysmal dilatation of the common femoral jae jeovany measure up to 2.0 cm on the right and 1.0 cm on the left. 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 Bowel: There is mild to moderate colonic diverticulosis without CT evidence of acute diverticulitis. Moderate fecal retention is seen throughout the colon. No bowel obstruction is identified. The append ix is well-visualized and normal. Peritoneum: There is no intraperitoneal free air or abdominal ascites. Lymphadenopathy: None. Pelvic viscera: The bladder is distended. A Wheeler catheter is in place. The bladder wall is thickened and there is pericystic inflammation. Gas is present within the bladder lumen. Additionally, there i s hyperdense material within the bladder lumen which likely resents blood clots. The prostate gland i s diminutive and heterogeneous noting brachytherapy implants in place. Skeletal structures: The skeletal structures are osteopenic. There is mild lumbosacral spondylosis. A large posterior disc bulge is noted at L3-L4. No lytic or blastic lesions are seen. IMPRESSION: 1. The bladder is distended with a Wheeler catheter in place. Findings suggest cystitis, and hyperdense blood clots are present within the bladder lumen. Correlate with clinical findings and urinalysis. C onsider nonemergent follow-up with urology to assess for underlying bladder lesion. 2. There is a 5.4 x 5.5 cm infrarenal abdominal aortic aneurysm as detailed above. Vascular surgical consultation is advised based on the aneurysm size and risk of rupture. 3. 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 4. Mild to moderate colonic diverticulosis without CT evidence of acute diverticulitis. 5. Emphysema. 6. There are findings of chronic pancreatitis. 7. Additional findings as above. ACT 112: Positive. There are findings on this exam that require communication between the performing entity and the patient following Patient Test Result Information Act ([place] Act 112) guidelines. Electronically signed by: Mc Nelson M.D. 06/25/2021 2:53 PM
[2021-06-25] MEDS ORDERED: OXYBUTYNIN CHLORIDE 5 MG TAB PO STA (15:53)
--- NOTE | 2021-06-25 16:34 | History & Physical Report ---
Date of Service June 25, 2021 Assessment & Plan (1) Blocked urinary catheter: Plan: As per HPI- - Keep NPO - Urology consulted- appreciate assistance - Oxybutinin x1 PO now (2) Hematuria: Plan: As above- continue asa and plavix - Appreciate urology assistance (3) UTI (urinary tract infection): Plan: Course of Ciprofloxacin compoleted on [id number] - UA on [id number] with keiko albicans- - Fluconazole 200mg PO daily first dose now - repeat UA and culture pending in EMD (4) CAD (coronary artery disease): Plan: 80% proximal LAD treated with SANTIAGO -2020 - Continue ASA - Continue PLAVIX - Continue BB- Metoprolol 12.5 mg PO BID - Continue THIEN- (5) Abdominal aortic aneurysm (AAA) 3.0 cm to 5.5 cm in diameter in male: Plan: infrarenal abdominal aortic aneurysm measuring up to 54 mm in diameter- Patient states he follows this up with [place] [facility] every 6 months with ultrasound/CT scans - Reports discrepancy between our records- notes that his physician's interpretation is 4.3cm - Continue BB, Lipid lowering medications, continue to follow up with outside team (6) Peripheral arterial disease: Plan: As above- noted left illiac occlusion with colalteral flow - follows as above (7) Type 2 diabetes mellitus: Plan: Hold metformin - Patient will be NPO - BG AC/HS for tonight - notify if >180 on 2 consecutive checks and will add coverage - Carb consistent diet once able to eat (8) 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 Last reported measurement he recalls 4.3, and left common iliac artery occlusion. Patient comes to the emergency department today after following up in urologist office for hematuria and blocked Blas catheter. Patient is followed closely with Urology for his radiation cystis and has been dealing with hematuria with frequent clogged Blas catheters requiring multiple exchanges. He was recently admitted on Jun 10 where he was taken to the OR by Dr. Morrison where he had a cystoscopy, clot evacuation, fulguration done and cautery to two active bleeding areas. He then had a 22 Fr. 3-way Blas inserted and underwent CBI until the following morning. He tolerated clamping of his Blas at that time, it was then removed and he passed a voiding trial. He was discharged on Ciprofloxacin for a UTI. He subsequently has had 2 hyperbaric appointments which he tolerated well. He started to have pink urine on the 22 of June without any clots. Was seen in Urology office - with frequency and urgency-negative UA. Returned to the [facility] on at 2300 for complaints of difficulty urinating. He had a blas catheter placed at that time and UA with culture performed. He was given dose of ciprofloxacin at that time (patient previously completed course of Cipro that was to end on ). He awoke this morning with bladder spasm pain and no drainage to his blas, he went to the Urology Office today where he had attempts at flushing and manipulating his catheter without success. He was then directed to the [facility]. In the [facility] he underwent another attempt at flushing cat heter with minimal success, Urology was consulted by [facility] and Dr. Maxwell will evaluate patient. He has had some spasms since his most recent irrigation resulting in punch colored urine in his leg bag with note of clots. He does have some suprapubic tenderness. His UA from was notable for keiko albicans. Patient also had SANTIAGO place to his LAD- he remains on ASA and Plavix for this and should be continued for 1 year. We have continued his ASA and Plavix through both previous admissions. - His probability for perioperative DE or arrest with Urological procedure remains low at 0.23%. His COVID test on admission is: NEGATIVE Allergies Allergy/AdvReac Type Severity Reaction Status Date / Time No Known Allergies Allergy Verified 06/25/21 14:55 Home Medications Medication Instructions Recorded Confirmed Type atorvastatin 80 mg tablet 80 mg PO HS 05/26/21 06/25/21 History metoprolol tartrate 25 mg tablet 12.5 mg PO BID 30 Days #30 tab 05/29/21 06/25/21 Rx oxybutynin chloride 5 mg tablet 5 mg PO DAILY PRN #30 tab 05/29/21 06/25/21 Rx aspirin 81 mg tablet,delayed 81 mg PO QAM 06/02/21 06/25/21 History release tamsulosin 0.4 mg capsule 0.4 mg PO QAM #30 cap 06/06/21 06/25/21 Rx metformin 500 mg tablet,extended 500 mg PO BID 06/10/21 06/25/21 History release 24 hr ciprofloxacin HCl 500 mg tablet 500 mg PO BID 5 Days #10 tab 06/24/21 06/25/21 Rx (Cipro) lisinopril 5 mg tablet 5 mg PO DAILY 06/24/21 06/25/21 History clopidogrel 75 mg tablet 75 mg PO DAILY 06/25/21 06/25/21 History Past Med/Surg History Medical History (Updated 06/25/21 @ 16:30 by KHANH Schmitz) Abdominal aortic aneurysm (AAA) 3.0 cm to 5.5 cm in diameter in male Abnormal ECG Acute Lyme disease CAD (coronary artery disease) Chronic pancreatitis Gross hematuria HLD (hyperlipidemia) Hypertension NSTEMI (non-ST elevated myocardial infarction) Peripheral arterial disease Pre-diabetes Slurred speech Stroke-like symptoms Tobacco abuse Surgical History History of heart artery stent Social History Smoking Status: Former smoker Tobacco Type: Cigars Second Hand Exposure: No; Hx Alcohol Use: Yes Alcohol type: wine Hx Substance Use: No Preferred Language: Armenian Communication Ability: Effective Galley Cook Required: No Beliefs That Will Affect Care: None marital status: Current Living Situation: Spouse Feels Safe at Home: Yes Assistive Devices: None Review of Systems Review of Systems: REVIEW OF SYSTEMS: Constitutional: No fever, sweats or chills Eyes: No diplopia, no worsening or blurred vision ENT: normal hearing, no trouble swallowing Respiratory: No cough, sputum, dyspnea at rest or on exertion Cardiovascular: No chest pain, tightness or palpitations Abdomen: (+) suprapubic pain and crapmping, No pain, nausea, vomiting, diarrhea or constipation Musculoskeletal: No joint pain, calf pain, swelling Neurologic: No weakness, numbness/tingling, or balance problems Psychiatric: No anxiety or depression Skin: No rash or itch Physical Exam Physical Exam: PHYSICAL EXAM: General: awake, alert, no apparent distress Head: Normocephalic, atraumatic ENT: PERRLA, EOMI, no pharyngeal exudate, mucous membranes moist Neuro: AAO x 3, speech clear and appropriate, strength intact bilaterally 5/5, sensation intact and equal all extremities and dermatomes, no pronator drift Chest: equal rise and fall of the chest, no accessory muscle use, no heaves or thrills, Clear to auscultation, on room air, Cardiac: Regular rate and rhythm, telemetry reviewed, skin warm dry, cap refill <3 seconds, peripheral pulses +2 no JVD, no murmur, no JVD, no edema GI: NABS x 4 quadrants, soft, nontender to palpation, no rebound, guarding or tenderness : blas in place attached to leg bag with small amount of hawiian punch colored urine without clots. Tenderness to suprapubic area Extremities: Normal inspection, no peripheral edema or erythema, calfs nontender to palpation Psych: Normal mood and affect Skin: no rash or erythema Results & Data Results & Data ([facility]) Vital Signs (Past 12 Hours) Vital Signs Temp Pulse Resp Pulse Ox 06/25/21 11:10 36.8 C 105 H 20 97 Laboratory Results Abnormal lab results 06/25/21 06/25/21 Range/Units 14:09 14:09 WBC 11.52 H (4.8-10.8) K/uL RBC 3.49 L (4.7-6.1) M/uL Hgb 11.2 L (14.0-18.0) g/dL Hct 34.2 L (42-52) % RDW Std Deviation 52.5 H (36.4-46.3) fL RDW Coeff of Matt 14.8 H (11.5-14.5) % Neut # (Auto) 9.62 H (1.4-6.5) K/uL Lymph # (Auto) 1.10 L (1.2-3.4) K/uL [place] # (Auto) 0.72 H (0.11-0.59) K/uL Potassium 3.3 L (3.5-5.1) mmol/L Chloride 108 H (98-107) mmol/L Glucose 115 H (70-99) mg/dl AST 14 L (15-37) U/L Albumin 2.8 L (3.4-5.0) gm/dl Globulin 4.5 H (2.5-4.0) gm/dl Albumin/Globulin Ratio 0.6 L (0.9-2) Diagnostic Findings Abdomen/Pelvis CT 06/25/21 13:52 CT SCAN OF THE ABDOMEN AND PELVIS WITHOUT IV CONTRAST CLINICAL HISTORY: Hematuria. Urinary retention. COMPARISON STUDY: Abdominal CT dated 06/03/2021. TECHNIQUE: CT scan of the abdomen and pelvis is performed from the lung bases to the proximal femora. Images are reviewed in the axial, sagittal, and coronal planes. IV contrast was not administered for this examination. A dose lowering technique was utilized adhering to the principles of ALARA. CT DOSE: 412.57 mGycm FINDINGS: Lung bases: The heart is normal in size and without pericardial effusion. Emphysematous change is seen at the lung bases. The lung bases are otherwise clear. Liver: The unenhanced liver is normal in size, contour, and attenuation. There is no intrahepatic biliary ductal dilatation. Gallbladder: Unremarkable. Spleen: Normal in size and attenuation. Pancreas: Parenchyma calcifications suggest chronic pancreatitis. Adrenal glands: Unremarkable. Kidneys: The unenhanced kidneys are normal in size and without hydronephrosis. There are renovascular calcifications. No definite renal calculi are identified. Bilateral renal cysts measure up to 4.2 cm. Abdominal vasculature: There is advanced atherosclerotic calcification of the abdominal aorta. An infrarenal abdominal aortic aneurysm measures 5.4 x 5.5 cm (AP x transverse). The aneurysm sac measures approximately 10 cm in craniocaudal length. 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 Bowel: There is mild to moderate colonic diverticulosis without CT evidence of acute diverticulitis. Moderate fecal retention is seen throughout the colon. No bowel obstruction is identified. The appendix is well-visualized and normal. Peritoneum: There is no intraperitoneal free air or abdominal ascites. Lymphadenopathy: None. Pelvic viscera: The bladder is distended. A Blas catheter is in place. The bladder wall is thickened and there is pericystic inflammation. Gas is present within the bladder lumen. Additionally, there is hyperdense material within the bladder lumen which likely resents blood clots. The prostate gland is diminutive and heterogeneous noting brachytherapy implants in place. Skeletal structures: The skeletal structures are osteopenic. There is mild lumbosacral spondylosis. A large posterior disc bulge is noted at L3-L4. No lytic or blastic lesions are seen. IMPRESSION: 1. The bladder is distended with a Blas catheter in place. Findings suggest cystitis, and hyperdense blood clots are present within the bladder lumen. Correlate with clinical findings and urinalysis. Consider nonemergent follow-up with urology to assess for underlying bladder lesion. 2. There is a 5.4 x 5.5 cm infrarenal abdominal aortic aneurysm as detailed above. Vascular surgical consultation is advised based on the aneurysm size and risk of rupture. 3. 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 4. Mild to moderate colonic diverticulosis without CT evidence of acute diverticulitis. 5. Emphysema. 6. There are findings of chronic pancreatitis. 7. Additional findings as above. ACT 112: Positive. There are findings on this exam that require communication between the performing entity and the patient following Patient Test Result Information Act ([place] Act 112) guidelines. Electronically signed by: Mc Nelson M.D. 06/25/2021 2:53 PM Medications Administered Home Medications atorvastatin 80 mg tablet 80 mg PO HS 05/26/21 [History Confirmed 06/25/21] metoprolol tartrate 25 mg tablet 12.5 mg PO BID 30 Days #30 tab 05/29/21 [Rx Confirmed 06/25/21] oxybutynin chloride 5 mg tablet 5 mg PO DAILY PRN #30 tab 05/29/21 [Rx Confirmed 06/25/21] aspirin 81 mg tablet,delayed release 81 mg PO QAM 06/02/21 [History Confirmed 06/25/21] tamsulosin 0.4 mg capsule 0.4 mg PO QAM #30 cap 06/06/21 [Rx Confirmed 06/25/21] metformin 500 mg tablet,extended release 24 hr 500 mg PO BID 06/10/21 [History Confirmed 06/25/21] ciprofloxacin HCl 500 mg tablet (Cipro) 500 mg PO BID 5 Days #10 tab 06/24/21 [Rx Confirmed 06/25/21] lisinopril 5 mg tablet 5 mg PO DAILY 06/24/21 [History Confirmed 06/25/21] clopidogrel 75 mg tablet 75 mg PO DAILY 06/25/21 [History Confirmed 06/25/21] Active Medications Fluconazole (Fluconazole 100 Mg Tab) 200 mg PO QAM EDEN Stop: 06/30/21 16:29 Discontinued Medications Oxybutynin Chloride (Oxybutynin Chloride 5 Mg Tab) 5 mg PO NOW STA Stop: 06/25/21 15:54 Last Admin: 06/25/21 16:17 Dose: 5 mg Documented by: [id number] Code Status & VTE Plan Code Status CODE: FULL VTE: SCDS, Plavix, ASA ambulation Supervising Physician Co-Signing Physician Notes Patient was seen and examined independently I discussed the case with Arash CASSIDY I reviewed pertinent past medical social family history and also the plan of care and agree with the plan of care. Patient with history of hemorrhagic cystitis from radiation treatment who presents as a transfer from the office with difficulty urinating hematuria and difficulty extracting clots in the urology office. Patient takes Plavix for cardiovascular risk protection due to his stenting. Patient will be brought in our facility for urological attention to help likely clot obstruction of urinary outlet. Examination is fairly comfortable he did have bloody fluid in his Blas bag however it was not robust there is no large clots seen Cardiovascularly he appeared to be stable at this time. We will admit the patient for hydration pain control and urological consultation Any exceptions will be noted below PG Care Time/CCT Total # of Minutes Spent Total Time Spent with Patient: Total time spent is greater than 50% in coordination of care (as documented) at patient's floor/unit and/or counseling patient: Coding Level of Care Code 01187 Initial Inpt Care Lvl 3 Diagnoses Blocked urinary catheter T83.098A Hematuria R31.0 Hematuria type: gross UTI (urinary tract infection) N39.0 CAD (coronary artery disease) I25.10 Associated angina: without angina Coronary Disease-Associated Artery/Lesion type: craig artery [place] vs. transplanted heart: craig heart Abdominal aortic aneurysm (AAA) 3.0 cm to 5.5 cm in diameter in male I71.4 Peripheral arterial disease I73.9 Type 2 diabetes mellitus E11.9 Radiation cystitis N30.40 (1) Hematuria Hematuria type: gross Qualified Code(s): R31.0 - Gross hematuria (2) CAD (coronary artery disease) Associated angina: without angina Coronary Disease-Associated Artery/Lesion type: craig artery [place] vs. transplanted heart: craig heart Qualified Code(s): I25.10 - Atherosclerotic heart disease of craig coronary artery without angina pectoris
[2021-06-25] MEDS: FLUCONAZOLE 100 MG TAB PO SCH (17:24)
[2021-06-25] MEDS ORDERED: OXYBUTYNIN CHLORIDE 5 MG TAB PO PRN (18:41)
[2021-06-25] MEDS ORDERED: CARBOHYDRATES FOR HYPOGLYCEMIA PO PRN (18:41)
[2021-06-25] MEDS ORDERED: GLUCAGON FOR INJ 1 MG VIAL SQ PRN (18:41)
[2021-06-25] MEDS ORDERED: GLUCOSE 40% GEL 15 GM TUBE PO PRN (18:41)
[2021-06-25] MEDS ORDERED: GLUCOSE 10 TABS/TUBE PO PRN (18:41)
[2021-06-25] MEDS ORDERED: DEXTROSE 50% 50 ML SYRINGE IV PRN (18:41)
[2021-06-25] MEDS ORDERED: TAMSULOSIN HCL 0.4 MG CAP PO SCH (19:00)
--- NOTE | 2021-06-25 19:19 | Urology Consultation ---
Date of Consultation June 25, 2021 Assessment & Plan (1) Hematuria: (2) Acute urinary retention: (3) Acute radiation cystitis: Refractory hematuria in the setting of aspirin and Plavix use as well as a recent [place] and stent placement and a remote history of radiation therapy for prostate cancer Unfortunately his level of bleeding is not proving to be easily managed on the floor and we will proceed to the operating room for cystoscopy, clot evacuation and fulguration Likely CBI after surgery, possibly with alum pending findings of surgery. Once stable, continue with hyperbaric oxygen Risks, benefits, expectations discussed at length and he has expressed an excellent understanding of the situation History of Present Illness Attending Physician: Jason Colon MD History of Present Illness 70-year-old gentleman who underwent emergent cardiac intervention and stent placement after an NSTEMI on May 28 Subsequent aspirin and Plavix use He had prior radiation for prostate cancer Unfortunately, after his stent placement and initiation of antiplatelet therapy he began to experience significant hematuria He had a prior admission note required numerous interventions via manual irrigation and three-way Wheeler catheterultimately with resulting in cystoscopy and clot evacuation under anesthesia He has recently initiated hyperbaric oxygen therapy Unfortunately he began to bleed again He now has a 22 [place] [address] catheter in place that is not draining well and not easily irrigated He had a CT performed in the emergency room which shows some clot within the bladder although not excessive He and I have discussed continued efforts at manual irrigation and exchanging his catheter for three-way Wheeler catheter with the thought of possible alum irrigation, although he is in favor of any intervention that can relieve his symptoms he is concerned about continued efforts on the floor and we have together decided to proceed with repeat cystoscopy and clot evacuation/fulguration under anesthesia. We specifically discussed the risks and benefits of the procedure and he is very understanding of his current cardiac status as well as a known AAAwe have discussed that while anesthesia is a risk, continued episodes of severe pain related to retention and bladder spasm are likely an equal or greater risk. Allergies Allergy/AdvReac Type Severity Reaction Status Date / Time No Known Allergies Allergy Verified 06/25/21 14:55 Home Medications Medication Instructions Recorded Confirmed Type atorvastatin 80 mg tablet 80 mg PO HS 05/26/21 06/25/21 History metoprolol tartrate 25 mg tablet 12.5 mg PO BID 30 Days #30 tab 05/29/21 06/25/21 Rx oxybutynin chloride 5 mg tablet 5 mg PO DAILY PRN #30 tab 05/29/21 06/25/21 Rx aspirin 81 mg tablet,delayed 81 mg PO QAM 06/02/21 06/25/21 History release tamsulosin 0.4 mg capsule 0.4 mg PO QAM #30 cap 06/06/21 06/25/21 Rx metformin 500 mg tablet,extended 500 mg PO BID 06/10/21 06/25/21 History release 24 hr ciprofloxacin HCl 500 mg tablet 500 mg PO BID 5 Days #10 tab 06/24/21 06/25/21 Rx (Cipro) lisinopril 5 mg tablet 5 mg PO DAILY 06/24/21 06/25/21 History clopidogrel 75 mg tablet 75 mg PO DAILY 06/25/21 06/25/21 History Patient History Medical History Abdominal aortic aneurysm (AAA) 3.0 cm to 5.5 cm in diameter in male Abnormal ECG Acute Lyme disease CAD (coronary artery disease) Chronic pancreatitis Gross hematuria HLD (hyperlipidemia) Hypertension NSTEMI (non-ST elevated myocardial infarction) Peripheral arterial disease Pre-diabetes Slurred speech Stroke-like symptoms Tobacco abuse Surgical History History of heart artery stent Social History Smoking Status: Former smoker Tobacco Type: Cigars Second Hand Exposure: No; Hx Alcohol Use: Yes Alcohol type: wine Hx Substance Use: No Preferred Language: Macedonian Communication Ability: Effective Financial Services Rep Required: No Beliefs That Will Affect Care: None marital status: Current Living Situation: Spouse Feels Safe at Home: Yes Assistive Devices: Cane and Glasses Review of Systems Constitutional: no fever, no chills and no fatigue Eyes: no worsening vision Ear, Nose, Mouth, Throat: no facial pain and no pain with swallowing Respiratory: no cough and no dyspnea Cardiovascular: no chest pain and no palpitations Gastrointestinal: no abdominal pain, no nausea and no vomiting Genitourinary: + hematuria Musculoskeletal: no back pain Integumentary: no rash and no urticaria Neurologic: no gait abnormality and no unsteadiness Psychiatric: no behavioral changes and no depression Endocrine: no fatigue Physical Exam Physical Exam: comfortable appearing -quite stoic Constitutional: well developed and well nourished Neck: neck nontender Respiratory: normal respiratory effort; no respiratory distress and does not use accessory muscles Cardiovascular: Rate/Rhythm: regular rate Vessels: radial pulses present Extremities: no edema Gastrointestinal (Abdomen): Inspection/Auscultation: abdomen normal to inspection Percussion/Palpation: abdomen soft; abdomen nontender and no guarding Musculoskeletal: Head/Neck/Chest: normocephalic and head atraumatic Extremities: extremities normal to inspection Skin: no rashes and no lesions Trauma: no evidence of skin trauma Neurologic: awake; not obtunded Speech / Cognition: normal speech Motor/Sensory: no tremor Psychiatric: Orientation: alert and oriented x 3 Genitourinary: no CVA tenderness Some suprapubic tenderness and a Wheeler [id number] with quite bloody urine in the baghe reports he had minimal drainage over the last 2 to 3 hours Lymphatic: no lymphadenopathy Results & Data ([facility]) Vital Signs (Past 12 Hours) Vital Signs Temp Pulse Pulse Resp BP Pulse Ox 06/25/21 18:41 37.1 C 96 H 18 142/77 H 96 06/25/21 17:26 95 H 18 125/64 96 06/25/21 11:10 36.8 C 105 H 20 97 PG Care Time/CCT Total # of Minutes Spent Total Time Spent with Patient: Total time spent is greater than 50% in coordination of care (as documented) at patient's floor/unit and/or counseling patient: Coding Level of Care Code 34020 Inpt Consult Level 5 Diagnoses Hematuria R31.0 Hematuria type: gross Acute urinary retention R33.8 Acute radiation cystitis N30.40 (1) Hematuria Hematuria type: gross Qualified Code(s): R31.0 - Gross hematuria
[2021-06-25] MEDS ORDERED: ONDANSETRON INJ 2 MG/ML 2 ML VIAL IV PRN (20:34)
[2021-06-25] MEDS ORDERED: ePHEDrine sulfate 50 MG/ML AMP IV PRN (20:34)
[2021-06-25] MEDS ORDERED: ATROPINE SULFATE 0.1 MG/ML 10ML SYR IV PRN (20:34)
--- NOTE | 2021-06-25 20:35 | Anesthesiology Consultation ---
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) - Benjamin Ferreira MD Height/Weight Height: 5 ft 6 in Weight: 63.5 kg Allergies Allergy/AdvReac Type Severity Reaction Status Date / Time No Known Allergies Allergy Verified 06/25/21 14:55 Medications Home Medications Medication Instructions Recorded Confirmed Last Taken atorvastatin 80 mg tablet 80 mg PO HS 05/26/21 06/25/21 06/24/21 metoprolol tartrate 25 mg tablet 12.5 mg PO BID 30 Days #30 tab 05/29/21 06/25/21 06/25/21 08:00 oxybutynin chloride 5 mg tablet 5 mg PO DAILY PRN #30 tab 05/29/21 06/25/21 05/30/21 aspirin 81 mg tablet,delayed 81 mg PO QAM 06/02/21 06/25/21 06/25/21 release tamsulosin 0.4 mg capsule 0.4 mg PO QAM #30 cap 06/06/21 06/25/21 06/25/21 metformin 500 mg tablet,extended 500 mg PO BID 06/10/21 06/25/21 06/24/21 release 24 hr ciprofloxacin HCl 500 mg tablet 500 mg PO BID 5 Days #10 tab 06/24/21 06/25/21 06/25/21 08:00 (Cipro) lisinopril 5 mg tablet 5 mg PO DAILY 06/24/21 06/25/21 06/25/21 clopidogrel 75 mg tablet 75 mg PO DAILY 06/25/21 06/25/21 06/25/21 Active Medications Generic Name Dose Route Start Last Admin Trade Name Freq PRN Reason Stop Dose Admin Fluconazole 200 mg 06/25/21 16:30 06/25/21 17:24 Fluconazole 100 Mg Tab PO 06/30/21 16:29 200 mg QAM EDEN Administration NPO Date Last Intake of Fluids: 06/25/21 Time Last Intake of Fluids: 06:00 Last Intake of Fluids Comment: water Date Last Intake of Solids: 06/25/21 Time Last Intake of Solids: 08:00 Past Medical History Medical History Abdominal aortic aneurysm (AAA) 3.0 cm to 5.5 cm in diameter in male Abnormal ECG Acute Lyme disease CAD (coronary artery disease) Chronic pancreatitis Gross hematuria HLD (hyperlipidemia) Hypertension NSTEMI (non-ST elevated myocardial infarction) Peripheral arterial disease Pre-diabetes Slurred speech Stroke-like symptoms Tobacco abuse Exercise / Class Metabolic Activity II 4-5 Yardwork/Stairs/Walk up hill Past Surgical History Surgical History (Reviewed 06/25/21 @ 19: by Benjamin Ferreira MD) History of heart artery stent Past Anesthesia History No Hx of Anesthesia Complications and No Family Hx of Anesthesia Complications History of PONV No Hx of PONV and No Hx of Motion Sickness Social History Smoking Status: Former smoker tobacco type: cigars Hx Alcohol Use: Yes Alcohol type: wine alcohol intake frequency: 0-2 drinks per day Hx Substance Use: No substance use type: does not use Physical Exam Vital Signs Last Vital Signs Temp 37.0 C 06/25/21 20:25 Pulse 99 H 06/25/21 20:25 Resp 18 06/25/21 20:25 BP 142/92 H 06/25/21 20:25 Pulse Ox 96 06/25/21 20:25 ENMT Mouth: no dentition abnormality Thyromental Distance: > or= 3.5 Finger Breadths Mallampati Class: II Neck normal visual inspection Respiratory normal respiratory effort Auscultation: lungs clear to auscultation bilaterally Cardiovascular Rate/Rhythm: regular rate and regular rhythm Psychiatric Orientation: alert Testing Laboratory Results 06/25/21 14:09 06/25/21 14:09 PT 10.7 Seconds (9.0-12.0) 06/25/21 14:09 INR 1.1 (0.9-1.1) 06/25/21 14:09 APTT 26.6 Seconds (21.0-31.0) 06/25/21 14:09
--- NOTE | 2021-06-25 20:37 | Anesthesiology Progress Note ---
Date of Service June 25, 2021 Anesthesia Post Procedure Vital Signs Vital Signs: Temp Pulse Pulse Pulse Resp BP Pulse Ox 06/25/21 20:25 37.0 C 99 H 18 142/92 H 96 06/25/21 18:41 37.1 C 96 H 18 142/77 H 96 06/25/21 17:26 95 H 18 125/64 96 06/25/21 11:10 36.8 C 105 H 20 97 Pain Intensity Penis: Pain Intensity: 2 Transfer of Care Handoff Completed per policy Notes Mental Status: alert / awake / arousable Patient Amnestic to Procedure: Yes Nausea / Vomiting: adequately controlled Pain: adequately controlled Airway Patency, RR, SpO2: stable & adequate BP & HR: stable & adequate Hydration State: stable & adequate Anesthetic Complications: no major complications apparent
[2021-06-25] MEDS ORDERED: fentaNYL citrate 100 MCG/2 ML VIAL ONE (20:38)
[2021-06-25] MEDS: fentaNYL citrate 100 MCG/2 ML VIAL IV PRN ×2 (20:39→20:52)
--- NOTE | 2021-06-25 20:44 | Operative Report ---
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 Upon arrival, appropriate antibiotics and anesthesia were administered and the patient was placed in dorsal lithotomy position and prepped and draped in sterile fashion. To begin the case we passed a 27 [place] resectoscope with 30 degree lens and visual obturator. Inspection revealed a healthy-appearing urethra. 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 At the bladder neck there did appear to be some active bleeding, particularly from the left-hand side. Inspection of the bladder was initially quite difficult because of a significant amount of clot. Before proceeding further I utilized a Christopher syringe to irrigate the clot out of the bladder. After the bladder was entirely cleared, inspection was much easier. There was an active bleeding vessel on the left-hand side of the bladder neck as initially suspected. I cauterized this as well as several other small oozing veins on the left-hand side. Full inspection revealed several areas that had been cauterized previouslynone of these areas were actively bleeding. There were some prominent veins adjacent to several of these areas and I cauterized those areas as a precaution to prevent rebleeding. I cycled the bladder several times to ensure no other vessels started to ooze and they did not. A 22 [place] three-way Wheeler catheter was inserted and slow CBI initiated as a precaution. Given his history of recurrent bleeding, I will plan to administer 24 hours of alum irrigation. He was reversed of anesthesia and taken to the recovery room in stable condition. There were no complications and he tolerated the surgery very well. I attest to the content of the Intraoperative Record and any orders documented therein. Any exceptions are noted below.
[2021-06-25] MEDS ORDERED: ATORVASTATIN 40 MG TAB PO SCH (21:00)
[2021-06-25] MEDS: METOPROLOL TARTRATE 25 MG TAB PO SCH (21:28)
[2021-06-25 22:47] LABS: Appearance Urine Clear (Clear); Bacteria Urine Automated Negative (Negative); Bilirubin Urine Negative (Negative); Blood Urine 2+ (Negative); Color Urine Yellow; Epithelial Cell Urine Auto 20-30 /lpf (0-5); Glucose Urine UA Negative (Negative); Ketones Urine Trace (Negative); Leukocyte Esterase Urine Trace (Negative); Nitrite Urine Negative (Negative); Protein Urine Trace (Negative); Specific Gravity Urine 1.007 (1.000-1.030); Urobilinogen Urine Negative (Negative); pH Urine 5.5 (4.5-7.5)
[2021-06-25] MEDS: AMMONIUM ALUM 30 GM in SODIUM CHLORIDE 0.9% IRRIG 3,000 ML IR SCH (22:52)
[2021-06-26 06:15] LABS: Basophils # (auto) 0.01 K/uL (0-0.2); Basophils % (auto) 0.1 %; Eosinophils % (auto) 1.1 %; Hematocrit (blood only) 31.6 % (42-52); Hemoglobin 10.4 g/dL (14.0-18.0); Immature Granulocytes # (auto) 0.01 K/uL (0.00-0.02); Immature Granulocytes % (auto) 0.1 %; Lymphocytes # (auto) 1.03 K/uL (1.2-3.4); Lymphocytes % (auto) 10.9 %; Mean Corpuscular Hgb Conc 32.9 g/dL (32-36); Mean Corpuscular Volume 97.2 fL (80-100); Mean Platelet Volume 9.9 fL (7.4-10.4); Monocytes # (auto) 0.85 K/uL (0.11-0.59); Neutrophils # (auto) 7.44 K/uL (1.4-6.5); Neutrophils % (auto) 78.8 %; Platelet Count 365 K/uL (130-400); RDW Coefficient of Variation 14.7 % (11.5-14.5); RDW Standard Deviation 51.8 fL (36.4-46.3); Red Blood Count 3.25 M/uL (4.7-6.1); White Blood Count 9.44 K/uL (4.8-10.8)
[2021-06-26 06:56] LABS: BUN Creatinine Ratio 11.1 (10-20); Calcium 9.3 mg/dl (8.5-10.1); Creatinine Clr Calc Pharmacy 89.5 ml/min; Est GFR (African American) 111.6 ml/min; Est GFR (Non-African American) 96.3 ml/min; Magnesium 1.9 mg/dl (1.8-2.4); Potassium 3.5 mmol/L (3.5-5.1)
--- NOTE | 2021-06-26 08:12 | Hospitalist Progress Note ---
Date of Service June 26, 2021 Assessment & Plan Admission and Anticipated Discharge Date Admission Date: June 25, 2021 Results & Data Results & Data ([facility]) Vital Signs (Past 12 Hours) Vital Signs Temp Pulse Pulse Resp BP BP Pulse Ox 06/26/21 07:00 37.5 C 89 18 130/77 94 06/26/21 04:09 37.6 C H 93 H 16 116/70 93 06/26/21 00:20 37.0 C 89 16 116/69 93 06/25/21 23:20 37.0 C 86 16 123/72 93 06/25/21 22:20 36.4 C L 81 16 120/72 93 06/25/21 21:50 37.3 C 86 16 130/72 95 06/25/21 21:20 36.6 C 88 18 149/79 H 95 06/25/21 21:05 36.8 C 87 20 124/86 97 06/25/21 20:55 90 20 125/83 95 06/25/21 20:45 88 16 125/83 96 06/25/21 20:35 95 H 18 138/83 98 06/25/21 20:25 37.0 C 99 H 18 142/92 H 96 Laboratory Results 06/26/21 06/26/21 06/25/21 Range/Units 05:22 05:22 21:30 WBC 9.44 (4.8-10.8) K/uL RBC 3.25 L (4.7-6.1) M/uL Hgb 10.4 L (14.0-18.0) g/dL Hct 31.6 L (42-52) % MCV 97.2 (80-100) fL MCH 32.0 (25-34) pg MCHC 32.9 (32-36) g/dL RDW Std Deviation 51.8 H (36.4-46.3) fL RDW Coeff of Matt 14.7 H (11.5-14.5) % Plt Count 365 (130-400) K/uL MPV 9.9 (7.4-10.4) fL Immature Gran % (Auto) 0.1 % Neut % (Auto) 78.8 % Lymph % (Auto) 10.9 % Glenn % (Auto) 9.0 % Eos % (Auto) 1.1 % Baso % (Auto) 0.1 % Neut # (Auto) 7.44 H (1.4-6.5) K/uL Lymph # (Auto) 1.03 L (1.2-3.4) K/uL Glenn # (Auto) 0.85 H (0.11-0.59) K/uL Eos # (Auto) 0.10 (0-0.5) K/uL Baso # (Auto) 0.01 (0-0.2) K/uL Immature Gran # (Auto) 0.01 (0.00-0.02) K/uL PT (9.0-12.0) Seconds INR (0.9-1.1) APTT (21.0-31.0) Seconds PTT Ratio Sodium 140 (136-145) mmol/L Potassium 3.5 (3.5-5.1) mmol/L Chloride 107 (98-107) mmol/L Carbon Dioxide 26 (21-32) mmol/L Anion Gap 7.0 (3-11) BUN 8 (7-18) mg/dl Creatinine 0.70 (0.6-1.4) mg/dl Est Cr Clr Drug Dosing 89.5 ml/min Est GFR ( Amer) 111.6 ml/min Est GFR (Non-Af Amer) 96.3 ml/min BUN/Creatinine Ratio 11.1 (10-20) Glucose 90 (70-99) mg/dl Calcium 9.3 (8.5-10.1) mg/dl Magnesium 1.9 (1.8-2.4) mg/dl Total Bilirubin (0.2-1) mg/dl AST (15-37) U/L ALT (12-78) U/L Alkaline Phosphatase (45-117) U/L Total Protein (6.4-8.2) gm/dl Albumin (3.4-5.0) gm/dl Globulin (2.5-4.0) gm/dl Albumin/Globulin Ratio (0.9-2) Lipase (73-393) U/L Urine Color Yellow Urine Appearance Clear (Clear) Urine pH 5.5 (4.5-7.5) Ur Specific [place] 1.007 (1.000-1.030) Urine Protein Trace H (Negative) Urine Glucose (UA) Negative (Negative) Urine Ketones Trace H (Negative) Urine Blood 2+ H (Negative) Urine Nitrite Negative (Negative) Urine Bilirubin Negative (Negative) Urine Urobilinogen Negative (Negative) Ur Leukocyte Esterase Trace H (Negative) Urine WBC (Auto) 1-5 (0-5) /hpf Urine RBC (Auto) 5-10 H (0-4) /hpf U Hyaline Cast (Auto) 1-5 (0-5) /lpf U Epithel Cells (Auto) 20-30 H (0-5) /lpf Urine Bacteria (Auto) Negative (Negative) SARS-CoV-2 (PCR) (Negative) 06/25/21 06/25/21 06/25/21 Range/Units 14:09 14:09 14:09 WBC 11.52 H (4.8-10.8) K/uL RBC 3.49 L (4.7-6.1) M/uL Hgb 11.2 L (14.0-18.0) g/dL Hct 34.2 L (42-52) % MCV 98.0 (80-100) fL MCH 32.1 (25-34) pg MCHC 32.7 (32-36) g/dL RDW Std Deviation 52.5 H (36.4-46.3) fL RDW Coeff of Matt 14.8 H (11.5-14.5) % Plt Count 400 (130-400) K/uL MPV 9.8 (7.4-10.4) fL Immature Gran % (Auto) 0.1 % Neut % (Auto) 83.5 % Lymph % (Auto) 9.5 % Glenn % (Auto) 6.3 % Eos % (Auto) 0.4 % Baso % (Auto) 0.2 % Neut # (Auto) 9.62 H (1.4-6.5) K/uL Lymph # (Auto) 1.10 L (1.2-3.4) K/uL Glenn # (Auto) 0.72 H (0.11-0.59) K/uL Eos # (Auto) 0.05 (0-0.5) K/uL Baso # (Auto) 0.02 (0-0.2) K/uL Immature Gran # (Auto) 0.01 (0.00-0.02) K/uL PT 10.7 (9.0-12.0) Seconds INR 1.1 (0.9-1.1) APTT 26.6 (21.0-31.0) Seconds PTT Ratio 1.0 Sodium 141 (136-145) mmol/L Potassium 3.3 L (3.5-5.1) mmol/L Chloride 108 H (98-107) mmol/L Carbon Dioxide 24 (21-32) mmol/L Anion Gap 8.0 (3-11) BUN 10 (7-18) mg/dl Creatinine 0.82 (0.6-1.4) mg/dl Est Cr Clr Drug Dosing 76.7 ml/min Est GFR ( Amer) 104.6 ml/min Est GFR (Non-Af Amer) 90.2 ml/min BUN/Creatinine Ratio 12.7 (10-20) Glucose 115 H (70-99) mg/dl Calcium 8.8 (8.5-10.1) mg/dl Magnesium (1.8-2.4) mg/dl Total Bilirubin 0.5 (0.2-1) mg/dl AST 14 L (15-37) U/L ALT 21 (12-78) U/L Alkaline Phosphatase 94 (45-117) U/L Total Protein 7.3 (6.4-8.2) gm/dl Albumin 2.8 L (3.4-5.0) gm/dl Globulin 4.5 H (2.5-4.0) gm/dl Albumin/Globulin Ratio 0.6 L (0.9-2) Lipase 82 (73-393) U/L Urine Color Urine Appearance (Clear) Urine pH (4.5-7.5) Ur Specific [place] (1.000-1.030) Urine Protein (Negative) Urine Glucose (UA) (Negative) Urine Ketones (Negative) Urine Blood (Negative) Urine Nitrite (Negative) Urine Bilirubin (Negative) Urine Urobilinogen (Negative) Ur Leukocyte Esterase (Negative) Urine WBC (Auto) (0-5) /hpf Urine RBC (Auto) (0-4) /hpf U Hyaline Cast (Auto) (0-5) /lpf U Epithel Cells (Auto) (0-5) /lpf Urine Bacteria (Auto) (Negative) SARS-CoV-2 (PCR) (Negative) 06/25/21 Range/Units 14:00 WBC (4.8-10.8) K/uL RBC (4.7-6.1) M/uL Hgb (14.0-18.0) g/dL Hct (42-52) % MCV (80-100) fL MCH (25-34) pg MCHC (32-36) g/dL RDW Std Deviation (36.4-46.3) fL RDW Coeff of Matt (11.5-14.5) % Plt Count (130-400) K/uL MPV (7.4-10.4) fL Immature Gran % (Auto) % Neut % (Auto) % Lymph % (Auto) % Glenn % (Auto) % Eos % (Auto) % Baso % (Auto) % Neut # (Auto) (1.4-6.5) K/uL Lymph # (Auto) (1.2-3.4) K/uL Glenn # (Auto) (0.11-0.59) K/uL Eos # (Auto) (0-0.5) K/uL Baso # (Auto) (0-0.2) K/uL Immature Gran # (Auto) (0.00-0.02) K/uL PT (9.0-12.0) Seconds INR (0.9-1.1) APTT (21.0-31.0) Seconds PTT Ratio Sodium (136-145) mmol/L Potassium (3.5-5.1) mmol/L Chloride (98-107) mmol/L Carbon Dioxide (21-32) mmol/L Anion Gap (3-11) BUN (7-18) mg/dl Creatinine (0.6-1.4) mg/dl Est Cr Clr Drug Dosing ml/min Est GFR ( Amer) ml/min Est GFR (Non-Af Amer) ml/min BUN/Creatinine Ratio (10-20) Glucose (70-99) mg/dl Calcium (8.5-10.1) mg/dl Magnesium (1.8-2.4) mg/dl Total Bilirubin (0.2-1) mg/dl AST (15-37) U/L ALT (12-78) U/L Alkaline Phosphatase (45-117) U/L Total Protein (6.4-8.2) gm/dl Albumin (3.4-5.0) gm/dl Globulin (2.5-4.0) gm/dl Albumin/Globulin Ratio (0.9-2) Lipase (73-393) U/L Urine Color Urine Appearance (Clear) Urine pH (4.5-7.5) Ur Specific [place] (1.000-1.030) Urine Protein (Negative) Urine Glucose (UA) (Negative) Urine Ketones (Negative) Urine Blood (Negative) Urine Nitrite (Negative) Urine Bilirubin (Negative) Urine Urobilinogen (Negative) Ur Leukocyte Esterase (Negative) Urine WBC (Auto) (0-5) /hpf Urine RBC (Auto) (0-4) /hpf U Hyaline Cast (Auto) (0-5) /lpf U Epithel Cells (Auto) (0-5) /lpf Urine Bacteria (Auto) (Negative) SARS-CoV-2 (PCR) NEGATIVE (Negative) PG Care Time/CCT Total # of Minutes Spent Total Time Spent with Patient: Total time spent is greater than 50% in coordination of care (as documented) at patient's floor/unit and/or counseling patient: Coding
[2021-06-26] MEDS: METOPROLOL TARTRATE 25 MG TAB PO SCH (09:00)
[2021-06-26] MEDS ORDERED: CLOPIDOGREL BISULFATE 75 MG TAB PO SCH (09:00)
[2021-06-26] MEDS ORDERED: lisinopril 5 MG TAB PO SCH (09:00)
[2021-06-26] MEDS ORDERED: ASPIRIN 81 MG ECTAB PO SCH (09:00)
[2021-06-26] MEDS: FLUCONAZOLE 100 MG TAB PO SCH (09:01)
[2021-06-26] MEDS: AMMONIUM ALUM 30 GM in SODIUM CHLORIDE 0.9% IRRIG 3,000 ML IR SCH (09:41)
--- NOTE | 2021-06-26 09:45 | Urology Progress Note ---
Date of Service June 26, 2021 Assessment & Plan (1) Hematuria: (2) Acute radiation cystitis: Plan: cysto, clot evac, and fulguration last night - slow cbi with alum overnight urine remains clear - blas clamped, bladder filled and blas removed - voided the irrigant back out without issue - plan for d/c home later this morning/afternoon - outpt f/u - cont hyperbaric O2 Admission and Anticipated Discharge Date Admission Date: June 25, 2021 Subjective Did very well over night no major issues urine remained clear on very slow CBI w/ alum no pain, no bladder spasms Physical Exam Physical Exam: urine crystal clear on very slow CBI Constitutional: well developed and well nourished Respiratory: no respiratory distress Cardiovascular: Extremities: no pedal edema Gastrointestinal (Abdomen): Inspection/Auscultation: abdomen normal to inspection Results & Data ([facility]) Vital Signs (Past 12 Hours) Vital Signs Temp Pulse Resp BP Pulse Ox 06/26/21 07:00 37.5 C 89 18 130/77 94 06/26/21 04:09 37.6 C H 93 H 16 116/70 93 06/26/21 00:20 37.0 C 89 16 116/69 93 06/25/21 23:20 37.0 C 86 16 123/72 93 06/25/21 22:20 36.4 C L 81 16 120/72 93 06/25/21 21:50 37.3 C 86 16 130/72 95 PG Care Time/CCT Total # of Minutes Spent Total Time Spent with Patient: Total time spent is greater than 50% in coordination of care (as documented) at patient's floor/unit and/or counseling patient: Coding Level of Care Code 61987 Subseq Hosp Care Lvl 2 Diagnoses Hematuria R31.0 Hematuria type: gross Acute radiation cystitis N30.40 (1) Hematuria Hematuria type: gross Qualified Code(s): R31.0 - Gross hematuria
--- NOTE | 2021-06-26 10:48 | Discharge Summary ---
Date of Service June 26, 2021 Admission HPI Per Admitting Provider 10 YOM with past medical history of: CAD, NSTEMI(stent placed to LAD ), HTN, DMII, PAD, Urinary retention, prostate cancer with brachytherapy and radiation therapy, hematuria, AAA (5.3x5.1)- he has this followed at [facility] with CT and ultrasounds every 6 months. Last reported measurement he recalls 4.3, and left common iliac artery occlusion. Patient comes to the emergency department today after following up in urologist office for hematuria and blocked Boggs catheter. Patient is followed closely with Urology for his radiation cystis and has been dealing with hematuria with frequent clogged Boggs catheters requiring multiple exchanges. He was recently admitted on Jun 10 where he was taken to the OR by Dr. Morrison where he had a cystoscopy, clot evacuation, fulguration done and cautery to two active bleeding areas. He then had a 22 Fr. 3-way Boggs inserted and underwent CBI until the following morning. He tolerated clamping of his Boggs at that time, it was then removed and he passed a voiding trial. He was discharged on Ciprofloxacin for a UTI. He subsequently has had 2 hyperbaric appointments which he tolerated well. He started to have pink urine on the 22 of June without any clots. Was seen in Urology office - with frequency and urgency-negative UA. Returned to the [facility] on at 2300 for complaints of difficulty urinating. He had a boggs catheter placed at that time and UA with culture performed. He was given dose of ciprofloxacin at that time (patient previously completed course of Cipro that was to end on ). He awoke this morning with bladder spasm pain and no drainage to his boggs, he went to the Urology Office today where he had attempts at flushing and manipulating his catheter without success. He was then directed to the [facility]. In the [facility] he underwent another attempt at flushing catheter with minimal success, Urology was consulted by [facility] and Dr. Maxwell will evaluate patient. He has had some spasms since his most recent irrigation resulting in punch colored urine in his leg bag with note of clots. He does have some suprapubic tenderness. His UA from was notable for keiko albicans. Patient also had SANTIAGO place to his LAD- he remains on ASA and Plavix for this and should be continued for 1 year. We have continued his ASA and Plavix through both previous admissions. - His probability for perioperative [place] or arrest with Urological procedure remains low at 0.23%. His COVID test on admission is: NEGATIVE Admission Exam Per Admitting Provider PHYSICAL EXAM: General: awake, alert, no apparent distress Head: Normocephalic, atraumatic ENT: PERRLA, EOMI, no pharyngeal exudate, mucous membranes moist Neuro: AAO x 3, speech clear and appropriate, strength intact bilaterally 5/5, sensation intact and equal all extremities and dermatomes, no pronator drift Chest: equal rise and fall of the chest, no accessory muscle use, no heaves or thrills, Clear to auscultation, on room air, Cardiac: Regular rate and rhythm, telemetry reviewed, skin warm dry, cap refill <3 seconds, peripheral pulses +2 no JVD, no murmur, no JVD, no edema GI: NABS x 4 quadrants, soft, nontender to palpation, no rebound, guarding or tenderness : boggs in place attached to leg bag with small amount of hawiian punch colored urine without clots. Tenderness to suprapubic area Extremities: Normal inspection, no peripheral edema or erythema, calfs nontender to palpation Psych: Normal mood and affect Skin: no rash or erythema Principal Diagnosis Hematuria, Boggs Catheter Obstruction Discharge Exam WD, WN, sitting in bed, no acute distress ENT: mmm, trachea midline without deviation Resp: CTAB, no w/c/r, on room air CV: RRR, no m/r/g, no calf edema, pulses but palpable GI: +BS, soft, non-tender, +abd bruit, no guarding or rigidity : no boggs -- voiding yellow in toilet reported MSK/Neuro: moves all extremities, no focal deficit Psych: AOx3, euthymic Discharge Data Allergies Allergy/AdvReac Type Severity Reaction Status Date / Time No Known Allergies Allergy Verified 06/29/21 08:14 Consultations 06/25/21 15:31 Consult Urology Stat 06/25/21 15:33 ED Decision to Admit Stat 06/26/21 08:08 Consult Vascular Surgery Routine Procedures Performed Operation Date: 06/25/21 20:00 Actual Procedures p Transurethral Resection Bladder Tumor(Not Applicable) - Benjamin Ferreira MD Ordered Studies Abdomen/Pelvis CT 06/25/21 13:52 CT SCAN OF THE ABDOMEN AND PELVIS WITHOUT IV CONTRAST CLINICAL HISTORY: Hematuria. Urinary retention. COMPARISON STUDY: Abdominal CT dated 06/03/2021. TECHNIQUE: CT scan of the abdomen and pelvis is performed from the lung bases to the proximal femora. Images are reviewed in the axial, sagittal, and coronal planes. IV contrast was not administered for this examination. A dose lowering technique was utilized adhering to the principles of ALARA. CT DOSE: 412.57 mGycm FINDINGS: Lung bases: The heart is normal in size and without pericardial effusion. Emphysematous change is seen at the lung bases. The lung bases are otherwise clear. Liver: The unenhanced liver is normal in size, contour, and attenuation. There is no intrahepatic biliary ductal dilatation. Gallbladder: Unremarkable. Spleen: Normal in size and attenuation. Pancreas: Parenchyma calcifications suggest chronic pancreatitis. Adrenal glands: Unremarkable. Kidneys: The unenhanced kidneys are normal in size and without hydronephrosis. There are renovascular calcifications. No definite renal calculi are identified. Bilateral renal cysts measure up to 4.2 cm. Abdominal vasculature: There is advanced atherosclerotic calcification of the abdominal aorta. An infrarenal abdominal aortic aneurysm measures 5.4 x 5.5 cm (AP x transverse). The aneurysm sac measures approximately 10 cm in craniocaudal length. 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 Bowel: There is mild to moderate colonic diverticulosis without CT evidence of acute diverticulitis. Moderate fecal retention is seen throughout the colon. No bowel obstruction is identified. The appendix is well-visualized and normal. Peritoneum: There is no intraperitoneal free air or abdominal ascites. Lymphadenopathy: None. Pelvic viscera: The bladder is distended. A Boggs catheter is in place. The bladder wall is thickened and there is pericystic inflammation. Gas is present within the bladder lumen. Additionally, there is hyperdense material within the bladder lumen which likely resents blood clots. The prostate gland is diminutive and heterogeneous noting brachytherapy implants in place. Skeletal structures: The skeletal structures are osteopenic. There is mild lumbosacral spondylosis. A large posterior disc bulge is noted at L3-L4. No lytic or blastic lesions are seen. IMPRESSION: 1. The bladder is distended with a Boggs catheter in place. Findings suggest cystitis, and hyperdense blood clots are present within the bladder lumen. Correlate with clinical findings and urinalysis. Consider nonemergent follow-up with urology to assess for underlying bladder lesion. 2. There is a 5.4 x 5.5 cm infrarenal abdominal aortic aneurysm as detailed above. Vascular surgical consultation is advised based on the aneurysm size and risk of rupture. 3. 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 4. Mild to moderate colonic diverticulosis without CT evidence of acute diverticulitis. 5. Emphysema. 6. There are findings of chronic pancreatitis. 7. Additional findings as above. ACT 112: Positive. There are findings on this exam that require communication between the performing entity and the patient following Patient Test Result Information Act ([place] Act 112) guidelines. Electronically signed by: Mc Nelson M.D. 06/25/2021 2:53 PM Hospital Course (1) Blocked urinary catheter: hx prostate ca, brachitherapy. prior blocked catheter with hematuria Urology consulted s/p p Transurethral Resection Bladder Tumor(Not Applicable) - Benjamin Ferreira MD -- also with evacuation of clot and cauterization of several other small oozing veins on left hand side as well as active bleeding vessel on left hand side of bladder neck ASA and plavic continued for remote hx stent to LAD in May 2021 CBI continued with alum --> pulled POD1 and voided clear urine without hematuria F/u with urology outpatient and to continue hyperbaric oxygen treatments Fluconazole from prior Ucx from ER on 06/24. Repeat UA without WBC but he did have a dose of CIpro with that boggs exchange in the ER and may be why not looking overly infected on admission. --> discussed with urology and will continue Cipro for 5 days (give first dose now inpatient) no further Diflucan given prob colonizer w boggs. Cleared with Urology Stable for d/c (2) Hematuria: As above- continued asa and plavix given recent stent to LAD May 2021 Urology consulted, taken to OR as above. No further hematuria reported since voiding since d/c boggs F/u Urology at discharge (3) UTI (urinary tract infection): Course of Ciprofloxacin completed on [id number] - UA on 18NOV with keiko albicans- fluconazole x 2, likely colonized. discussed w urology and holding off on further tx Cipro at d/c as above given boggs again exchanged and recently completed course. Prior ucx w pseudomonas, sensitive to cipro Repeat UA without evidence of infection (again just completed cipto 06/24) Per Urology -- Cipro x 5 days at d/c (4) CAD (coronary artery disease): and HTN/HLD recent 80% proximal LAD treated with SANTIAGO -[address] Sarah Garcia Continued ASA 81mg, plavix 75mg Continue atorvastatin 80mg, metoprolol 12.5mg BID, lisinopril 5mg (5) Abdominal aortic aneurysm (AAA) 3.0 cm to 5.5 cm in diameter in male: infrarenal abdominal aortic aneurysm measuring up to 54 mm in diameter- Patient states he follows this up with Remington Butler through [facility] every 6 months with ultrasound/CT scans - Reports discrepancy between our records- notes that his physician's interpretation is 4.3cm however our recent imaging notes 5.4cm - Continue BB, Lipid lowering medications, continue to follow up with outside team --> recommended that he have close follow up/surveillance given high chance of rupture. (6) Peripheral arterial disease: As above- noted left illiac occlusion with colalteral flow - follows as above (7) Type 2 diabetes mellitus: Hold metformin while inpatient. 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 urinated without further blood or discomfort stable for d/c on Cipro as per discussion with Urology -- f/u outpatient and patient to continue hyperbaric oxygen treatments (already completed 2 ) Total Time Total Time Spent Total Time Spent (In Minutes): 45 Discharge Plan Discharge Items Patient Disposition: Home - Self-Care Reason For Visit: HEMATURIA, CLOGGED BOGGS CATHETER Discharge Diagnosis: Hematuria, Blocked Boggs Catheter, Clot Goals: You have been hospitalized for an urgent problem which required surgery. During your stay at [facility], we have made an effort to correct the problem that brought you to the hospital while keeping you as comfortable as possible. Surgery and medications were used to bring your condition under control and your discharge instructions will include directions for any medications you should take after leaving the hospital. Please make sure to follow the advice of your surgeon regarding follow up with the surgeon and with your primary care provider. Activity: Resume your previous activity Non-emergency contact: Primary Care Provider and Urologist Call non-emergency contact if: you have any medication questions, your symptoms worsen, your pain is not controlled and you have a fever Follow-up/Referrals: Benjamin Ferreira MD [Physician] - Jeremy Kaiser DO [Primary Care Provider] - Diet: Heart Healthy Addtl Attending Provider Instructions: You have been hospitalized and taken to OR for bleeding in urine. Clot and bleeding vessels were noted and these were stopped with cauterization and bladder irrigation with aluminum by Urology. Boggs has been discontinued and you have voided without further bleeding. Please continue to monitor this. Your blood counts are stable on repeat. Your prior urine culture had yeast, and given you had been given a dose of Cipro while having the catheter exchanged in the ER, this was discussed with Urology and you were given antifungals inpatient but could be from colonization from the Boggs catheter. You will be continued on Cipro 500mg by mouth for another 4.5 days to complete treatment given your urine was negative but you did have antibiotics prior to boggs exchange in the ER the day prior and this could be false negative. Please follow up with Urology at discharge to monitor your progress. Please continue hyperbaric oxygen treatment as previously scheduled. Please follow up with PCP in the next week to monitor your progress. You should have continued monitoring of your abdominal aneurysm, as the size does put you at risk for rupture and you have been following with every six month ultrasounds and appears to have been similar to values in past ~5.5cm. This should have close follow up. Please return to the emergency department with any fever, chills, increased bleeding, inability to void, chest pain, shortness of breath or lightheadedness, or for any other symptoms that are concerning for you. It has been a pleasure being a part of the medical team providing for you while you have been in the hospital. Take care! Pending Studies at Discharge: No Stand-Alone Forms: My [employer], Smoking Cessation Medications and DC Order Prescriptions: Continued lisinopril 5 mg tablet 5 mg PO DAILY RF: 0 clopidogrel 75 mg tablet 75 mg PO DAILY RF: 0 atorvastatin 80 mg tablet 80 mg PO HS RF: 0 metoprolol tartrate 25 mg Tablet 12.5 mg PO BID 30 Days Qty: 30 RF: 1 oxybutynin chloride 5 mg tablet 5 mg PO DAILY PRN (Reason: bladder spasms) Qty: 30 RF: 0 aspirin 81 mg tablet,delayed release (DR/EC) 81 mg PO QAM RF: 0 tamsulosin 0.4 mg Capsule 0.4 mg PO QAM Qty: 30 RF: 0 metformin 500 mg tablet extended release 24 hr 500 mg PO BID RF: 0 Discontinued ciprofloxacin HCl [Cipro] 500 mg tablet 500 mg PO BID 5 Days Qty: 10 RF: 0 No Action oxymetazoline [Afrin (oxymetazoline)] 0.05 % spray,non-aerosol 2 spray intranasal Q12H PRNRF: 0 Discharge Orders: Discharge Order (Routine); Ordered 06/26/21 Ordered By: Daksha Wright Admission Data Admit Date/Time: 06/25/21 16:28 Attending Provider: Charlie Jiménez Admit Provider: Jason Colon Primary Care Provider: Jeremy Kaiser Other Providers: Benjamin Ferreira ; Jason Colon Other Interventions: Discharge Summary Assessment (RN) Last Done: 06/26/21 13:16 Supervising Physician Co-Signing Physician Notes During face to face encounter, had a brief discussion about hospital course and completed physical exam. Answered all of the patient's questions. Reviewed above note and agree with it. Discussed discharge plan with patient and MALLORY Wright. Patient will be discharged with dx of a blocked urinary catheter. This was treated by Urology. Discharge meds below. Coding Level of Care Code D/C DAY MANAGEMENT >30 MINS Diagnoses Blocked urinary catheter T83.098A Hematuria R31.0 Hematuria type: gross UTI (urinary tract infection) N39.0 CAD (coronary artery disease) I25.10 Associated angina: without angina Coronary Disease-Associated Artery/Lesion type: [place] artery [place] vs. transplanted heart: [place] heart Abdominal aortic aneurysm (AAA) 3.0 cm to 5.5 cm in diameter in male I71.4 Peripheral arterial disease I73.9 Type 2 diabetes mellitus E11.9 Radiation cystitis N30.40
[2021-06-26] MEDS ORDERED: CIPROFLOXACIN 500 MG TAB PO SCH (11:00)
== END 2021-06-26 14:51 | disposition home or self-care (01) | DRG 664 ==
LOC: ED 10:56 → 3W 16:28 → INTOOBSV 16:28 → SUATTDRO 16:28 → 3W 18:19
DX: R33.8 Other retention of urine; Z79.82 Long term (current) use of aspirin; T39.015A Adverse effect of aspirin, initial encounter; T45.525A Adverse effect of antithrombotic drugs, initial encounter; B37.9 Candidiasis, unspecified; I10 Essential (primary) hypertension; Z95.5 Presence of coronary angioplasty implant and graft; I71.4 Abdominal aortic aneurysm, without rupture; C61 Malignant neoplasm of prostate; N30.41 Irradiation cystitis with hematuria; Z87.891 Personal history of nicotine dependence; Y73.2 Prosthetic and other implants, materials and accessory gastroenterology and urology devices associated with adverse incidents; N39.0 Urinary tract infection, site not specified; Z79.899 Other long term (current) drug therapy; E78.5 Hyperlipidemia, unspecified; T83.091A Other mechanical complication of indwelling urethral catheter, initial encounter; Z20.822 Contact with and (suspected) exposure to COVID-19; I25.10 Atherosclerotic heart disease of native coronary artery without angina pectoris; E11.51 Type 2 diabetes mellitus with diabetic peripheral angiopathy without gangrene; Z79.02 Long term (current) use of antithrombotics/antiplatelets; I25.2 Old myocardial infarction; Z79.84 Long term (current) use of oral hypoglycemic drugs

== ENCOUNTER 2021-07-05 20:26 | Inpatient (IN) ==
[2021-07-06 00:56] LABS: Appearance Urine Cloudy (Clear); Bilirubin Urine Negative (Negative); Blood Urine 3+ (Negative); Color Urine Red; Glucose Urine UA Trace (Negative); Ketones Urine Negative (Negative); Leukocyte Esterase Urine Negative (Negative); Nitrite Urine Negative (Negative); Protein Urine 3+ (Negative); Specific Gravity Urine >= 1.030 (1.000-1.030); Urobilinogen Urine Negative (Negative)
[2021-07-06 01:06] LABS: RBC Urine >30 /hpf (0-4)
[2021-07-06 01:07] LABS: Bacteria Urine Negative (Negative); Epithelial Cell Urine 0-5 /lpf (0-5)
--- NOTE | 2021-07-06 02:03 | Emergency Department Note ---
Impression & Plan Gross hematuria, Acute urinary retention, Bladder pain ED Provider Note NAME: JOEL ROLDAN AGE: 70 SEX: M ARRIVES VIA: Walk-In INFORMANT: Patient ED PROVIDER(S): Connor Butler MD CHIEF COMPLAINT: Urinary retention. PLAN: Disposition: Home MEDICAL DECISION MAKING: The patient is a pleasant 70-year-old gentleman with a past medical history of radiation cystitis, history of gross hematuria and urinary retention who presents to the emergency department for evaluation of recurrence of gross hematuria this afternoon with sense of urinary urgency and retention that began 5 hours prior to arrival. Patient reports he recently had a urologic procedure for cauterization of bleeding source in his bladder and had been doing well since then. He reports he is still on ciprofloxacin following this procedure. He denies any fevers, chills, cough, congestion, GI symptoms. The patient is on aspirin and Plavix for history of cardiac stent for NSTEMI 05/28/2021. On arrival the patient is uncomfortable appearing but no acute distress, afebrile stable vital signs. He has mild suprapubic fullness without discrete tenderness. RN did place a Wheeler catheter and the patient only had mild retention of 250 cc of bloody urine. However, suspect the patient's urgency was related to bladder spasm in the setting of his gross hematuria. Did feel improvement following placement of Wheeler catheter. Given patient is otherwise well-appearing no indication for blood work or imaging at this time. Discharge was in progress however then the patient was reporting a recurrence of discomfort and RN attempted to flush catheter but was unsuccessful. Therefore catheter was upsized. Unfortunately upsizing the patient's catheter did did not succeed in reducing obstruction within the catheter due to clots. I did perform a limited bedside ultrasound and appreciated that the bladder was not decompressed around the catheter and was somewhat distended with mixed hyperechoic material within the bladder which suggests clots. Thus reasonable to initiate CBI. Case was discussed with Fernando Moreira, PAC with Dr. Butler urology. Agrees will CBI and medicine admission. WBC 12.6K nonspecific. H/H 11.2/34.5 similar to prior values. Platelets 416K, nonspecific and similar to prior values. Chemistry without metabolic acidosis. Electrolytes and LFTs without significant abnormality. UA demonstrates RBCs with WBCs and no bacteria. Patient is currently on Cipro. Case was discussed with Dr. Sandoval, [facility] hospitalist, who will evaluate the patient for admission. Unfortunately CBI was unsuccessful at the bedside. Urology to take for cystoscopy. Triage Nursing notes reviewed and agree them. prior medical records reviewed Vital Signs: reviewed and remarkable for no significant abnormalities Differential diagnosis: Renal colic, UTI, appendicitis, diverticulitis, mesenteric ischemia, aortic pathology, infections, inflammatory bowel disease, PUD, biliary pathology, as well as other pathologies. ER treatment provided: See below. Diagnostics interpreted by me: Cardiac Monitoring: An order for continuous cardiac monitoring was placed and demonstrated sinus tachycardia, 106 bpm, no ectopy. Laboratory studies: see below Imaging studies: See below Consultation(s): Fernando Moreira, PAC with Dr. Butler urology. Dr. Sandoval, [facility] hospitalist HPI: The patient is a pleasant 70-year-old gentleman with a past medical history of radiation cystitis, history of gross hematuria and urinary retention who presents to the emergency department for evaluation of recurrence of gross hematuria this afternoon with sense of urinary urgency and retention that began 5 hours prior to arrival. Patient reports he recently had a urologic procedure for cauterization of bleeding source in his bladder and had been doing well since then. He reports he is still on ciprofloxacin following this procedure. He denies any fevers, chills, cough, congestion, GI symptoms. The patient is on aspirin and Plavix for history of cardiac stent for NSTEMI 05/28/2021. ROS: See above HPI for pertinent positives & negatives. A total of 10 systems reviewed and were otherwise negative. PAST MEDICAL HISTORY: see Below PAST SURGICAL HISTORY: see Below FAMILY HISTORY:See Below SOCIAL HISTORY: see Below HOME MEDICATIONS: see Below ALLERGIES: see Below VITALS: see Below PHYSICAL EXAMINATION: GENERAL: Awake, alert, uncomfortable-appearing, in no distress HENT: Normocephalic, atraumatic. Oropharynx unremarkable. EYES: Normal conjunctiva. Sclera non-icteric. NECK: Supple. No nuchal rigidity. FROM. No JVD. RESPIRATORY: Clear to auscultation. CARDIAC: Regular rate, normal rhythm. Extremities warm and well perfused. Pulses equal. ABDOMEN: Soft, non-distended. Mild suprapubic fullness without discrete tenderness. No rebound or guarding. No masses. RECTAL: Deferred. MUSCULOSKELETAL: Chest examination reveals no tenderness. The back is symmetric al on inspection without obvious abnormality. There is no CVA tenderness to palpation. No joint edema. LOWER EXTREMITIES: Calves are equal size bilaterally and non-tender. No edema. No discoloration. NEURO: Normal sensorium. No sensory or motor deficits noted. SKIN: No rash or jaundice noted. Connor Butler MD Past Med/Surg History Medical History Abdominal aortic aneurysm (AAA) 3.0 cm to 5.5 cm in diameter in male Abnormal ECG Acute Lyme disease CAD (coronary artery disease) Chronic pancreatitis Gross hematuria HLD (hyperlipidemia) Hypertension NSTEMI (non-ST elevated myocardial infarction) Peripheral arterial disease Pre-diabetes Slurred speech Stroke-like symptoms Tobacco abuse Surgical History History of heart artery stent Social History Smoking Status: Never smoker Tobacco Type: Cigars Second Hand Exposure: No; Hx Alcohol Use: Yes Alcohol type: wine Hx Substance Use: No Preferred Language: Khmer Communication Ability: Effective Chef Teacher Required: No Beliefs That Will Affect Care: None marital status: Current Living Situation: Spouse Feels Safe at Home: Yes Assistive Devices: None Allergies Allergies Allergy/AdvReac Type Severity Reaction Status Date / Time No Known Allergies Allergy Verified 07/05/21 07:53 Home Meds Home Medications Medication Instructions Recorded Confirmed atorvastatin 80 mg tablet 80 mg PO HS 05/26/21 07/06/21 aspirin 81 mg tablet,delayed 81 mg PO QAM 06/02/21 07/06/21 release metformin 500 mg tablet,extended 500 mg PO BID 06/10/21 07/06/21 release 24 hr lisinopril 5 mg tablet 5 mg PO DAILY 06/24/21 07/06/21 clopidogrel 75 mg tablet 75 mg PO DAILY 06/25/21 07/06/21 oxymetazoline 0.05 % nasal spray 2 spray INTRANASAL Q12H PRN 06/29/21 07/06/21 (Afrin (oxymetazoline)) ciprofloxacin HCl 500 mg tablet 500 mg PO BID 07/06/21 07/06/21 hydrochlorothiazide 25 mg tablet 25 mg PO DAILY 11/30/21 11/30/21 Previous Rx's Medication Instructions Recorded metoprolol tartrate 25 mg tablet 12.5 mg PO BID 30 Days #30 tab 05/29/21 oxybutynin chloride 5 mg tablet 5 mg PO DAILY PRN #30 tab 05/29/21 tamsulosin 0.4 mg capsule 0.4 mg PO QAM #30 cap 06/06/21 Results & Data (ED) Vital Signs Vital Signs - 24 hr 07/05/21 20:36 Temperature 36.8 C Temperature Source Oral Pulse Rate 106 H Respiratory Rate 20 Respiratory Effort / Characteristics Non-Labored Respiratory Depth Normal Respiratory Pattern Regular Blood Pressure 109/83 Blood Pressure Mean 91 Blood Pressure Position Sitting Pulse Oximetry 97 Oxygen Delivery Method Room Air Sepsis Recent Fever Within 48 Hours No Sepsis New/Unexplained Change in Mental Status No Sepsis Action Taken by Nursing No Action Required Laboratory Data Attestation: I reviewed the patient's lab results. Result diagrams: 07/06/21 03:40 07/06/21 03:40 Lab Results 07/06/21 07/06/21 07/06/21 Range/Units 00:30 03:40 03:40 WBC 12.60 H (4.8-10.8) K/uL RBC 3.49 L (4.7-6.1) M/uL Hgb 11.2 L (14.0-18.0) g/dL Hct 34.5 L (42-52) % MCV 98.9 (80-100) fL MCH 32.1 (25-34) pg MCHC 32.5 (32-36) g/dL RDW Std Deviation 54.3 H (36.4-46.3) fL RDW Coeff of Matt 15.2 H (11.5-14.5) % Plt Count 416 H (130-400) K/uL MPV 10.2 (7.4-10.4) fL Immature Gran % (Auto) 0.2 % Neut % (Auto) 84.4 % Lymph % (Auto) 9.6 % [place] % (Auto) 5.4 % Eos % (Auto) 0.3 % Baso % (Auto) 0.1 % Neut # (Auto) 10.63 H (1.4-6.5) K/uL Lymph # (Auto) 1.21 (1.2-3.4) K/uL [place] # (Auto) 0.68 H (0.11-0.59) K/uL Eos # (Auto) 0.04 (0-0.5) K/uL Baso # (Auto) 0.01 (0-0.2) K/uL Immature Gran # (Auto) 0.03 H (0.00-0.02) K/uL Sodium 141 (136-145) mmol/L Potassium 3.9 (3.5-5.1) mmol/L Chloride 113 H (98-107) mmol/L Carbon Dioxide 23 (21-32) mmol/L Anion Gap 5.0 (3-11) BUN 14 (7-18) mg/dl Creatinine 0.83 (0.6-1.4) mg/dl Est Cr Clr Drug Dosing 75.8 ml/min Est GFR ( Amer) 104.1 ml/min Est GFR (Non-Af Amer) 89.8 ml/min BUN/Creatinine Ratio 16.9 (10-20) Glucose 171 H (70-99) mg/dl Calcium 9.3 (8.5-10.1) mg/dl Total Bilirubin 0.3 (0.2-1) mg/dl AST 30 (15-37) U/L ALT 25 (12-78) U/L Alkaline Phosphatase 94 (45-117) U/L Total Protein 6.9 (6.4-8.2) gm/dl Albumin 2.8 L (3.4-5.0) gm/dl Globulin 4.1 H (2.5-4.0) gm/dl Albumin/Globulin Ratio 0.7 L (0.9-2) Specimen Hemolysis Urine Color Red Urine Appearance Cloudy A (Clear) Urine pH 7.0 (4.5-7.5) Ur Specific [place] >= 1.030 (1.000-1.030) Urine Protein 3+ H (Negative) Urine Glucose (UA) Trace H (Negative) Urine Ketones Negative (Negative) Urine Blood 3+ H (Negative) Urine Nitrite Negative (Negative) Urine Bilirubin Negative (Negative) Urine Urobilinogen Negative (Negative) Ur Leukocyte Esterase Negative (Negative) Urine RBC >30 H (0-4) /hpf Urine WBC 10-30 H (0-5) /hpf Ur Epithelial Cells 0-5 (0-5) /lpf Urine Bacteria Negative (Negative) SARS-CoV-2, RNA, NAAT (NEGATIVE) 07/06/21 Range/Units 03:40 WBC (4.8-10.8) K/uL RBC (4.7-6.1) M/uL Hgb (14.0-18.0) g/dL Hct (42-52) % MCV (80-100) fL MCH (25-34) pg MCHC (32-36) g/dL RDW Std Deviation (36.4-46.3) fL RDW Coeff of Matt (11.5-14.5) % Plt Count (130-400) K/uL MPV (7.4-10.4) fL Immature Gran % (Auto) % Neut % (Auto) % Lymph % (Auto) % [place] % (Auto) % Eos % (Auto) % Baso % (Auto) % Neut # (Auto) (1.4-6.5) K/uL Lymph # (Auto) (1.2-3.4) K/uL [place] # (Auto) (0.11-0.59) K/uL Eos # (Auto) (0-0.5) K/uL Baso # (Auto) (0-0.2) K/uL Immature Gran # (Auto) (0.00-0.02) K/uL Sodium (136-145) mmol/L Potassium (3.5-5.1) mmol/L Chloride (98-107) mmol/L Carbon Dioxide (21-32) mmol/L Anion Gap (3-11) BUN (7-18) mg/dl Creatinine (0.6-1.4) mg/dl Est Cr Clr Drug Dosing ml/min Est GFR ( Amer) ml/min Est GFR (Non-Af Amer) ml/min BUN/Creatinine Ratio (10-20) Glucose (70-99) mg/dl Calcium (8.5-10.1) mg/dl Total Bilirubin (0.2-1) mg/dl AST (15-37) U/L ALT (12-78) U/L Alkaline Phosphatase (45-117) U/L Total Protein (6.4-8.2) gm/dl Albumin (3.4-5.0) gm/dl Globulin (2.5-4.0) gm/dl Albumin/Globulin Ratio (0.9-2) Specimen Hemolysis Urine Color Urine Appearance (Clear) Urine pH (4.5-7.5) Ur Specific [place] (1.000-1.030) Urine Protein (Negative) Urine Glucose (UA) (Negative) Urine Ketones (Negative) Urine Blood (Negative) Urine Nitrite (Negative) Urine Bilirubin (Negative) Urine Urobilinogen (Negative) Ur Leukocyte Esterase (Negative) Urine RBC (0-4) /hpf Urine WBC (0-5) /hpf Ur Epithelial Cells (0-5) /lpf Urine Bacteria (Negative) SARS-CoV-2, RNA, NAAT NEGATIVE (NEGATIVE) Administered Medications Discontinued Medications Morphine Sulfate (Morphine Sulfate 2 Mg/Ml Carp) 2 mg IV NOW STA Stop: 07/06/21 03:44 Last Admin: 07/06/21 03:55 Dose: 2 mg Documented by: [id number] Discharge Plan Visit Data Chief Complaint: Urinary Symptoms Stated Complaint: CANNOT URINATE ED Provider: Connor Butler Discharge Problem: Gross hematuria, Acute urinary retention Patient Disposition: Being Evaluated by Hospitalist Discharge Instructions Krames/Other Patient Handouts: ED Wheeler Catheter, Care, ED Hematuria, ED Urinary Retention, Male Prescriptions Prescriptions: No Action oxymetazoline [Afrin (oxymetazoline)] 0.05 % spray,non-aerosol 2 spray intranasal Q12H PRN (Reason: Nasal Congestion) RF: 0 lisinopril 5 mg tablet 5 mg PO DAILY RF: 0 clopidogrel 75 mg tablet 75 mg PO DAILY RF: 0 atorvastatin 80 mg tablet 80 mg PO HS RF: 0 metoprolol tartrate 25 mg Tablet 12.5 mg PO BID 30 Days Qty: 30 RF: 1 oxybutynin chloride 5 mg tablet 5 mg PO DAILY PRN (Reason: bladder spasms) Qty: 30 RF: 0 aspirin 81 mg tablet,delayed release (DR/EC) 81 mg PO QAM RF: 0 tamsulosin 0.4 mg Capsule 0.4 mg PO QAM Qty: 30 RF: 0 metformin 500 mg tablet extended release 24 hr 500 mg PO BID RF: 0 ciprofloxacin HCl 500 mg tablet 500 mg PO BID RF: 0 hydrochlorothiazide 25 mg tablet 25 mg PO DAILY RF: 0 Referrals Referrals: Cheikh Morrison MD [Physician] - Jeremy Kaiser DO [Primary Care Provider] -
[2021-07-06] MEDS ORDERED: MoRPHine SULFATE 2 MG/ML CARP IV STA (03:43)
[2021-07-06 03:55] LABS: Basophils # (auto) 0.01 K/uL (0-0.2); Basophils % (auto) 0.1 %; Eosinophils # (auto) 0.04 K/uL (0-0.5); Eosinophils % (auto) 0.3 %; Hematocrit (blood only) 34.5 % (42-52); Hemoglobin 11.2 g/dL (14.0-18.0); Immature Granulocytes # (auto) 0.03 K/uL (0.00-0.02); Immature Granulocytes % (auto) 0.2 %; Lymphocytes # (auto) 1.21 K/uL (1.2-3.4); Lymphocytes % (auto) 9.6 %; Mean Corpuscular Hemoglobin 32.1 pg (25-34); Mean Corpuscular Hgb Conc 32.5 g/dL (32-36); Mean Corpuscular Volume 98.9 fL (80-100); Mean Platelet Volume 10.2 fL (7.4-10.4); Monocytes # (auto) 0.68 K/uL (0.11-0.59); Monocytes % (auto) 5.4 %; Neutrophils # (auto) 10.63 K/uL (1.4-6.5); Neutrophils % (auto) 84.4 %; Platelet Count 416 K/uL (130-400); RDW Coefficient of Variation 15.2 % (11.5-14.5); RDW Standard Deviation 54.3 fL (36.4-46.3); Red Blood Count 3.49 M/uL (4.7-6.1)
--- NOTE | 2021-07-06 04:08 | Urology Consultation ---
Date of Consultation July 06, 2021 Assessment & Plan (1) Hematuria: I suspect that the patient's hematuria has resulted in blood clots in his bladder causing a bladder outlet obstruction resulting in his reported suprapubic discomfort. While in the emergency department I did place a three- way 24 [place] Wheeler catheter and attempted to manually irrigate the Wheeler catheter was unsuccessful. Due to this fact I feel the patient would benefit from a cystoscopy with clot evacuation and possible fulguration of his bladder. Labs including a CBC and a chemistry profile have been sent and are pending we will follow for results of these A Covid test has been sent and is pending we will follow for the results of this. I discussed the above with Dr. Butler who is in route to perform the cystoscopy. The patient was admitted on the hospitalist service with further recommendations to follow. Attending Note: Agree with above. Independently evaluated, assessed, examined, and interviewed. Has had issues with bleeding. Stent placed approx 1 month ago for CAD. Not resolving with catheter. Patient adamantly refusing bedside manual irrigation. Risks and benefits discussed at length for procedure. These include bleeding, infection, injury to surrounding tissues or organs, and risks associated with anesthesia. Patient states understanding and agrees to proceed. Will sign consent and proceed. Plan for cystoscopy with clot evacuation and possible resection/fulguration. History of Present Illness Reason for Consultation: Hematuria History of Present Illness This is a 70-year-old male who presented [facility] secondary to gross hematuria. Patient underwent a transurethral resection of bladder tumor by Dr. Ferreira on 06/25/2021. The patient did stay overnight in the hospital for continuous bladder irrigation but was able to be discharged home the following day. Patient notes he was initially doing well. Due to his hematuria he was scheduled for hyperbaric oxygen treatment. Earlier today the patient noted that he felt the urge to urinate but could not empty his bladder. He came into the emergency department where the patient had a bladder scan and there was hypoechogenic material noted consistent with blood clot. Multiple attempts were made to place Wheeler catheters of varying size with irrigation however this was unsuccessful. Because of this urology was contacted and plans were made to admit the patient to the hospital. At the time of my interview the patient labs were all pending. This includes a Covid test. At the time of my interview the patient was uncomfortable and felt significant pressure in the suprapubic/bladder area. Allergies Allergy/AdvReac Type Severity Reaction Status Date / Time No Known Allergies Allergy Verified 07/05/21 07:53 Home Medications Medication Instructions Recorded Confirmed Type atorvastatin 80 mg tablet 80 mg PO HS 05/26/21 07/06/21 History metoprolol tartrate 25 mg tablet 12.5 mg PO BID 30 Days #30 tab 05/29/21 07/06/21 Rx oxybutynin chloride 5 mg tablet 5 mg PO DAILY PRN #30 tab 05/29/21 07/06/21 Rx aspirin 81 mg tablet,delayed 81 mg PO QAM 06/02/21 07/06/21 History release tamsulosin 0.4 mg capsule 0.4 mg PO QAM #30 cap 06/06/21 07/06/21 Rx metformin 500 mg tablet,extended 500 mg PO BID 06/10/21 07/06/21 History release 24 hr lisinopril 5 mg tablet 5 mg PO DAILY 06/24/21 07/06/21 History clopidogrel 75 mg tablet 75 mg PO DAILY 06/25/21 07/06/21 History oxymetazoline 0.05 % nasal spray 2 spray INTRANASAL Q12H PRN 06/29/21 07/06/21 History (Afrin (oxymetazoline)) ciprofloxacin HCl 500 mg tablet 500 mg PO BID 07/06/21 07/06/21 History hydrochlorothiazide 25 mg tablet 25 mg PO DAILY 07/06/21 07/06/21 History Patient History Medical History (Updated 07/06/21 @ 05:07 by Eliezer Sandoval MD) Abdominal aortic aneurysm (AAA) 3.0 cm to 5.5 cm in diameter in male Abnormal ECG Acute Lyme disease CAD (coronary artery disease) Chronic pancreatitis Gross hematuria HLD (hyperlipidemia) Hypertension NSTEMI (non-ST elevated myocardial infarction) Peripheral arterial disease Pre-diabetes Slurred speech Stroke-like symptoms Tobacco abuse Surgical History History of heart artery stent Social History Smoking Status: Never smoker Tobacco Type: Cigars Second Hand Exposure: No; Hx Alcohol Use: Yes Alcohol type: wine Hx Substance Use: No Preferred Language: Sudanese Communication Ability: Effective Electronic Die Maker Required: No Beliefs That Will Affect Care: None marital status: Current Living Situation: Spouse Feels Safe at Home: Yes Assistive Devices: None Review of Systems Constitutional: no fever and no chills Eyes: no diplopia Ear, Nose, Mouth, Throat: no ear pain Respiratory: no cough and no dyspnea Cardiovascular: no chest pain Gastrointestinal: no nausea and no vomiting Genitourinary: + as per Subjective / HPI and + hematuria Musculoskeletal: no back pain Integumentary: no rash Neurologic: no localized weakness Physical Exam Constitutional: well developed and well nourished; no acute distress Eyes: no conjunctival abnormality Wears glasses ENMT: Ears: no hearing impairment Mouth: no oropharynx abnormality Neck: trachea midline Respiratory: normal respiratory effort; no respiratory distress and no labored breathing Cardiovascular: Rate/Rhythm: regular rate and regular rhythm Gastrointestinal (Abdomen): Patient has tenderness to palpation in the suprapubic region Musculoskeletal: No calf tenderness Skin: no rashes Neurologic: moves all extremities Psychiatric: A+Ox3, euthymic affect Results & Data ([facility]) Vital Signs (Past 12 Hours) Vital Signs Temp Pulse Resp BP Pulse Ox 07/05/21 20:36 36.8 C 106 H 20 109/83 97 PG Care Time/CCT Total # of Minutes Spent Total Time Spent with Patient: Total time spent is greater than 50% in coordination of care (as documented) at patient's floor/unit and/or counseling patient: Coding Level of Care Code 31129 Inpt Consult Level 5 Diagnoses Hematuria R31.9
[2021-07-06 04:20] LABS: Albumin Globulin Ratio 0.7 (0.9-2); Albumin Level 2.8 gm/dl (3.4-5.0); BUN Creatinine Ratio 16.9 (10-20); Bilirubin,Total 0.3 mg/dl (0.2-1); Calcium 9.3 mg/dl (8.5-10.1); Creatinine Clr Calc Pharmacy 75.8 ml/min; Est GFR (African American) 104.1 ml/min; Est GFR (Non-African American) 89.8 ml/min; Globulin 4.1 gm/dl (2.5-4.0); Potassium 3.9 mmol/L (3.5-5.1); Total Protein 6.9 gm/dl (6.4-8.2)
--- NOTE | 2021-07-06 04:22 | History & Physical Report ---
Date of Service July 06, 2021 Assessment & Plan (1) Acute urinary retention: Plan: Recurrent acute urinary retention/bladder clots/bladder pain/radiation cystitis- Will be taken to the OR by Dr. Butler emergently Previously has had bleeding vessels cauterized on 06/10 and 06/25 Ceftriaxone 1 g IV daily Will likely be placed on CBI, which we left him to urology, post procedure Hold off on IV fluids at this time Zofran 4 mg IV every 6 hours as needed Dilaudid 0.25 mg IV q. 3 hours as needed Increase tamsulosin from 0.4 to 0.8 mg, and change from morning to at bedtime (2) Bladder pain: Plan: See above (3) Acute radiation cystitis: Plan: Presently undergoing hyperbaric oxygen therapy at [facility] (4) CAD (coronary artery disease): Plan: CAD/LAD SANTIAGO stent/PAD/hypertension- Continue aspirin and clopidogrel Hold lisinopril and HCTZ Continue metoprolol titrate with hold parameters Admit to medical telemetry bed (5) Peripheral arterial disease: Plan: See above (6) Hypertension: Plan: Hold lisinopril. Continue metoprolol tartrate with hold parameters (7) Type 2 diabetes mellitus: Plan: Hold Metformin Placed on Accu-Cheks before meals and at bedtime with NovoLog coverage per scale Patient will be n.p.o. until after urologic procedure (8) History of heart artery stent: Plan: See above (9) Tobacco abuse: Plan: DuoNebs every 2 hours as needed (10) HLD (hyperlipidemia): Plan: Continue atorvastatin History of Present Illness Chief Complaint: The patient presents to the emergency department with complaint of recurrence of gross hematuria, urinary urgency, and difficulty emptying his bladder began about 5 hours prior to arrival Primary Care Provider: Jeremy Kaiser DO The patient is a 70-year-old male with a past medical history including radiation cystitis, acute urinary retention, lung nodules, late effect of radiation, hypertension, arterial disease, prediabetes, tobacco abuse, NSTEMI, blocked urinary catheter, diabetes mellitus type 2, CAD, acute blood loss anemia and severe protein calorie malnutrition. Most recent [facility] admissions: 06/10-06/11, 06/25--06/26, for episodes of gross hematuria. On June 10 he was taken to the OR by Dr. Morrison, and had a cystoscopy, clot evacuation fulguration done and cautery due to active bleeding areas. On June 25 he was taken to the OR by Dr. Ferreira, and had cauterization of an active bleeding vessel on the left-hand side of the bladder neck, and several other small oozing veins on the left-hand side. The patient then had a 22 [place] three-way Wheeler catheter inserted and slow CBI was initiated. Urology has been consulted, and Dr. Butler will be taking the patient to the OR emergently due to recurrence of gross hematuria and urinary retention. Of note, the patient underwent an LAD SANTIAGO stent placement on 05/28/2021, and needs to remain on aspirin and clopidogrel for 1 year, both of which have been continued during previous admissions, and will this admission as well Allergies Allergy/AdvReac Type Severity Reaction Status Date / Time No Known Allergies Allergy Verified 07/05/21 07:53 Home Medications Medication Instructions Recorded Confirmed Type atorvastatin 80 mg tablet 80 mg PO HS 05/26/21 07/06/21 History metoprolol tartrate 25 mg tablet 12.5 mg PO BID 30 Days #30 tab 05/29/21 07/06/21 Rx oxybutynin chloride 5 mg tablet 5 mg PO DAILY PRN #30 tab 05/29/21 07/06/21 Rx aspirin 81 mg tablet,delayed 81 mg PO QAM 06/02/21 07/06/21 History release tamsulosin 0.4 mg capsule 0.4 mg PO QAM #30 cap 06/06/21 07/06/21 Rx metformin 500 mg tablet,extended 500 mg PO BID 06/10/21 07/06/21 History release 24 hr lisinopril 5 mg tablet 5 mg PO DAILY 06/24/21 07/06/21 History clopidogrel 75 mg tablet 75 mg PO DAILY 06/25/21 07/06/21 History oxymetazoline 0.05 % nasal spray 2 spray INTRANASAL Q12H PRN 06/29/21 07/06/21 History (Afrin (oxymetazoline)) ciprofloxacin HCl 500 mg tablet 500 mg PO BID 07/06/21 07/06/21 History hydrochlorothiazide 25 mg tablet 25 mg PO DAILY 07/06/21 07/06/21 History Past Med/Surg History Medical History (Updated 07/06/21 @ 05:07 by Eliezer Sandoval MD) Abdominal aortic aneurysm (AAA) 3.0 cm to 5.5 cm in diameter in male Abnormal ECG Acute Lyme disease CAD (coronary artery disease) Chronic pancreatitis Gross hematuria HLD (hyperlipidemia) Hypertension NSTEMI (non-ST elevated myocardial infarction) Peripheral arterial disease Pre-diabetes Slurred speech Stroke-like symptoms Tobacco abuse Surgical History History of heart artery stent Social History Smoking Status: Never smoker Tobacco Type: Cigars Second Hand Exposure: No; Hx Alcohol Use: Yes Alcohol type: wine Hx Substance Use: No Preferred Language: Frisian Communication Ability: Effective Welt Sewer Required: No Beliefs That Will Affect Care: None marital status: Current Living Situation: Spouse Feels Safe at Home: Yes Assistive Devices: None Review of Systems Review of Systems: The patient denies chest pain, palpitations, shortness of breath, dyspnea on exertion, cough, lower extremity swelling, sore throat, fevers, chills, sweats, weight change, fatigue, nausea, vomiting, diarrhea , constipation, blood in stool, lightheadedness, dizziness, headache, memory loss, loss of consciousness, rash, imbalance, focal or generalized weakness, numbness or tingling in arms or legs, generalized arthralgias or myalgias, back or neck pain, or night sweats. The review of systems is otherwise negative other than for that already noted above, and at least 10 systems have been reviewed. Physical Exam Physical Exam: The patient is awake, alert and oriented 3, well developed and well nourished, normocephalic and atraumatic, lying in bed and in no acute distress. HEENT--PERRL, EOMI, mucous membranes and oropharynx normal. Neck--supple. No JVD. No bruits. Thyroid normal, trachea midline, no adenopathy. Heart--normal S1 and S2. No murmurs, rubs or gallops. Lungs--clear bilaterally, no respiratory distress, no accessory muscle use. Abdomen--normal bowel sounds and soft. Tender and distended urinary bladder. Extremities--no cyanosis or clubbing. No edema. Dermatologic--normal skin turgor, normal color, no abnormal lymph nodes, no rash. Neurologic--cranial nerves II through XII grossly intact. Rheumatologic--normal range of motion. Psychiatric--normal affect. Results & Data Results & Data ([facility]) Vital Signs (Past 12 Hours) Vital Signs Temp Pulse Resp BP Pulse Ox 07/05/21 20:36 36.8 C 106 H 20 109/83 97 Laboratory Results Laboratory Results WBC 12.60 K/uL (4.8-10.8) H 07/06/21 03:40 RBC 3.49 M/uL (4.7-6.1) L 07/06/21 03:40 Hgb 11.2 g/dL (14.0-18.0) L 07/06/21 03:40 Hct 34.5 % (42-52) L 07/06/21 03:40 MCV 98.9 fL (80-100) 07/06/21 03:40 MCH 32.1 pg (25-34) 07/06/21 03:40 MCHC 32.5 g/dL (32-36) 07/06/21 03:40 RDW Std Deviation 54.3 fL (36.4-46.3) H 07/06/21 03:40 RDW Coeff of Matt 15.2 % (11.5-14.5) H 07/06/21 03:40 Plt Count 416 K/uL (130-400) H 07/06/21 03:40 MPV 10.2 fL (7.4-10.4) 07/06/21 03:40 Immature Gran % (Auto) 0.2 % 07/06/21 03:40 Neut % (Auto) 84.4 % 07/06/21 03:40 Lymph % (Auto) 9.6 % 07/06/21 03:40 [place] % (Auto) 5.4 % 07/06/21 03:40 Eos % (Auto) 0.3 % 07/06/21 03:40 Baso % (Auto) 0.1 % 07/06/21 03:40 Neut # (Auto) 10.63 K/uL (1.4-6.5) H 07/06/21 03:40 Lymph # (Auto) 1.21 K/uL (1.2-3.4) 07/06/21 03:40 [place] # (Auto) 0.68 K/uL (0.11-0.59) H 07/06/21 03:40 Eos # (Auto) 0.04 K/uL (0-0.5) 07/06/21 03:40 Baso # (Auto) 0.01 K/uL (0-0.2) 07/06/21 03:40 Immature Gran # (Auto) 0.03 K/uL (0.00-0.02) H 07/06/21 03:40 Sodium 141 mmol/L (136-145) 07/06/21 03:40 Potassium 3.9 mmol/L (3.5-5.1) 07/06/21 03:40 Chloride 113 mmol/L (98-107) H 07/06/21 03:40 Carbon Dioxide 23 mmol/L (21-32) 07/06/21 03:40 Anion Gap 5.0 (3-11) 07/06/21 03:40 BUN 14 mg/dl (7-18) 07/06/21 03:40 Creatinine 0.83 mg/dl (0.6-1.4) 07/06/21 03:40 Est Cr Clr Drug Dosing 75.8 ml/min 07/06/21 03:40 Est GFR ( Amer) 104.1 ml/min 07/06/21 03:40 Est GFR (Non-Af Amer) 89.8 ml/min 07/06/21 03:40 BUN/Creatinine Ratio 16.9 (10-20) 07/06/21 03:40 Glucose 171 mg/dl (70-99) H 07/06/21 03:40 Calcium 9.3 mg/dl (8.5-10.1) 07/06/21 03:40 Total Bilirubin 0.3 mg/dl (0.2-1) 07/06/21 03:40 AST 30 U/L (15-37) 07/06/21 03:40 ALT 25 U/L (12-78) 07/06/21 03:40 Alkaline Phosphatase 94 U/L (45-117) 07/06/21 03:40 Total Protein 6.9 gm/dl (6.4-8.2) 07/06/21 03:40 Albumin 2.8 gm/dl (3.4-5.0) L 07/06/21 03:40 Globulin 4.1 gm/dl (2.5-4.0) H 07/06/21 03:40 Albumin/Globulin Ratio 0.7 (0.9-2) L 07/06/21 03:40 Specimen Hemolysis 07/06/21 03:40 Urine Color Red 07/06/21 00:30 Urine Appearance Cloudy (Clear) A 07/06/21 00:30 Urine pH 7.0 (4.5-7.5) 07/06/21 00:30 Ur Specific [place] >= 1.030 (1.000-1.030) 07/06/21 00:30 Urine Protein 3+ (Negative) H 07/06/21 00:30 Urine Glucose (UA) Trace (Negative) H 07/06/21 00:30 Urine Ketones Negative (Negative) 07/06/21 00:30 Urine Blood 3+ (Negative) H 07/06/21 00:30 Urine Nitrite Negative (Negative) 07/06/21 00:30 Urine Bilirubin Negative (Negative) 07/06/21 00:30 Urine Urobilinogen Negative (Negative) 07/06/21 00:30 Ur Leukocyte Esterase Negative (Negative) 07/06/21 00:30 Urine RBC >30 /hpf (0-4) H 07/06/21 00:30 Urine WBC 10-30 /hpf (0-5) H 07/06/21 00:30 Ur Epithelial Cells 0-5 /lpf (0-5) 07/06/21 00:30 Urine Bacteria Negative (Negative) 07/06/21 00:30 SARS-CoV-2, RNA, NAAT NEGATIVE (NEGATIVE) 07/06/21 03:40 Code Status & VTE Plan Code Status Full code VTE Prophylaxis Plan VTE Prophylaxis will be ordered: Yes PG Care Time/CCT Total # of Minutes Spent Total Time Spent with Patient: Total time spent is greater than 50% in coordination of care (as documented) at patient's floor/unit and/or counseling patient: Coding Level of Care Code INT OBSERVATION CARE 70M LVL 3 Diagnoses Acute urinary retention R33.8 Bladder pain R39.89 Acute radiation cystitis N30.40 Hypertension I10 Peripheral arterial disease I73.9 CAD (coronary artery disease) I25.10 Coronary Disease-Associated Artery/Lesion type: [place] artery [place] vs. transplanted heart: [place] heart Associated angina: without angina Type 2 diabetes mellitus E11.9 History of heart artery stent Z95.5 Tobacco abuse Z72.0 HLD (hyperlipidemia) E78.5 (1) CAD (coronary artery disease) Coronary Disease-Associated Artery/Lesion type: [place] artery [place] vs. transplanted heart: [place] heart Associated angina: without angina Qualified Code(s): I25.10 - Atherosclerotic heart disease of [place] coronary artery without angina pectoris
[2021-07-06] MEDS ORDERED: ALBUT/IPRATROP 3MG/0.5MG NEB 3 ML VIAL NEB PRN (05:07)
--- NOTE | 2021-07-06 05:25 | Anesthesiology Consultation ---
Date of Service July 06, 2021 Assessment & Plan Chart Review Chart Review: Acceptable Risk for Surgery and Patient NOT seen in Pre Admission Testing Consults Requested none ASA [id number] Proposed Anesthesia Anesthesia Type: General Risk / Benefits Reviewed With: PT / POA / Parent / Guardian, Accepts Plan and Informed Consent Obtained Additional Comments: covid test neg. History Surgery Operation Date: 07/06/21 04:35 Proposed Procedures p Cystoscopy possible fulguration - Luis Butler, DO Height/Weight Height: 5 ft 6 in Weight: 65.9 kg Allergies Allergy/AdvReac Type Severity Reaction Status Date / Time No Known Allergies Allergy Verified 07/05/21 07:53 Medications Home Medications Medication Instructions Recorded Confirmed Last Taken atorvastatin 80 mg tablet 80 mg PO HS 05/26/21 07/06/21 06/24/21 metoprolol tartrate 25 mg tablet 12.5 mg PO BID 30 Days #30 tab 05/29/21 1 09/05/20 06/25/21 08:00 oxybutynin chloride 5 mg tablet 5 mg PO DAILY PRN #30 tab 05/29/21 07/06/21 05/30/21 aspirin 81 mg tablet,delayed 81 mg PO QAM 06/02/21 07/06/21 06/25/21 release tamsulosin 0.4 mg capsule 0.4 mg PO QAM #30 cap 06/06/21 07/06/21 06/25/21 metformin 500 mg tablet,extended 500 mg PO BID 06/10/21 07/06/21 06/24/21 release 24 hr lisinopril 5 mg tablet 5 mg PO DAILY 06/24/21 07/06/21 06/25/21 clopidogrel 75 mg tablet 75 mg PO DAILY 06/25/21 07/06/21 06/25/21 oxymetazoline 0.05 % nasal spray 2 spray INTRANASAL Q12H PRN 06/29/21 07/06/21 Unknown (Afrin (oxymetazoline)) ciprofloxacin HCl 500 mg tablet 500 mg PO BID 07/06/21 07/06/21 07/05/21 06:00 hydrochlorothiazide 25 mg tablet 25 mg PO DAILY 07/06/21 07/06/21 Unknown NPO Date Last Intake of Fluids: 07/05/21 Time Last Intake of Fluids: 18:00 Date Last Intake of Solids: 07/05/21 Time Last Intake of Solids: 18:00 Past Medical History Medical History Abdominal aortic aneurysm (AAA) 3.0 cm to 5.5 cm in diameter in male Abnormal ECG Acute Lyme disease CAD (coronary artery disease) Chronic pancreatitis Gross hematuria HLD (hyperlipidemia) Hypertension NSTEMI (non-ST elevated myocardial infarction) Peripheral arterial disease Pre-diabetes Slurred speech Stroke-like symptoms Tobacco abuse Exercise / Class Metabolic Activity III < 4 Walking/Shop/Light housework Past Surgical History Surgical History History of heart artery stent Past Anesthesia History No Hx of Anesthesia Complications and No Family Hx of Anesthesia Complications History of PONV No Hx of PONV and No Hx of Motion Sickness Social History Smoking Status: Never smoker tobacco type: cigars Hx Alcohol Use: Yes Alcohol type: wine alcohol intake frequency: 0-2 drinks per day Hx Substance Use: No substance use type: does not use Physical Exam Vital Signs Last Vital Signs Temp 36.8 C 07/05/21 20:36 Pulse 106 H 07/05/21 20:36 Resp 20 07/05/21 20:36 BP 109/83 07/05/21 20:36 Pulse Ox 97 07/05/21 20:36 Constitutional not obese ENMT Mouth: no dentition abnormality Thyromental Distance: > or= 3.5 Finger Breadths Mallampati Class: II Neck normal visual inspection, trachea midline and + facial hair; neck extension not limited Respiratory normal respiratory effort Auscultation: lungs clear to auscultation bilaterally Cardiovascular Rate/Rhythm: regular rate and regular rhythm Heart Sounds: no murmur Vessels: no carotid bruit Musculoskeletal Spine: normal cervical ROM Neurologic moves all extremities Motor/Sensory: no sensory deficit Psychiatric Orientation: alert and oriented x 3 Testing Laboratory Results 07/06/21 03:40 07/06/21 03:40 Urine Color Red 07/06/21 00:30 Urine Appearance Cloudy (Clear) A 07/06/21 00:30 Urine pH 7.0 (4.5-7.5) 07/06/21 00:30 Ur Specific [place] >= 1.030 (1.000-1.030) 07/06/21 00:30 Urine Protein 3+ (Negative) H 07/06/21 00:30 Urine Glucose (UA) Trace (Negative) H 07/06/21 00:30 Urine Ketones Negative (Negative) 07/06/21 00:30 Urine Nitrite Negative (Negative) 07/06/21 00:30 Ur Leukocyte Esterase Negative (Negative) 07/06/21 00:30 Urine RBC >30 /hpf (0-4) H 07/06/21 00:30 Urine WBC 10-30 /hpf (0-5) H 07/06/21 00:30 Ur Epithelial Cells 0-5 /lpf (0-5) 07/06/21 00:30
[2021-07-06] MEDS ORDERED: fentaNYL citrate 100 MCG/2 ML VIAL ONE (05:29)
[2021-07-06] MEDS ORDERED: PROPOFOL IV EMULSION 10 MG/ML 20 ML VIAL IV ONE (05:29)
[2021-07-06] MEDS ORDERED: MIDAZOLAM HCL 1 MG/ML 2ML VIAL ONE (05:30)
[2021-07-06] MEDS ORDERED: METOPROLOL TARTRATE 1 MG/ML VIAL IV ONE (05:56)
[2021-07-06] MEDS ORDERED: PHENYLEPHRINE 100MCG/ML 5ML SYR ONE (06:35)
[2021-07-06] MEDS ORDERED: ATROPINE SULFATE 0.1 MG/ML 10ML SYR IV PRN (07:00)
[2021-07-06] MEDS ORDERED: ePHEDrine sulfate 50 MG/ML AMP IV PRN (07:00)
[2021-07-06] MEDS ORDERED: fentaNYL citrate 100 MCG/2 ML VIAL IV PRN (07:00)
[2021-07-06] MEDS ORDERED: FLUMAZENIL 0.1 MG/1 ML 10 ML VIAL IV PRN (07:00)
[2021-07-06] MEDS ORDERED: ONDANSETRON INJ 2 MG/ML 2 ML VIAL IV PRN ×2 (07:00→08:18)
[2021-07-06] MEDS ORDERED: PROMETHAZINE HCL 12.5 MG in SODIUM CHLORIDE 0.9% 50 ML IV PRN (07:00)
[2021-07-06] MEDS ORDERED: LABETALOL HCL IV 5 MG/ML 20ML IV PRN (07:00)
[2021-07-06] MEDS ORDERED: NALOXONE HCL 0.4 MG/1 ML VIAL/CARP IV PRN (07:00)
--- NOTE | 2021-07-06 07:05 | Operative Report ---
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 Numerous areas of slowly bleeding tears of bladder mucosa likely from over distension. Severe edema with large varicosity throughout the base and trigone of bladder. Active bleeding from prostatic varicosity and bladder neck. Necrotic tissue at bladder neck Specimens None Drains [address] Anesthesia Type General Complications none Disposition Disposition: Recovery Room Indications Patient with gross hematuria, clot retention, failed bedside catheter, and history of major bleed with intervention approx 2 weeks ago. Patient had recent cardiac stents and dealing with bleeding since. Risks and benefits discussed at length. Description of Procedure Patient was consented and brought back to the operating room. Patient was placed under anesthesia in the supine position and moved to the dorsal lithotomy position. Patient was prepped and draped in the regular sterile fashion. A time out was completed. A 30degree Cystoscope was placed into the bladder and the entire bladder was examined. A large false passage was discovered in the distal prostatic urethra with active bleeding. This was approx 1 cm away from the sphincter and near the veru. The bladder neck had significant debris and the entire bladder was filled with a massive amount of clot material. The bladder was irrigated multiple times and all blood/clot was able to be cleared. This drastically helped visualization. The UO's were identified as well as the bladder neck, trigone, dome, and the other important landmarks. The lesions and areas of concern were identified and area/size was assessed. The trigone and base of bladder had severe edema with very large bleeding varicose veins throughout. The posterior wall as well as the right and left lateral wall had multiple areas of mucosal tears with active bleeding. Both UO had marked surrounding edema. A large amount of necrotic and fibrinous material was within the bladder neck and proximal prostate. The resection scope with the fine bipolar loop was selected. The material at the bladder neck was resected and all bleeding from the bladder neck was controlled. This appeared to be one of the more significant areas of bleeding especially anterior. Mobilization was markedly improved with removal of this material. Larger bleeding varicose veins were fulgurated. The large bleeding varicosities in the trigone going to the bladder neck base were fulgurated. The many areas of mucosal tears were fulgurated and all bleeding controlled. The bladder neck resection bed and edges of the resection were fulgurated and the entire area inspected. All bleeding was controlled. The bladder was inspected a final time. Drastic improvement was noted. No significant active bleeding was noted. Severe irritation was noted throughout the bladder with a significant amount in the base and trigone. The bladder was emptied, flushed, and inspected to assess any significant change or bleeding. The scope was removed. A [address] catheter was placed. Irrigation was engaged and clear solution was able to be aspirated without issues. The color stayed consistently clear with the CBI. The patient was cleaned, aroused from anesthesia, and transferred to the pacu in stable condition having tolerated the procedure well with no complications. I was present and participated in all aspects of the procedure. The patient will be monitored in the PACU until transferred. Patient admitted to medicine. Likely monitor. Will need catheter for approx 7 - 10 days due to false passage/blas trauma. May consider downsizing if issues. Continue CBI. I attest to the content of the Intraoperative Record and any orders documented therein. Any exceptions are noted below.
--- NOTE | 2021-07-06 07:39 | Anesthesiology Progress Note ---
Date of Service July 06, 2021 Anesthesia Post Procedure Vital Signs Vital Signs: Temp Pulse Pulse Resp BP BP Pulse Ox 07/06/21 07:35 72 18 146/81 H 99 07/06/21 07:25 81 18 162/93 H 100 07/06/21 07:15 86 23 149/74 H 100 07/06/21 07:06 97.2 F L 90 23 144/43 H 97 07/06/21 05:00 80 18 115/80 97 07/05/21 20:36 98.2 F 106 H 20 109/83 97 Transfer of Care Handoff Completed per policy Notes Mental Status: alert / awake / arousable and participated in evaluation Patient Amnestic to Procedure: Yes Nausea / Vomiting: adequately controlled Pain: adequately controlled Airway Patency, RR, SpO2: stable & adequate BP & HR: stable & adequate Hydration State: stable & adequate Anesthetic Complications: no major complications apparent and Pt Satisfied with anesthetic care
[2021-07-06] MEDS ORDERED: cefTRIAXone SODIUM 1,000 MG in DEXTROSE 5% 50 ML IV SCH (08:18)
[2021-07-06] MEDS ORDERED: ACETAMINOPHEN 325 MG TAB PO PRN (08:18)
[2021-07-06] MEDS ORDERED: GLUCAGON FOR INJ 1 MG VIAL SQ PRN (08:18)
[2021-07-06] MEDS ORDERED: GLUCOSE 10 TABS/TUBE PO PRN (08:18)
[2021-07-06] MEDS ORDERED: DEXTROSE 50% 50 ML SYRINGE IV PRN (08:18)
[2021-07-06] MEDS ORDERED: GLUCOSE 40% GEL 15 GM TUBE PO PRN (08:18)
[2021-07-06] MEDS ORDERED: CARBOHYDRATES FOR HYPOGLYCEMIA PO PRN (08:18)
[2021-07-06] MEDS: ASPIRIN 81 MG ECTAB PO SCH (09:41)
[2021-07-06] MEDS: METOPROLOL TARTRATE 25 MG TAB PO SCH ×2 (09:42→20:38)
[2021-07-06] MEDS: CLOPIDOGREL BISULFATE 75 MG TAB PO SCH (09:42)
--- NOTE | 2021-07-06 11:49 | History & Physical Bridge Note ---
Date of Service July 06, 2021 History & Physical Bridge Note I have examined the patient, reviewed the History & Physical and in the interval since the performance of the History & Physical I have noted the following changes of clinical significance: Pt returned from OR after fulguration. Stable. Remains as a bed hold in PACU. Ok to advance diet Pt upset about insulin injections-changed Novolog to include NO carb coverage and only correction factor, lowered range to 100-140 for goal continue abx, f/u Ur cx maintain Wheeler APpreciate Urology assistance continue DAPT for recent stent
[2021-07-06] MEDS: INSULIN ASPART 100 UNITS/ML 3 ML PEN SC SCH ×4 (13:11→20:41)
[2021-07-06] MEDS: cefTRIAXone SODIUM 1,000 MG in DEXTROSE 5% 50 ML IV SCH (13:14)
[2021-07-06] MEDS: ATORVASTATIN 40 MG TAB PO SCH (20:38)
[2021-07-06] MEDS: TAMSULOSIN HCL 0.4 MG CAP PO SCH (20:38)
[2021-07-07] MEDS: cefTRIAXone SODIUM 1,000 MG in DEXTROSE 5% 50 ML IV SCH (05:39)
[2021-07-07 05:55] LABS: Basophils # (auto) 0.01 K/uL (0-0.2); Basophils % (auto) 0.1 %; Eosinophils # (auto) 0.09 K/uL (0-0.5); Eosinophils % (auto) 0.8 %; Hematocrit (blood only) 28.4 % (42-52); Immature Granulocytes # (auto) 0.01 K/uL (0.00-0.02); Immature Granulocytes % (auto) 0.1 %; Lymphocytes # (auto) 1.49 K/uL (1.2-3.4); Lymphocytes % (auto) 13.5 %; Mean Corpuscular Hemoglobin 31.3 pg (25-34); Mean Corpuscular Hgb Conc 31.7 g/dL (32-36); Mean Corpuscular Volume 98.6 fL (80-100); Mean Platelet Volume 10.4 fL (7.4-10.4); Monocytes # (auto) 0.83 K/uL (0.11-0.59); Monocytes % (auto) 7.5 %; Neutrophils # (auto) 8.64 K/uL (1.4-6.5); Platelet Count 349 K/uL (130-400); RDW Coefficient of Variation 15.3 % (11.5-14.5); Red Blood Count 2.88 M/uL (4.7-6.1); White Blood Count 11.07 K/uL (4.8-10.8)
[2021-07-07 06:22] LABS: Albumin Level 2.2 gm/dl (3.4-5.0); BUN Creatinine Ratio 17.3 (10-20); Calcium 8.9 mg/dl (8.5-10.1); Creatinine Clr Calc Pharmacy 101.5 ml/min; Est GFR (African American) 117.3 ml/min; Est GFR (Non-African American) 101.2 ml/min; Potassium 3.4 mmol/L (3.5-5.1)
[2021-07-07 06:24] LABS: Albumin Globulin Ratio 0.6 (0.9-2); Bilirubin,Total 0.4 mg/dl (0.2-1); Globulin 3.7 gm/dl (2.5-4.0); Total Protein 5.9 gm/dl (6.4-8.2)
[2021-07-07] MEDS ORDERED: POTASSIUM CHLORIDE CRTAB 20 MEQ TABCR PO STA (07:58)
--- NOTE | 2021-07-07 07:59 | Hospitalist Progress Note ---
Date of Service July 07, 2021 Assessment & Plan (1) Hematuria: Plan: Recurrent acute urinary retention/bladder clots/bladder pain/radiation cystitis- recent hospitalization for similar on 06/[address] Morrison for clot evacuation and 06/[address] Butler for fulguration of bleeding vessels. On ASA/Plavix for recent NSTEMI May [address] Sarah Garcia Urology consulted s/p OR with Dr Butler emergently on 07/06 for fulguration of multiple bleeding varicosities CBI continued Continues on Ceftriaxone 1gm IV daily Urine cx pending Continue supportive care, antiemetics/pain control prn Continue flomax 0.8mg continue to monitor 12:30pm 07/07 --> now with clogged blas possibly, CBI being clamped. OFFICE AUTOMATION CLERK to reassess this afternoon Contacting cardiology regarding feasibility for switching to heparin if needing to tx for neph tubes given continued need for OR/anesthesia with recent MA and wanting to avoid taking back to OR unless needing urgently Dr Barrett evaluation analyst this evening and can take to OR this evening after clinic if needed --> Cardiology consult pending however patient only ~5wks from SANTIAGO to LAD (80% occlusion) and high risk for stent occluding, especially not at even 3 month gayle. Would avoid stopping these agents but will await official recommendations after chart reviewed and patient seen by them Continue to monitor (2) Anemia: Plan: Anemia hgb 11.2--> 9 2nd to acute blood loss from continued bleeding, however iron studies show acute on chronic (low TIBC, transferrin), however prior iron studies low and repeated. Iron 21, trans sat 8% Venofer x 1, repeat again in AM. Also will add B12/folate to AM labs given MCV 98.6 CBC in AM (3) Acute urinary retention: Plan: again with possible clogged blas see above may need tx for nephro tubes per urology OFFICE AUTOMATION CLERK. cards as above given recent stent and need for DAPT (4) Bladder pain: Plan: See above (5) Acute radiation cystitis: Plan: Presently undergoing hyperbaric oxygen therapy at [facility] (6) CAD (coronary artery disease): Plan: CAD/LAD SANTIAGO stent/PAD/hypertension- recent 80% proximal LAD treated with SANTIAGO -[address] Sarah Garcia Continued ASA 81mg, plavix 75mg Continue atorvastatin 80mg, metoprolol 12.5mg BID, lisinopril 5mg Hold lisinopril and HCTZ for now Continue metoprolol titrate with hold parameters SR on tele, no CP/SOB reported (7) Peripheral arterial disease: Plan: See above (8) Hypertension: Plan: Hold lisinopril. Continue metoprolol tartrate with hold parameters (9) Type 2 diabetes mellitus: Plan: Hold Metformin Placed on Accu-Cheks before meals and at bedtime with NovoLog coverage per scale BSGs acceptable (10) History of heart artery stent: Plan: See above (11) Tobacco abuse: Plan: DuoNebs every 2 hours as needed (12) HLD (hyperlipidemia): Plan: Continue atorvastatin (13) Abdominal aortic aneurysm (AAA) 3.0 cm to 5.5 cm in diameter in male: Plan: infrarenal abdominal aortic aneurysm measuring up to 54 mm in diameter- Patient states he follows this up with [place] through [facility] [place] every 6 months with ultrasound/CT scans - Reports discrepancy between our records- notes that his physician's interpretation is 4.3cm however our recent imaging notes 5.4cm - Continue BB, Lipid lowering medications, continue to follow up with outside team --> recommended that he have close follow up/surveillance given high chance of rupture. (14) Hypokalemia: Plan: 3.4-- replacement ordered Mag wnl continue to monitor Plan: continued inpatient stay continue IVF abx Urology to revisit this afternoon, possible need to take back to OR vs tx Cardiology on consult for concerns for need to tx and Heparin gtt will continue to follow along Admission and Anticipated Discharge Date Admission Date: July 06, 2021 Subjective patient evaluated around lunch time. had been doing well up until now, with recently clogged blas. cbi running low, not with increased suprapubic discomfort just finished lunch, passing gas but no BM no other complaints of fever, chills, chest pain, shortness of breath, nausea, vomiting at this time. Physical Exam Physical Exam: WD, WN, sitting up in bed, no acute distress, but recently with inability to drain blas and having increased suprapubic discomfort, not toxic appearing ENT: mmm, trachea midline without deviation Resp: CTAB, no w/c/r, on room air CV: RRR, no m/r/g, no calf edema, pulses but palpable GI: +BS, soft, non-tender, +abd bruit, no guarding or rigidity : blas with rivera red urine with clots noted, not draining much at present time MSK/Neuro: moves all extremities, no focal deficit Psych: AOx3, euthymic but frustrated with continued issues Results & Data Results & Data ([facility]) Vital Signs (Past 12 Hours) Vital Signs Temp Pulse Resp BP Pulse Ox 07/07/21 03:44 92 H 18 127/70 97 07/07/21 02:44 93 H 19 135/72 96 07/07/21 01:44 89 18 136/66 95 07/07/21 00:44 108 H 21 121/78 96 07/06/21 23:44 36.8 C 87 18 118/61 93 07/06/21 22:44 87 14 138/74 96 07/06/21 21:44 87 18 124/80 95 07/06/21 20:44 36.5 C 93 H 17 142/70 H 95 Laboratory Results 07/07/21 07/07/21 07/06/21 Range/Units 05:01 05:01 16:28 WBC 11.07 H (4.8-10.8) K/uL RBC 2.88 L (4.7-6.1) M/uL Hgb 9.0 L (14.0-18.0) g/dL Hct 28.4 L (42-52) % MCV 98.6 (80-100) fL MCH 31.3 (25-34) pg MCHC 31.7 L (32-36) g/dL RDW Std Deviation 54.0 H (36.4-46.3) fL RDW Coeff of Matt 15.3 H (11.5-14.5) % Plt Count 349 (130-400) K/uL MPV 10.4 (7.4-10.4) fL Immature Gran % (Auto) 0.1 % Neut % (Auto) 78.0 % Lymph % (Auto) 13.5 % Haskell % (Auto) 7.5 % Eos % (Auto) 0.8 % Baso % (Auto) 0.1 % Neut # (Auto) 8.64 H (1.4-6.5) K/uL Lymph # (Auto) 1.49 (1.2-3.4) K/uL Haskell # (Auto) 0.83 H (0.11-0.59) K/uL Eos # (Auto) 0.09 (0-0.5) K/uL Baso # (Auto) 0.01 (0-0.2) K/uL Immature Gran # (Auto) 0.01 (0.00-0.02) K/uL Sodium 142 (136-145) mmol/L Potassium 3.4 L (3.5-5.1) mmol/L Chloride 110 H (98-107) mmol/L Carbon Dioxide 29 (21-32) mmol/L Anion Gap 3.0 (3-11) BUN 11 (7-18) mg/dl Creatinine 0.62 (0.6-1.4) mg/dl Est Cr Clr Drug Dosing 101.5 ml/min Est GFR ( Amer) 117.3 ml/min Est GFR (Non-Af Amer) 101.2 ml/min BUN/Creatinine Ratio 17.3 (10-20) Glucose 111 H (70-99) mg/dl POC Glucose 96 (70-99) mg/dl Calcium 8.9 (8.5-10.1) mg/dl Total Bilirubin 0.4 (0.2-1) mg/dl AST 14 L (15-37) U/L ALT 17 (12-78) U/L Alkaline Phosphatase 80 (45-117) U/L Total Protein 5.9 L (6.4-8.2) gm/dl Albumin 2.2 L (3.4-5.0) gm/dl Globulin 3.7 (2.5-4.0) gm/dl Albumin/Globulin Ratio 0.6 L (0.9-2) 07/06/21 Range/Units 08:41 WBC (4.8-10.8) K/uL RBC (4.7-6.1) M/uL Hgb (14.0-18.0) g/dL Hct (42-52) % MCV (80-100) fL MCH (25-34) pg MCHC (32-36) g/dL RDW Std Deviation (36.4-46.3) fL RDW Coeff of Matt (11.5-14.5) % Plt Count (130-400) K/uL MPV (7.4-10.4) fL Immature Gran % (Auto) % Neut % (Auto) % Lymph % (Auto) % Haskell % (Auto) % Eos % (Auto) % Baso % (Auto) % Neut # (Auto) (1.4-6.5) K/uL Lymph # (Auto) (1.2-3.4) K/uL Haskell # (Auto) (0.11-0.59) K/uL Eos # (Auto) (0-0.5) K/uL Baso # (Auto) (0-0.2) K/uL Immature Gran # (Auto) (0.00-0.02) K/uL Sodium (136-145) mmol/L Potassium (3.5-5.1) mmol/L Chloride (98-107) mmol/L Carbon Dioxide (21-32) mmol/L Anion Gap (3-11) BUN (7-18) mg/dl Creatinine (0.6-1.4) mg/dl Est Cr Clr Drug Dosing ml/min Est GFR ( Amer) ml/min Est GFR (Non-Af Amer) ml/min BUN/Creatinine Ratio (10-20) Glucose (70-99) mg/dl POC Glucose 204 H (70-99) mg/dl Calcium (8.5-10.1) mg/dl Total Bilirubin (0.2-1) mg/dl AST (15-37) U/L ALT (12-78) U/L Alkaline Phosphatase (45-117) U/L Total Protein (6.4-8.2) gm/dl Albumin (3.4-5.0) gm/dl Globulin (2.5-4.0) gm/dl Albumin/Globulin Ratio (0.9-2) Diagnostic Findings 07/07/21 07/07/21 07/07/21 Range/Units 05:01 05:01 05:01 WBC 11.07 H (4.8-10.8) K/uL RBC 2.88 L (4.7-6.1) M/uL Hgb 9.0 L (14.0-18.0) g/dL Hct 28.4 L (42-52) % MCV 98.6 (80-100) fL MCH 31.3 (25-34) pg MCHC 31.7 L (32-36) g/dL RDW Std Deviation 54.0 H (36.4-46.3) fL RDW Coeff of Matt 15.3 H (11.5-14.5) % Plt Count 349 (130-400) K/uL MPV 10.4 (7.4-10.4) fL Immature Gran % (Auto) 0.1 % Neut % (Auto) 78.0 % Lymph % (Auto) 13.5 % Haskell % (Auto) 7.5 % Eos % (Auto) 0.8 % Baso % (Auto) 0.1 % Neut # (Auto) 8.64 H (1.4-6.5) K/uL Lymph # (Auto) 1.49 (1.2-3.4) K/uL Haskell # (Auto) 0.83 H (0.11-0.59) K/uL Eos # (Auto) 0.09 (0-0.5) K/uL Baso # (Auto) 0.01 (0-0.2) K/uL Immature Gran # (Auto) 0.01 (0.00-0.02) K/uL Sodium 142 (136-145) mmol/L Potassium 3.4 L (3.5-5.1) mmol/L Chloride 110 H (98-107) mmol/L Carbon Dioxide 29 (21-32) mmol/L Anion Gap 3.0 (3-11) BUN 11 (7-18) mg/dl Creatinine 0.62 (0.6-1.4) mg/dl Est Cr Clr Drug Dosing 101.5 ml/min Est GFR ( Amer) 117.3 ml/min Est GFR (Non-Af Amer) 101.2 ml/min BUN/Creatinine Ratio 17.3 (10-20) Glucose 111 H (70-99) mg/dl POC Glucose (70-99) mg/dl Calcium 8.9 (8.5-10.1) mg/dl Magnesium 1.9 (1.8-2.4) mg/dl Iron 21 L (35-175) mcg/dl TIBC 220 L (250-450) mcg/dl Transferrin 179 L (200-360) mg/dl Transferrin % Sat 8 L (20-50) % Ferritin 80.7 (8-388) ng/ml Total Bilirubin 0.4 (0.2-1) mg/dl AST 14 L (15-37) U/L ALT 17 (12-78) U/L Alkaline Phosphatase 80 (45-117) U/L Total Protein 5.9 L (6.4-8.2) gm/dl Albumin 2.2 L (3.4-5.0) gm/dl Globulin 3.7 (2.5-4.0) gm/dl Albumin/Globulin Ratio 0.6 L (0.9-2) 07/06/21 Range/Units 16:28 WBC (4.8-10.8) K/uL RBC (4.7-6.1) M/uL Hgb (14.0-18.0) g/dL Hct (42-52) % MCV (80-100) fL MCH (25-34) pg MCHC (32-36) g/dL RDW Std Deviation (36.4-46.3) fL RDW Coeff of Matt (11.5-14.5) % Plt Count (130-400) K/uL MPV (7.4-10.4) fL Immature Gran % (Auto) % Neut % (Auto) % Lymph % (Auto) % Haskell % (Auto) % Eos % (Auto) % Baso % (Auto) % Neut # (Auto) (1.4-6.5) K/uL Lymph # (Auto) (1.2-3.4) K/uL Haskell # (Auto) (0.11-0.59) K/uL Eos # (Auto) (0-0.5) K/uL Baso # (Auto) (0-0.2) K/uL Immature Gran # (Auto) (0.00-0.02) K/uL Sodium (136-145) mmol/L Potassium (3.5-5.1) mmol/L Chloride (98-107) mmol/L Carbon Dioxide (21-32) mmol/L Anion Gap (3-11) BUN (7-18) mg/dl Creatinine (0.6-1.4) mg/dl Est Cr Clr Drug Dosing ml/min Est GFR ( Amer) ml/min Est GFR (Non-Af Amer) ml/min BUN/Creatinine Ratio (10-20) Glucose (70-99) mg/dl POC Glucose 96 (70-99) mg/dl Calcium (8.5-10.1) mg/dl Magnesium (1.8-2.4) mg/dl Iron (35-175) mcg/dl TIBC (250-450) mcg/dl Transferrin (200-360) mg/dl Transferrin % Sat (20-50) % Ferritin (8-388) ng/ml Total Bilirubin (0.2-1) mg/dl AST (15-37) U/L ALT (12-78) U/L Alkaline Phosphatase (45-117) U/L Total Protein (6.4-8.2) gm/dl Albumin (3.4-5.0) gm/dl Globulin (2.5-4.0) gm/dl Albumin/Globulin Ratio (0.9-2) PG Care Time/CCT Total # of Minutes Spent Total Time Spent with Patient: Total time spent is greater than 50% in coordination of care (as documented) at patient's floor/unit and/or counseling patient: Coding Level of Care Code 93829 Subseq Obs Care Lvl 3 Diagnoses Acute urinary retention R33.8 Bladder pain R39.89 Acute radiation cystitis N30.40 CAD (coronary artery disease) I25.10 Associated angina: without angina Coronary Disease-Associated Artery/Lesion type: [place] artery [place] vs. transplanted heart: [place] heart Peripheral arterial disease I73.9 Hypertension I10 Type 2 diabetes mellitus E11.9 History of heart artery stent Z95.5 Tobacco abuse Z72.0 HLD (hyperlipidemia) E78.5 Hematuria R31.0 Hematuria type: gross Abdominal aortic aneurysm (AAA) 3.0 cm to 5.5 cm in diameter in male I71.4 Anemia D64.9 Hypokalemia E87.6 (1) Hematuria Hematuria type: gross Qualified Code(s): R31.0 - Gross hematuria (2) CAD (coronary artery disease) Associated angina: without angina Coronary Disease-Associated Artery/Lesion type: [place] artery [place] vs. transplanted heart: [place] heart Qualified Code(s): I25.10 - Atherosclerotic heart disease of [place] coronary artery without angina pectoris
[2021-07-07] MEDS: INSULIN ASPART 100 UNITS/ML 3 ML PEN SC SCH ×4 (08:09→20:33)
[2021-07-07] MEDS: CLOPIDOGREL BISULFATE 75 MG TAB PO SCH (08:14)
[2021-07-07] MEDS: ASPIRIN 81 MG ECTAB PO SCH (08:14)
[2021-07-07] MEDS: METOPROLOL TARTRATE 25 MG TAB PO SCH ×3 (08:14→21:54)
--- NOTE | 2021-07-07 08:56 | Urology Progress Note ---
Date of Service July 07, 2021 Assessment & Plan (1) Hematuria: Plan: 70 yo M with radiation cystitis admitted for hematuria and clot retention - Pt POD #1 s/p cystoscopy, fulguration and clot evacuation with Dr. Butler. - Pt afebrile, nontoxic, lab work reviewed - creatinine 0.62, WBC 11.07, Hgb 9.0 - Urine culture pending - on IV Ceftriaxone, follow cultures - CBI draining clear rivera red, one clot noted in tubing during exam, CBI running moderately slow - Continue CBI at present - will titrate as able with plan to discontinue when appropriate - Maintain Wheeler catheter 7-10 days due to noted false passage/catheter trauma - Continue supportive care, antibiotics and medical management/DAPT per primary service - Will continue to follow while inpatient Admission and Anticipated Discharge Date Admission Date: July 06, 2021 Supervising Physician Co-Signing Physician Notes 70 yo male with radiation cystitis and persistent hematuria complicated by recent ME requiring dual anti platelet therapy. No s/p three cystoscopies with clot evac and fulguration and currently on CBI with intermittent clot obstruction. He does not tolerate manual irrigation. Had a long discussion with cardiology today about options for anticoagulation as I'm concerned he may need urinary diversion with nephrostomy tubes, which cannot be done on plavix. Cardiology felt comfortable discontinuing one anti platelet as he is more than one month out from stent placement, so we elected to hold plavix starting today. He will continue aspirin. I had a long conversation with the patient regarding further management and the fact that he may need nephrostomy tubes. I explained that this would require transfer to [place] or [facility] as we do not have IR here. Additionally, he would ideally need to be off plavix for 5 days. I also irrigated his bladder a small amount and turned his CBI on full drip, with his urine turning clear fairly quickly. Advised that he remain NPO in the event he needs clot evacuation overnight or in the morning. Would likely restart alum at that time for a longer period. We agreed on getting the ball rolling on transfer for neph tubes. He understands these may be alf and we discussed risk and benefits. I spoke with primary team and advised initiating transfer. I then spoke with accepting physician, Dr. Kern of urology at [place]. He anticipates with bed availability that it may be several days. Suggested possible repeat clot evac and alum, which is reasonable and we may need to do in the interim. Subjective Pt POD #2 s/p cystoscopy, fulguration and clot evacuation with Dr. Butler. Patient seen and examined at bedside this AM. No acute issues overnight. Mild suprapubic discomfort. Wheeler catheter intact, patent and draining clear rivera red, one medium clot in tubing with CBI running on moderately slow. No manual irrigation reported overnight. Tolerating diet, though reports low appetite. No nausea or vomiting. No fever or chills. Review of Systems Constitutional: as per Subjective / HPI Gastrointestinal: as per Subjective / HPI Genitourinary: + as per Subjective / HPI Physical Exam Constitutional: well developed and well nourished; no acute distress Respiratory: normal respiratory effort; no respiratory distress and no labored breathing Gastrointestinal (Abdomen): Inspection/Auscultation: abdomen normal to inspection; abdomen not distended Percussion/Palpation: + abdomen tender (mildly tender to palpation across lower abdomen) and abdomen soft; no guarding Musculoskeletal: Head/Neck/Chest: normocephalic and head atraumatic Neurologic: moves all extremities and awake Psychiatric: Orientation: alert and oriented x 3 Genitourinary: Wheeler catheter intact, patent and draining clear rivera red, one medium clot in tubing with CBI running on moderately slow. Results & Data ([facility]) Vital Signs (Past 12 Hours) Vital Signs Temp Pulse Resp BP Pulse Ox 07/07/21 08:10 36.9 C 115 H 21 108/56 L 95 07/07/21 03:44 92 H 18 127/70 97 07/07/21 02:44 93 H 19 135/72 96 07/07/21 01:44 89 18 136/66 95 07/07/21 00:44 108 H 21 121/78 96 07/06/21 23:44 36.8 C 87 18 118/61 93 07/06/21 22:44 87 14 138/74 96 07/06/21 21:44 87 18 124/80 95 PG Care Time/CCT Total # of Minutes Spent Total Time Spent with Patient: Total time spent is greater than 50% in coordination of care (as documented) at patient's floor/unit and/or counseling patient: Coding Level of Care Code 73720 Subseq Hosp Care Lvl 2 Diagnoses Hematuria R31.0 Hematuria type: gross (1) Hematuria Hematuria type: gross Qualified Code(s): R31.0 - Gross hematuria
[2021-07-07 09:27] LABS: Ferritin 80.7 ng/ml (8-388); Magnesium 1.9 mg/dl (1.8-2.4)
[2021-07-07] MEDS ORDERED: IRON SUCROSE 300 MG in SODIUM CHLORIDE 0.9% 250 ML IV ONE (11:00)
[2021-07-07] MEDS: OXYBUTYNIN CHLORIDE 5 MG TAB PO PRN (15:22)
--- NOTE | 2021-07-07 15:59 | Cardiology Consultation ---
Date of Consultation July 07, 2021 Assessment & Plan (1) CAD (coronary artery disease): (2) Abdominal aortic aneurysm (AAA) 3.0 cm to 5.5 cm in diameter in male: (3) Mitral regurgitation: 1. Coronary disease: He presented with an NSTEMI in late May. He underwent PCI with drug-eluting stent to the proximal LAD. While generally speaking we will recommend continue dual anti-platelet therapy for 1 year subsequent to this intervention, he has had significant complications related to bleeding. In fact, he has suffered from anemia, in need for iron infusion and repeat operations for continued bleeding. Fortunately, he is nearly 6 weeks from his intervention and given his difficulties with bleeding it would seem reasonable to attempt monotherapy in order to facilitate more aggressive urologic intervention. The patient could discontinue 1 of his anti-platelet agents, preferably aspirin but also possibly Plavix. He will need to be maintained on 1 agent. I do not believe there is any role for bridging or heparin infusion in addition to aspirin or Plavix monotherapy. 2. Abdominal aortic aneurysm: He has been evaluated by the vascular surgeons previously. There is no documentation of a plan moving forward. Certainly no acute intervention is warranted but this will need to be addressed when his urologic issues have stabilized. 3. Mitral regurgitation: Mild History of Present Illness Reason for Consultation: Hematuria Requesting Physician: Kyle Attending Physician: Charlie Jiménez History of Present Illness The patient is a 70-year-old gentleman with initially evaluated on May 26 for evidence myocardial injury. He had some diffuse cardiac symptoms at that time was noted to have significant elevation in his biomarkers. He was eventually brought to the cardiac catheterization suite where he underwent percutaneous intervention to the proximal LAD. A drug-eluting stent was placed at that time. Patient was started on dual anti-platelet therapy and eventually discharge. His presenting complaint had been hematuria. Since the initial implantation the patient has had several additional episodes of hematuria requiring aggressive intervention. He has actually been to the operating room on multiple occasions for fulguration and continues to have a catheter in place for continuous bladder irrigation. Patient presented again with clotting and hematuria. More aggressive intervention may be required. Patient states that since his cardiac intervention he has not had additional episodes of chest discomfort. He has been relatively sedentary but did not repeat concerning chest pain. He has not had limiting dyspnea or shortness of breath at rest. He denies any dizziness or lightheadedness. No syncope. No palpitations. Allergies Allergy/AdvReac Type Severity Reaction Status Date / Time No Known Allergies Allergy Verified 07/05/21 07:53 Home Medications Medication Instructions Recorded Confirmed Type atorvastatin 80 mg tablet 80 mg PO HS 05/26/21 07/06/21 History metoprolol tartrate 25 mg tablet 12.5 mg PO BID 30 Days #30 tab 05/29/21 07/06/21 Rx oxybutynin chloride 5 mg tablet 5 mg PO DAILY PRN #30 tab 05/29/21 07/06/21 Rx aspirin 81 mg tablet,delayed 81 mg PO QAM 06/02/21 07/06/21 History release tamsulosin 0.4 mg capsule 0.4 mg PO QAM #30 cap 06/06/21 07/06/21 Rx metformin 500 mg tablet,extended 500 mg PO BID 06/10/21 07/06/21 History release 24 hr lisinopril 5 mg tablet 5 mg PO DAILY 06/24/21 07/06/21 History clopidogrel 75 mg tablet 75 mg PO DAILY 06/25/21 07/06/21 History oxymetazoline 0.05 % nasal spray 2 spray INTRANASAL Q12H PRN 06/29/21 07/06/21 History (Afrin (oxymetazoline)) ciprofloxacin HCl 500 mg tablet 500 mg PO BID 07/06/21 07/06/21 History hydrochlorothiazide 25 mg tablet 25 mg PO DAILY 07/06/21 07/06/21 History Patient History Medical History Abdominal aortic aneurysm (AAA) 3.0 cm to 5.5 cm in diameter in male Abnormal ECG Acute [place] disease CAD (coronary artery disease) Chronic pancreatitis Gross hematuria HLD (hyperlipidemia) Hypertension NSTEMI (non-ST elevated myocardial infarction) Peripheral arterial disease Pre-diabetes Slurred speech Stroke-like symptoms Tobacco abuse Surgical History History of heart artery stent Social History Smoking Status: Never smoker Tobacco Type: Cigars Second Hand Exposure: No; Hx Alcohol Use: Yes Alcohol type: wine Hx Substance Use: No Preferred Language: Scottish Communication Ability: Effective Camp Coordinator Required: No Beliefs That Will Affect Care: None marital status: Current Living Situation: Spouse and Family Feels Safe at Home: Yes Assistive Devices: Glasses Review of Systems Review of Systems: Per HPI. Some bladder spasms. Physical Exam Physical Exam: The patient is alert and oriented. Mood and affect appeared normal. He answered all questions appropriately. HEENT: Pupils are equal and reactive to light and accommodation. Extraocular movements are intact. The sclerae are anicteric. Neuro: Cranial nerves intact Lungs: Clear to auscultation bilaterally. He has good air movement without use of accessory muscles. No rales wheezes or rhonchi. Cardiac: Heart demonstrates a regular rate and rhythm. Normal S1 and S2. No murmurs on examination. Pulses: The patient has palpable radial pulses bilaterally that are equal in intensity Extremities: There was no evidence of hypoperfusion. There is no cyanosis or clubbing. There is no edema. Skin: I did not appreciate any rashes on examination today. Wheeler in place draining pink urine Results & Data ([facility]) Vital Signs (Past 12 Hours) Vital Signs Temp Pulse Resp BP Pulse Ox 07/07/21 14:54 37.4 C 104 H 24 129/72 94 07/07/21 11:00 37.3 C 93 H 19 118/74 94 07/07/21 08:10 36.9 C 115 H 21 108/56 L 95 Laboratory Results Abnormal Lab Results 07/06/21 07/07/21 07/07/21 16:28 05:01 05:01 WBC 11.07 H RBC 2.88 L Hgb 9.0 L Hct 28.4 L MCV 98.6 MCH 31.3 MCHC 31.7 L RDW Std Deviation 54.0 H RDW Coeff of Matt 15.3 H Plt Count 349 MPV 10.4 Immature Gran % (Auto) 0.1 Neut % (Auto) 78.0 Lymph % (Auto) 13.5 [place] % (Auto) 7.5 Eos % (Auto) 0.8 Baso % (Auto) 0.1 Neut # (Auto) 8.64 H Lymph # (Auto) 1.49 [place] # (Auto) 0.83 H Eos # (Auto) 0.09 Baso # (Auto) 0.01 Immature Gran # (Auto) 0.01 Sodium 142 Potassium 3.4 L Chloride 110 H Carbon Dioxide 29 Anion Gap 3.0 BUN 11 Creatinine 0.62 Est Cr Clr Drug Dosing 101.5 Est GFR ( Amer) 117.3 Est GFR (Non-Af Amer) 101.2 BUN/Creatinine Ratio 17.3 Glucose 111 H POC Glucose 96 Calcium 8.9 Magnesium Iron TIBC Transferrin Transferrin % Sat Ferritin Total Bilirubin 0.4 AST 14 L ALT 17 Alkaline Phosphatase 80 Total Protein 5.9 L Albumin 2.2 L Globulin 3.7 Albumin/Globulin Ratio 0.6 L 07/07/21 05:01 WBC RBC Hgb Hct MCV MCH MCHC RDW Std Deviation RDW Coeff of Matt Plt Count MPV Immature Gran % (Auto) Neut % (Auto) Lymph % (Auto) [place] % (Auto) Eos % (Auto) Baso % (Auto) Neut # (Auto) Lymph # (Auto) [place] # (Auto) Eos # (Auto) Baso # (Auto) Immature Gran # (Auto) Sodium Potassium Chloride Carbon Dioxide Anion Gap BUN Creatinine Est Cr Clr Drug Dosing Est GFR ( Amer) Est GFR (Non-Af Amer) BUN/Creatinine Ratio Glucose POC Glucose Calcium Magnesium 1.9 Iron 21 L TIBC 220 L Transferrin 179 L Transferrin % Sat 8 L Ferritin 80.7 Total Bilirubin AST ALT Alkaline Phosphatase Total Protein Albumin Globulin Albumin/Globulin Ratio Diagnostic Findings Echocardiogram performed 05/26/2021: Normal LV systolic function with ejection fraction 55-60%. Mild mitral regurgitation. Mild LVH. Cardiac catheterization performed 05/28/2021 via right radial artery: 80% proximal LAD stenosis and 60% distal LAD stenosis. Left main, circumflex and right coronary artery were normal. PG Care Time/CCT Total # of Minutes Spent Total Time Spent with Patient: Total time spent is greater than 50% in coordination of care (as documented) at patient's floor/unit and/or counseling patient: Coding Level of Care Code 15451 Initial Inpt Care Lvl 3 Diagnoses CAD (coronary artery disease) I25.10 Coronary Disease-Associated Artery/Lesion type: [place] artery [place] vs. transplanted heart: [place] heart Associated angina: without angina Abdominal aortic aneurysm (AAA) 3.0 cm to 5.5 cm in diameter in male I71.4 Mitral regurgitation I34.0 (1) CAD (coronary artery disease) Coronary Disease-Associated Artery/Lesion type: [place] artery [place] vs. transplanted heart: [place] heart Associated angina: without angina Qualified Code(s): I25.10 - Atherosclerotic heart disease of [place] coronary artery without angina pectoris
[2021-07-07] MEDS: SODIUM CHLORIDE 0.9% 1000ML 1,000 ML IV SCH (18:11)
[2021-07-07] MEDS: TAMSULOSIN HCL 0.4 MG CAP PO SCH (20:34)
[2021-07-07] MEDS: ATORVASTATIN 40 MG TAB PO SCH (21:50)
[2021-07-08] MEDS: OXYBUTYNIN CHLORIDE 5 MG TAB PO PRN (00:34)
[2021-07-08] MEDS: HYDROmorphone INJ 0.5 MG/0.5 ML SYR IV PRN ×2 (01:10→11:03)
[2021-07-08] MEDS: cefTRIAXone SODIUM 1,000 MG in DEXTROSE 5% 50 ML IV SCH (05:06)
--- NOTE | 2021-07-08 07:50 | Hospitalist Progress Note ---
Date of Service July 08, 2021 Assessment & Plan (1) Hematuria: Plan: Recurrent acute urinary retention/bladder clots/bladder pain/radiation cystitis- recent hospitalization for similar on 06/[address] Morrison for clot evacuation and 06/[address] Butler for fulguration of bleeding vessels. On ASA/Plavix for recent NSTEMI May 2021 (80% SANTIAGO to LAD) with Dr Sarah Garcia at [facility] Urology consulted s/p OR with Dr Butler emergently on 07/06 for fulguration of multiple bleeding varicosities. Continue Blas at d/c planned CBI continued Was on Ceftriaxone 1gm IV daily --> d/c as urine culture with keiko. Prior with same (got 2 doses diflucan) and will convert x 5 days Continue flomax 0.8mg 12:30pm 07/07--> clogged blas possibly, CBI being clamped. Discussed with [facility] (DR Kern) and accepted -- awaiting bed 24-48hours Cardiology consulted --> ok to hold plavix for now but continue ASA daily for possible need for nephrostomy tubes for diversion to give bladder chance to heal up from his prostate ca/brachytherapy/radiation cystitis (getting hyperbaric oxygen treatments outpatient) per recs by Urology [facility] unable to take. Could consider [place] for IR but given plavix needing to be held for several days --> discussion with Urology, ok to monitor here and may not need transferred at this point given blas functioning and urine clearing up some now with increase in CBI, but will continue to monitor --> Initiated Alum irrigation--> pending response to the treatment we can determine if it is necessary to pursue nephrostomy tube placement or not hgb 9--> 8.0 on AM labs (gentle IVF overnight as NPO) and now with less bleeding Iron stores previously low and were rechecked -- acute on chronic 2nd to bleeding with iron 21, trans %sat 8 despite low TIBC/transferrin --> Venofer x 1 on 07/07, repeated today and will give 3rd dose in AM 07/09 did type/cross PRBC if needed, given issues with recurrent bleeding and hgb 8 in patient with CAD, however some dilutional from IVF and getting iron transfusions and holding off for now Continue to monitor (2) Anemia: Plan: Anemia hgb 11.2--> 9 --> 8 (on IVF overnight as NPO for possible need to go to OR), ble eding has slowed this afternoon 2nd to acute blood loss from continued bleeding, however iron studies show acute on chronic (low TIBC, transferrin), however prior iron studies low and repeated. Iron 21, trans sat 8% Venofer --> 2nd dose on 07/08, repeat again in AM. B12 529/folate >20 CBC in AM (3) Acute urinary retention: Plan: again with possible clogged blas see above may need tx for nephro tubes per urology as above, but improvment today and holding off Plavix held as above, accepted to [facility] if needed but no bed just yet --> alum irrigation per urology and continuing to monitor Tramadol prn pain -- had only had tylenol and Dilaudid ordered. (4) Bladder pain: Plan: See above (5) Acute radiation cystitis: Plan: Presently undergoing hyperbaric oxygen therapy at [facility] 2nd to his prostate ca/brachytherapy (6) CAD (coronary artery disease): Plan: CAD/LAD SANTIAGO stent/PAD/hypertension- recent 80% proximal LAD treated with SANTIAGO -[address] Sarah Garcia Continued ASA 81mg --> Cardiology consulted, plavix OK TO HOLD and continue monotherapy with ASA 81mg daily Continue atorvastatin 80mg, metoprolol 12.5mg BID, lisinopril 5mg (resumed lisinopril) Hold HCTZ for now Continue metoprolol titrate with hold parameters SR on tele, no CP/SOB reported (7) Peripheral arterial disease: Plan: See above (8) Hypertension: Plan: BP stable continue home agents with exception of HCTZ (9) Type 2 diabetes mellitus: Plan: Hold Metformin Placed on Accu-Cheks before meals and at bedtime with NovoLog coverage per scale BSGs acceptable (10) History of heart artery stent: Plan: See above (11) Tobacco abuse: Plan: DuoNebs every 2 hours as needed (12) HLD (hyperlipidemia): Plan: Continue atorvastatin (13) Abdominal aortic aneurysm (AAA) 3.0 cm to 5.5 cm in diameter in male: Plan: infrarenal abdominal aortic aneurysm measuring up to 54 mm in diameter- Patient states he follows this up with Remington Butler through [facility] every 6 months with ultrasound/CT scans - Reports discrepancy between our records- notes that his physician's interpretation is 4.3cm however our recent imaging notes 5.4cm - Continue BB, Lipid lowering medications, continue to follow up with outside team --> recommended that he have close follow up/surveillance given high chance of rupture. He is to have f/u outpatient next week with [facility] for follow up (14) Hypokalemia: Plan: 3.4-- replacement ordered, repeat wnl. Mag wnl Plan: continued inpatient stay Ceftriaxone --> Diflucan x 5 days Urology following -- alum irrigation [facility] accepted but no bed in event needed for tx for diverting nephrostomy tubes changed to full admission Admission and Anticipated Discharge Date Admission Date: July 06, 2021 Supervising Physician Co-Signing Physician Notes SHAY Supervision Note: I did not personally see or examine the patient today, but I verified all chacko points of SHAY Wright's assessment and plan with the following exceptions/additions: None Subjective patient evaluated this morning rough night with discomfort and manipulated catheter and turned down CBI with improvement. conintues to run and clearer pink tinged urine in blas bag had 2 small Bms no fever, chills, chest pain, shortness of breath, lightheadedness, palpitations, dizziness, lower extremity weakness, nausea, vomiting or other symptoms at this time. Discussed possible transfer to [facility] for IR, however patient would like to hold off on [facility] given likely to hold off on placement of diverting nephrostomy tubes not to be performed until plavix held for 5 days. Patient states he has gotten blood transfusion in the past -- currently getting bag of Venofer but did type/cross 2 units if needed. Continues to remain NPO and has not yet been seen by Urology but will feed if not taking to OR. Review of Systems Review of Systems: All systems reviewed & are unremarkable except as noted in HPI & below Physical Exam Physical Exam: WD, WN, sitting up in bed, no acute distress, pallor ENT: mmm, trachea midline without deviation Resp: CTAB, no w/c/r, on room air CV: RRR, no m/r/g, no calf edema, pulses but palpable GI: +BS, soft, non-tender, no guarding or rigidity : blas with rivera/fruit punch urine draining this morning --> clearing up more this afternoon on re-check MSK/Neuro: moves all extremities, no focal deficit Psych: AOx3, euthymic Results & Data Results & Data ([facility]) Vital Signs (Past 12 Hours) Vital Signs Temp Pulse Pulse Resp BP BP Pulse Ox 07/08/21 07:34 36.9 C 107 H 17 118/73 98 07/08/21 03:20 36.4 C L 99 H 20 102/60 94 07/07/21 23:33 98 H 07/07/21 23:00 37.4 C 97 H 20 137/75 93 Laboratory Results 07/08/21 07/08/21 07/08/21 Range/Units 09:26 07:48 07:48 WBC 12.40 H (4.8-10.8) K/uL RBC 2.51 L (4.7-6.1) M/uL Hgb 8.0 L (14.0-18.0) g/dL Hct 24.5 L (42-52) % MCV 97.6 (80-100) fL MCH 31.9 (25-34) pg MCHC 32.7 (32-36) g/dL RDW Std Deviation 53.7 H (36.4-46.3) fL RDW Coeff of Matt 15.3 H (11.5-14.5) % Plt Count 323 (130-400) K/uL MPV 10.4 (7.4-10.4) fL Immature Gran % (Auto) 0.3 % Neut % (Auto) 91.3 % Lymph % (Auto) 4.5 % [place] % (Auto) 3.9 % Eos % (Auto) 0.0 % Baso % (Auto) 0.0 % Neut # (Auto) 11.32 H (1.4-6.5) K/uL Lymph # (Auto) 0.56 L (1.2-3.4) K/uL [place] # (Auto) 0.48 (0.11-0.59) K/uL Eos # (Auto) 0.00 (0-0.5) K/uL Baso # (Auto) 0.00 (0-0.2) K/uL Immature Gran # (Auto) 0.04 H (0.00-0.02) K/uL Sodium 143 (136-145) mmol/L Potassium 4.0 D (3.5-5.1) mmol/L Chloride 112 H (98-107) mmol/L Carbon Dioxide 22 (21-32) mmol/L Anion Gap 9.0 (3-11) BUN 14 (7-18) mg/dl Creatinine 1.10 D (0.6-1.4) mg/dl Est Cr Clr Drug Dosing 57.2 ml/min Est GFR ( Amer) 79.0 ml/min Est GFR (Non-Af Amer) 68.1 ml/min BUN/Creatinine Ratio 13.0 (10-20) Glucose 146 H (70-99) mg/dl POC Glucose (70-99) mg/dl Calcium 8.6 (8.5-10.1) mg/dl Total Bilirubin 0.3 (0.2-1) mg/dl AST 10 L (15-37) U/L ALT 14 (12-78) U/L Alkaline Phosphatase 69 (45-117) U/L Total Protein 5.8 L (6.4-8.2) gm/dl Albumin 2.1 L (3.4-5.0) gm/dl Globulin 3.7 (2.5-4.0) gm/dl Albumin/Globulin Ratio 0.6 L (0.9-2) Vitamin B12 (193-986) pg/ml Folate (>5.38) ng/ml Blood Type B Positive Antibody Screen NEGATIVE Crossmatch See Detail 07/08/21 07/08/21 Range/Units 07:48 07:39 WBC (4.8-10.8) K/uL RBC (4.7-6.1) M/uL Hgb (14.0-18.0) g/dL Hct (42-52) % MCV (80-100) fL MCH (25-34) pg MCHC (32-36) g/dL RDW Std Deviation (36.4-46.3) fL RDW Coeff of Matt (11.5-14.5) % Plt Count (130-400) K/uL MPV (7.4-10.4) fL Immature Gran % (Auto) % Neut % (Auto) % Lymph % (Auto) % [place] % (Auto) % Eos % (Auto) % Baso % (Auto) % Neut # (Auto) (1.4-6.5) K/uL Lymph # (Auto) (1.2-3.4) K/uL [place] # (Auto) (0.11-0.59) K/uL Eos # (Auto) (0-0.5) K/uL Baso # (Auto) (0-0.2) K/uL Immature Gran # (Auto) (0.00-0.02) K/uL Sodium (136-145) mmol/L Potassium (3.5-5.1) mmol/L Chloride (98-107) mmol/L Carbon Dioxide (21-32) mmol/L Anion Gap (3-11) BUN (7-18) mg/dl Creatinine (0.6-1.4) mg/dl Est Cr Clr Drug Dosing ml/min Est GFR ( Amer) ml/min Est GFR (Non-Af Amer) ml/min BUN/Creatinine Ratio (10-20) Glucose (70-99) mg/dl POC Glucose 164 H (70-99) mg/dl Calcium (8.5-10.1) mg/dl Total Bilirubin (0.2-1) mg/dl AST (15-37) U/L ALT (12-78) U/L Alkaline Phosphatase (45-117) U/L Total Protein (6.4-8.2) gm/dl Albumin (3.4-5.0) gm/dl Globulin (2.5-4.0) gm/dl Albumin/Globulin Ratio (0.9-2) Vitamin B12 529 (193-986) pg/ml Folate > 20.00 (>5.38) ng/ml Blood Type Antibody Screen Crossmatch PG Care Time/CCT Total # of Minutes Spent Total Time Spent with Patient: Total time spent is greater than 50% in coordination of care (as documented) at patient's floor/unit and/or counseling patient: Coding Level of Care Code 15964 Subseq Hosp Care Lvl 3 Diagnoses Hematuria R31.0 Hematuria type: gross Anemia D64.9 Acute urinary retention R33.8 Bladder pain R39.89 Acute radiation cystitis N30.40 CAD (coronary artery disease) I25.10 Associated angina: without angina Coronary Disease-Associated Artery/Lesion type: [place] artery [place] vs. transplanted heart: [place] heart Peripheral arterial disease I73.9 Hypertension I10 Type 2 diabetes mellitus E11.9 History of heart artery stent Z95.5 Tobacco abuse Z72.0 HLD (hyperlipidemia) E78.5 Abdominal aortic aneurysm (AAA) 3.0 cm to 5.5 cm in diameter in male I71.4 Hypokalemia E87.6 (1) Hematuria Hematuria type: gross Qualified Code(s): R31.0 - Gross hematuria (2) CAD (coronary artery disease) Associated angina: without angina Coronary Disease-Associated Artery/Lesion type: [place] artery [place] vs. transplanted heart: [place] heart Qualified Code(s): I25.10 - Atherosclerotic heart disease of [place] coronary artery without angina pectoris
[2021-07-08] MEDS ORDERED: IRON SUCROSE 300 MG in SODIUM CHLORIDE 0.9% 250 ML IV ONE (08:00)
[2021-07-08 08:14] LABS: Hematocrit (blood only) 24.5 % (42-52); Immature Granulocytes # (auto) 0.04 K/uL (0.00-0.02); Immature Granulocytes % (auto) 0.3 %; Lymphocytes # (auto) 0.56 K/uL (1.2-3.4); Lymphocytes % (auto) 4.5 %; Mean Corpuscular Hemoglobin 31.9 pg (25-34); Mean Corpuscular Hgb Conc 32.7 g/dL (32-36); Mean Corpuscular Volume 97.6 fL (80-100); Mean Platelet Volume 10.4 fL (7.4-10.4); Monocytes # (auto) 0.48 K/uL (0.11-0.59); Monocytes % (auto) 3.9 %; Neutrophils # (auto) 11.32 K/uL (1.4-6.5); Neutrophils % (auto) 91.3 %; Platelet Count 323 K/uL (130-400); RDW Coefficient of Variation 15.3 % (11.5-14.5); RDW Standard Deviation 53.7 fL (36.4-46.3); Red Blood Count 2.51 M/uL (4.7-6.1)
[2021-07-08 08:48] LABS: Albumin Globulin Ratio 0.6 (0.9-2); Albumin Level 2.1 gm/dl (3.4-5.0); Bilirubin,Total 0.3 mg/dl (0.2-1); Calcium 8.6 mg/dl (8.5-10.1); Creatinine Clr Calc Pharmacy 57.2 ml/min; Est GFR (Non-African American) 68.1 ml/min; Globulin 3.7 gm/dl (2.5-4.0); Total Protein 5.8 gm/dl (6.4-8.2)
[2021-07-08] MEDS ORDERED: SODIUM CHLORIDE 0.9% 250 ML IV PRN ×2 (09:17→18:17)
[2021-07-08] MEDS: INSULIN ASPART 100 UNITS/ML 3 ML PEN SC SCH ×4 (09:30→21:40)
[2021-07-08] MEDS: ASPIRIN 81 MG ECTAB PO SCH (09:31)
[2021-07-08] MEDS: METOPROLOL TARTRATE 25 MG TAB PO SCH ×2 (09:32→20:01)
[2021-07-08] MEDS: SODIUM CHLORIDE 0.9% 1000ML 1,000 ML IV SCH (09:44)
[2021-07-08 11:05] LABS: Folate (Folic Acid) > 20.00 ng/ml (>5.38); Vitamin B12 529 pg/ml (193-986)
--- NOTE | 2021-07-08 11:38 | Urology Progress Note ---
Date of Service July 08, 2021 Assessment & Plan (1) Hematuria: (2) Acute radiation cystitis: Plan: I suspect he has diffuse venous oozing from his radiation cystitis He has been to the OR twice in the past month both times resulting in transient improvement His level of bleeding right now is not excessive, I think this would be a good opportunity to start alum irrigation He has held his Plavix for the possibility of nephrostomy tube placement, however, I think resolution of his bladder bleeding would be the optimal solution to this problem He will need to be off of Plavix for several days before nephrostomy tube placement would be reasonable anyway, will use this opportunity to use alum and pending response to the treatment we can determine if it is necessary to pursue nephrostomy tube placement or not Admission and Anticipated Discharge Date Admission Date: July 06, 2021 Subjective Subjectively doing okay He has had intermittent bladder spasms and discomfort but overall his CBI has been running relatively smoothly for the past day Physical Exam Physical Exam: With CBI on slow, it is late fruit punch/cranberry juice colored With a CBI increase to clears immediately Constitutional: well developed and well nourished Respiratory: no respiratory distress Cardiovascular: Extremities: no pedal edema Gastrointestinal (Abdomen): Inspection/Auscultation: abdomen normal to inspection Results & Data ([facility]) Vital Signs (Past 12 Hours) Vital Signs Temp Pulse Resp BP BP Pulse Ox 07/08/21 11:19 36.9 C 80 17 136/74 95 07/08/21 07:34 36.9 C 107 H 17 118/73 98 07/08/21 03:20 36.4 C L 99 H 20 102/60 94 PG Care Time/CCT Total # of Minutes Spent Total Time Spent with Patient: Total time spent is greater than 50% in coordination of care (as documented) at patient's floor/unit and/or counseling patient: Coding Level of Care Code 03694 Subseq Hosp Care Lvl 3 Diagnoses Hematuria R31.0 Hematuria type: gross Acute radiation cystitis N30.40 (1) Hematuria Hematuria type: gross Qualified Code(s): R31.0 - Gross hematuria
[2021-07-08] MEDS: AMMONIUM ALUM 30 GM in SODIUM CHLORIDE 0.9% IRRIG 3,000 ML IR SCH ×2 (13:19→23:52)
[2021-07-08] MEDS ORDERED: lisinopril 5 MG TAB PO SCH (15:30)
[2021-07-08 16:56] LABS: Hematocrit (blood only) 23.2 % (42-52); Hemoglobin 7.5 g/dL (14.0-18.0); Mean Corpuscular Hemoglobin 31.5 pg (25-34); Mean Corpuscular Hgb Conc 32.3 g/dL (32-36); Mean Corpuscular Volume 97.5 fL (80-100); Mean Platelet Volume 9.8 fL (7.4-10.4); Platelet Count 313 K/uL (130-400); RDW Coefficient of Variation 15.6 % (11.5-14.5); RDW Standard Deviation 54.3 fL (36.4-46.3); Red Blood Count 2.38 M/uL (4.7-6.1); White Blood Count 12.34 K/uL (4.8-10.8)
[2021-07-08 17:14] LABS: BUN Creatinine Ratio 10.6 (10-20); Calcium 8.6 mg/dl (8.5-10.1); Creatinine Clr Calc Pharmacy 37.7 ml/min; Est GFR (African American) 47.7 ml/min; Est GFR (Non-African American) 41.1 ml/min; Potassium 3.8 mmol/L (3.5-5.1)
[2021-07-08] MEDS: traMADol HCL 50 MG TABLET PO PRN ×2 (17:35→22:45)
[2021-07-08] MEDS: TAMSULOSIN HCL 0.4 MG CAP PO SCH (20:00)
[2021-07-08] MEDS: ATORVASTATIN 40 MG TAB PO SCH (20:03)
[2021-07-08 22:12] LABS: Hematocrit (blood only) 27.1 % (42-52); Hemoglobin 8.8 g/dL (14.0-18.0); Mean Corpuscular Hemoglobin 30.8 pg (25-34); Mean Corpuscular Volume 94.8 fL (80-100); Mean Platelet Volume 10.3 fL (7.4-10.4); Platelet Count 308 K/uL (130-400); RDW Coefficient of Variation 16.2 % (11.5-14.5); RDW Standard Deviation 55.2 fL (36.4-46.3); Red Blood Count 2.86 M/uL (4.7-6.1); White Blood Count 13.32 K/uL (4.8-10.8)
[2021-07-08 22:44] LABS: Mean Corpuscular Hgb Conc 32.5 g/dL (32-36)
[2021-07-09] MEDS: traMADol HCL 50 MG TABLET PO PRN ×2 (05:01→10:35)
[2021-07-09 07:47] LABS: Hematocrit (blood only) 28.2 % (42-52); Hemoglobin 9.2 g/dL (14.0-18.0); Mean Corpuscular Hemoglobin 30.8 pg (25-34); Mean Corpuscular Hgb Conc 32.6 g/dL (32-36); Mean Corpuscular Volume 94.3 fL (80-100); Mean Platelet Volume 10.2 fL (7.4-10.4); Nucleated RBC # (auto) 0.02 K/uL (0-0); Nucleated RBC % (auto) 0.1 %; Platelet Count 321 K/uL (130-400); RDW Standard Deviation 57.6 fL (36.4-46.3); Red Blood Count 2.99 M/uL (4.7-6.1); White Blood Count 13.73 K/uL (4.8-10.8)
--- NOTE | 2021-07-09 07:53 | Hospitalist Progress Note ---
Date of Service July 09, 2021 Assessment & Plan (1) Acute kidney injury: Plan: 2nd to obstructive uropathy due to clots in bladder. Cr further elevated to 3.26 on AM labs --> now 3.79 on repeat Urology on consult -- ordered belladonna supp for concerns of bladder spasm causing issue Renal US: * 1. Bilateral hydronephrosis. No renal calculi identified. * 2. A Blas catheter is in place. However, there is significant echogenic debris surrounding the catheter most characteristic of blood. There was reportedly blood in the patient's Blas catheter bag. Multiple attempts at manual manipulation and irrigation with alum however continued clots. Multiple facilities unable to take at this time ([facility] declines/diverted, [place] without IR today or over weekend due to staffing, [facility] accepted but at max capacity and no bed at this time, So I did speak with IR provider Dr Clark who would be willing to place diverting nephro tubes benefit>risk if patient agreeable however transfer center called back and unable to accept anyone at this time. Calls to [facility] as well -- limited beds and getting calls from [place] for ICU beds) NPO since this morning (had been on diet but not much appetite) Nephrology on consult amorphous sediment on repeat UA -- rec tx obstruction if unable to transfer. may need to consider dialysis if continues. will monitor closely CTA/P: * 1. Suboptimal evaluation for bladder leak given incomplete bladder filling. No additional contrast could be instilled due to pain. However, no extraluminal contrast to indicate bladder rupture. In addition, no free fluid within the pelvis which diminishes the likelihood of an underlying bladder injury. * 2. Large amount of clot within the bladder. Coexistent bladder mass cannot be excluded although is not definitively identified. * 3. Bilateral vesicoureteral reflux, left greater than right. Mild bilateral hydronephrosis. Bilateral perinephric stranding and fluid, greater on the left. * 4. Partially visualized abdominal aortic aneurysm, measuring 5.4 cm. Visualized portions unchanged since CT of June 25, 2021. Held Plavix starting 07/08 (has missed past 2 days, continues on ASA - see below) Unfortunately given bed situation patient requiring urgent OR for i ntervention/stent placement (which can make nephrostomy tubes difficult in eventual need for placement) Currently in OR now this evening No IVF due to obstruction, lisinopril on hold Continue to monitor labs closely (2) Hematuria: Plan: Recurrent acute urinary retention/bladder clots/bladder pain/radiation cystitis- recent hospitalization for similar on 06/[address] Morrison for clot evacuation and 06/[address] Butler for fulguration of bleeding vessels. On ASA/Plavix for recent NSTEMI May 2021 (80% SANTIAGO to LAD) with Dr Sarah Garcia at [facility] Urology consult s/p OR with Dr Butler emergently on 07/06 for fulguration of multiple bleeding varicosities. Continue Blas at d/c planned CBI continued w/ alum for coating D/c ceftriaxone, placed on Diflucan (urine cx keiko), repeat pending Continue Flomax 0.8mg HS s/p 1u PRBC, Venofer x3 --> hgb 8.7 and stable (acute on chronic 2nd to bleeding with iron 21, trans %sat 8 despite low TIBC/transferrin) WBC elevation likely reactive -- repeat UA pending To OR as above for worsening kidney function for stent placement as above --> eventual plans for diverting nephrostomy tubes (3) Anemia: Plan: normocytic hgb 11.2--> 7.5 s/p 1u PRBC, Venofer x3 --> hgb 8.7 and stable (acute on chronic 2nd to bleeding with iron 21, trans %sat 8 despite low TIBC/transferrin) hgb stable on repeat 8.7 and got dose of venofer this morning for 3rd dose B12/folate wnl CBC in AM (4) Acute urinary retention: Plan: again with obstruction -- OR as above. Plavix on hold, continued ASA for recent NSTEMI with SANTIAGO placement Tylenol, tramadol, dilaudid prn --> moderate stool, likely causing worsening issues with bladder as well --> suppository daily and aggressive bowel regimen when able to take PO (5) Bladder pain: Plan: See above pain control -- tylenol, tramadol, dilaudid for breakthrough belladonna ordered per urology for spasm as above (6) Acute radiation cystitis: Plan: Presently undergoing hyperbaric oxygen therapy at [facility] 2nd to his prostate ca/brachytherapy hopeful diverting nephro tubes in future as above (7) CAD (coronary artery disease): Plan: CAD/LAD SANTIAGO stent/PAD/hypertension- recent 80% proximal LAD treated with SANTIAGO -[address] Sarah Garcia Continued ASA 81mg --> Cardiology consulted, plavix OK TO HOLD and continue monotherapy with ASA 81mg daily Continue atorvastatin 80mg, metoprolol 12.5mg BID Holding lisinopril, HCTZ (did get dose AM 12/2) due to GAURAV as above SR on tele -- no CP/SOB (8) Peripheral arterial disease: Plan: See above f/u [facility] vascular as outpatient, as well as for his AAA (9) Hypertension: Plan: BP stable 124/77, elevation 2nd to pain at times continue home agents with exception of HCTZ/lisinopril (10) Type 2 diabetes mellitus: Plan: Hold Metformin Placed on Accu-Cheks before meals and at bedtime with NovoLog coverage per scale BSGs acceptable (11) History of heart artery stent: Plan: See above (12) Tobacco abuse: Plan: DuoNebs every 2 hours as needed (13) HLD (hyperlipidemia): Plan: Continue atorvastatin (14) Abdominal aortic aneurysm (AAA) 3.0 cm to 5.5 cm in diameter in male: Plan: infrarenal abdominal aortic aneurysm measuring up to 54 mm in diameter- Patient states he follows this up with Remington Butler through [facility] every 6 months with ultrasound/CT scans - Reports discrepancy between our records- notes that his physician's interpretation is 4.3cm however our recent imaging notes 5.4cm - Continue BB, Lipid lowering medications, continue to follow up with outside team --> recommended that he have close follow up/surveillance given high chance of rupture. He is to have f/u outpatient next week with [facility] for follow up (15) Hypokalemia: Plan: replaced and normal on repeat thankfully K wnl given GAURAV/ATN as above (16) Hydronephrosis: Plan: continued inpatient stay Ceftriaxone --> Diflucan x 5 days Urology following -- alum irrigation [facility] accepted but no bed in event needed for tx for diverting nephrostomy tubes changed to full admission Admission and Anticipated Discharge Date Admission Date: July 08, 2021 Supervising Physician Co-Signing Physician Notes SHAY Supervision Note: I did not personally see or examine the patient today, but I verified all chacko points of SHAY Wright's assessment and plan with the following exceptions/additions: None Subjective patient evaluated this morning had been doing ok yesterday, had a BM, blas draining and clearer in tubing but now straight tea colored and having difficulty with drainage/leakage around blas. concerns given elevated Cr for obstruction/need to be taken back to OR Renal US ordered and showed b/l hydro- alerted Urology for concerns needs to be taken back to OR for treatment. No fever, chills, chest pain, shortness of breath, nausea or vomiting. Did have something small this morning for breakfast but not much as he has not been feeling great. --> afternoon, worsening discomfort, blas clogged , manipulated and draining but worsening Cr and no available bed for tx/IR at this time despite multiple attempts. Plans for OR this afternoon after repeat CT a/p cysto. Review of Systems Review of Systems: All systems reviewed & are unremarkable except as noted in HPI & below Physical Exam Physical Exam: WD, WN, laying in bed holding lower abdomen in discomfort, blas clogged and not draining -- tea colored urine in blas bag pupils equal and reactive, slightly dry mm CTAB, no w/c/r, on room air CV; RRR, no m/r/g, no calf edema, decreased but palpable pulses bilaterally GI: +BS/slightly decreased, +tenderness suprapubic, voluntary guarding, no rigidity : blas w/ CBI, tea colored urine Psych: AOX3, cooperative MSK/neuro: no focal deficit, moving all extremities Results & Data Results & Data ([facility]) Vital Signs (Past 12 Hours) Vital Signs Temp Pulse Pulse Resp BP BP BP 07/09/21 07:26 37.0 C 92 H 18 130/79 07/09/21 03:38 36.6 C 83 18 131/70 07/09/21 02:16 77 07/08/21 22:24 36.6 C 84 16 147/70 H 07/08/21 21:36 36.6 C 87 16 138/81 07/08/21 20:30 36.9 C 90 16 152/76 H Pulse Ox 07/09/21 07:26 94 07/09/21 03:38 95 07/09/21 02:16 07/08/21 22:24 95 07/08/21 21:36 94 07/08/21 20:30 94 Laboratory Results 07/09/21 07/09/21 07/09/21 Range/Units Unknown 13:19 12:53 WBC (4.8-10.8) K/uL RBC (4.7-6.1) M/uL Hgb (14.0-18.0) g/dL Hct (42-52) % MCV (80-100) fL MCH (25-34) pg MCHC (32-36) g/dL RDW Std Deviation (36.4-46.3) fL RDW Coeff of Matt (11.5-14.5) % Plt Count (130-400) K/uL MPV (7.4-10.4) fL Immature Gran % (Auto) % Neut % (Auto) % Lymph % (Auto) % [place] % (Auto) % Eos % (Auto) % Baso % (Auto) % Neut # (Auto) (1.4-6.5) K/uL Lymph # (Auto) (1.2-3.4) K/uL [place] # (Auto) (0.11-0.59) K/uL Eos # (Auto) (0-0.5) K/uL Baso # (Auto) (0-0.2) K/uL Immature Gran # (Auto) (0.00-0.02) K/uL Absolute Nucleated RBC (0-0) K/uL Nucleated RBC % (auto) % Sodium 138 (136-145) mmol/L Potassium 4.2 (3.5-5.1) mmol/L Chloride 108 H (98-107) mmol/L Carbon Dioxide 19 L (21-32) mmol/L Anion Gap 11.0 (3-11) BUN 31 H (7-18) mg/dl Creatinine 3.79 H D (0.6-1.4) mg/dl Est Cr Clr Drug Dosing 16.6 ml/min Est GFR ( Amer) 17.7 ml/min Est GFR (Non-Af Amer) 15.3 ml/min BUN/Creatinine Ratio 8.2 L (10-20) Glucose 132 H (70-99) mg/dl Calcium Pending (8.5-10.1) mg/dl Urine Color Brown Urine Appearance Cloudy A (Clear) Urine pH (4.5-7.5) Ur Specific [place] 1.009 (1.000-1.030) Urine Protein (Negative) Urine Glucose (UA) (Negative) Urine Ketones (Negative) Urine Blood (Negative) Urine Nitrite (Negative) Urine Bilirubin (Negative) Urine Urobilinogen (Negative) Ur Leukocyte Esterase (Negative) Urine RBC >30 H (0-4) /hpf Urine WBC >30 H (0-5) /hpf Ur Epithelial Cells 0-5 (0-5) /lpf Amorphous Sediment Present A (None Prsent) Urine Bacteria Negative (Negative) Blood Type Antibody Screen Crossmatch 07/09/21 07/09/21 07/09/21 Range/Units 12:53 07:23 07:23 WBC 14.41 H 13.73 H (4.8-10.8) K/uL RBC 2.77 L 2.99 L (4.7-6.1) M/uL Hgb 8.7 L 9.2 L (14.0-18.0) g/dL Hct 26.0 L 28.2 L (42-52) % MCV 93.9 94.3 (80-100) fL MCH 31.4 30.8 (25-34) pg MCHC 33.5 32.6 (32-36) g/dL RDW Std Deviation 57.0 H 57.6 H (36.4-46.3) fL RDW Coeff of Matt 16.8 H 17.0 H (11.5-14.5) % Plt Count 313 321 (130-400) K/uL MPV 10.3 10.2 (7.4-10.4) fL Immature Gran % (Auto) 0.4 % Neut % (Auto) 86.1 % Lymph % (Auto) 4.6 % [place] % (Auto) 8.8 % Eos % (Auto) 0.1 % Baso % (Auto) 0.0 % Neut # (Auto) 11.82 H (1.4-6.5) K/uL Lymph # (Auto) 0.63 L (1.2-3.4) K/uL [place] # (Auto) 1.21 H (0.11-0.59) K/uL Eos # (Auto) 0.01 (0-0.5) K/uL Baso # (Auto) 0.00 (0-0.2) K/uL Immature Gran # (Auto) 0.05 H (0.00-0.02) K/uL Absolute Nucleated RBC 0.02 H (0-0) K/uL Nucleated RBC % (auto) 0.1 % Sodium 139 (136-145) mmol/L Potassium 4.3 (3.5-5.1) mmol/L Chloride 110 H (98-107) mmol/L Carbon Dioxide 18 L (21-32) mmol/L Anion Gap 11.0 (3-11) BUN 26 H (7-18) mg/dl Creatinine 3.26 H D (0.6-1.4) mg/dl Est Cr Clr Drug Dosing 19.3 ml/min Est GFR ( Amer) 21.2 ml/min Est GFR (Non-Af Amer) 18.3 ml/min BUN/Creatinine Ratio 8.0 L (10-20) Glucose 111 H (70-99) mg/dl Calcium 8.7 (8.5-10.1) mg/dl Urine Color Urine Appearance (Clear) Urine pH (4.5-7.5) Ur Specific [place] (1.000-1.030) Urine Protein (Negative) Urine Glucose (UA) (Negative) Urine Ketones (Negative) Urine Blood (Negative) Urine Nitrite (Negative) Urine Bilirubin (Negative) Urine Urobilinogen (Negative) Ur Leukocyte Esterase (Negative) Urine RBC (0-4) /hpf Urine WBC (0-5) /hpf Ur Epithelial Cells (0-5) /lpf Amorphous Sediment (None Prsent) Urine Bacteria (Negative) Blood Type Antibody Screen Crossmatch 07/08/21 07/08/21 Range/Units 21:42 09:26 WBC 13.32 H (4.8-10.8) K/uL RBC 2.86 L (4.7-6.1) M/uL Hgb 8.8 L (14.0-18.0) g/dL Hct 27.1 L (42-52) % MCV 94.8 (80-100) fL MCH 30.8 (25-34) pg MCHC 32.5 (32-36) g/dL RDW Std Deviation 55.2 H (36.4-46.3) fL RDW Coeff of Matt 16.2 H (11.5-14.5) % Plt Count 308 (130-400) K/uL MPV 10.3 (7.4-10.4) fL Immature Gran % (Auto) % Neut % (Auto) % Lymph % (Auto) % [place] % (Auto) % Eos % (Auto) % Baso % (Auto) % Neut # (Auto) (1.4-6.5) K/uL Lymph # (Auto) (1.2-3.4) K/uL [place] # (Auto) (0.11-0.59) K/uL Eos # (Auto) (0-0.5) K/uL Baso # (Auto) (0-0.2) K/uL Immature Gran # (Auto) (0.00-0.02) K/uL Absolute Nucleated RBC (0-0) K/uL Nucleated RBC % (auto) % Sodium (136-145) mmol/L Potassium (3.5-5.1) mmol/L Chloride (98-107) mmol/L Carbon Dioxide (21-32) mmol/L Anion Gap (3-11) BUN (7-18) mg/dl Creatinine (0.6-1.4) mg/dl Est Cr Clr Drug Dosing ml/min Est GFR ( Amer) ml/min Est GFR (Non-Af Amer) ml/min BUN/Creatinine Ratio (10-20) Glucose (70-99) mg/dl Calcium (8.5-10.1) mg/dl Urine Color Urine Appearance (Clear) Urine pH (4.5-7.5) Ur Specific [place] (1.000-1.030) Urine Protein (Negative) Urine Glucose (UA) (Negative) Urine Ketones (Negative) Urine Blood (Negative) Urine Nitrite (Negative) Urine Bilirubin (Negative) Urine Urobilinogen (Negative) Ur Leukocyte Esterase (Negative) Urine RBC (0-4) /hpf Urine WBC (0-5) /hpf Ur Epithelial Cells (0-5) /lpf Amorphous Sediment (None Prsent) Urine Bacteria (Negative) Blood Type B Positive Antibody Screen NEGATIVE Crossmatch See Detail Diagnostic Findings Renal Ultrasound 07/09/21 10:00 US renal/blad retro comp CLINICAL HISTORY: elevated creatinine, evaluate for obstruction. COMPARISON: None. TECHNIQUE: Multiple grayscale and color images of the kidneys and bladder. FINDINGS: Right kidney: The kidney is normal in size and echogenicity. There is evidence for mild to moderate hydronephrosis. There is no evidence for renal calculus. There are 2 sharply defined cysts within the right kidney, the largest measuring 2.9 cm in greatest diameter. No further follow-up is necessary of these benign findings. There is no evidence for solid renal mass. There is no evidence for medical renal disease. The kidney measures 13.0 x 6.4 x 6.8 cm. Left kidney: The kidney is normal in size and echogenicity. There is evidence for mild to moderate hydronephrosis. There is no evidence for renal calculus. There is a sharply defined cyst within the upper pole measuring 4.0 cm in greatest diameter. No further follow-up is necessary of this benign finding. There is no evidence for solid renal mass. There is no evidence for medical renal disease. The kidney measures 11.9 x 6.2 x 7.3 cm. Bladder: A Blas catheter is present within the bladder. However, there is echogenic debris seen within the bladder surrounding the catheter. This has the appearance of blood. There was noted to be blood within the patient's Blas catheter bag. IMPRESSION: 1. Bilateral hydronephrosis. No renal calculi identified. 2. A Blas catheter is in place. However, there is significant echogenic debris surrounding the catheter most characteristic of blood. There was reportedly blood in the patient's Blas catheter bag. ACT 112: Negative or not required by law. Electronically signed by: Jose Carnes M.D. 07/09/2021 10:49 AM KUB X-Ray 07/09/21 11:40 KUB HISTORY: Generalized abdominal pain/ no BM COMPARISON: Abdomen and pelvis CT 06/25/2021. FINDINGS: There is a moderate to large amount well-formed stool seen throughout the colon most pronounced within the ascending colon. Nondilated gas-filled loops of small bowel are seen throughout the abdomen. No evidence for bowel obstruction. Multiple brachytherapy seeds again noted at the prostate gland. There is again noted a infrarenal abdominal aortic aneurysm. This measures approximately 6 cm. Stable punctate stone within the right kidney. The patient's left renal stone is likely obscured by overlying bowel gas. No pneumoperitoneum or pneumatosis. IMPRESSION: 1. Moderate to large amount of well-formed stool seen throughout the colon. This is most pronounced within the ascending colon. 2. Stable right-sided nephrolithiasis. 3. A 6 cm infrarenal abdominal aortic aneurysm. ACT 112: Negative or not required by law. Electronically signed by: Rolando Santos M.D. 07/09/2021 1:46 PM Abdomen/Pelvis CT 07/09/21 15:19 CT CYSTOGRAM CLINICAL HISTORY: Hematuria. Possible bladder rupture. CT abd/pelvis with Cystogram COMPARISON STUDY: CT of the abdomen and pelvis June 25, 2021. Renal ultrasound July 09, 2021. TECHNIQUE: 160 cc of Cysto-Conray was instilled into the bladder via the indwelling Blas catheter. No additional contrast could be instilled given patient pain. Axial images from the level the mid kidneys through the pelvis were then obtained without IV contrast. Images were reviewed in the axial, sagittal, and coronal planes. Automated exposure control was utilized for the study. A dose lowering technique was utilized adhering to the principles of ALARA. FINDINGS: Please note that the upper abdomen was not included on this examination. A 5.4 x 5.4 cm infrarenal abdominal aortic aneurysm is partially imaged on this exam. Visualized portions are unchanged since CT of June 25, 2021. Caliber of visualized small and large bowel are normal. The appendix is normal. Colonic diverticulosis is noted without evidence for acute diverticulitis. No free fluid within the pelvis. There is bilateral perinephric stranding and fluid, greater on the left. Hyperdense material within the bladder represents blood clot. An associated mass cannot be excluded on this exam but is not identified. A Blas balloon within the bladder is noted. There is contrast within the bladder however opacification of the bladder is suboptimal. No additional contrast could be administered due to pain. Note is made of bilateral vesicoureteral reflux, left greater than right. There is mild bilateral hydronephrosis. Filling defects within left renal pelvis may reflect a small amount of clot. No extraluminal contrast is identified to indicate bladder rupture. Brachytherapy seeds within the prostate are noted. There is gas within the bladder. Bladder wall is trabeculated. IMPRESSION: 1. Suboptimal evaluation for bladder leak given incomplete bladder filling. No additional contrast could be instilled due to pain. However, no extraluminal contrast to indicate bladder rupture. In addition, no free fluid within the pelvis which diminishes the likelihood of an underlying bladder injury. 2. Large amount of clot within the bladder. Coexistent bladder mass cannot be excluded although is not definitively identified. 3. Bilateral vesicoureteral reflux, left greater than right. Mild bilateral hydronephrosis. Bilateral perinephric stranding and fluid, greater on the left. 4. Partially visualized abdominal aortic aneurysm, measuring 5.4 cm. Visualized portions unchanged since CT of June 25, 2021. ACT 112: Negative or not required by law. Electronically signed by: Juanjose Stephens M.D. 07/09/2021 4:31 PM PG Care Time/CCT Total # of Minutes Spent Total Time Spent with Patient: Total time spent is greater than 50% in coordination of care (as documented) at patient's floor/unit and/or counseling patient: Prolonged Care Time 120 additional minutes spent calling various facilities for urgent transfer, multiple trips to room to discuss with patient, coordination with urology for imaging/necessity for OR, and discussions with Nephrology Coding Level of Care Code 87025 Subseq Hosp Care Lvl 3 (25 - SIGNIFICANT, SEPARATELY IDENTIFIABLE ) Diagnoses Hematuria R31.0 Hematuria type: gross Anemia D64.9 Acute urinary retention R33.8 Bladder pain R39.89 Acute radiation cystitis N30.40 CAD (coronary artery disease) I25.10 Associated angina: without angina Coronary Disease-Associated Artery/Lesion type: [place] artery [place] vs. transplanted heart: [place] heart Peripheral arterial disease I73.9 Hypertension I10 Type 2 diabetes mellitus E11.9 History of heart artery stent Z95.5 Tobacco abuse Z72.0 HLD (hyperlipidemia) E78.5 Abdominal aortic aneurysm (AAA) 3.0 cm to 5.5 cm in diameter in male I71.4 Hypokalemia E87.6 Acute kidney injury N17.9 Hydronephrosis N13.30 (1) Hematuria Hematuria type: gross Qualified Code(s): R31.0 - Gross hematuria (2) CAD (coronary artery disease) Associated angina: without angina Coronary Disease-Associated Artery/Lesion type: [place] artery [place] vs. transplanted heart: [place] heart Qualified Code(s): I25.10 - Atherosclerotic heart disease of [place] coronary artery without angina pectoris
[2021-07-09 08:12] LABS: Calcium 8.7 mg/dl (8.5-10.1); Creatinine Clr Calc Pharmacy 19.3 ml/min; Est GFR (African American) 21.2 ml/min; Est GFR (Non-African American) 18.3 ml/min; Potassium 4.3 mmol/L (3.5-5.1)
[2021-07-09] MEDS: AMMONIUM ALUM 30 GM in SODIUM CHLORIDE 0.9% IRRIG 3,000 ML IR SCH ×3 (08:28→22:41)
[2021-07-09] MEDS: INSULIN ASPART 100 UNITS/ML 3 ML PEN SC SCH ×4 (08:29→23:32)
[2021-07-09] MEDS ORDERED: IRON SUCROSE 300 MG in SODIUM CHLORIDE 0.9% 250 ML IV ONE (08:30)
[2021-07-09] MEDS: METOPROLOL TARTRATE 25 MG TAB PO SCH ×2 (08:30→23:23)
[2021-07-09] MEDS: ASPIRIN 81 MG ECTAB PO SCH (08:30)
[2021-07-09 09:57] LABS: Appearance Urine Cloudy (Clear); Color Urine Brown; Specific Gravity Urine 1.009 (1.000-1.030)
[2021-07-09] MEDS ORDERED: SODIUM CHLORIDE 0.9% 1000ML 1,000 ML IV SCH (10:00)
[2021-07-09] MEDS ORDERED: FLUCONAZOLE 100 MG TAB PO ONE (10:30)
[2021-07-09] MEDS: OXYBUTYNIN CHLORIDE 5 MG TAB PO PRN (10:35)
--- NOTE | 2021-07-09 10:45 | Urology Progress Note ---
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 - Plan of care reviewed with Dr. Butler, urologist carton inspector - Pt POD #3 s/p cystoscopy, fulguration and clot evacuation with Dr. Butler - Afebrile, lab work reviewed - creatinine increased to 3.26 today, WBC 13.73, Hgb improved to 9.2 after receiving 1 unit of PRBCs yesterday - Order placed for BETH today given recent rise in creatinine - Alum irrigation initiated yesterday - urine clearing on exam today - Wheeler intact, patent and draining clear urine with scant maroon sediment with Alum irrigation running on slow - He continues to have intermittent bladder spasms with some leakage around catheter per nursing - Pt reassessed at 1130 after concern from nursing that catheter was not draining and pt having significant discomfort - Upon reassessment, patient was sleeping and catheter was draining appropriately after nursing manually irrigated - He reports pain subsided after receiving pain medication - BETH reviewed and showed bilateral hydronephrosis. No renal calculi identified. Wheleer catheter in place, significant echogenic debris surrounding the catheter - Will maximize symptom control for bladder spasms - add B&O suppository prn for bladder spasms - Discussed case with Daksha Wright PA-C, labs to be rechecked at 1300 - Patient made NPO pending repeat labs - Given GAURAV and possible obstruction, patient may ultimately require transfer for nephrostomy tube placement at tertiary center as previously discussed, Plavix has been held for this possibility - Will continue to monitor closely with primary team ATTENDING NOTE: Patient cr continued to rise. Repeat imaging. Concern for reflux with large debris and worsening hydronephrosis. Concern for obstruction. Multiple attempts to facilitate moving to another system with access to IR for nephrostomy tubes has not been successful. Risks and benefits discussed at length for procedure. These include bleeding, infection, injury to surrounding tissues or organs, and risks associated with anesthesia. Patient states understanding and agrees to proceed. Will sign consent and proceed. Plan for cystoscopy with clot evacuation and bilateral retrograde pyelograms with stents. Discussed possible issues with stents and increased discomfort and possible issues. Patient agreeable to proceed. Admission and Anticipated Discharge Date Admission Date: July 08, 2021 Subjective Pt seen and examined this AM. Subjectively doing okay. Reports intermittent bladder spasms and discomfort overnight, very mild this morning. No issues with CBI overnight, no manual irrigation needed. Wheeler intact, patent and draining clear urine with scant maroon sediment with Alum irrigation running on slow. Reports low appetite, but no nausea or vomiting. No constipation. No fever or chills. Pt received 1 unit of PRBCs yesterday evening; has received iron infusions as well. Review of Systems Constitutional: as per Subjective / HPI Gastrointestinal: as per Subjective / HPI Genitourinary: + as per Subjective / HPI Physical Exam Constitutional: well developed and well nourished; no acute distress and not ill appearing Respiratory: normal respiratory effort and able to speak in complete sentences; no respiratory distress and no labored breathing Cardiovascular: Extremities: no pedal edema Gastrointestinal (Abdomen): Inspection/Auscultation: abdomen normal to inspection; abdomen not distended Percussion/Palpation: abdomen soft; abdomen nontender and no guarding Neurologic: moves all extremities and awake Psychiatric: Orientation: alert, oriented x 3 and cooperative Genitourinary: Wheeler intact, patent and draining clear urine with scant maroon sediment with Alum irrigation running on slow. Results & Data ([facility]) Vital Signs (Past 12 Hours) Vital Signs Temp Pulse Pulse Resp BP BP Pulse Ox 07/09/21 08:00 77 07/09/21 07:26 37.0 C 92 H 18 130/79 94 07/09/21 03:38 36.6 C 83 18 131/70 95 07/09/21 02:16 77 PG Care Time/CCT Total # of Minutes Spent Total Time Spent with Patient: Total time spent is greater than 50% in coordination of care (as documented) at patient's floor/unit and/or counseling patient: Coding Level of Care Code 77618 Subseq Hosp Care Lvl 2 Diagnoses Gross hematuria R31.0 Acute radiation cystitis N30.40
[2021-07-09 10:47] LABS: Amorphous Sediment Urine Present (None Prsent); Bacteria Urine Negative (Negative); Epithelial Cell Urine 0-5 /lpf (0-5); RBC Urine >30 /hpf (0-4); WBC Urine >30 /hpf (0-5)
--- NOTE | 2021-07-09 10:50 | Ultrasound Report ---
US renal/blad retro comp CLINICAL HISTORY: elevated creatinine, evaluate for obstruction. COMPARISON: None. TECHNIQUE: Multiple grayscale and color images of the kidneys and bladder. FINDINGS: Right kidney: The kidney is normal in size and echogenicity. There is evidence for mild to moderate h ydronephrosis. There is no evidence for renal calculus. There are 2 sharply defined cysts within the right kidney, the largest measuring 2.9 cm in greatest diameter. No further follow-up is necessary of these benign findings. There is no evidence for solid renal mass. There is no evidence for medical r enal disease. The kidney measures 13.0 x 6.4 x 6.8 cm. Left kidney: The kidney is normal in size and echogenicity. There is evidence for mild to moderate hy dronephrosis. There is no evidence for renal calculus. There is a sharply defined cyst within the upp er pole measuring 4.0 cm in greatest diameter. No further follow-up is necessary of this benign findi ng. There is no evidence for solid renal mass. There is no evidence for medical renal disease. The ki dney measures 11.9 x 6.2 x 7.3 cm. Bladder: A Wheeler catheter is present within the bladder. However, there is echogenic debris seen with in the bladder surrounding the catheter. This has the appearance of blood. There was noted to be bloo d within the patient's Wheeler catheter bag. IMPRESSION: 1. Bilateral hydronephrosis. No renal calculi identified. 2. A Wheeler catheter is in place. However, there is significant echogenic debris surrounding the benny ter most characteristic of blood. There was reportedly blood in the patient's Wheeler catheter bag. ACT 112: Negative or not required by law. Electronically signed by: Jose Carnes M.D. 07/09/2021 10:49 AM
[2021-07-09 10:51] LABS: Eosinophils # (auto) 0.01 K/uL (0-0.5); Eosinophils % (auto) 0.1 %; Immature Granulocytes # (auto) 0.05 K/uL (0.00-0.02); Immature Granulocytes % (auto) 0.4 %; Lymphocytes # (auto) 0.63 K/uL (1.2-3.4); Lymphocytes % (auto) 4.6 %; Monocytes # (auto) 1.21 K/uL (0.11-0.59); Monocytes % (auto) 8.8 %; Neutrophils # (auto) 11.82 K/uL (1.4-6.5); Neutrophils % (auto) 86.1 %
[2021-07-09] MEDS: HYDROmorphone INJ 0.5 MG/0.5 ML SYR IV PRN (11:21)
--- NOTE | 2021-07-09 11:22 | Nephrology Consultation ---
Date of Consultation July 09, 2021 Assessment & Plan (1) Acute kidney injury: (2) Gross hematuria: (3) Hydronephrosis: (4) Acute blood loss anemia: (5) Acute radiation cystitis: Acute kidney injury with baseline normal renal function with rapid worsening of kidney function over 24 hour in the setting of obstructive uropathy with bilateral hydronephrosis secondary to hematuria and blood clots in urinary bladder with history of radiation cystitis. With the rapidity of worsening of renal function, acute kidney injury most likely secondary to obstructive uropathy, no evidence of a prerenal or ATN, unlikely acute glomerular disease or renal vein thrombosis. --Obstructive uropathy, managed by Urology, would recommend transferring to another facility for nephrostomy tube placement. -- Will continue to monitor renal function electrolyte while inpatient -- if patient cannot be transferred out and renal function worsen further or significant electrolyte abnormality we may have to consider dialysis however it is crucial to address the postrenal obstruction as soon as possible Will follow Thank you for allowing me to participate in your patient's care. It was a pleasure to see Mr. Salgado History of Present Illness Reason for Consultation: acute kidney injury, obstructive uropathy. Attending Physician: Silvana Kyle MD History of Present Illness Mr. Salgado is a 70-year-old gentlemen presented to the hospital with recurrence of gross hematuria and sense of urinary urgency and retention. He was found to have hematuria with blood clot within the urinary bladder. Nephrology consult was requested as he developed GAURAV. EMR records are reviewed in detail during patient's visit. Mr. Salgado has history of prostate cancer, previously had radiation therapy almost 5 years ago. He presented to the ED on 05/22 for difficulty with urination and hematuria. He was found to be in urinary retention, Wheeler catheter was placed and he was discharged home. He then presented again to the ED on 05/27/21 with chest pain and continued hematuria. He was found to have NSTEMI and stent placed in LAD and started on Plavix. Since then he had multiple hospitalization for gross hematuria, urinary retention with blood clot. He presented to ER on 06/01 and had bladder irrigation and discharged home. Again presented on 06/02 and was admitted and had continuous bladder irrigation and discharge on 06/06. Presented to ER again on 06/09 with urinary retention and discharged home after bladder irrigation. Again presented following day on 06/10 and admitted and had cystoscopy and clot removal. He presented within 2 weeks again on 06/24 when he was discharged and presented again on 06/25, again was discharged from ER. This time he presented to ER on 07/06/2021 with urinary retention and gross hematuria. Cardiology was consulted to make decision regarding dual antiplatelet therapy. Cardiology agreed to hold Plavix to have definitive urological intervention. Had Cystoscopy with fulguration, resection of bladder neck necrotic tissue, clot evacuation 0n 07/06/21. He has been on continuous bladder irrigation since yesterday afternoon. No known history of CKD, baseline creatinine around 1.0. On admission his renal function was at baseline baseline at 1.1. Creatinine was 1.8 yesterday afternoon which rapidly worsened to 3.1 this morning. No hypotension, nephrology medication nephrotoxic medication exposure. Repeat renal ultrasound this morning showed bilateral hydronephrosis. No f/h of CKD, ESRD. smoke cigar. He has significant atherosclerotic disease including 5.4 cm AAA following with vascular surgery He currently complains of pain and spasm in his bladder area but otherwise asymptomatic. Allergies Allergy/AdvReac Type Severity Reaction Status Date / Time No Known Allergies Allergy Verified 07/05/21 07:53 Home Medications Medication Instructions Recorded Confirmed Type atorvastatin 80 mg tablet 80 mg PO HS 05/26/21 07/06/21 History metoprolol tartrate 25 mg tablet 12.5 mg PO BID 30 Days #30 tab 05/29/21 07/06/21 Rx oxybutynin chloride 5 mg tablet 5 mg PO DAILY PRN #30 tab 05/29/21 07/06/21 Rx aspirin 81 mg tablet,delayed 81 mg PO QAM 06/02/21 07/06/21 History release tamsulosin 0.4 mg capsule 0.4 mg PO QAM #30 cap 06/06/21 07/06/21 Rx metformin 500 mg tablet,extended 500 mg PO BID 06/10/21 07/06/21 History release 24 hr lisinopril 5 mg tablet 5 mg PO DAILY 06/24/21 07/06/21 History clopidogrel 75 mg tablet 75 mg PO DAILY 06/25/21 07/06/21 History oxymetazoline 0.05 % nasal spray 2 spray INTRANASAL Q12H PRN 06/29/21 07/06/21 History (Afrin (oxymetazoline)) ciprofloxacin HCl 500 mg tablet 500 mg PO BID 07/06/21 07/06/21 History hydrochlorothiazide 25 mg tablet 25 mg PO DAILY 07/06/21 07/06/21 History Patient History Medical History (Updated 07/09/21 @ 11:53 by Monique Harden MD) Abdominal aortic aneurysm (AAA) 3.0 cm to 5.5 cm in diameter in male Abnormal ECG Acute kidney injury Acute Lyme disease CAD (coronary artery disease) Chronic pancreatitis Gross hematuria HLD (hyperlipidemia) Hydronephrosis Hypertension NSTEMI (non-ST elevated myocardial infarction) Peripheral arterial disease Pre-diabetes Slurred speech Stroke-like symptoms Tobacco abuse Surgical History History of heart artery stent Social History Smoking Status: Never smoker Tobacco Type: Cigars Second Hand Exposure: No; Hx Alcohol Use: Yes Alcohol type: wine Hx Substance Use: No Preferred Language: Slovak Communication Ability: Effective Hat And Cap Opener Required: No Beliefs That Will Affect Care: None marital status: Current Living Situation: Spouse and Family Other Information That Helps Us Care for You: No Feels Safe at Home: Yes Safety Concerns: Feels Safe At This Time Assistive Devices: Glasses Review of Systems Review of Systems: detailed review of system was done and pertinent positive and negatives mentioned in HPI Physical Exam Constitutional: WD/WN, vitals as above no acute distress Eyes: + anicteric sclerae ENMT: Ears: no hearing impairment and no external ear abnormality Neck: normal visual inspection Thyroid: no thyromegaly Respiratory: normal respiratory effort; no respiratory distress and no cough Auscultation: lungs clear to auscultation bilaterally Cardiovascular: Rate/Rhythm: regular rate and regular rhythm Heart Sounds: normal S1 and normal S2 Extremities: no edema Gastrointestinal (Abdomen): Inspection/Auscultation: abdomen normal to inspection and normal bowel sounds Percussion/Palpation: abdomen soft; abdomen nontender Musculoskeletal: Extremities: extremities normal to inspection Skin: normal turgor; no rashes Neurologic: no focal motor deficits and not confused Psychiatric: Orientation: alert and oriented x 3 Affect: euthymic affect Results & Data ([facility]) Vital Signs (Past 12 Hours) Vital Signs Temp Pulse Pulse Resp BP BP Pulse Ox 07/09/21 11:04 36.6 C 73 20 157/81 H 94 07/09/21 08:00 77 07/09/21 07:26 37.0 C 92 H 18 130/79 94 07/09/21 03:38 36.6 C 83 18 131/70 95 07/09/21 02:16 77 PG Care Time/CCT Total # of Minutes Spent Total Time Spent with Patient: Total time spent is greater than 50% in coordination of care (as documented) at patient's floor/unit and/or counseling patient: Coding Level of Care Code 27740 Initial Inpt Care Lvl 3 Diagnoses Acute kidney injury N17.9 Gross hematuria R31.0 Hydronephrosis N13.30 Acute blood loss anemia D62 Acute radiation cystitis N30.40
[2021-07-09] MEDS ORDERED: BELLADONNA/OPIUM SUPP 60 MG SUPP PR PRN (11:58)
[2021-07-09 13:23] LABS: Hemoglobin 8.7 g/dL (14.0-18.0); Mean Corpuscular Hemoglobin 31.4 pg (25-34); Mean Corpuscular Hgb Conc 33.5 g/dL (32-36); Mean Corpuscular Volume 93.9 fL (80-100); Mean Platelet Volume 10.3 fL (7.4-10.4); Platelet Count 313 K/uL (130-400); RDW Coefficient of Variation 16.8 % (11.5-14.5); Red Blood Count 2.77 M/uL (4.7-6.1); White Blood Count 14.41 K/uL (4.8-10.8)
--- NOTE | 2021-07-09 13:48 | XRay Report ---
KUB HISTORY: Generalized abdominal pain/ no BM COMPARISON: Abdomen and pelvis CT 06/25/2021. FINDINGS: There is a moderate to large amount well-formed stool seen throughout the colon most pronou nced within the ascending colon. Nondilated gas-filled loops of small bowel are seen throughout the a bdomen. No evidence for bowel obstruction. Multiple brachytherapy seeds again noted at the prostate g land. There is again noted a infrarenal abdominal aortic aneurysm. This measures approximately 6 cm. Stable punctate stone within the right kidney. The patient's left renal stone is likely obscured by o verlying bowel gas. No pneumoperitoneum or pneumatosis. IMPRESSION: 1. Moderate to large amount of well-formed stool seen throughout the colon. This is most pronounced w ithin the ascending colon. 2. Stable right-sided nephrolithiasis. 3. A 6 cm infrarenal abdominal aortic aneurysm. ACT 112: Negative or not required by law. Electronically signed by: Rolando Santos M.D. 07/09/2021 1:46 PM
[2021-07-09] MEDS ORDERED: FLUCONAZOLE 100 MG TAB PO SCH (14:30)
[2021-07-09 14:31] LABS: BUN Creatinine Ratio 8.2 (10-20); Creatinine Clr Calc Pharmacy 16.6 ml/min; Est GFR (African American) 17.7 ml/min; Est GFR (Non-African American) 15.3 ml/min; Potassium 4.2 mmol/L (3.5-5.1)
[2021-07-09] MEDS ORDERED: PROPOFOL IV EMULSION 10 MG/ML 20 ML VIAL IV ONE ×3 (16:27→19:41)
[2021-07-09] MEDS ORDERED: fentaNYL citrate 100 MCG/2 ML VIAL ONE (16:27)
[2021-07-09] MEDS ORDERED: ONDANSETRON INJ 2 MG/ML 2 ML VIAL ONE (16:27)
[2021-07-09] MEDS ORDERED: MIDAZOLAM HCL 1 MG/ML 2ML VIAL ONE (16:27)
[2021-07-09] MEDS ORDERED: LIDOCAINE 2% 2 ML VIAL/AMP(20MG/ML) INFIL ONE (16:27)
--- NOTE | 2021-07-09 16:32 | CT Scan Report ---
CT CYSTOGRAM CLINICAL HISTORY: Hematuria. Possible bladder rupture. CT abd/pelvis with Cystogram COMPARISON STUDY: CT of the abdomen and pelvis June 25, 2021. Renal ultrasound July 09, 2021. TECHNIQUE: 160 cc of Cysto-Conray was instilled into the bladder via the indwelling Wheeler catheter. N o additional contrast could be instilled given patient pain. Axial images from the level the mid kidn eys through the pelvis were then obtained without IV contrast. Images were reviewed in the axial, sag ittal, and coronal planes. Automated exposure control was utilized for the study. A dose lowering t echnique was utilized adhering to the principles of ALARA. FINDINGS: Please note that the upper abdomen was not included on this examination. A 5.4 x 5.4 cm inf rarenal abdominal aortic aneurysm is partially imaged on this exam. Visualized portions are unchanged since CT of June 25, 2021. Caliber of visualized small and large bowel are normal. The appendix is normal. Colonic diverticulosis is noted without evidence for acute diverticulitis. No free fluid within the pelvis. There is bilateral perinephric stranding and fluid, greater on the l eft. Hyperdense material within the bladder represents blood clot. An associated mass cannot be exclu ded on this exam but is not identified. A Wheeler balloon within the bladder is noted. There is contras t within the bladder however opacification of the bladder is suboptimal. No additional contrast could be administered due to pain. Note is made of bilateral vesicoureteral reflux, left greater than righ t. There is mild bilateral hydronephrosis. Filling defects within left renal pelvis may reflect a sma ll amount of clot. No extraluminal contrast is identified to indicate bladder rupture. Brachytherapy seeds within the prostate are noted. There is gas within the bladder. Bladder wall is trabeculated. IMPRESSION: 1. Suboptimal evaluation for bladder leak given incomplete bladder filling. No additional contrast co uld be instilled due to pain. However, no extraluminal contrast to indicate bladder rupture. In addit ion, no free fluid within the pelvis which diminishes the likelihood of an underlying bladder injury. 2. Large amount of clot within the bladder. Coexistent bladder mass cannot be excluded although is no t definitively identified. 3. Bilateral vesicoureteral reflux, left greater than right. Mild bilateral hydronephrosis. Bilateral perinephric stranding and fluid, greater on the left. 4. Partially visualized abdominal aortic aneurysm, measuring 5.4 cm. Visualized portions unchanged si nce CT of June 25, 2021. ACT 112: Negative or not required by law. Electronically signed by: Juanjose Stephens M.D. 07/09/2021 4:31 PM
[2021-07-09] MEDS ORDERED: PHENYLEPHRINE 100MCG/ML 5ML SYR IV PRN (16:37)
[2021-07-09] MEDS ORDERED: ePHEDrine sulfate 50 MG/ML AMP IV PRN (16:37)
[2021-07-09] MEDS ORDERED: ATROPINE SULFATE 0.1 MG/ML 10ML SYR IV PRN (16:37)
[2021-07-09] MEDS ORDERED: LABETALOL HCL IV 5 MG/ML 20ML IV PRN (16:37)
[2021-07-09] MEDS ORDERED: fentaNYL citrate 100 MCG/2 ML VIAL IV PRN (16:37)
[2021-07-09] MEDS ORDERED: ONDANSETRON INJ 2 MG/ML 2 ML VIAL IV PRN (16:37)
--- NOTE | 2021-07-09 16:38 | Anesthesiology Consultation ---
Date of Service July 09, 2021 Assessment & Plan Chart Review Chart Review: Acceptable Risk for Surgery (necessary surgery) and Patient NOT seen in Pre Admission Testing Consults Requested none History Surgery Operation Date: 07/06/21 04:35 Proposed Procedures p Cystoscopy possible fulguration - Luis Butler DO Operation Date: 07/09/21 20:15 Proposed Procedures p Cystoscopy Retrograde, Bilateral Stent Placement - Luis Butler DO Height/Weight Height: 5 ft 6 in Weight: 68.3 kg Allergies Allergy/AdvReac Type Severity Reaction Status Date / Time No Known Allergies Allergy Verified 07/05/21 07:53 Medications Home Medications Medication Instructions Recorded Confirmed Last Taken atorvastatin 80 mg tablet 80 mg PO HS 05/26/21 07/06/21 06/24/21 metoprolol tartrate 25 mg tablet 12.5 mg PO BID 30 Days #30 tab 05/29/21 07/06/21 06/25/21 08:00 oxybutynin chloride 5 mg tablet 5 mg PO DAILY PRN #30 tab 05/29/21 07/06/21 05/30/21 aspirin 81 mg tablet,delayed 81 mg PO QAM 06/02/21 07/06/21 06/25/21 release tamsulosin 0.4 mg capsule 0.4 mg PO QAM #30 cap 06/06/21 07/06/21 06/25/21 metformin 500 mg tablet,extended 500 mg PO BID 06/10/21 07/06/21 06/24/21 release 24 hr lisinopril 5 mg tablet 5 mg PO DAILY 06/24/21 07/06/21 06/25/21 clopidogrel 75 mg tablet 75 mg PO DAILY 06/25/21 07/06/21 06/25/21 oxymetazoline 0.05 % nasal spray 2 spray INTRANASAL Q12H PRN 06/29/21 07/06/21 Unknown (Afrin (oxymetazoline)) ciprofloxacin HCl 500 mg tablet 500 mg PO BID 07/06/21 07/06/21 07/05/21 06:00 hydrochlorothiazide 25 mg tablet 25 mg PO DAILY 07/06/21 07/06/21 Unknown Active Medications Generic Name Dose Route Start Last Admin Trade Name Freq PRN Reason Stop Dose Admin Acetaminophen 650 mg 07/06/21 08:18 07/08/21 00:02 Acetaminophen 325 Mg Tab PO 08/05/21 08:17 650 mg Q4H PRN Administration Pain or Fever Aspirin 81 mg 07/06/21 09:00 07/09/21 08:30 Aspirin 81 Mg Ectab PO 08/05/21 08:59 81 mg QAM EDEN Administration Atorvastatin Calcium 80 mg 07/06/21 21:00 07/08/21 20:03 Atorvastatin 40 Mg Tab PO 08/05/21 20:59 80 mg HS EDEN Administration Clopidogrel Bisulfate 75 mg 07/06/21 09:00 07/07/21 08:14 Clopidogrel Bisulfate 75 Mg Tab PO 08/05/21 08:59 75 mg DAILY EDEN Administration Hydromorphone HCl 0.25 mg 07/06/21 05:03 07/09/21 11:21 Hydromorphone Inj 0.5 Mg/0.5 Ml Syr IV 07/20/21 05:02 0.25 mg Q3H PRN Administration Severe Pain Alum 30 gm/ Sodium Chloride 3,000 mls @ 0 mls/hr 07/08/21 12:15 07/09/21 15:47 IR 08/07/21 12:14 50 mls/hr Q8H EDEN Administration Irrigation Sodium Chloride 1,000 mls @ 80 mls/hr 07/09/21 10:00 07/09/21 10:57 Nss 1000ml IV 08/08/21 09:59 Not Given .[id number] EDEN Insulin Aspart 0 units 07/06/21 08:18 07/09/21 11:44 Insulin Aspart 100 Units/Ml 3 Ml Pen SC 08/05/21 08:17 Not Given ACHS EDEN Lisinopril 5 mg 07/08/21 15:30 07/08/21 17:30 Lisinopril 5 Mg Tab PO 08/07/21 15:29 5 mg QAM EDEN Administration Metoprolol Tartrate 12.5 mg 07/06/21 09:00 07/09/21 08:30 Metoprolol Tartrate 25 Mg Tab PO 08/05/21 08:59 12.5 mg BID EDEN Administration Oxybutynin Chloride 5 mg 07/06/21 08:18 07/09/21 10:35 Oxybutynin Chloride 5 Mg Tab PO 08/05/21 08:17 5 mg DAILY PRN Administration bladder spasms Tamsulosin HCl 0.8 mg 07/06/21 21:00 07/08/21 20:00 Tamsulosin Hcl 0.4 Mg Cap PO 08/05/21 20:59 0.8 mg HS EDEN Administration Tramadol HCl 50 mg 07/08/21 14:43 07/09/21 10:35 Tramadol Hcl 50 Mg Tablet PO 08/07/21 14:42 50 mg Q4H PRN Administration Pain NPO Date Last Intake of Fluids: 07/05/21 Time Last Intake of Fluids: 18:00 Date Last Intake of Solids: 07/05/21 Time Last Intake of Solids: 18:00 Past Medical History Medical History Abdominal aortic aneurysm (AAA) 3.0 cm to 5.5 cm in diameter in male Abnormal ECG Acute kidney injury Acute Lyme disease Anemia CAD (coronary artery disease) Chronic pancreatitis Gross hematuria HLD (hyperlipidemia) Hydronephrosis Hypertension NSTEMI (non-ST elevated myocardial infarction) Peripheral arterial disease Pre-diabetes Slurred speech Stroke-like symptoms Tobacco abuse Past Surgical History Surgical History History of heart artery stent Social History Smoking Status: Never smoker tobacco type: cigars Hx Alcohol Use: Yes Alcohol type: wine alcohol intake frequency: 0-2 drinks per day Hx Substance Use: No substance use type: does not use Physical Exam Vital Signs Last Vital Signs Temp 36.6 C 07/09/21 11:04 Pulse 80 07/09/21 15:04 Resp 20 07/09/21 11:04 BP 157/81 H 07/09/21 11:04 Pulse Ox 94 07/09/21 11:04 Testing Laboratory Results 07/09/21 12:53 07/09/21 12:53 Urine Color Brown 07/09/21 Unknown Urine Appearance Cloudy (Clear) A 07/09/21 Unknown Urine pH (4.5-7.5) 07/09/21 Unknown Ur Specific Hardy 1.009 (1.000-1.030) 07/09/21 Unknown Urine Protein (Negative) 07/09/21 Unknown Urine Glucose (UA) (Negative) 07/09/21 Unknown Urine Ketones (Negative) 07/09/21 Unknown Urine Nitrite (Negative) 07/09/21 Unknown Ur Leukocyte Esterase (Negative) 07/09/21 Unknown Urine RBC >30 /hpf (0-4) H 07/09/21 Unknown Urine WBC >30 /hpf (0-5) H 07/09/21 Unknown Ur Epithelial Cells 0-5 /lpf (0-5) 07/09/21 Unknown Blood Type B Positive 07/08/21 09:26 Antibody Screen NEGATIVE 07/08/21 09:26 07/06/21 00:30 Urine Culture - Final Urine,Straight Cath Breanna albicans/dubliniensis Electrocardiogram Date: 06/10/21 DICTATED BY:Freddy Barrow MD Test Reason : Blood Pressure : / mmHG Vent. Rate : 100 BPM Atrial Rate : 100 BPM P-R Int : 146 ms QRS Dur : 088 ms QT Int : 344 ms P-R-T Axes : 050 059 053 degrees QTc Int : 443 ms Normal sinus rhythm Nonspecific T wave abnormality Abnormal ECG When compared with ECG of 09-JUN-2021 09:30, No significant change was found Confirmed by Freddy Barrow ([id number]) on 06/10/2021 2:03:00 PM Referred By: Cheikh Morrison Confirmed By:Salas Barrow Chest X-Ray Date: 06/10/21 XR chest 1V portable HISTORY: 70 years-old Male pre-op preoperative exam. No acute chest complaints COMPARISON: Chest radiograph 05/16/2021 TECHNIQUE: Portable AP view the chest FINDINGS: Cardiomediastinal and hilar silhouettes are within normal limits. Calcified plaque of the thoracic aorta. Emphysema. Mild chronic interstitial coarsening without pneumothorax, pleural effusion, airspace consolidation or overt pulmonary edema. A millimeter nodular density of the right midlung redemonstrated. No acute fracture. Degenerative changes of the shoulders and spine. IMPRESSION: 1. Emphysema without acute process. 2. 8mm right midlung nodule redemonstrated. Correlation with a nonemergent follow-up chest CT recommended. ACT 112: Negative or not required by law. The above report was generated using voice recognition software. It may contain grammatical, syntax or spelling errors. Electronically signed by: Luciano Moore M.D. 06/10/2021 1:33 PM Dictated:06/10/211330 Transcribed: 06/10/211330 Echocardiogram Date: 05/26/21 EF: 55-60 LV Function: normal RWMA: + none Other Findings: + LVH (mild concentri) Valvular Disease: + MR (mild) Stress Test Date: 09/15/20 Type: DSE Findings: + WNL Other Testing KUB HISTORY: Generalized abdominal pain/ no BM COMPARISON: Abdomen and pelvis CT 06/25/2021. FINDINGS: There is a moderate to large amount well-formed stool seen throughout the colon most pronounced within the ascending colon. Nondilated gas-filled loops of small bowel are seen throughout the abdomen. No evidence for bowel obstruction. Multiple brachytherapy seeds again noted at the prostate gland. There is again noted a infrarenal abdominal aortic aneurysm. This measures approximately 6 cm. Stable punctate stone within the right kidney. The patient's left renal stone is likely obscured by overlying bowel gas. No pneumoperitoneum or pneumatosis. IMPRESSION: 1. Moderate to large amount of well-formed stool seen throughout the colon. This is most pronounced within the ascending colon. 2. Stable right-sided nephrolithiasis. 3. A 6 cm infrarenal abdominal aortic aneurysm. ACT 112: Negative or not required by law. Electronically signed by: Rolando Santos M.D. 07/09/2021 1:46 PM Dictated:07/09/21 1343 Transcribed: 07/09/[address] CYSTOGRAM CLINICAL HISTORY: Hematuria. Possible bladder rupture. CT abd/pelvis with Cyst ogram COMPARISON STUDY: CT of the abdomen and pelvis June 25, 2021. Renal ultrasound July 09, 2021. TECHNIQUE: 160 cc of Cysto-Conray was instilled into the bladder via the indwelling Wheeler catheter. No additional contrast could be instilled given patient pain. Axial images from the level the mid kidneys through the pelvis were then obtained without IV contrast. Images were reviewed in the axial, sagittal, and coronal planes. Automated exposure control was utilized for the study. A dose lowering technique was utilized adhering to the principles of ALARA. FINDINGS: Please note that the upper abdomen was not included on this examination. A 5.4 x 5.4 cm infrarenal abdominal aortic aneurysm is partially imaged on this exam. Visualized portions are unchanged since CT of June 25, 2021. Caliber of visualized small and large bowel are normal. The appendix is normal. Colonic diverticulosis is noted without evidence for acute diverticulitis. No free fluid within the pelvis. There is bilateral perinephric stranding and fluid, greater on the left. Hyperdense material within the bladder represents blood clot. An associated mass cannot be excluded on this exam but is not identi fied. A Wheeler balloon within the bladder is noted. There is contrast within the bladder however opacification of the bladder is suboptimal. No additional contrast could be administered due to pain. Note is made of bilateral vesicoureteral reflux, left greater than right. There is mild bilateral hydr onephrosis. Filling defects within left renal pelvis may reflect a small amount of clot. No extraluminal contrast is identified to indicate bladder rupture. Brachytherapy seeds within the prostate are noted. There is gas within the bladder. Bladder wall is trabeculated. IMPRESSION: 1. Suboptimal evaluation for bladder leak given incomplete bladder filling. No additional contrast could be instilled due to pain. However, no extraluminal contrast to indicate bladder rupture. In addition, no free fluid within the pelvis which diminishes the likelihood of an underlying bladder injury. 2. Large amount of clot within the bladder. Coexistent bladder mass cannot be excluded although is not definitively identified. 3. Bilateral vesicoureteral reflux, left greater than right. Mild bilateral hydr onephrosis. Bilateral perinephric stranding and fluid, greater on the left. 4. Partially visualized abdominal aortic aneurysm, measuring 5.4 cm. Visualized portions unchanged since CT of June 25, 2021. ACT 112: Negative or not required by law. Electronically signed by: Juanjose Stephens M.D. 07/09/2021 4:31 PM Dictated:07/09/21 1608 Transcribed: 07/09/21 1608
[2021-07-09] MEDS ORDERED: BELLADONNA/OPIUM SUPP 60 MG SUPP PR ONE (17:19)
[2021-07-09] MEDS ORDERED: ceFAZolin 2000MG 2,000 MG/15 ML SYR IV ONE (17:39)
[2021-07-09] MEDS ORDERED: DIATRIZOATE MEGLUMINE 30% 100ML VIAL INSTIL ONE (17:40)
[2021-07-09] MEDS ORDERED: GLYCOPYRROLATE 0.2 MG/ML VIAL ONE (17:49)
[2021-07-09] MEDS ORDERED: ALBUMIN HUMAN 5% 12.5 GM/250 ML VIAL IV ONE (17:58)
--- NOTE | 2021-07-09 18:11 | Fluoroscopy Report ---
INTRAOPERATIVE RADIOGRAPHS CLINICAL HISTORY: Bilateral ureteral stent placement. Fluoroscopy time: 85 seconds. FINDINGS: 4 spot fluoroscopic views of the abdomen are correlated with abdominal CT dated 07/09/2021. Initial images show contrast within the renal collecting system bilaterally. There is mild bilateral hydronephrosis. The proximal ends of ureteral stents appear appropriately positioned. 2 subsequent im ages of the pelvis show the distal ends of bilateral ureteral stents in place. Brachytherapy implants are seen in the prostate. The final image shows contrast opacifying the bladder. There is no clear e vidence of extra luminal contrast in the pelvis on these fluoroscopic views. IMPRESSION: Intraoperative images from bilateral ureteral stent placement as above. See operative rep ort for detailed findings. Electronically signed by: Mc Nelson M.D. 07/09/2021 6:09 PM
[2021-07-09] MEDS ORDERED: LIDOCAINE/EPINEPHRINE 1% 20 ML VIAL ONE (18:29)
[2021-07-09] MEDS ORDERED: SODIUM CHLORIDE 0.9% 250 ML IV PRN (18:31)
[2021-07-09] MEDS ORDERED: HYDROmorphone INJ 2 MG/ML SYR/VIAL ONE (18:48)
[2021-07-09] MEDS ORDERED: cefOXitin 2,000 MG/60 ML BAG IV ONE (19:21)
[2021-07-09] MEDS ORDERED: ROCURONIUM BROMIDE 10 MG/ML 5 ML VIAL IV ONE ×4 (19:41→20:11)
[2021-07-09] MEDS ORDERED: SUCCINYLCHOLINE 100MG/5ML SYR IV ONE (19:41)
[2021-07-09] MEDS ORDERED: SODIUM BICARB 8.4% INJ 50 MEQ/50 ML SYR IV ONE ×5 (19:58→20:17)
--- NOTE | 2021-07-09 20:32 | Post Operative Brief Note ---
PG Immediate Post Op with CF Date of Surgery July 09, 2021 Pre & Post Diagnosis Operation Date: 07/09/21 20:15 Pre-Op Diagnosis: Gross hematuria, Acute radiation cystitis Post-Op Diagnosis: Gross hematuria, Acute radiation cystitis, Bladder Perforation I identified the patient and participated in the time-out.: Yes Procedure Operation Date: 07/09/21 20:15 Actual Procedures p Cystoscopy, Bilateral Retrograde Pyelogram, Bilateral Ureteral Stent Placement, cystogram. - Luis Butler DO s Exploratory Laparotomy, Bladder Perforation Closure, Drain placement. - Luis Butler DO Surgeon Luis Butler, II, DO [employer] None Estimated Blood Loss 1,000 Findings Consistent with Post-Op Diagnosis Large amount of blood within the bladder. Underwent clot evacuation. Stents were placed bilaterally. Blood was discovered draining from the right. Further clot was evacuated from the dome/posterior wall and a perforation of the bladder was discovered. Cystogram showed concern for intraperitoneal bladder rupture. During exploration, rupture discovered at dome with only small portion intraperitoneal. A large amount of fluid and clot was cleared and suctioned. Peritoneum was irrigated. Bladder closed in 2 layers with additional layer extraperitoneal. Drains left in peritoneum and Space of Retzius. Three way catheter left with mild CBI. No leakage from drains. Urine light pink with gentle CBI. Patient required 2 units RBC and 500 Albumin. Specimens Specimen Description: None Drains Wheeler Catheter (22fr, 3-way, hematuria coude catheter) and Vin-Berry Drain (Two 10mm flat drains with 100cc bulbs) Anesthesia Type General Complications none Disposition Disposition: Surgical ICU
[2021-07-09] MEDS ORDERED: PROPOFOL IV EMULSION 10 MG/ML 100 ML VIAL IV ONE (20:46)
[2021-07-09] MEDS ORDERED: PIPERACILL/TAZOBAC CONSULT ACTIVE PRN (20:57)
[2021-07-09] MEDS ORDERED: PIPERACILLIN/TAZOBACTAM 3.375 GM in DEXTROSE 5% 100 ML IV SCH (21:00)
--- NOTE | 2021-07-09 21:05 | Critical Care Consultation ---
Date of Consultation July 09, 2021 Assessment & Plan (1) Perforation of bladder: Reason Critically Ill: 70-year-old male with history of radiation cystitis and recurrent hematuria with bladder obstruction, presents to the ICU following ex lap for repair of perforated bladder, and cystoscopy with clot removal and bilateral ureteral stent placement as patient had developed bilateral hydronephrosis and GAURAV due to post obstruction. Plan for patient to eventually transfer to [facility] for nephrostomy tube placement, but delayed due to high volume at tertiary center. Patient had hypotension intraprocedure which seems to be resolved and did receive 2 units RBCs and was left intubated postop. Neuro - Sedation: Propofol Cardiac - HTNpatient no longer hypotensive and suspect this is sedation related. Continue MTP. Holding lisinopril in the setting of GAURAV. Avoid hypertension as patient does have 5.[address] scan, which is unchanged from prior study.Will give labetalol prn if needed. HLDcontinue statin CADrecent NSTEMI with stent placement LAD in May. Holding Plavix due to hematuria. Continue ASA Respiratory - Mechanically ventilatedno history of pulmonary disease and no significant hypoxia. ABG without significant acid-base imbalance or hypoxia. Plan to under go SBT in morning, and will likely extubate. -Continuous end-tidal CO2 and pulse ox monitoring -Follow-up chest x-ray and ABG in morning GI - N.p.o. RENAL/LYTES - AKIsecondary to post obstruction from hematuria/clots -Nephrology following, recommend transfer for nephrostomy tubes. Plan for patient to transfer to [facility] either Monday or Monday. -Underwent bilateral ureteral stenting and clot removal for hydronephrosis as nephrostomy will be delayed -Hold lisinopril, avoid nephrotoxins. Renally adjust medications -Maintain maps greater than 65 -Monitor routine BMPs and trend creatinine and electrolytes - Hematuria/bladder perforationurology following, appreciate recommendations. Post cystoscopy with bilateral ureteral stenting and clot removal. Underwent ex lap due to perforated bladder and underwent closure with drain placement -Three-way Wheeler with continuous bladder irrigation. Management per urology -Strict I's and O's ENDO - DM type IIholding Metformin. Continue insulin aspart -ICU hyperglycemic protocol HEME - Anemiasecondary to acute blood loss following hematuria. Repeat CBC following 2 units RBCs in OR with hemoglobin of 10. Appears to be stable for now. Coags and fibrinogen pending. We will follow up routine CBC and transfuse as indicated. ID - Zosyn for empiric intra-abdominal coverage following bladder perforation and ex lap LINES/IV ACCESS - Peripheral IVs, ET tube, OG tube, Wheeler three-way DVT PROPHYLAXIS - SCDs, hold anticoagulation in the setting of hematuria I have personally spent 50 minutes of critical care time in the direct management of this patient. This is a life/limb threatening event. This includes time spent evaluating patient, direct bedside care, chart review, placing orders, interpretation of diagnostic studies, discussion with consultants, patient, and family members, as well as other required patient management activities. This time is exclusive of all separately billable procedures, and teaching time and separate from and in addition to any other critical care service time. Thank you for allowing us to participate in the care of this patient. Please refer to my attending physician's documentation for any further recommendations. (2) Anemia: (3) Hydronephrosis: (4) Acute kidney injury: (5) Mitral regurgitation: (6) HLD (hyperlipidemia): (7) Acute urinary retention: (8) Acute radiation cystitis: (9) Abdominal aortic aneurysm (AAA) 3.0 cm to 5.5 cm in diameter in male: (10) Hematuria: (11) Hypertension: (12) Peripheral arterial disease: (13) Tobacco abuse: (14) NSTEMI (non-ST elevated myocardial infarction): (15) History of heart artery stent: (16) Type 2 diabetes mellitus: (17) CAD (coronary artery disease): History of Present Illness Attending Physician: Silvana Kyle MD History of Present Illness Patient is a 70-year-old male with past medical history prostate cancer with previous radiation therapy 5 years ago, recent NSTEMI with LAD stent placed, and multiple recent episodes of gross hematuria secondary to radiation cystitis r equiring clot evacuation and bladder irrigation and cauterization on the bleeding vessel. Other history includes PAD, HTN, DM type II, HLD, AAA, CAD. Patient presented to the emergency department on 07/06 with urinary urgency and retention for 5 hours prior to arrival. Patient was undergoing bladder irrigation and followed by urology and nephrology. Patient had developed GAURAV and CT imaging showed bilateral hydronephrosis due to obstruction. Transfer for bilateral nephrostomy was recommended, however due to high volumes at surrounding hospitals this has been delayed. Decision was made to proceed with cystoscope he with bilateral ureteral stent placement. During the procedure, patient was found to have large amounts of blood within the bladder and underwent a clot evacuation. Cystogram showed evidence of intraperitoneal bladder rupture. Exploratory laparotomy was performed for perforated bladder repair and irrigation of peritoneum and MARLEE drain insertion x2 Patient did become hypotensive and received 2 units RBCs and 500 albumin. Patient was left intubated postop and transferred to ICU. He does have a three-way catheter is undergoing irrigation. Plan for patient to be transferred to [facility] either Monday or Monday due to high census, for nephrostomy tube placement. If patient remains stable can likely extubate in the morning. Allergies Allergy/AdvReac Type Severity Reaction Status Date / Time No Known Allergies Allergy Verified 07/05/21 07:53 Home Medications Medication Instructions Recorded Confirmed Type atorvastatin 80 mg tablet 80 mg PO HS 05/26/21 07/06/21 History metoprolol tartrate 25 mg tablet 12.5 mg PO BID 30 Days #30 tab 05/29/21 07/06/21 Rx oxybutynin chloride 5 mg tablet 5 mg PO DAILY PRN #30 tab 05/29/21 07/06/21 Rx aspirin 81 mg tablet,delayed 81 mg PO QAM 06/02/21 07/06/21 History release tamsulosin 0.4 mg capsule 0.4 mg PO QAM #30 cap 06/06/21 07/06/21 Rx metformin 500 mg tablet,extended 500 mg PO BID 06/10/21 07/06/21 History release 24 hr lisinopril 5 mg tablet 5 mg PO DAILY 06/24/21 07/06/21 History clopidogrel 75 mg tablet 75 mg PO DAILY 06/25/21 07/06/21 History oxymetazoline 0.05 % nasal spray 2 spray INTRANASAL Q12H PRN 06/29/21 07/06/21 History (Afrin (oxymetazoline)) ciprofloxacin HCl 500 mg tablet 500 mg PO BID 07/06/21 07/06/21 History hydrochlorothiazide 25 mg tablet 25 mg PO DAILY 07/06/21 07/06/21 History Patient History Medical History Abdominal aortic aneurysm (AAA) 3.0 cm to 5.5 cm in diameter in male Abnormal ECG Acute kidney injury Acute Lyme disease Anemia CAD (coronary artery disease) Chronic pancreatitis Gross hematuria HLD (hyperlipidemia) Hydronephrosis Hypertension NSTEMI (non-ST elevated myocardial infarction) Peripheral arterial disease Pre-diabetes Slurred speech Stroke-like symptoms Tobacco abuse Surgical History History of heart artery stent Social History Smoking Status: Never smoker Tobacco Type: Cigars Second Hand Exposure: No; Hx Alcohol Use: Yes Alcohol type: wine Hx Substance Use: No Preferred Language: Cymraes Communication Ability: Effective Systems Integrator Required: No Beliefs That Will Affect Care: None marital status: Current Living Situation: Spouse and Family Other Information That Helps Us Care for You: No Feels Safe at Home: Yes Safety Concerns: Feels Safe At This Time Assistive Devices: Glasses Review of Systems Review of Systems: Unobtainable due to endotracheal tube Physical Exam Constitutional: WD/WN, vitals as above + mechanically ventilated Eyes: PERRL, conjunctivae normal, anicteric sclerae ENMT: external ear and nose normal, oropharynx normal Neck: trachea midline, no thyromegaly Respiratory: normal respiratory effort, lungs clear to auscultation Symmetrical chest wall movement Cardiovascular: RRR, no murmur, no edema Heart Sounds: normal S1 and normal S2 Vessels: no JVD Extremities: no edema Gastrointestinal (Abdomen): Midline surgical incision dressing intact without spotting, MARLEE drain with serosanguineous drainage x2. Abdomen soft nondistended. Bowel sounds auscultated Musculoskeletal: Unable to assess due to sedation Skin: no rashes, warm and dry Neurologic: Unable to assess due to sedation Psychiatric: Unable to assess due to sedation Genitourinary: Three-way indwelling Wheeler catheter present. Hematuria without visible clots into Results & Data Results & Data ([facility]) Vital Signs (Past 12 Hours) Vital Signs Temp Pulse Pulse Resp BP Pulse Ox 07/09/21 16:51 36.8 C 89 18 124/77 94 07/09/21 15:04 80 07/09/21 11:04 36.6 C 73 20 157/81 H 94 Coding Level of Care Code Critical Care 1st 30-74 mins Diagnoses Anemia D64.9 Hydronephrosis N13.30 Acute kidney injury N17.9 Mitral regurgitation I34.0 HLD (hyperlipidemia) E78.5 Acute urinary retention R33.8 Acute radiation cystitis N30.40 Abdominal aortic aneurysm (AAA) 3.0 cm to 5.5 cm in diameter in male I71.4 Hematuria R31.0 Hematuria type: gross Hypertension I10 Peripheral arterial disease I73.9 Tobacco abuse Z72.0 NSTEMI (non-ST elevated myocardial infarction) I21.4 History of heart artery stent Z95.5 Type 2 diabetes mellitus E11.9 CAD (coronary artery disease) I25.10 Associated angina: without angina Coronary Disease-Associated Artery/Lesion type: nikolski artery [place] vs. transplanted heart: nikolski heart Perforation of bladder (1) Hematuria Hematuria type: gross Qualified Code(s): R31.0 - Gross hematuria (2) CAD (coronary artery disease) Associated angina: without angina Coronary Disease-Associated Artery/Lesion type: nikolski artery [place] vs. transplanted heart: n[place]ki heart Qualified Code(s): I25.10 - Atherosclerotic heart disease of n[place]ki coronary artery without angina pectoris
--- NOTE | 2021-07-09 21:05 | Anesthesiology Progress Note ---
Date of Service July 09, 2021 Anesthesia Post Procedure Vital Signs Vital Signs: Temp Pulse Pulse Resp BP BP BP 07/09/21 16:51 36.8 C 89 18 124/77 07/09/21 15:04 80 07/09/21 11:04 36.6 C 73 20 157/81 H 07/09/21 08:00 77 07/09/21 07:26 37.0 C 92 H 18 130/79 07/09/21 03:38 36.6 C 83 18 131/70 07/09/21 02:16 77 07/08/21 22:24 36.6 C 84 16 147/70 H 07/08/21 21:36 36.6 C 87 16 138/81 Pulse Ox 07/09/21 16:51 94 07/09/21 15:04 07/09/21 11:04 94 07/09/21 08:00 07/09/21 07:26 94 07/09/21 03:38 95 07/09/21 02:16 07/08/21 22:24 95 07/08/21 21:36 94 Pain Intensity Abdomen: Pain Intensity: 5 Transfer of Care Handoff Completed per policy Notes Mental Status: see notes below Patient Amnestic to Procedure: Yes Nausea / Vomiting: adequately controlled Pain: adequately controlled Airway Patency, RR, SpO2: stable & adequate BP & HR: stable & adequate Hydration State: stable & adequate Anesthetic Complications: no major complications apparent and see Notes below Notes: Pt remained intubated and attached to mechanical ventilator in ICU. Report given. Vent settings as per ICU protocol. PT is critical, but stable at this time.
[2021-07-09 21:08] LABS: iSTAT Arterial Blood Gas HCO3 28 meg/L (19-24); iSTAT Arterial Blood Gas pCO2 40 mmHg (35-46); iSTAT Arterial Blood Gas pH 7.44 (7.35-7.45); iSTAT Arterial Blood Gas pO2 305 mmHg (80-95); iSTAT Carbon Dioxide 29 mmol/L (24-31); iSTAT Hematocrit 22 % (42-52); iSTAT Hemoglobin 7.5 g/dl (14.0-18.0); iSTAT Sodium 146 mmol/L (135-144)
[2021-07-09 21:08] LABS: iSTAT Arterial Blood Gas HCO3 16 meg/L (19-24); iSTAT Arterial Blood Gas pCO2 36 mmHg (35-46); iSTAT Arterial Blood Gas pH 7.26 (7.35-7.45); iSTAT Arterial Blood Gas pO2 284 mmHg (80-95); iSTAT Carbon Dioxide 17 mmol/L (24-31); iSTAT Hematocrit 26 % (42-52); iSTAT Hemoglobin 8.8 g/dl (14.0-18.0); iSTAT Potassium 4.3 mmol/L (3.3-5.0); iSTAT Sodium 141 mmol/L (135-144)
[2021-07-09] MEDS ORDERED: PIPERACILLIN/TAZOBACTAM 3.375 GM in DEXTROSE 5% 100 ML IV ONE (21:15)
[2021-07-09] MEDS ORDERED: PROPOFOL BOLUS FROM BAG IV PRN (21:18)
[2021-07-09] MEDS ORDERED: STAT IV Infusion **Titration per Protocol STA (21:18)
[2021-07-09] MEDS: propofoL 1,000 MG/100 ML VIAL IV SCH (21:30)
[2021-07-09 21:39] LABS: Hematocrit (blood only) 30.4 % (42-52); Immature Granulocytes # (auto) 0.04 K/uL (0.00-0.02); Immature Granulocytes % (auto) 0.3 %; Lymphocytes % (auto) 3.3 %; Mean Corpuscular Hemoglobin 29.9 pg (25-34); Mean Platelet Volume 10.2 fL (7.4-10.4); Monocytes # (auto) 0.96 K/uL (0.11-0.59); Monocytes % (auto) 7.8 %; Neutrophils # (auto) 10.89 K/uL (1.4-6.5); Neutrophils % (auto) 88.6 %; Nucleated RBC # (auto) 0.02 K/uL (0-0); Nucleated RBC % (auto) 0.2 %; Platelet Count 269 K/uL (130-400); RDW Coefficient of Variation 17.1 % (11.5-14.5); Red Blood Count 3.34 M/uL (4.7-6.1); White Blood Count 12.29 K/uL (4.8-10.8)
--- NOTE | 2021-07-09 21:39 | Operative Report ---
PG Post Operative Report Pre & Post Diagnosis Operation Date: 07/09/21 20:15 Pre-Op Diagnosis: Gross hematuria, Acute radiation cystitis, GAURAV Post-Op Diagnosis: Gross hematuria, Acute radiation cystitis, GAURAV, Bladder Perforation I identified the patient and participated in the time-out.: Yes Procedure Operation Date: 07/09/21 20:15 Actual Procedures p Cystoscopy, Bilateral Retrograde Pyelogram, Bilateral Ureteral Stent Placement, cystogram. - Luis Butler DO s Exploratory Laparotomy, Bladder Perforation Closure, Drain placement. - Luis Butler DO Surgeon Luis Butler, II, DO Canal Superintendent None Estimated Blood Loss 1,000 Findings Consistent with Post-Op Diagnosis Large amount of blood within the bladder. Underwent clot evacuation.Approx 1 liter of blood clot evacuated in total from bladder. Stents were placed bilaterally. Blood was discovered draining from the right ureter. Further clot was evacuated from the dome/posterior wall and a perforation of the bladder was discovered. Cystogram showed concern for intraperitoneal bladder rupture. During exploration, rupture discovered at dome with only small portion intraperitoneal. A large amount of fluid and clot was cleared and suctioned. Peritoneum was irrigated. Bladder closed in 2 layers with additional layer extraperitoneal. Drains left in peritoneum and Space of Retzius. Three way catheter left with gentle CBI. No leakage from drains. Urine light pink with gentle CBI. Patient required 2 units RBC and 500 Albumin. Fluids See Anesthesia report. Specimens None Drains Wheeler Catheter (22fr, 3-way, hematuria coude catheter) and Vin-Berry Drain (Two 10mm flat drains with 100cc bulbs) Bilateral 4.8 [place] ureteral stents. 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 Patient developed issues with recurrence of hematuria even after cessation of blood thinners. This morning patient developed GAURAV. Was dealing with increasing spasm and discomfort. Underwent CT scan and concern for bilateral obstruction with reflux of contrast into left ureter on cystogram. Large amount of clot debris within bladder. An attempt was made to transfer the patient for nephrostomy tube placement for the last few days. Due to severe bed limitations and hospital overload and patient diversions patient was delayed transferred. Extensively discussed concern related to obstructive issues and development of renal damage/failure. Risks and benefits discussed at length and patient elected to proceed with stent placement. Description of Procedure Patient was consented and brought back to the operating room. Patient was placed under anesthesia in the supine position and moved to the dorsal lithotomy position. Patient was prepped and draped in the regular sterile fashion. A time out was completed. A 30degree Cystoscope was placed into the bladder and the entire bladder was examined. A large amount of clot material was once again found within the bladder. This was drained utilizing the resection scope. Approximately 1 L of clot material was able to be evacuated throughout the process. With a moderate amount of clot material removed, the UO's were identified. At this point the resection scope was removed and the cystoscope was once again placed in order to facilitate stent placement with plans to irrigate remaining clot after. The UO was cannulized with a catheter and a retrograde pyelogram was completed. A wire was then placed. This was first done for the left and then the right. On the right a moderate amount of blood was appreciated draining from the ureter. With the wire in place on each side, 4.8 Fr Double J stent was placed. It was confirmed with fluoroscopy. This was completed for both sides. With the stents in place, the bladder was emptied. The bladder was inspected and further clot material appeared to be along the posterior wall and dome. This was irrigated. During the irrigation process the posterior wall was exposed and along the dome a mucosal tear was appreciated with concern for possible exposure of perivesicular fat. At this point there was a concern that a perforation was allowing drainage into the peritoneum. A majority of the clot had been removed at this point. A retrograde cystogram was completed through the scope and extr avasation of contrast was appreciated. A catheter was then placed. And set the drainage. The patient was cleaned and removed from dorsolithotomy position with emergent transition to exploratory laparotomy. The patient's was called by myself and alerted to the findings. Explained the concerning risk. Discussed the urgent/emergent need for exploratory laparotomy for closure of rupture. Risk and benefits were discussed with patient's . All questions were answered. Patient's gave consent to continue with the emergent procedure. Dr. Greco with [facility] surgery was intraoperatively alerted for possible assistance due to possibility of intraperitoneal rupture. A stat set of labs was assessed. Due to a drop in hemoglobin, 2 units of blood were transfused with the anesthesia team. The patient had been in monitored anesthetic care. Plan was to transfer to general endotracheal tube intubation. Once placed in the supine position, the patient was placed under general endotracheal intubation anesthesia in the supine position. The patient was also placed into mild Trendelenberg. At this point, the patient prepped and draped in the usual sterile fashion and a timeout to confirm the emergent procedure was completed. Preoperative antibiotics had been given which were 2 g of Ancef. Due to possibility of further issue a additional dose of Mefoxin was given. Patient had SCD's that had been in place from the procedure. The catheter from the prior procedure have been moved prior to prepping. A new catheter was placed using sterile technique. At this point, skin was marked. The patient did appear more distended. A suprapubic incision up to approximately 3 cm inferior to the umbilicus along the midline was marked. The area was anesthetized and an incision was made into the skin and subcutaneous tissues. The tissues were gently dissected to expose the fascial layer. The anterior rectus sheath was exposed along the midline. This sheath was incised. And the rectus muscles gently retracted. Dissection had been low enough to enter into the space of Retzius and initially was kept extraperitoneal. Utilizing the Wheeler catheter the bladder was filled and a rupture was able to be discovered along the dome of the bladder. This did extend into the intraperitoneal space with a bulging of the peritoneum on instillation of saline. At this point the peritoneum was bluntly opened and a large amount of fluid was aspirated and suction. Washing was completed with saline. Copious irrigation was used throughout the process. The entire bladder opening was assessed. No other major openings were discovered and the catheter was utilized to assess the remainder of the bladder. The dome of the bladder was found to be extremely thin-walled and additional small openings were discovered along the edges near the area of rupture. The bladder was also flushed. Additional clot was evacuated from the bladder as well as the extraperitoneal space. Care was taken to retract the omentum and bowel. The mucosal edges were assessed. A running 3-0 Vicryl suture was used to reapproximate the mucosal edges. An additional 2-0 Vicryl layer was then used to close the muscle layers in a running fashion. Finally in a final 2-0 Vicryl suture was used to imbricate the tissue over the suture line. A leak test was completed after the second and third layers closed. In both cases no major leaks or concerns were found. Additional fluid was suctioned from the intra-abdominal space. A only very small area of peritoneum had been opened. Approximately 2 and half centimeters in length. The peritoneum was palpated in the left lower quadrant. A small incision was made into the skin utilizing Leeanna clamp a opening was made to allow placement of the drain. The drain was then situated within the peritoneum using a 10 [place] Chivo flat drain. This was secured with a 3-0 silk suture. With the drain in place and the peritoneal cavity adequately irrigated and suctioned the peritoneum was closed. Closure attempted to incorporate the posterior rectus sheath as well during the closure. These tissues were found to be extremely thin. The area was then once again irrigated. The extraperitoneal/space of Retzius was assessed. This was irrigated as well. No major episodes of bleeding. The closure had included this area as the majority of the rupture was in this tissue. No leakage on the leak test or concerns. A 10 [place] flat Chivo drain was then placed in the extraperitoneal space below the rectus muscle coming out of the left lower quadrant below the first intraperitoneal drain. Placement was completed by palpating below the rectus muscle and making a small skin incision with a Leeanna clamp used to situate the drain within the extraperitoneal space. The drain was cut to accommodate the smaller space. This was then fixated with a 3-0 silk suture to the skin. Again irrigation was completed. The wound bed was inspected a final time without any major bleeding. Counts were completed and correct x 2 After closure of the bladder. The rectus sheath was closed with a running double-stranded 1-0 PDS suture. The subcutaneous tissues were closed with a running 2-0 Vicryl suture. A final leak test was completed no concern for increased drainage or output from the drains. Easy irrigation within the bladder. A three-way hematuria 22 [place] catheter was placed and CBI was initiated. Light pink urine was achieved. Throughout the remainder of the case the drain output was closely monitored with no major change in her area of concern. No clots or other issues were discovered. The patient was placed into mild reverse Trendelenburg to allow better closure. The skin was closed utilizing a stapling device. Bandages were placed. The area was cleaned and dressed. The drain sponges were utilized to help secure the drains in place. Serosanguineous fluid was appreciated in both drains. The CBI was placed on a gentle rate and a mild light pink hematuria was appreciated. Throughout the case patient did have some minor issues that required pressure support. Did respond well to blood transfusion. Was found also to be acidotic possibly due to imbalance from the absorption of urine/irrigation. Patient's respiratory status was closely watched. Patient has a very well-known vascular and cardiac issues as well and these were monitored throughout the case. Due to the length of the case and the severity of issues as well as the acidosis and acute blood loss anemia was elected to maintain the patient under anesthesia with intubation. Plans were already in place to have the patient transferred to the ICU and this was confirmed. The patient was further cleaned and was transferred to the surgical ICU in stable condition having tolerated the procedure well with no other complications. Counts were correct x 2 and no other issues or complications were appreciated. I was present and participated in all aspects of the procedure. Dr. Greco from [facility] surgery had been alerted to the case and did check in. At the time the closure was being completed and further assistance was not necessary. Will plan to monitor the patient extremely closely in the intensive care unit postoperatively and monitor. Patient has a well-known cardiac and vascular history. Post operatively the ICU team was alerted and updates were given. The hospitalist team for the patient had been admitted to was alerted as well and updated on the findings. Spoke at length with patient's post procedure as well as to give an update. We will plan to maintain both drains, both stents, and Wheeler catheter with light continuous irrigation titrating to light pink. We will continue to monitor. At this point patient would still like the heavily benefit from nephrostomy tube placement. This would allow diversion of urine from the bladder. Will await plans for transfer. I attest to the content of the Intraoperative Record and any orders documented therein. Any exceptions are noted below.
[2021-07-09 21:55] LABS: Mean Corpuscular Hgb Conc 32.9 g/dL (32-36)
[2021-07-09 21:57] LABS: Albumin Level 2.4 gm/dl (3.4-5.0); BUN Creatinine Ratio 9.6 (10-20); Creatinine Clr Calc Pharmacy 24.7 ml/min; Est GFR (African American) 28.6 ml/min; Est GFR (Non-African American) 24.7 ml/min; Potassium 3.8 mmol/L (3.5-5.1)
[2021-07-09 22:00] LABS: Albumin Globulin Ratio 0.7 (0.9-2); Bilirubin,Total 0.6 mg/dl (0.2-1); Globulin 3.4 gm/dl (2.5-4.0); Total Protein 5.8 gm/dl (6.4-8.2)
[2021-07-09 22:03] LABS: iSTAT Arterial Blood Gas HCO3 19 meg/L (19-24); iSTAT Arterial Blood Gas pCO2 32 mmHg (35-46); iSTAT Arterial Blood Gas pH 7.37 (7.35-7.45); iSTAT Arterial Blood Gas pO2 79 mmHg (80-95); iSTAT Carbon Dioxide 19 mmol/L (24-31); iSTAT FiO2 30 %; iSTAT Site Art Line
[2021-07-09 22:05] LABS: Fibrinogen 449 mg/dl (184-400); INR 1.2 (0.9-1.1); Prothrombin Time 12.4 Seconds (9.0-12.0)
[2021-07-09] MEDS: TAMSULOSIN HCL 0.4 MG CAP PO SCH (22:41)
[2021-07-09] MEDS: ATORVASTATIN 40 MG TAB PO SCH (22:41)
[2021-07-10] MEDS ORDERED: PIPERACILLIN/TAZOBACTAM 3.375 GM in DEXTROSE 5% 100 ML IV SCH ×2 (04:00→14:00)
[2021-07-10] MEDS: AMMONIUM ALUM 30 GM in SODIUM CHLORIDE 0.9% IRRIG 3,000 ML IR SCH ×2 (04:39→14:46)
[2021-07-10] MEDS: propofoL 1,000 MG/100 ML VIAL IV SCH (04:41)
[2021-07-10 05:27] LABS: Hematocrit (blood only) 27.5 % (42-52); Hemoglobin 9.1 g/dL (14.0-18.0); Mean Corpuscular Hemoglobin 29.8 pg (25-34); Mean Corpuscular Hgb Conc 33.1 g/dL (32-36); Mean Corpuscular Volume 90.2 fL (80-100); Mean Platelet Volume 10.2 fL (7.4-10.4); Nucleated RBC # (auto) 0.02 K/uL (0-0); Nucleated RBC % (auto) 0.3 %; Platelet Count 259 K/uL (130-400); RDW Coefficient of Variation 17.8 % (11.5-14.5); RDW Standard Deviation 56.9 fL (36.4-46.3); Red Blood Count 3.05 M/uL (4.7-6.1); White Blood Count 8.93 K/uL (4.8-10.8)
[2021-07-10 05:48] LABS: INR 1.3 (0.9-1.1)
[2021-07-10 05:59] LABS: BUN Creatinine Ratio 12.6 (10-20); Calcium 8.6 mg/dl (8.5-10.1); Creatinine Clr Calc Pharmacy 39.8 ml/min; Magnesium 2.1 mg/dl (1.8-2.4); Phosphorus 4.1 mg/dl (2.5-4.9); Potassium 3.5 mmol/L (3.5-5.1)
[2021-07-10 06:37] LABS: Basophils # (auto) 0.01 K/uL (0-0.2); Basophils % (auto) 0.1 %; Immature Granulocytes # (auto) 0.02 K/uL (0.00-0.02); Immature Granulocytes % (auto) 0.2 %; Lymphocytes # (auto) 0.52 K/uL (1.2-3.4); Lymphocytes % (auto) 5.8 %; Monocytes # (auto) 0.52 K/uL (0.11-0.59); Monocytes % (auto) 5.8 %; Neutrophils # (auto) 7.86 K/uL (1.4-6.5); Neutrophils % (auto) 88.1 %; Polychromasia 1+
[2021-07-10] MEDS: INSULIN ASPART 100 UNITS/ML 3 ML PEN SC SCH ×2 (08:21→12:14)
--- NOTE | 2021-07-10 08:49 | Critical Care Progress Note ---
Date of Service July 10, 2021 Assessment & Plan (1) Perforation of bladder: Plan: Reason Critically Ill: 70-year-old male with history of radiation cystitis and recurrent hematuria with bladder obstruction, presents to the ICU following ex lap for repair of perforated bladder, and cystoscopy with clot removal and bilateral ureteral stent placement as patient had developed bilateral hydronephrosis and GAURAV due to post obstruction. Plan for patient to eventually transfer to [facility] for nephrostomy tube placement, but delayed due to high volume at tertiary center. Patient had hypotension intraprocedure which seems to be resolved and did receive 2 units RBCs and was left intubated postop. Neuro - Sedation: Extubated. No issues. Cardiac - HTN Continue MTP. Holding lisinopril in the setting of GAURAV. Avoid hypertension as patient does have 5.[address] scan, which is unchanged from prior study. Will give labetalol prn if needed. HLDcontinue statin CADrecent NSTEMI with stent placement LAD in May. Holding Plavix due to hematuria. Continue ASA Respiratory - Mechanically ventilated No issues currently. Doing great off vent GI - N.p.o. RENAL/LYTES - AKIsecondary to post obstruction from hematuria/clots -Nephrology following, recommend transfer for nephrostomy tubes. Plan for patient to transfer to [facility] either Monday or Monday. -Underwent bilateral ureteral stenting and clot removal for hydronephrosis as nephrostomy will be delayed -Hold lisinopril, avoid nephrotoxins. Renally adjust medications -Maintain maps greater than 65 -GAURAV significantly improved - Hematuria/bladder perforationurology following, appreciate recommendations. Post cystoscopy with bilateral ureteral stenting and clot removal. Underwent ex lap due to perforated bladder and underwent closure with drain placement -Three-way Wheeler with continuous bladder irrigation. Management per urology -Strict I's and O's ENDO - DM type IIholding Metformin. Continue insulin aspart -ICU hyperglycemic protocol HEME - Anemiasecondary to acute blood loss following hematuria. Repeat CBC following 2 units RBCs in OR with hemoglobin of 10. Appears to be stable for now. Coags normal. We will follow up routine CBC and transfuse as indicated. ID - Zosyn for empiric intra-abdominal coverage following bladder perforation and ex lap LINES/IV ACCESS - Peripheral IVs, ET tube, OG tube, Wheeler three-way DVT PROPHYLAXIS - SCDs, hold anticoagulation in the setting of hematuria Possibly stable for downgrade in the next 2-4 hours. I have personally spent 31 minutes of critical care time in the direct management of this patient. This is a life/limb threatening event. This includes time spent evaluating patient, direct bedside care, chart review, placing orders, interpretation of diagnostic studies, discussion with consultants, patient, and family members, as well as other required patient management activities. This time is exclusive of all separately billable procedures, and teaching time and separate from and in addition to any other critical care service time. (2) Anemia: (3) Hydronephrosis: (4) Acute kidney injury: (5) Mitral regurgitation: (6) HLD (hyperlipidemia): (7) Acute urinary retention: (8) Acute radiation cystitis: (9) Abdominal aortic aneurysm (AAA) 3.0 cm to 5.5 cm in diameter in male: (10) Hematuria: (11) Hypertension: (12) Peripheral arterial disease: (13) Tobacco abuse: (14) NSTEMI (non-ST elevated myocardial infarction): (15) History of heart artery stent: (16) Type 2 diabetes mellitus: (17) CAD (coronary artery disease): Admission and Anticipated Discharge Date Admission Date: July 08, 2021 Subjective Did very well on short SBT. Patient extubated to nasal cannula. Has mild abdominal pain. Wheeler is being irrigated. HDS. Review of Systems Review of Systems: All systems reviewed & are unremarkable except as noted in HPI & below Physical Exam Constitutional: WD/WN, vitals as above Eyes: PERRL, conjunctivae normal, anicteric sclerae ENMT: external ear and nose normal, oropharynx normal Neck: trachea midline, no thyromegaly Respiratory: normal respiratory effort, lungs clear to auscultation Symmetrical chest wall movement Cardiovascular: RRR, no murmur, no edema Heart Sounds: normal S1 and normal S2 Vessels: no JVD Extremities: no edema Gastrointestinal (Abdomen): Midline surgical incision dressing intact without spotting, MARLEE drain with serosanguineous drainage x2. Abdomen soft nondistended. Bowel sounds auscultated Musculoskeletal: Unable to assess due to sedation Skin: no rashes, warm and dry Neurologic: patellar DTR's 2+ bilat, sensation intact Psychiatric: A+Ox3, euthymic affect Genitourinary: Three-way indwelling Wheeler catheter present. Hematuria without visible clots into Results & Data Results & Data ([facility]) Vital Signs (Past 12 Hours) Vital Signs Temp Pulse Pulse Resp BP BP Pulse Ox 07/10/21 02:05 71 18 97 07/10/21 02:00 70 18 122/79 97 07/10/21 01:00 66 18 124/74 99 07/10/21 00:00 66 18 98/63 L 99 07/09/21 23:00 68 22 110/56 L 97 07/09/21 22:48 65 18 97 07/09/21 22:00 65 18 126/85 97 07/09/21 21:57 18 97 07/09/21 21:30 72 20 97 07/09/21 21:15 20 07/09/21 21:07 36.8 C 84 20 178/93 H 99 Coding Level of Care Code Critical Care 1st 30-74 mins Diagnoses Perforation of bladder Anemia D64.9 Hydronephrosis N13.30 Acute kidney injury N17.9 Mitral regurgitation I34.0 HLD (hyperlipidemia) E78.5 Acute urinary retention R33.8 Acute radiation cystitis N30.40 Abdominal aortic aneurysm (AAA) 3.0 cm to 5.5 cm in diameter in male I71.4 Hematuria R31.0 Hematuria type: gross Hypertension I10 Peripheral arterial disease I73.9 Tobacco abuse Z72.0 NSTEMI (non-ST elevated myocardial infarction) I21.4 History of heart artery stent Z95.5 Type 2 diabetes mellitus E11.9 CAD (coronary artery disease) I25.10 Coronary Disease-Associated Artery/Lesion type: ute artery [place] vs. transplanted heart: ute heart Associated angina: without angina Time Spent (min) 31 (1) Hematuria Hematuria type: gross Qualified Code(s): R31.0 - Gross hematuria (2) CAD (coronary artery disease) Coronary Disease-Associated Artery/Lesion type: [place] artery [place] vs. transplanted heart: ute heart Associated angina: without angina Qualified Code(s): I25.10 - Atherosclerotic heart disease of ute coronary artery without angina pectoris
[2021-07-10] MEDS ORDERED: bisacodyL 10 MG SUPP PR SCH (09:00)
[2021-07-10] MEDS ORDERED: FLUCONAZOLE 100 MG TAB PO SCH (09:00)
--- NOTE | 2021-07-10 10:19 | XRay Report ---
XR chest 1V portable HISTORY: Resp failure COMPARISON: Chest 06/10/2021. FINDINGS: The endotracheal tube terminates 2.7 cm from the reji. No pneumothorax. No pleural effusi ons. There are low lung volumes. The heart is normal in size. Mild interstitial thickening is noted. No focal lung consolidations to suggest pneumonia. No evidence for pulmonary edema. IMPRESSION: 1. Endotracheal tube terminates 2.7 cm from the reji. 2. No focal lung consolidations to suggest pneumonia. ACT 112: Negative or not required by law. Electronically signed by: Rolando Santos M.D. 07/10/2021 10:18 AM
[2021-07-10] MEDS: ASPIRIN 81 MG ECTAB PO SCH (10:41)
[2021-07-10] MEDS: METOPROLOL TARTRATE 25 MG TAB PO SCH (10:42)
[2021-07-10] MEDS ORDERED: LACTATED RINGER'S 1,000 ML IV SCH (11:15)
--- NOTE | 2021-07-10 12:20 | Nephrology Progress Note ---
Date of Service July 10, 2021 Assessment & Plan (1) Acute kidney injury: Plan: Due to obstructive nephropathy. POD #1 s/p evacuation of clot and stent placement. CBI ongoing - urine remains bloody without clots. Creatinine improving. Electrolytes acceptable. No indication for dialysis. Baseline creatinine normal. Maintain even fluid balance. Urology following. Plan of care discussed with elder counselor and hospitalist this AM. Medications appropriate for kidney function. Lisinopril and metformin held. (2) Gross hematuria: Plan: History of radiation cystitis. Clots evacuated and bilateral ureteral stents placed. Bladder perforation closed. (3) Hydronephrosis: Plan: Kidney dysfunction improving. Stents placed. Wheeler indwelling. Operative reports reviewed. (4) Acute blood loss anemia: Plan: Hgb stable. 2 u PRBC support provided intraoperatively yesterday. (5) Acute radiation cystitis: Plan: Remains on Zosyn. No peritoneal signs on exam. Admission and Anticipated Discharge Date Admission Date: July 08, 2021 Subjective POD #1 s/p cystoscopy with bilateral stent placement, as well as laparotomy with bladder perforation closure. CBI via Wheeler. Mild abdominal tenderness. Tolerating sips and ice chips. No fevers or chills. Review of Systems Constitutional: no fever and no chills Eyes: no problem reported Ear, Nose, Mouth, Throat: no problem reported Respiratory: no problem reported Cardiovascular: no problem reported Gastrointestinal: + abdominal pain and + bloating; no nausea and no vomiting Genitourinary: + hematuria Musculoskeletal: no problem reported Integumentary: no problem reported Neurologic: no problem reported Psychiatric: no problem reported Endocrine: no problem reported Hematologic / Lymphatic: no problem reported Physical Exam Constitutional: well developed; no acute distress Eyes: no scleral abnormality and no corneal abnormality ENMT: Mouth: + dry oral mucous membranes; no oral mucosal abnormality Neck: normal visual inspection and trachea midline Respiratory: normal respiratory effort Auscultation: lungs clear to auscultation bilaterally Cardiovascular: Rate/Rhythm: regular rate Heart Sounds: normal S1 and normal S2 Extremities: no edema Gastrointestinal (Abdomen): Inspection/Auscultation: + abdomen distended and normal bowel sounds Percussion/Palpation: + abdomen tender and + dullness to percussion; no guarding and abdomen not rigid Abdominal dressing C/D/I in midline abdomen, MARLEE drains with serosanguineous fluid Musculoskeletal: Extremities: no cyanosis and no clubbing Skin: normal turgor; no lesions Neurologic: Motor/Sensory: no tremor and no asterixis Psychiatric: Orientation: alert and oriented x 3 Genitourinary: Wheeler with rivera colored urine in bag Results & Data ([facility]) Vital Signs (Past 12 Hours) Vital Signs Temp Pulse Pulse Resp BP BP Pulse Ox 07/10/21 08:00 37.2 C 72 07/10/21 07:30 38.0 C H 92 H 19 114/67 96 07/10/21 02:05 71 18 97 07/10/21 02:00 70 18 122/79 97 07/10/21 01:00 66 18 124/74 99 Laboratory Results Laboratory Results - last 24 hr 07/08/21 07/09/21 07/09/21 09:26 12:53 12:53 WBC 14.41 H RBC 2.77 L Hgb 8.7 L POC Hgb Hct 26.0 L POC Hct MCV 93.9 MCH 31.4 MCHC 33.5 RDW Std Deviation 57.0 H RDW Coeff of Matt 16.8 H Plt Count 313 MPV 10.3 Immature Gran % (Auto) Neut % (Auto) Lymph % (Auto) [place] % (Auto) Eos % (Auto) Baso % (Auto) Neut # (Auto) Lymph # (Auto) [place] # (Auto) Eos # (Auto) Baso # (Auto) Immature Gran # (Auto) Absolute Nucleated RBC Nucleated RBC % (auto) Polychromasia PT INR Fibrinogen Sample Site POC pH POC pCO2 POC pO2 POC HCO3 POC Total CO2 POC Base Excess POC ABG O2 Sat [place] Test O2 Delivery Device POC O2 Rate POC FiO2 Tidal Volume PEEP POC Sodium Sodium 138 POC Potassium Potassium 4.2 Chloride 108 H Carbon Dioxide 19 L Anion Gap 11.0 BUN 31 H Creatinine 3.79 H D Est Cr Clr Drug Dosing 16.6 Est GFR ( Amer) 17.7 Est GFR (Non-Af Amer) 15.3 BUN/Creatinine Ratio 8.2 L Glucose 132 H POC Glucose Lactate Calcium Phosphorus Magnesium Total Bilirubin AST ALT Alkaline Phosphatase Total Protein Albumin Globulin Albumin/Globulin Ratio Blood Type B Positive Antibody Screen NEGATIVE Crossmatch See Detail 07/09/21 07/09/21 07/09/21 19:38 20:18 21:26 WBC RBC Hgb POC Hgb 8.8 L 7.5 L Hct POC Hct 26 L 22 L MCV MCH MCHC RDW Std Deviation RDW Coeff of Matt Plt Count MPV Immature Gran % (Auto) Neut % (Auto) Lymph % (Auto) Vernon % (Auto) Eos % (Auto) Baso % (Auto) Neut # (Auto) Lymph # (Auto) Vernon # (Auto) Eos # (Auto) Baso # (Auto) Immature Gran # (Auto) Absolute Nucleated RBC Nucleated RBC % (auto) Polychromasia PT INR Fibrinogen Sample Site POC pH 7.26 L 7.44 POC pCO2 36 40 POC pO2 284 H 305 H POC HCO3 16 L 28 H POC Total CO2 17 L 29 POC Base Excess -11.0 L 3.0 H POC ABG O2 Sat 100.0 H 100.0 H [place] Test O2 Delivery Device POC O2 Rate POC FiO2 Tidal Volume PEEP POC Sodium 141 146 H Sodium POC Potassium 4.3 4.0 Potassium Chloride Carbon Dioxide Anion Gap BUN Creatinine Est Cr Clr Drug Dosing Est GFR ( Amer) Est GFR (Non-Af Amer) BUN/Creatinine Ratio Glucose POC Glucose Lactate Calcium Cancelled Phosphorus Magnesium Total Bilirubin AST ALT Alkaline Phosphatase Total Protein Albumin Globulin Albumin/Globulin Ratio Blood Type Antibody Screen Crossmatch 07/09/21 07/09/21 07/09/21 21:26 21:26 21:26 WBC 12.29 H RBC 3.34 L Hgb 10.0 L POC Hgb Hct 30.4 L POC Hct MCV 91.0 MCH 29.9 MCHC 32.9 RDW Std Deviation 56.0 H RDW Coeff of Matt 17.1 H Plt Count 269 MPV 10.2 Immature Gran % (Auto) 0.3 Neut % (Auto) 88.6 Lymph % (Auto) 3.3 Vernon % (Auto) 7.8 Eos % (Auto) 0.0 Baso % (Auto) 0.0 Neut # (Auto) 10.89 H Lymph # (Auto) 0.40 L [place] # (Auto) 0.96 H Eos # (Auto) 0.00 Baso # (Auto) 0.00 Immature Gran # (Auto) 0.04 H Absolute Nucleated RBC 0.02 H Nucleated RBC % (auto) 0.2 Polychromasia PT INR Fibrinogen Sample Site POC pH POC pCO2 POC pO2 POC HCO3 POC Total CO2 POC Base Excess POC ABG O2 Sat [place] Test O2 Delivery Device POC O2 Rate POC FiO2 Tidal Volume PEEP POC Sodium Sodium 144 POC Potassium Potassium 3.8 Chloride 113 H Carbon Dioxide 18 L Anion Gap 13.0 H BUN 25 H Creatinine 2.55 H D Est Cr Clr Drug Dosing 24.7 Est GFR ( Amer) 28.6 Est GFR (Non-Af Amer) 24.7 BUN/Creatinine Ratio 9.6 L Glucose 167 H POC Glucose Lactate 0.8 Calcium 9.0 Phosphorus Magnesium Total Bilirubin 0.6 AST 15 ALT 9 L Alkaline Phosphatase 68 Total Protein 5.8 L Albumin 2.4 L Globulin 3.4 Albumin/Globulin Ratio 0.7 L Blood Type Antibody Screen Crossmatch 07/09/21 07/09/21 07/09/21 21:26 21:49 22:45 WBC RBC Hgb POC Hgb Hct POC Hct MCV MCH MCHC RDW Std Deviation RDW Coeff of Matt Plt Count MPV Immature Gran % (Auto) Neut % (Auto) Lymph % (Auto) [place] % (Auto) Eos % (Auto) Baso % (Auto) Neut # (Auto) Lymph # (Auto) [place] # (Auto) Eos # (Auto) Baso # (Auto) Immature Gran # (Auto) Absolute Nucleated RBC Nucleated RBC % (auto) Polychromasia PT 12.4 H INR 1.2 H Fibrinogen 449 H Sample Site Art Line POC pH 7.37 POC pCO2 32 L POC pO2 79 L POC HCO3 19 POC Total CO2 19 L POC Base Excess -7.0 POC ABG O2 Sat 96.0 H [place] Test NA O2 Delivery Device Ventilator POC O2 Rate 20 POC FiO2 30 Tidal Volume 400 PEEP 5 POC Sodium Sodium POC Potassium Potassium Chloride Carbon Dioxide Anion Gap BUN Creatinine Est Cr Clr Drug Dosing Est GFR ( Amer) Est GFR (Non-Af Amer) BUN/Creatinine Ratio Glucose POC Glucose 143 H Lactate Calcium Phosphorus Magnesium Total Bilirubin AST ALT Alkaline Phosphatase Total Protein Albumin Globulin Albumin/Globulin Ratio Blood Type Antibody Screen Crossmatch 07/10/21 07/10/21 07/10/21 05:02 05:02 05:02 WBC 8.93 RBC 3.05 L Hgb 9.1 L POC Hgb Hct 27.5 L POC Hct MCV 90.2 MCH 29.8 MCHC 33.1 RDW Std Deviation 56.9 H RDW Coeff of Matt 17.8 H Plt Count 259 MPV 10.2 Immature Gran % (Auto) 0.2 Neut % (Auto) 88.1 Lymph % (Auto) 5.8 Vernon % (Auto) 5.8 Eos % (Auto) 0.0 Baso % (Auto) 0.1 Neut # (Auto) 7.86 H Lymph # (Auto) 0.52 L Vernon # (Auto) 0.52 Eos # (Auto) 0.00 Baso # (Auto) 0.01 Immature Gran # (Auto) 0.02 Absolute Nucleated RBC 0.02 H Nucleated RBC % (auto) 0.3 Polychromasia 1+ PT 13.0 H INR 1.3 H Fibrinogen Sample Site POC pH POC pCO2 POC pO2 POC HCO3 POC Total CO2 POC Base Excess POC ABG O2 Sat [place] Test O2 Delivery Device POC O2 Rate POC FiO2 Tidal Volume PEEP POC Sodium Sodium 146 H POC Potassium Potassium 3.5 Chloride 115 H Carbon Dioxide 23 Anion Gap 8.0 BUN 20 H Creatinine 1.58 H D Est Cr Clr Drug Dosing 39.8 Est GFR ( Amer) 51.0 Est GFR (Non-Af Amer) 44.0 BUN/Creatinine Ratio 12.6 Glucose 105 H POC Glucose Lactate Calcium 8.6 Phosphorus 4.1 Magnesium 2.1 Total Bilirubin AST ALT Alkaline Phosphatase Total Protein Albumin Globulin Albumin/Globulin Ratio Blood Type Antibody Screen Crossmatch 07/10/21 11:23 WBC RBC Hgb POC Hgb Hct POC Hct MCV MCH MCHC RDW Std Deviation RDW Coeff of Matt Plt Count MPV Immature Gran % (Auto) Neut % (Auto) Lymph % (Auto) Vernon % (Auto) Eos % (Auto) Baso % (Auto) Neut # (Auto) Lymph # (Auto) Vernon # (Auto) Eos # (Auto) Baso # (Auto) Immature Gran # (Auto) Absolute Nucleated RBC Nucleated RBC % (auto) Polychromasia PT INR Fibrinogen Sample Site POC pH POC pCO2 POC pO2 POC HCO3 POC Total CO2 POC Base Excess POC ABG O2 Sat [place] Test O2 Delivery Device POC O2 Rate POC FiO2 Tidal Volume PEEP POC Sodium Sodium POC Potassium Potassium Chloride Carbon Dioxide Anion Gap BUN Creatinine Est Cr Clr Drug Dosing Est GFR ( Amer) Est GFR (Non-Af Amer) BUN/Creatinine Ratio Glucose POC Glucose 127 H Lactate Calcium Phosphorus Magnesium Total Bilirubin AST ALT Alkaline Phosphatase Total Protein Albumin Globulin Albumin/Globulin Ratio Blood Type Antibody Screen Crossmatch PG Care Time/CCT Total # of Minutes Spent Total Time Spent with Patient: Total time spent is greater than 50% in coordination of care (as documented) at patient's floor/unit and/or counseling patient: Coding Level of Care Code 96436 Subseq Hosp Care Lvl 3 Diagnoses Acute kidney injury N17.9 Gross hematuria R31.0 Hydronephrosis N13.30 Acute blood loss anemia D62 Acute radiation cystitis N30.40
[2021-07-10] MEDS: traMADol HCL 50 MG TABLET PO PRN (13:37)
--- NOTE | 2021-07-10 14:27 | Urology Progress Note ---
Date of Service July 10, 2021 Assessment & Plan (1) Gross hematuria: (2) Acute radiation cystitis: Plan: 70 yo M with radiation cystitis admitted for hematuria and clot retention. POD #1 s/p Exploratory Laparotomy and closure of cystotomy as well as cystoscopy with bilateral stent placement and clot evacuation and cystogram. Patient has been dealing with ongoing bleed from severe radiation cystitis. Is now off of the ventilator and is feeling considerably better. Is tolerating the drains in the abdomen and extraperitoneal space as well as the gentle CBI. Patient's urine is a very light pink at this point. Is not having considerable distention or major spasms or bother. Discussed patient's bladder rupture and possible concerns and issues. On review of imaging, signs of a extraperitoneal rupture on CT scan would likely be difficult to determine due to large amount of clot within bladder. Only with evacuation of clot was the bladder rupture able to be discovered. Patient's creatinine has drastically improved. Likely was reabsorbing creatin ine intraperitoneal which was causing the significant elevation. Discussed findings with patient. Discussed procedure and expectations. Discussed long-term plans. Still plan is in place to have patient transferred to a tertiary center that would be able to facilitate bilateral nephrostomy tube placement. Patient did have a mild to moderate amount of blood from the right ureter with stent placement. Unsure if this was older blood refluxing up or if it was a other source of bleeding. Patient is otherwise tolerating stents catheters and drains. Patient is still in the critical care unit being closely monitored and observed. Did have some hypotension during the procedure was found to be anemic and had tolerated transfusion. Pressures and vitals have remained stable. Patient has not had considerable fever or chills. We will like to watch closely for development of ileus. Chemical ileus secondary to intraperitoneal urine/irrigation fluid as well as the exploratory laparotomy would be high risk for the patient. We will likely need gentle return to diet and possibly bowel rest with plans to monitor for return of bowel function. Did discuss patient with the urology team at [facility] this morning. Due to current Covid bed crisis still no timeline on when transfer may be available. We will continue supportive care. Will likely need antibiotic for broad- spectrum coverage due to bladder rupture. Admission and Anticipated Discharge Date Admission Date: July 08, 2021 Subjective Postop day 1 status post ex lap. Patient is extubated. Is tolerating diet. Is tolerating drains in left lower quadrant as well as stents bilaterally. Has been tolerating catheter with gentle CBI. Urine has been clearing. Patient is not passing gas and no bowel activity. Still waiting more information on possible transfer for nephrostomy tubes. Patient's pain has been largely controlled. No major exacerbation of issues. Severe spasm issues have decreased significantly. Patient is still in the critical care unit. He has improved from last evening h owever still has a number of major issues are being followed. May be able to transition to a another unit if he does continue to improve. Review of Systems Review of Systems: All systems reviewed & are unremarkable except as noted in HPI & below Physical Exam Physical Exam: General: Alert in no acute distress. HEENT: Normocephalic Atraumatic. Inspection normal. Cranial Nerves 2-12 Grossly intact. Normal inspection of face. Normal inspection of neck. Psychologic: Normal affect. Respiratory: Nonlabored. No use of accessory muscles. No tachypnea or dyspnea. Cardiovascular: No tachycardia Skin: [place] and Dry. No rashes or visible lesions. Extremities/Lymphatics: No edema Abdomen: Appropriately tender. Mild distended. No rebound or guarding. Wound: Clean, dry, covered. Drain: Serosanguineous fluid in both the superior intraperitoneal drain and the inferior extraperitoneal drain : Three-way Wheeler in place draining light pink urine with mild CBI Results & Data ([facility]) Vital Signs (Past 12 Hours) Vital Signs Temp Pulse Pulse Resp BP BP Pulse Ox 07/10/21 12:00 91 H 26 H 139/86 98 07/10/21 11:30 93 H 21 96 07/10/21 11:00 96 H 15 160/87 H 97 07/10/21 10:30 107 H 21 96 07/10/21 10:00 90 15 125/82 96 07/10/21 09:30 90 20 95 07/10/21 09:00 94 H 13 95 07/10/21 08:30 100 H 35 H 92 07/10/21 08:00 37.2 C 93 H 19 103/83 98 07/10/21 07:30 38.0 C H 92 H 92 H 18 114/67 114/67 98 07/10/21 07:00 86 18 96 PG Care Time/CCT Total # of Minutes Spent Total Time Spent with Patient: Total time spent is greater than 50% in coordination of care (as documented) at patient's floor/unit and/or counseling patient: Coding Level of Care Code 81171 Subseq Hosp Care Lvl 3 Diagnoses Gross hematuria R31.0 Acute radiation cystitis N30.40
--- NOTE | 2021-07-10 14:29 | Discharge Summary ---
Date of Service July 10, 2021 Admission HPI Per Admitting Provider The patient is a 70-year-old male with a past medical history including radiation cystitis, acute urinary retention, lung nodules, late effect of radiation, hypertension, arterial disease, prediabetes, tobacco abuse, NSTEMI, blocked urinary catheter, diabetes mellitus type 2, CAD, acute blood loss anemia and severe protein calorie malnutrition. Most recent [facility] admissions: 06/10-06/11, 06/25--06/26, for episodes of gross hematuria. On June 10 he was taken to the OR by Dr. Morrison, and had a cystoscopy, clot evacuation fulguration done and cautery due to active bleeding areas. On June 25 he was taken to the OR by Dr. Ferreira, and had cauterization of an active bleeding vessel on the left-hand side of the bladder neck, and several other small oozing veins on the left-hand side. The patient then had a 22 Czech three-way Blas catheter inserted and slow CBI was initiated. Urology has been consulted, and Dr. Butler will be taking the patient to the OR emergently due to recurrence of gross hematuria and urinary retention. Of note, the patient underwent an LAD SANTIAGO stent placement on 05/28/2021, and needs to remain on aspirin and clopidogrel for 1 year, both of which have been continued during previous admissions, and will this admission as well Admission Exam Per Admitting Provider The patient is awake, alert and oriented 3, well developed and well nourished, normocephalic and atraumatic, lying in bed and in no acute distress. HEENT--PERRL, EOMI, mucous membranes and oropharynx normal. Neck--supple. No JVD. No bruits. Thyroid normal, trachea midline, no adenopathy. Heart--normal S1 and S2. No murmurs, rubs or gallops. Lungs--clear bilaterally, no respiratory distress, no accessory muscle use. Abdomen--normal bowel sounds and soft. Tender and distended urinary bladder. Extremities--no cyanosis or clubbing. No edema. Dermatologic--normal skin turgor, normal color, no abnormal lymph nodes, no ra sh. Neurologic--cranial nerves II through XII grossly intact. Rheumatologic--normal range of motion. Psychiatric--normal affect. Principal Diagnosis Bladder Rupture, GAURAV, Hematuria, Radiation Cystitis Discharge Exam WD, WN, sitting up in bed in room 109, no acute distress, 98% on 3L NC pupils equal and reactive, slightly dry mm Resp: diminished in the bases, no w/r, 99% on 3L NC, no accessory muscle use CV: RRR, no m/r/g, no calf edema or tenderness to palpation, pulses palpable but slightly weak (hx AAA) GI:+BS throughout, appropriately ttp around incision, MARLEE x 2 with scant bloody drainage noted : 3 way blas with blood tinged urine draining, on CBI with alum Psych: AOX3, cooperative MSK/neuro: no focal deficit, moving all extremities Discharge Data Allergies Allergy/AdvReac Type Severity Reaction Status Date / Time No Known Allergies Allergy Verified 07/05/21 07:53 Consultations 07/06/21 02:55 ED Decision to Admit Stat 07/07/21 13:09 Consult Cardiology Routine 07/09/21 09:40 Consult Nephrology Routine 07/09/21 22:38 Consult 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 Fluoroscopy time: 85 seconds. FINDINGS: 4 spot fluoroscopic views of the abdomen are correlated with abdominal CT dated 07/09/2021. Initial images show contrast within the renal collecting system bilaterally. There is mild bilateral hydronephrosis. The proximal ends of ureteral stents appear appropriately positioned. 2 subsequent images of the pelvis show the distal ends of bilateral ureteral stents in place. Brachytherapy implants are seen in the prostate. The final image shows contrast opacifying the bladder. There is no clear evidence of extra luminal contrast in the pelvis on these fluoroscopic views. IMPRESSION: Intraoperative images from bilateral ureteral stent placement as above. See operative report for detailed findings. Electronically signed by: Mc Nelson M.D. 07/09/2021 6:09 PM Chest X-Ray 07/09/21 07:00 XR chest 1V portable HISTORY: Resp failure COMPARISON: Chest 06/10/2021. FINDINGS: The endotracheal tube terminates 2.7 cm from the reji. No pneumothorax. No pleural effusions. There are low lung volumes. The heart is normal in size. Mild interstitial thickening is noted. No focal lung consolidations to suggest pneumonia. No evidence for pulmonary edema. IMPRESSION: 1. Endotracheal tube terminates 2.7 cm from the reji. 2. No focal lung consolidations to suggest pneumonia. ACT 112: Negative or not required by law. Electronically signed by: Rolando Santos M.D. 07/10/2021 10:18 AM Renal Ultrasound 07/09/21 10:00 US renal/blad retro comp CLINICAL HISTORY: elevated creatinine, evaluate for obstruction. COMPARISON: None. TECHNIQUE: Multiple grayscale and color images of the kidneys and bladder. FINDINGS: Right kidney: The kidney is normal in size and echogenicity. There is evidence for mild to moderate hydronephrosis. There is no evidence for renal calculus. There are 2 sharply defined cysts within the right kidney, the largest measuring 2.9 cm in greatest diameter. No further follow-up is necessary of these benign findings. There is no evidence for solid renal mass. There is no evidence for medical renal disease. The kidney measures 13.0 x 6.4 x 6.8 cm. Left kidney: The kidney is normal in size and echogenicity. There is evidence for mild to moderate hydronephrosis. There is no evidence for renal calculus. There is a sharply defined cyst within the upper pole measuring 4.0 cm in greatest diameter. No further follow-up is necessary of this benign finding. There is no evidence for solid renal mass. There is no evidence for medical renal disease. The kidney measures 11.9 x 6.2 x 7.3 cm. Bladder: A Blas catheter is present within the bladder. However, there is echogenic debris seen within the bladder surrounding the catheter. This has the appearance of blood. There was noted to be blood within the patient's Blas catheter bag. IMPRESSION: 1. Bilateral hydronephrosis. No renal calculi identified. 2. A Blas catheter is in place. However, there is significant echogenic debris surrounding the catheter most characteristic of blood. There was reportedly blood in the patient's Blas catheter bag. ACT 112: Negative or not required by law. Electronically signed by: Jose Carnes M.D. 07/09/2021 10:49 AM KUB X-Ray 07/09/21 11:40 KUB HISTORY: Generalized abdominal pain/ no BM COMPARISON: Abdomen and pelvis CT 06/25/2021. FINDINGS: There is a moderate to large amount well-formed stool seen throughout the colon most pronounced within the ascending colon. Nondilated gas-filled loops of small bowel are seen throughout the abdomen. No evidence for bowel obstruction. Multiple brachytherapy seeds again noted at the prostate gland. There is again noted a infrarenal abdominal aortic aneurysm. This measures approximately 6 cm. Stable punctate stone within the right kidney. The patient's left renal stone is likely obscured by overlying bowel gas. No pneumoperitoneum or pneumatosis. IMPRESSION: 1. Moderate to large amount of well-formed stool seen throughout the colon. This is most pronounced within the ascending colon. 2. Stable right-sided nephrolithiasis. 3. A 6 cm infrarenal abdominal aortic aneurysm. ACT 112: Negative or not required by law. Electronically signed by: Rolando Santos M.D. 07/09/2021 1:46 PM Abdomen/Pelvis CT 07/09/21 15:19 CT CYSTOGRAM CLINICAL HISTORY: Hematuria. Possible bladder rupture. CT abd/pelvis with Cyst ogram COMPARISON STUDY: CT of the abdomen and pelvis June 25, 2021. Renal ultrasound July 09, 2021. TECHNIQUE: 160 cc of Cysto-Conray was instilled into the bladder via the indwelling Blas catheter. No additional contrast could be instilled given patient pain. Axial images from the level the mid kidneys through the pelvis were then obtained without IV contrast. Images were reviewed in the axial, sagittal, and coronal planes. Automated exposure control was utilized for the study. A dose lowering technique was utilized adhering to the principles of ALARA. FINDINGS: Please note that the upper abdomen was not included on this examination. A 5.4 x 5.4 cm infrarenal abdominal aortic aneurysm is partially imaged on this exam. Visualized portions are unchanged since CT of June 25, 2021. Caliber of visualized small and large bowel are normal. The appendix is normal. Colonic diverticulosis is noted without evidence for acute diverticulitis. No free fluid within the pelvis. There is bilateral perinephric stranding and fluid, greater on the left. Hyperdense material within the bladder represents blood clot. An associated mass cannot be excluded on this exam but is not identified. A Blas balloon within the bladder is noted. There is contrast within the bladder however opacification of the bladder is suboptimal. No additional contrast could be administered due to pain. Note is made of bilateral vesicoureteral reflux, left greater than right. There is mild bilateral hydronephrosis. Filling defects within left renal pelvis may reflect a small amount of clot. No extraluminal contrast is identified to indicate bladder rupture. Brachytherapy seeds within the prostate are noted. There is gas within the bladder. Bladder wall is trabeculated. IMPRESSION: 1. Suboptimal evaluation for bladder leak given incomplete bladder filling. No additional contrast could be instilled due to pain. However, no extraluminal contrast to indicate bladder rupture. In addition, no free fluid within the pelvis which diminishes the likelihood of an underlying bladder injury. 2. Large amount of clot within the bladder. Coexistent bladder mass cannot be excluded although is not definitively identified. 3. Bilateral vesicoureteral reflux, left greater than right. Mild bilateral hydronephrosis. Bilateral perinephric stranding and fluid, greater on the left. 4. Partially visualized abdominal aortic aneurysm, measuring 5.4 cm. Visualized portions unchanged since CT of June 25, 2021. ACT 112: Negative or not required by law. Electronically signed by: Juanjose Stephens M.D. 07/09/2021 4:31 PM Hospital Course (1) Perforation of bladder: Hx recurrent acute urinary retention/bladder clots/bladder pain/radiation cystitis Patient present with hematuria and obstructive uropathy on 07/06 and was taken to OR emergently for fulguration of multiple bleeding varicosities. (prior need for same on 06/10, 06/25, 06/10 of 2020) Unfortunately with remote NSTEMI May 2021 (80% SANTIAGO to LAD) with Dr Sarah Garcia at [facility] and remained on DAPT with ASA/Plavix, making recurrent issue difficult Cardiology consulted during inpatient stay and ok'd to d/c Plavix at this time but continue ASA 81mg (no recurrence of CP/SOB or EKG changes) Had been doing alright until afternoon 07/08-07/09 with worsening creatinine and increased abdominal discomfort despite multiple manual manipulations and CBI with alum while awaiting a bed at [place] for diverting nephrostomy tubes at [facility] by Urology given continued issue. No beds had been available (called [place], [place], [place], [place], [place], [facility], etc) at that time and Cr worsened to >3 and nephrology was consulted given amorphous sediment in urine and tea colored urine in bag. Renal U/S without convincing evidence of obstruction however worsened throughout day and Cr 3.[address] cysto performed: * 1. Suboptimal evaluation for bladder leak given incomplete bladder filling. No additional contrast could be instilled due to pain. However, no extraluminal contrast to indicate bladder rupture. In addition, no free fluid within the pelvis which diminishes the likelihood of an underlying bladder injury. * 2. Large amount of clot within the bladder. Coexistent bladder mass cannot be excluded although is not definitively identified. * 3. Bilateral vesicoureteral reflux, left greater than right. Mild bilateral hydronephrosis. Bilateral perinephric stranding and fluid, greater on the left. Was taken back to OR on 07/[address] Butler who discovered bladder rupture and needed to convert to ex-lap and required ICU post-operatively with 2u PRBC for acute blood loss and BP support. Labs have improved and Cr 1.58 this morning and tolerated extubation, currently on 3L NC. Now placed on IVF , continue NPO except some clears for now until more return of bowel function. Zosyn for intra-abdominal coverage Continues to hold lisinopril, metformin, HCTZ due to GAURAV Pain control, antiemetics Multiple calls again made, facilities unable to accept due to max capacity/need for IR, and [place] who had oringially accepted [facility] continued bed search Was able to secure bed at [facility] with plans to hold off if able for tube placement however if declines sooner may need to place prior. (2) Acute kidney injury: as above, 2nd to bladder rupture with resorbing cr intraperitoneal improving with OR/clot evacuation and stent placement with repair of bladder rupture Nephrology consulted while inpatient -- encouraging + fluid balance now that making urine/obs relieved/above Tx as above for continued care (3) Hematuria: Continues s/p 3 units total for continued blood loss continue ASA for NSTEMI, plavix on hold since 07/08 (has not received since 07/07) hgb stable 9.1 Need for diverting nephrostomy tubes as above for definitive treatment need for continued monitoring Did also get Venofer x 3 doses (4) Anemia: normocytic Venofer x 3, s/p 3 u PRBC - for iron deficiency with iron 21, trans % sat 8 despite low TIBC/transferring hgb stable at 9.1 continued monitoring (5) Acute urinary retention: again with obstruction -- OR as above. Plavix on hold, continued ASA for recent NSTEMI with SANTIAGO placement Tylenol, tramadol, dilaudid prn (6) Bladder pain: See above pain control -- tylenol, tramadol, dilaudid for breakthrough belladonna ordered per urology for spasm as above (7) Acute radiation cystitis: Presently undergoing hyperbaric oxygen therapy at [facility] 2nd to his prostate ca/brachytherapy hopeful diverting nephro tubes in future as above (8) CAD (coronary artery disease): CAD/LAD SANTIAGO stent/PAD/hypertension- recent 80% proximal LAD treated with SANTIAGO -[address] Sarah Garcia Continued ASA 81mg --> Cardiology consulted, plavix OK TO HOLD and continue monotherapy with ASA 81mg daily Continue atorvastatin 80mg, metoprolol 12.5mg BID Holding lisinopril, HCTZ (did get dose AM 07/08) due to GAURAV as above SR on tele -- no CP/SOB (9) Peripheral arterial disease: See above f/u [facility] vascular as outpatient, as well as for his AAA (10) Hypertension: BP stable continue home agents with exception of HCTZ/lisinopril (11) Type 2 diabetes mellitus: Hold Metformin Placed on Accu-Cheks before meals and at bedtime with NovoLog coverage per scale BSGs acceptable (12) History of heart artery stent: See above (13) Tobacco abuse: DuoNebs every 2 hours as needed (14) HLD (hyperlipidemia): Continue atorvastatin (15) Abdominal aortic aneurysm (AAA) 3.0 cm to 5.5 cm in diameter in male: infrarenal abdominal aortic aneurysm measuring up to 54 mm in diameter- Patient states he follows this up with Remington Butler through [facility] every 6 months with ultrasound/CT scans - Reports discrepancy between our records- notes that his physician's interpretation is 4.3cm however our recent imaging notes 5.4cm - Continue BB, Lipid lowering medications, continue to follow up with outside team --> recommended that he have close follow up/surveillance given high chance of rupture. He is to have f/u outpatient next week with [facility] for follow up (16) Hypokalemia: replaced and normal on repeat thankfully K wnl given GAURAV/ATN as above (17) Hydronephrosis: Transferring to [facility] for IR/diverting nephrostomy tubes Total Time Total Time Spent Total Time Spent (In Minutes): 180 Discharge Plan Discharge Items Patient Disposition: Transfer Acute Care Hospital Reason For Visit: GROSS HEMATURIA, ACUTE URINARY RETENTION Discharge Diagnosis: Bladder Rupture, Hematuria, Radiation Cystitis, need for diverting nephrostomy tubes Goals: You have been hospitalized for an urgent problem which required surgery. During your stay at [facility], we have made an effort to correct the problem that brought you to the hospital while keeping you as comfortable as possible. Surgery and medications were used to bring your condition under control and your discharge instructions will include directions for any medications you should take after leaving the hospital. Please make sure to follow the advice of your surgeon regarding follow up with the surgeon and with your primary care provider. Activity: As commented below Non-emergency contact: Primary Care Provider, [employer] Helper and Urologist Call non-emergency contact if: you have any medication questions Follow-up/Referrals: Cheikh Morrison MD [Physician] - Jeremy Kaiser DO [Primary Care Provider] - Diet: Nothing by Mouth Addtl Attending Provider Instructions: you have been hospitalized for hematuria. taken to OR for correction and unfortunately had worsening kidney failure and required repeat trip to OR and found to have bladder rupture, which was repaired and needed to be converted to ex lap. Now continue on CBI and abx with Zosyn for intra-abdominal coverage given bladder rupture and are being transferred for eventual need of diverting nephr ostomy tubes to allow bladder healing and avoid continued obstructive uropathy. Cardiology was consulted given recent heart attack and they felt that as you have been >5 weeks from event, can hold your plavix (which has been done and you are on day 3 of missed therapy). Ideally interventional radiology would like to wait 5 days before placement but if you decline prior to that they may need to p erform sooner. Your HCTZ and lisinopril have been held at discharge and should not be resumed until kidney function normalized. The same goes for your metformin and you have been covered with sliding scale insulin while in the hospital. You have been arranged transfer to [facility] for continued care. Pending Studies at Discharge: No Stand-Alone Forms: My [facility] Skilled Items Patient informed of condition?: Yes DNR: No Discharge Level of Care: Other Communicable Disease: No Discharge Prognosis: Stable Lines: Peripheral IV Urinary Catheter: Yes Medications and DC Order Prescriptions: New fluconazole 100 mg Tablet 100 mg PO DAILY Qty: 3 RF: 0 tamsulosin 0.4 mg Capsule 0.8 mg PO HS Qty: 7 RF: 0 Continued oxymetazoline [Afrin (oxymetazoline)] 0.05 % spray,non-aerosol 2 spray intranasal Q12H PRN (Reason: Nasal Congestion) RF: 0 atorvastatin 80 mg tablet 80 mg PO HS RF: 0 metoprolol tartrate 25 mg Tablet 12.5 mg PO BID 30 Days Qty: 30 RF: 1 oxybutynin chloride 5 mg tablet 5 mg PO DAILY PRN (Reason: bladder spasms) Qty: 30 RF: 0 aspirin 81 mg tablet,delayed release (DR/EC) 81 mg PO QAM RF: 0 Discontinued lisinopril 5 mg tablet 5 mg PO DAILY RF: 0 clopidogrel 75 mg tablet 75 mg PO DAILY RF: 0 tamsulosin 0.4 mg Capsule 0.4 mg PO QAM Qty: 30 RF: 0 metformin 500 mg tablet extended release 24 hr 500 mg PO BID RF: 0 ciprofloxacin HCl 500 mg tablet 500 mg PO BID RF: 0 hydrochlorothiazide 25 mg tablet 25 mg PO DAILY RF: 0 Discharge Orders: Discharge Order (Routine); Ordered 07/10/21 Ordered By: Daksha Guevara/Other Patient Handouts: ED Blas Catheter, Care, ED Hematuria, ED Urinary Retention, Male Admission Data Admit Date/Time: 07/08/21 14:58 Attending Provider: Santos Myles Admit Provider: Eliezer Sandoval Primary Care Provider: Jeremy Kaiser Other Providers: Silvana Kyle ; Eliezer Sandoval ; Benjamin Barrow ; Monique Harden ; Janes Tracy Other Interventions: Discharge Summary Assessment (RN) Last Done: 07/10/21 16:28 Supervising Physician Co-Signing Physician Notes I personally examined the patient and verified all chacko points of history and exam, discussed case, and agree with decision making with Mayra GASTON No new complaints. Stable for transfer. Appreciative of care. Answered all questions the best my ability. Vitals noted, in general he appears comfortable and in no distress at this time. Breathing unlabored no accessory muscle use good effort. Skin without rashes, pallor, icterus. Bladder perforationfor transfer for higher level interventions, most likely nephrostomy tubes, etc. Coding Level of Care Code D/C DAY MANAGEMENT >30 MINS Diagnoses Acute kidney injury N17.9 Hematuria R31.0 Hematuria type: gross Anemia D64.9 Acute urinary retention R33.8 Bladder pain R39.89 Acute radiation cystitis N30.40 CAD (coronary artery disease) I25.10 Associated angina: without angina Coronary Disease-Associated Artery/Lesion type: [place] artery [place] vs. transplanted heart: [place] heart Peripheral arterial disease I73.9 Hypertension I10 Type 2 diabetes mellitus E11.9 History of heart artery stent Z95.5 Tobacco abuse Z72.0 HLD (hyperlipidemia) E78.5 Abdominal aortic aneurysm (AAA) 3.0 cm to 5.5 cm in diameter in male I71.4 Hypokalemia E87.6 Hydronephrosis N13.30 Perforation of bladder
[2021-07-12 12:03] LABS: iSTAT Creatinine 3.6 mg/dl (0.6-1.3); iSTAT Hemoglobin 7.1 g/dl (14.0-18.0); iSTAT Ionized Calcium 1.17 mmol/l (1.12-1.32); iSTAT Potassium 4.3 mmol/L (3.3-5.0)
== END 2021-07-10 16:30 | disposition short-term general hospital (02) | DRG 654 ==
LOC: ED 20:26 → SUATTDRO 07-06 04:21 → OR 07-06 05:00 → PACUINP 07-06 05:00 → 1E 07-06 12:59 → 2N 07-07 18:30 → SUATTDRO 07-08 14:58 → 1E 07-09 21:17

== ENCOUNTER 2022-01-04 10:57 | Observation (INO) ==
--- NOTE | 2022-01-04 11:36 | Emergency Department Note ---
History of Present Illness General Chief complaint: Catheter Replacement Stated complaint: BOGGS CATHETER OUT OF PLACE Time Seen by Provider: 01/04/22 11:19 History of Present Illness Provider complaint: Boggs catheter not draining Onset (ago): day(s) 1 Location: genitals Radiation: non-radiation Maximum Pain Intensity: 4 Quality: + burning Relieved By: + none Exacerbated By: + none Associated symptoms: no chest pain, no cough, no fever/chills, no headaches, no nausea/vomiting, no seizure, no shortness of breath, no syncope or no weakness 71-year-old male presents emergency department for Boggs catheter not draining. Patient states he had a catheter placed this weekend and it was not draining initially so he came to the emergency department yesterday and then started draining again. Patient states that today he was unable to have any urine, after catheter he was having suprapubic abdominal pain. Home Medications Medication Instructions Recorded Confirmed Type atorvastatin 80 mg tablet 80 mg PO HS 05/26/21 01/04/22 History clopidogrel 75 mg tablet (Plavix) 75 mg PO DAILY 09/01/21 01/04/22 History lisinopril 5 mg tablet 5 mg PO DAILY 09/01/21 01/04/22 History aspirin 81 mg tablet,delayed 81 mg PO DAILY 09/08/21 01/04/22 History release (Adult Aspirin Regimen) metformin 500 mg tablet 500 mg PO BID tab 09/16/21 01/04/22 History acetaminophen 500 mg tablet 500 mg PO Q8H tab 12/06/21 01/04/22 History (Tylenol Extra Strength) metoprolol tartrate 25 mg tablet 25 mg PO BID tab 12/06/21 01/04/22 History hydrochlorothiazide 25 mg tablet 25 mg PO DAILY 01/04/22 01/04/22 History Allergies Allergy/AdvReac Type Severity Reaction Status Date / Time No Known Allergies Allergy Verified 01/04/22 13:19 Past Med/Surg History Medical History Abdominal aortic aneurysm (AAA) 3.0 cm to 5.5 cm in diameter in male Acute blood loss anemia Acute kidney injury Acute Lyme disease Acute radiation cystitis Anemia Bladder rupture Bladder rupture CAD (coronary artery disease) Chronic pancreatitis HLD (hyperlipidemia) Hypertension NSTEMI (non-ST elevated myocardial infarction) Perforation of bladder Peripheral arterial disease Pre-diabetes Radiation cystitis Ruptured abdominal aortic aneurysm (AAA) Tobacco abuse Surgical History H/O nephrostomy History of bladder surgery History of endovascular stent graft for abdominal aortic aneurysm (AAA) History of heart artery stent Social History Smoking Status: Never smoker Tobacco Type: Cigars Number of Years Since Quit: 20; Second Hand Exposure: No; Hx Alcohol Use: Yes Alcohol type: wine Alcohol Intake Frequency: 4 or More x per/Week Alcohol Intake Frequency Comment: every night with dinner Hx Substance Use: No Preferred Language: Omani Communication Ability: Effective Visual Impairment: Limited Hearing Ability: Hard of Hearing [employer] Required: No Beliefs That Will Affect Care: None marital status: Current Living Situation: Spouse and Family current occupational status: retired How many Children do You have: 2 How many Children do You have Comment: one daughter local and able to assist with care as needed. also able to assist as needed with care. Feels Safe at Home: Yes during the past year weight has: decreased > 10 lbs Assistive Devices: Glasses Review of Systems A total of 10 systems reviewed and were otherwise negative Physical Exam Vital Signs Vital Signs - 24 hr 01/04/22 10:57 01/04/22 11:12 01/04/22 12:42 Temperature 36.7 C Temperature Source Temporal Artery Scan Pulse Rate 95 H Pulse Rate [Finger] 68 Pulse Rate from SpO2 Sensor Pulse Rhythm [Finger] Regular Pulse Strength [Finger] Normal Respiratory Rate 17 20 Respiratory Effort / Characteristics Non-Labored Spontaneous Respiratory Depth Normal Respiratory Pattern Blood Pressure 166/80 H Blood Pressure [Right Arm] 124/86 Blood Pressure Mean 108 Blood Pressure Mean [Right Arm] 98 Blood Pressure Position [Right Arm] Lying Pulse Oximetry 98 96 Oxygen Delivery Method Room Air Room Air Room Air Sepsis Recent Fever Within 48 Hours No Sepsis New/Unexplained Change in Mental Status N/A Sepsis Action Taken by Nursing No Action Required 01/04/22 13:43 01/04/22 15:00 01/04/22 15:06 Temperature Temperature Source Pulse Rate 75 Pulse Rate [Finger] 77 65 Pulse Rate from SpO2 Sensor 75 Pulse Rhythm [Finger] Regular Regular Pulse Strength [Finger] Normal Normal Respiratory Rate 18 18 17 Respiratory Effort / Characteristics Non-Labored Spontaneous Non-Labored Respiratory Depth Normal Normal Respiratory Pattern Regular Blood Pressure Blood Pressure [Right Arm] 183/89 H 185/87 H Blood Pressure Mean Blood Pressure Mean [Right Arm] 120 119 Blood Pressure Position [Right Arm] Lying Pulse Oximetry 97 96 97 Oxygen Delivery Method Room Air Sepsis Recent Fever Within 48 Hours Sepsis New/Unexplained Change in Mental Status Sepsis Action Taken by Nursing 01/04/22 15:14 01/04/22 15:15 01/04/22 15:30 Temperature Temperature Source Pulse Rate 78 77 72 Pulse Rate [Finger] Pulse Rate from SpO2 Sensor 76 76 70 Pulse Rhythm [Finger] Pulse Strength [Finger] Respiratory Rate 19 21 22 Respiratory Effort / Characteristics Respiratory Depth Respiratory Pattern Blood Pressure 195/95 H 193/85 H Blood Pressure [Right Arm] Blood Pressure Mean 128 121 Blood Pressure Mean [Right Arm] Blood Pressure Position [Right Arm] Pulse Oximetry 97 97 97 Oxygen Delivery Method Sepsis Recent Fever Within 48 Hours Sepsis New/Unexplained Change in Mental Status Sepsis Action Taken by Nursing Physical Exam GENERAL: He is oriented to person, place, and time. He appears well-developed a nd well-nourished. He does not appear distressed. HENT: Exam performed. - Head: Normocephalic and atraumatic. - Right Ear: External ear normal. No mastoid tenderness. - Left Ear: External ear normal. No mastoid tenderness. - Mouth/Throat: The oropharynx is clear and moist. No trismus in the jaw. No dental abscesses or uvula swelling. No oropharyngeal exudate or tonsillar abscesses. EYES: Conjunctivae and EOM are normal. Pupils are equal, round, and reactive to light. Right eye exhibits no discharge. Left eye exhibits no discharge. No scleral icterus. NECK: Normal range of motion. Neck supple. No JVD present. No spinous process tenderness present. No carotid bruit present. No rigidity. No tracheal deviation and normal range of motion present. No Brudzinski's sign and no Kernig's sign noted. CV: Normal rate, regular rhythm, normal heart sounds and intact distal pulses. There is no peripheral edema. Palpable radial pulses bue. PULM/CHEST: Effort normal and breath sounds normal. No respiratory distress. No stridor. He has no wheezes. He has no rales. - Chest Wall: He exhibits no tenderness. ABD: The abdomen is soft. Bowel sounds are normal. He has no distension. No mass is present. There is no tenderness. There is no rebound, no guarding, no Root's sign and no tenderness at McBurney's point. Rovsig negative. : Boggs catheter in place and not draining. MUSC/SKEL: Normal range of motion. There is no peripheral edema, tenderness or deformity. LYMPH: No cervical adenopathy. NEURO: He is alert and oriented to person, place, and time. He has normal strength. No cranial nerve deficit or sensory deficit. Coordination and gait normal. GCS eye subscore is 4. GCS verbal subscore is 5. GCS motor subscore is 6. Cerebellar tests wnl. SKIN: Skin is warm and dry. He is not diaphoretic. PSYCH: He has a normal mood and affect. Behavior is normal. Judgment and thought content normal. Course Course 1119: The patient was evaluated in room B6. A complete history and physical exam was performed EMR reviewed. This is patient's third visit to the emergency department in the last 36 hours for similar chief complaints. 1222: Vital signs stable. Nursing was able to flush the patient's catheter without difficulty but the patient was still having pain. Nursing replaced the catheter and after the catheter is replaced the patient is still able to have his catheter flushed and clots are coming out. Patient still reporting abdominal pain. We will obtain CT of the abdomen as well as lab work and then contact urology. 1440: Vital signs stable. CT of the abdomen shows persistent ruptured AAA unable to see if there is an active extravasation without contrast. Will obtain CTA of the abdomen. 1600: Vital signs stable. Labs within normal limits. CT angio of the abdomen pelvis shows redemonstration of ruptured AAA but a decrease in size of the hematoma. No active extravasation. 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 There is diverticulosis with possibly some diverticulitis. Given that it is the patient's third visit in the last 36 hours we will plan on admitting the patient to the hospitalist service. Discussed with urology Ariel on-call for Dr. Ferreira who states from a urology standpoint there is no reason that the patient cannot be admitted to medicine. Daksha states that urology will evaluate the patient for his difficulties urinating and blood clots draining in the Boggs catheter discussed the case with [facility] medicine Dr. Castillo who agrees to evaluate the patient for admission. Rocephin and Flagyl ordered for the patient. Administered Medications Discontinued Medications Acetaminophen (Ofirmev) 1,000 mg in 100 mls @ 400 mls/hr IV NOW STA Stop: 01/04/22 12:52 Last Infusion: 01/04/22 13:43 Dose: 0 mls/hr Documented by: [id number] Admin: 01/04/22 12:50 Dose: 400 mls/hr Documented by: [id number] Ceftriaxone Sodium (Rocephin) 2,000 mg in 70 mls @ 140 mls/hr IV NOW STA Stop: 01/04/22 16:26 Last Admin: 01/04/22 16:35 Dose: 140 mls/hr Documented by: [id number] Ioversol (Optiray 320 125ml) 120 ml IV ONCE ONE Stop: 01/04/22 14:47 Last Admin: 01/04/22 14:47 Dose: 120 ml Documented by: [id number] Morphine Sulfate (Morphine Sulfate 4 Mg/Ml 1 Ml Carp\Vial) 4 mg IV NOW STA Stop: 01/04/22 12:21 Last Admin: 01/04/22 12:50 Dose: Not Given Documented by: [id number] Ondansetron HCl (Ondansetron Inj 2 Mg/Ml 2 Ml Vial) 4 mg IV NOW STA Stop: 01/04/22 12:21 Last Admin: 01/04/22 12:51 Dose: Not Given Documented by: [id number] Medical Decision Making Laboratory Data Result diagrams: 01/04/22 12:30 01/04/22 12:30 Lab Results 01/04/22 01/04/22 01/04/22 Range/Units 12:30 12:30 14:04 WBC 9.56 (4.8-10.8) K/uL RBC 3.87 L (4.7-6.1) M/uL Hgb 11.2 L (14.0-18.0) g/dL Hct 35.3 L (42-52) % MCV 91.2 (80-100) fL MCH 28.9 (25-34) pg MCHC 31.7 L (32-36) g/dL RDW Std Deviation 63.0 H (36.4-46.3) fL RDW Coeff of Matt 18.8 H (11.5-14.5) % Plt Count 470 H (130-400) K/uL MPV 10.0 (7.4-10.4) fL Immature Gran % (Auto) 0.3 % Neut % (Auto) 72.2 % Lymph % (Auto) 16.9 % Gilliam % (Auto) 8.3 % Eos % (Auto) 2.1 % Baso % (Auto) 0.2 % Neut # (Auto) 6.90 H (1.4-6.5) K/uL Lymph # (Auto) 1.62 (1.2-3.4) K/uL Gilliam # (Auto) 0.79 H (0.11-0.59) K/uL Eos # (Auto) 0.20 (0-0.5) K/uL Baso # (Auto) 0.02 (0-0.2) K/uL Immature Gran # (Auto) 0.03 H (0.00-0.02) K/uL Sodium 141 (136-145) mmol/L Potassium 3.6 (3.5-5.1) mmol/L Chloride 107 (98-107) mmol/L Carbon Dioxide 29 (21-32) mmol/L Anion Gap 5 (3-11) BUN 15 (6-23) mg/dl Creatinine 1.03 (0.6-1.4) mg/dl Est Cr Clr Drug Dosing 50.1 ml/min Est GFR ( Amer) 84.9 ml/min Est GFR (Non-Af Amer) 73.3 ml/min BUN/Creatinine Ratio 14.6 (10-20) Glucose 82 (70-99(Fasting)) mg/dl Calcium 9.0 (8.5-10.1) mg/dl Urine Color Yellow Urine Appearance Cloudy A (Clear) Urine pH 6.0 (4.5-7.5) Ur Specific [place] 1.031 H (1.000-1.030) Urine Protein 2+ H (Negative) Urine Glucose (UA) Negative (Negative) Urine Ketones Trace H (Negative) Urine Blood 3+ H (Negative) Urine Nitrite Negative (Negative) Urine Bilirubin Negative (Negative) Urine Urobilinogen Negative (Negative) Ur Leukocyte Esterase 2+ H (Negative) Urine WBC (Auto) >30 H (0-5) /hpf Urine RBC (Auto) >30 H (0-4) /hpf U Hyaline Cast (Auto) 1-5 (0-5) /lpf U Epithel Cells (Auto) 10-20 H (0-5) /lpf Urine Bacteria (Auto) Negative (Negative) Urine Yeast Not Reportable Imaging Data Radiologist's Impression: Abdomen/Pelvis CT 01/04/22 12:[address] WITHOUT CONTRAST CT DOSE: 255.67 mGy.cm HISTORY: Acute generalized abdominal pain with recent rupture of the abdominal aortic aneurysm. abd pain TECHNIQUE: Multiaxial CT images of the abdomen and pelvis were performed without contrast. A dose lowering technique was utilized adhering to the principles of ALARA. COMPARISON STUDY: CTA abdomen and pelvis 12/18/2021 FINDINGS: The imaged inferior cardiac chambers are unremarkable. Emphysema. The lung bases are generally clear. There are 2 subpleural solid nodules of the basal left lower lobe measuring up to 4 mm which are unchanged. No pneumatosis or pneumoperitoneum. The unenhanced spleen and adrenal glands are unremarkable. Pancreatic calcifications are redemonstrated suggestive of chronic pancreatitis. The gallbladder and liver appear unremarkable. Cysts of the kidneys are redemonstrated measuring up to 4.1 cm on the left. Vascular calcifications of the kidneys are again noted along with bilateral perinephric stranding. No de finite hydronephrosis. Brachytherapy seeds of the prostate. Boggs catheter is noted within a decompressed urinary bladder which demonstrates wall thickening with air in the bladder lumen. Perivesicular inflammatory stranding. Unchanged appearance of the aorta right iliac stent graft with atherosclerosis fusiform aneurysm dilation of the abdominal aorta measures up to 5.7 x 6.5 cm distally on image 193 which is unchanged along with a 3 cm defects within the right lateral aspect of the q[place]in abdominal aorta. There is adjacent retroperitoneal hematoma abutting the right aspect of the abdominal aorta measuring 13.6 x 6.8 x 11.5 cm, previously measured at 16.4 x 8.1 x 14 cm. No new areas of hemorrhage are identified. 2.8 cm hypodense collection within the right inguinal subcutaneous tissues redemonstrated. Nonspecific distal esophageal wall thickening with tiny hiatal hernia. Mild wall thickening involves loops of small bowel within the pelvis. Mild wall thickening of the duodenum may be reactive. Wall thickening with partial distention of the rectum. Unchanged sigmoid colon wall thickening. Colonic diverticulosis. There is mild to moderate fecal retention. Noninflamed appendix. Mild generalized body wall edema. Subcutaneous edema of the right anterior abdominal wall. No acute fracture. IMPRESSION: 1. Ruptured fusiform infrarenal abdominal aortic aneurysm measuring up to 5.7 x 6.5 cm redemonstrated with large associated retroperitoneal hematoma. The hematoma has mildly decreased in size from the 12/18/2021 study. 2. Suboptimal evaluation of the aorto right iliac stent graft without the use of IV contrast. 3. No bowel obstruction. 4. Colonic diverticulosis with unchanged sigmoid colon wall thickening, likely secondary to hypertrophy of the muscularis propria. 5. Mild nonspecific distal esophageal wall thickening with tiny hiatal hernia. 6. Probable hematoma of the subcutaneous right inguinal tissues is unchanged. 7. A Boggs catheter is noted with associated urinary bladder wall thickening. Correlate with urinalysis. ACT 112: Negative or not required by law. The above report was generated using voice recognition software. It may contain grammatical, syntax or spelling errors. Electronically signed by: Luciano Moore M.D. 01/04/2022 2:31 PM Abdomen/Pelvis CTA 01/04/22 14:36 CT ANGIOGRAPHY OF THE ABDOMEN AND PELVIS CLINICAL HISTORY: ro aaa graft leak COMPARISON STUDY: CTA of the abdomen and pelvis December 18, 2021. CT of the abdomen and pelvis January 04, 2022. TECHNIQUE: Arterial and venous phase imaging of the abdomen and pelvis was performed following intravenous injection of 120 cc of Optiray 320 IV. Sagittal and coronal reconstructions were viewed as well as maximal intensity projections on an independent 3-D workstation. Automated exposure control was utilized for the study. A dose lowering technique was utilized adhering to the principles of ALARA. FINDINGS: No pneumatosis, free air or portal venous gas is present. Liver, spleen, adrenal glands are unremarkable. Numerous in burt-white parenchymal calcifications are noted. This may indicate chronic pancreatitis. There is no evidence for a bowel obstruction. Colonic diverticulosis is noted. Wall thickening of the sigmoid colon is noted. There is minimal pericolonic stranding. There is mild presacral/perirectal rectal stranding. Boggs balloon within the bladder is present. Bladder is collapsed. There is no hydronephrosis. Right nephrogram is delayed. This is shown on CTA of December 18, 2021. Bilateral thickening is noted. Brachytherapy seeds within the prostate are present. Ruptured fusiform infrarenal abdominal aortic aneurysm is again noted. The associated hematoma has decreased in size since CT of December 18, 2021. The hematoma now measures 12.3 x 4.9 cm. It previously measured 14.7 x 5.1 cm. Aneurysm sac size is similar, measuring 6.5 x 6.3 cm. Aorto right iliac stent graft is in place. The graft is patent. Occlusion of the left common iliac artery is unchanged since prior CT of December 18, 2021. There is reconstitution at the level of the left external iliac artery. Moderate stenosis of the left external iliac artery is noted. There is severe stenosis of the proximal right renal artery. Moderate stenosis of the proximal left renal artery is noted. This extensive atherosclerotic plaque. No new hematomas are present. There is no evidence for active extravasation on these postcontrast images. A suspected right groin hematoma is again noted. This has decreased in size and attenuation. IMPRESSION: 1. Redemonstration of a ruptured fusiform infrarenal abdominal aortic aneurysm. Interval decrease in size and attenuation of the associated retroperitoneal hematoma since CT of December 18, 2021. No active extravasation. 2. Patent aorto right iliac stent graft, as described above. Occlusion of the left common iliac artery, unchanged. Severe stenosis at the origin the right renal artery and moderate stenosis at the origin of the left renal artery. Delayed right nephrogram, unchanged. 3. No hydronephrosis. Boggs balloon within the bladder which is collapsed. Bladder wall thickening. 4. Extensive sigmoid diverticulosis. Mild sigmoid wall thickening could be due to underdistention or circular muscular hypertrophy. Mild diverticulitis is considered less likely but would be difficult to exclude. ACT 112: Negative or not required by law. Electronically signed by: Juanjose Stephens M.D. 01/04/2022 3:41 PM [facility] Narrative 1119: The patient was evaluated in room B6. A complete history and physical exam was performed EMR reviewed. This is patient's third visit to the emergency department in the last 36 hours for similar chief complaints. 1222: Vital signs stable. Nursing was able to flush the patient's catheter without difficulty but the patient was still having pain. Nursing replaced the catheter and after the catheter is replaced the patient is still able to have his catheter flushed and clots are coming out. Patient still reporting abdominal pain. We will obtain CT of the abdomen as well as lab work and then contact urology. 1440: Vital signs stable. CT of the abdomen shows persistent ruptured AAA unable to see if there is an active extravasation without contrast. Will obtain CTA of the abdomen. 1600: Vital signs stable. Labs within normal limits. CT angio of the abdomen pelvis shows redemonstration of ruptured AAA but a decrease in size of the hematoma. No active extravasation. 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 There is diverticulosis with possibly some diverticulitis. Given that it is the patient's third visit in the last 36 hours we will plan on admitting the patient to the hospitalist service. Discussed with urology Ariel on-call for Dr. Ferreira who states from a urology standpoint there is no reason that the patient cannot be admitted to medicine. Daksha states that urology will evaluate the patient for his difficulties urinating and blood clots draining in the Boggs catheter discussed the case with [facility] medicine Dr. Castillo who agrees to evaluate the patient for admission. Rocephin and Flagyl ordered for the patient. Impression & Plan Diverticulitis, Malfunction of Boggs catheter Discharge Plan Visit Data Chief Complaint: Catheter Replacement Stated Complaint: BOGGS CATHETER OUT OF PLACE ED Provider: Umair Conway Discharge Problem: Diverticulitis, Malfunction of Boggs catheter Patient Disposition: Admitted As Inpatient Forms Stand Alone Forms: My [facility] Prescriptions Prescriptions: No Action aspirin [Adult Aspirin Regimen] 81 mg tablet,delayed release (DR/EC) 81 mg PO DAILY RF: 0 clopidogrel [Plavix] 75 mg tablet 75 mg PO DAILY RF: 0 lisinopril 5 mg tablet 5 mg PO DAILY RF: 0 metformin 500 mg tablet 500 mg PO BID RF: 0 metoprolol tartrate 25 mg tablet 25 mg PO BID RF: 0 acetaminophen [Tylenol Extra Strength] 500 mg tablet 500 mg PO Q8H RF: 0 atorvastatin 80 mg tablet 80 mg PO HS RF: 0 hydrochlorothiazide 25 mg tablet 25 mg PO DAILY RF: 0 Referrals Referrals: Jeremy Kaiser DO [Primary Care Provider] -
[2022-01-04] MEDS ORDERED: ONDANSETRON INJ 2 MG/ML 2 ML VIAL IV STA (12:20)
[2022-01-04] MEDS ORDERED: MoRPHine SULFATE 4 MG/ML 1 ML CARP\\VIAL IV STA (12:20)
[2022-01-04] MEDS ORDERED: ACETAMINOPHEN 1,000 MG/100 ML VIAL IV STA (12:38)
[2022-01-04 12:47] LABS: Basophils # (auto) 0.02 K/uL (0-0.2); Basophils % (auto) 0.2 %; Eosinophils % (auto) 2.1 %; Hematocrit (blood only) 35.3 % (42-52); Hemoglobin 11.2 g/dL (14.0-18.0); Immature Granulocytes # (auto) 0.03 K/uL (0.00-0.02); Immature Granulocytes % (auto) 0.3 %; Lymphocytes # (auto) 1.62 K/uL (1.2-3.4); Lymphocytes % (auto) 16.9 %; Mean Corpuscular Hemoglobin 28.9 pg (25-34); Mean Corpuscular Hgb Conc 31.7 g/dL (32-36); Mean Corpuscular Volume 91.2 fL (80-100); Monocytes # (auto) 0.79 K/uL (0.11-0.59); Monocytes % (auto) 8.3 %; Neutrophils % (auto) 72.2 %; Platelet Count 470 K/uL (130-400); RDW Coefficient of Variation 18.8 % (11.5-14.5); Red Blood Count 3.87 M/uL (4.7-6.1); White Blood Count 9.56 K/uL (4.8-10.8)
[2022-01-04 13:22] LABS: BUN Creatinine Ratio 14.6 (10-20); Creatinine Clr Calc Pharmacy 50.1 ml/min; Est GFR (African American) 84.9 ml/min; Est GFR (Non-African American) 73.3 ml/min; Potassium 3.6 mmol/L (3.5-5.1)
[2022-01-04 14:32] LABS: Appearance Urine Cloudy (Clear); Bacteria Urine Automated Negative (Negative); Bilirubin Urine Negative (Negative); Blood Urine 3+ (Negative); Color Urine Yellow; Glucose Urine UA Negative (Negative); Ketones Urine Trace (Negative); Leukocyte Esterase Urine 2+ (Negative); Nitrite Urine Negative (Negative); Protein Urine 2+ (Negative); Specific Gravity Urine 1.031 (1.000-1.030); Urobilinogen Urine Negative (Negative); WBC Urine Automated >30 /hpf (0-5)
--- NOTE | 2022-01-04 14:33 | CT Scan Report ---
ABDOMEN AND PELVIS CT WITHOUT CONTRAST CT DOSE: 255.67 mGy.cm HISTORY: Acute generalized abdominal pain with recent rupture of the abdominal aortic aneurysm. abd pain TECHNIQUE: Multiaxial CT images of the abdomen and pelvis were performed without contrast. A dose lo wering technique was utilized adhering to the principles of ALARA. COMPARISON STUDY: CTA abdomen and pelvis 12/18/2021 FINDINGS: The imaged inferior cardiac chambers are unremarkable. Emphysema. The lung bases are genera lly clear. There are 2 subpleural solid nodules of the basal left lower lobe measuring up to 4 mm whi ch are unchanged. No pneumatosis or pneumoperitoneum. The unenhanced spleen and adrenal glands are unremarkable. Pancreatic calcifications are redemonstrat ed suggestive of chronic pancreatitis. The gallbladder and liver appear unremarkable. Cysts of the ki dneys are redemonstrated measuring up to 4.1 cm on the left. Vascular calcifications of the kidneys a re again noted along with bilateral perinephric stranding. No definite hydronephrosis. Brachytherapy seeds of the prostate. Wheeler catheter is noted within a decompressed urinary bladder which demonstrat es wall thickening with air in the bladder lumen. Perivesicular inflammatory stranding. Unchanged appearance of the aorta right iliac stent graft with atherosclerosis fusiform aneurysm dila tion of the abdominal aorta measures up to 5.7 x 6.5 cm distally on image 193 which is unchanged kwasi g with a 3 cm defects within the right lateral aspect of the [place] abdominal aorta. There is adjacen t retroperitoneal hematoma abutting the right aspect of the abdominal aorta measuring 13.6 x 6.8 x 11 .5 cm, previously measured at 16.4 x 8.1 x 14 cm. No new areas of hemorrhage are identified. 2.8 cm h ypodense collection within the right inguinal subcutaneous tissues redemonstrated. Nonspecific distal esophageal wall thickening with tiny hiatal hernia. Mild wall thickening involves loops of small bowel within the pelvis. Mild wall thickening of the duodenum may be reactive. Wall th ickening with partial distention of the rectum. Unchanged sigmoid colon wall thickening. Colonic dive rticulosis. There is mild to moderate fecal retention. Noninflamed appendix. Mild generalized body wa ll edema. Subcutaneous edema of the right anterior abdominal wall. No acute fracture. IMPRESSION: 1. Ruptured fusiform infrarenal abdominal aortic aneurysm measuring up to 5.7 x 6.5 cm redemonstrated with large associated retroperitoneal hematoma. The hematoma has mildly decreased in size from the study. 2. Suboptimal evaluation of the aorto right iliac stent graft without the use of IV contrast. 3. No bowel obstruction. 4. Colonic diverticulosis with unchanged sigmoid colon wall thickening, likely secondary to hypertrop hy of the muscularis propria. 5. Mild nonspecific distal esophageal wall thickening with tiny hiatal hernia. 6. Probable hematoma of the subcutaneous right inguinal tissues is unchanged. 7. A Wheeler catheter is noted with associated urinary bladder wall thickening. Correlate with urinalys is. ACT 112: Negative or not required by law. The above report was generated using voice recognition software. It may contain grammatical, syntax o r spelling errors. Electronically signed by: Luciano Moore M.D. 01/04/2022 2:31 PM
[2022-01-04] MEDS ORDERED: OPTIRAY 320 125ml IV ONE (14:46)
[2022-01-04 14:48] LABS: RBC Urine Automated >30 /hpf (0-4)
--- NOTE | 2022-01-04 15:42 | CT Scan Report ---
CT ANGIOGRAPHY OF THE ABDOMEN AND PELVIS CLINICAL HISTORY: ro aaa graft leak COMPARISON STUDY: CTA of the abdomen and pelvis December 18, 2021. CT of the abdomen and pelvis January 04. TECHNIQUE: Arterial and venous phase imaging of the abdomen and pelvis was performed following intrav enous injection of 120 cc of Optiray 320 IV. Sagittal and coronal reconstructions were viewed as well as maximal intensity projections on an independent 3-D workstation. Automated exposure control was u tilized for the study. A dose lowering technique was utilized adhering to the principles of ALARA. FINDINGS: No pneumatosis, free air or portal venous gas is present. Liver, spleen, adrenal glands are unremarkable. Numerous in burt-white parenchymal calcifications are noted. This may indicate chronic pancreatitis. There is no evidence for a bowel obstruction. Colonic diverticulosis is noted. Wall th ickening of the sigmoid colon is noted. There is minimal pericolonic stranding. There is mild presacr al/perirectal rectal stranding. Wheeler balloon within the bladder is present. Bladder is collapsed. Th ere is no hydronephrosis. Right nephrogram is delayed. This is shown on CTA of December 18, 2021. Bilatera l thickening is noted. Brachytherapy seeds within the prostate are present. Ruptured fusiform infrarenal abdominal aortic aneurysm is again noted. The associated hematoma has de creased in size since CT of December 18, 2021. The hematoma now measures 12.3 x 4.9 cm. It previously jimi ured 14.7 x 5.1 cm. Aneurysm sac size is similar, measuring 6.5 x 6.3 cm. Aorto right iliac stent gra ft is in place. The graft is patent. Occlusion of the left common iliac artery is unchanged since hussain or CT of December 18, 2021. There is reconstitution at the level of the left external iliac artery. Modera te stenosis of the left external iliac artery is noted. There is severe stenosis of the proximal righ t renal artery. Moderate stenosis of the proximal left renal artery is noted. This extensive atherosc lerotic plaque. No new hematomas are present. There is no evidence for active extravasation on these postcontrast images. A suspected right groin hematoma is again noted. This has decreased in size and attenuation. IMPRESSION: 1. Redemonstration of a ruptured fusiform infrarenal abdominal aortic aneurysm. Interval decrease in size and attenuation of the associated retroperitoneal hematoma since CT of December 18, 2021. No active e xtravasation. 2. Patent aorto right iliac stent graft, as described above. 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 Severe stenosis at the origin the right renal artery and moderate stenosis at the origi n of the left renal artery. Delayed right nephrogram, unchanged. 3. No hydronephrosis. Wheeler balloon within the bladder which is collapsed. Bladder wall thickening. 4. Extensive sigmoid diverticulosis. Mild sigmoid wall thickening could be due to underdistention or circular muscular hypertrophy. Mild diverticulitis is considered less likely but would be difficult t o exclude. ACT 112: Negative or not required by law. Electronically signed by: Juanjose Stephens M.D. 01/04/2022 3:41 PM
[2022-01-04] MEDS ORDERED: cefTRIAXone SODIUM 2,000 MG/70 ML BAG IV STA (15:57)
[2022-01-04] MEDS ORDERED: metroNIDAZOLE 500 MG/100 ML BAG IV STA (16:00)
[2022-01-04] MEDS ORDERED: hydrALAZINE HCL 20 MG/ML VIAL IV STA (17:08)
--- NOTE | 2022-01-04 17:20 | History & Physical Report ---
Date of Service January 04, 2022 Assessment & Plan (1) Urinary retention: Plan: -Urinary retention in a patient with known complex urologic history -Place in observation to med/surg unit -Placement of blas catheter, urine appears grossly infected -Empirically treated with a dose of Rocpehin and Flagyl from ER -Last urine culture demonstrates growth of pseudomonas in December 14, 2021 (appears this was treated w/ 10 day course of Cipro) -Will change antibiotics to Cefepime 2g IV q12h for pseudomonal coverage -Await urine C&S and tailor antibiotics accordingly -1L of NSS at 80 ml/hr and stop -Start Flomax 0.4mg po q hs -Consult urology, appreciate assistance (2) Urinary tract infection: Plan: -Urine culture pending, tailor abx once finalized -Empiric Cefepime based on last urine culture (3) Hypertensive urgency: Plan: -Resume antihypertensive meds -Dose of IV Hydralazine 10mg x1 (4) Type 2 diabetes mellitus: Plan: -Hold Metformin -Accuchecks AC and HS, add SSI for glucose >180 -Check a1c (5) CAD (coronary artery disease): Plan: -Continue ASA/Plavix -No cp/angina Plan: As above. Plan has been d/w Dr. Jiménez who will also see and evaluate this patient. Additional orders will be entered as warranted. History of Present Illness Chief Complaint: urinary catheter blocked Primary Care Provider: Jeremy Kaiser DO Alok Salgado is a 71 yo WM with a rather extensive pmhx including CAD with NSTEMI in Jun 2021 s/p C with SANTIAGO to LAD, on dual antiplatelet therapy, prostate cancer s/p brachytherapy and radiation cystitis, as well as AAA, type 2 DM, HTN, HLD, and PAD. Pt has been hospitalized multiple times since May 2021. Over the course of the past 6 months he has had gross hematuria, urinary retention, had a bladder rupture requiring operative repair. He follows closely with [facility] [place] urology. He had a placement of bilateral nephrostomy tubes and hyperbaric treatment for the radiation cystitis. Had a known AAA that ruptured this spring, [place] [facility] [place]. Following that, he developed a retroperitoneal hematoma that required evacuation. He was last seen by urology on 12/28 and was voiding well w/o issue. Tuesday 01/02, he noted some blood in his urine. By Monday, he was unable to void and presented to the ER for blas insertion. Blas was inserted and he was discharged home. Within a few hours of returning home, his catheter began clogged and he presented back to the ER for a second time. Blas was flushed and he was again discharged home. He had another incidence this morning where his blas became clogged again, prompting him to return a third time to the ER. In the ER, his catheter was flushed and exchanged. It is now draining well without issue. His work up in the ER demonstrates a normal wbc count and is afe brile. Urine appears grossly infected with 2+ LE, >30 WBC. Chemistry panel demonstrates no electrolyte derangements and normal renal function. He was medicated with a dose of IV Rocephin 2g, Flagyl 500mg, a dose of Zofran, and Morphine. He is currently hypertensive with a BP of 180/100s. He did take his antihypertensive medications this morning. Presently, no other complaints/concerns other than just wanting something to eat and drink. No chest pain, dyspnea, n/v/d, f/c, or headache. Hospitalists have been consulted for admission. Allergies Allergy/AdvReac Type Severity Reaction Status Date / Time No Known Allergies Allergy Verified 01/04/22 13:19 Home Medications Medication Instructions Recorded Confirmed Type atorvastatin 80 mg tablet 80 mg PO HS 05/26/21 01/04/22 History clopidogrel 75 mg tablet (Plavix) 75 mg PO DAILY 09/01/21 01/04/22 History lisinopril 5 mg tablet 5 mg PO DAILY 09/01/21 01/04/22 History aspirin 81 mg tablet,delayed 81 mg PO DAILY 09/08/21 01/04/22 History release (Adult Aspirin Regimen) metformin 500 mg tablet 500 mg PO BID tab 09/16/21 01/04/22 History acetaminophen 500 mg tablet 500 mg PO Q8H tab 12/06/21 01/04/22 History (Tylenol Extra Strength) metoprolol tartrate 25 mg tablet 25 mg PO BID tab 12/06/21 01/04/22 History hydrochlorothiazide 25 mg tablet 25 mg PO DAILY 01/04/22 01/04/22 History Past Med/Surg History Medical History Abdominal aortic aneurysm (AAA) 3.0 cm to 5.5 cm in diameter in male Acute blood loss anemia Acute kidney injury Acute Lyme disease Acute radiation cystitis Anemia Bladder rupture Bladder rupture CAD (coronary artery disease) Chronic pancreatitis HLD (hyperlipidemia) Hypertension NSTEMI (non-ST elevated myocardial infarction) Perforation of bladder Peripheral arterial disease Pre-diabetes Radiation cystitis Ruptured abdominal aortic aneurysm (AAA) Tobacco abuse Surgical History H/O nephrostomy History of bladder surgery History of endovascular stent graft for abdominal aortic aneurysm (AAA) History of heart artery stent Social History Smoking Status: Never smoker Tobacco Type: Cigars Number of Years Since Quit: 20; Second Hand Exposure: No; Hx Alcohol Use: Yes Alcohol type: wine Alcohol Intake Frequency: 4 or More x per/Week Alcohol Intake Frequency Comment: every night with dinner Hx Substance Use: No Preferred Language: Beninese Communication Ability: Effective Visual Impairment: Limited Hearing Ability: Hard of Hearing 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 also able to assist as needed with care. Feels Safe at Home: Yes during the past year weight has: decreased > 10 lbs Assistive Devices: Glasses Review of Systems Review of Systems: All systems reviewed and are unremarkable except as noted in HPI and below. Denies fever, chills, fatigue, headache, nasal congestion, sore throat, cough, c hest pain, shortness of breath, palpitations, orthopnea, PND, abdominal pain, n/v/d, constipation, back pain, joint pain or swelling, easy bruising or bleeding, skin lesions or rashes. Physical Exam Physical Exam: GENERAL: 71 yo well-developed, well-nourished WM. NAD. LUNGS: Clear to auscultation bilaterally. No W/R/R. CARDIOVASCULAR: Regular rate and rhythm. ABDOMEN: Soft, non-tender and non-distended. BS normal x 4 quad. EXTREMITIES: No edema. Non-tender. Peripheral pulses +2/4. NEUROLOGIC: A&O x3. PSYCHIATRIC: Cooperative. Appropriate mood and affect. SKIN: Warm, dry, intact. No rashes or lesions. Results & Data Results & Data ([facility]) Vital Signs (Past 12 Hours) Vital Signs Temp Pulse Pulse Resp BP BP Pulse Ox 01/04/22 15:30 72 22 193/85 H 97 01/04/22 15:15 77 21 97 01/04/22 15:14 78 19 195/95 H 97 01/04/22 15:06 75 17 97 01/04/22 15:00 65 18 185/87 H 96 01/04/22 13:43 77 18 183/89 H 97 01/04/22 11:12 36.7 C 95 H 20 166/80 H 96 01/04/22 10:57 68 17 124/86 98 Laboratory Results 01/04/22 12:30 01/04/22 12:30 Diagnostic Findings Abdomen/Pelvis CT 01/04/22 12:[address] WITHOUT CONTRAST CT DOSE: 255.67 mGy.cm HISTORY: Acute generalized abdominal pain with recent rupture of the abdominal aortic aneurysm. abd pain TECHNIQUE: Multiaxial CT images of the abdomen and pelvis were performed without contrast. A dose lowering technique was utilized adhering to the principles of ALARA. COMPARISON STUDY: CTA abdomen and pelvis 12/18/2021 FINDINGS: The imaged inferior cardiac chambers are unremarkable. Emphysema. The lung bases are generally clear. There are 2 subpleural solid nodules of the basal left lower lobe measuring up to 4 mm which are unchanged. No pneumatosis or pneumoperitoneum. The unenhanced spleen and adrenal glands are unremarkable. Pancreatic calc ifications are redemonstrated suggestive of chronic pancreatitis. The gallbladder and liver appear unremarkable. Cysts of the kidneys are redemonstrated measuring up to 4.1 cm on the left. Vascular calcifications of the kidneys are again noted along with bilateral perinephric stranding. No definite hydronephrosis. Brachytherapy seeds of the prostate. Blas catheter is noted within a decompressed urinary bladder which demonstrates wall thickening with air in the bladder lumen. Perivesicular inflammatory stranding. Unchanged appearance of the aorta right iliac stent graft with atherosclerosis fusiform aneurysm dilation of the abdominal aorta measures up to 5.7 x 6.5 cm distally on image 193 which is unchanged along with a 3 cm defects within the right lateral aspect of the [place] abdominal aorta. There is adjacent retroperitoneal hematoma abutting the right aspect of the abdominal aorta measuring 13.6 x 6.8 x 11.5 cm, previously measured at 16.4 x 8.1 x 14 cm. No new areas of hemorrhage are identified. 2.8 cm hypodense collection within the right inguinal subcutaneous tissues redemonstrated. Nonspecific distal esophageal wall thickening with tiny hiatal hernia. Mild wall thickening involves loops of small bowel within the pelvis. Mild wall thickening of the duodenum may be reactive. Wall thickening with partial distention of the rectum. Unchanged sigmoid colon wall thickening. Colonic diverticulosis. There is mild to moderate fecal retention. Noninflamed appendix. Mild generalized body wall edema. Subcutaneous edema of the right anterior abdominal wall. No acute fracture. IMPRESSION: 1. Ruptured fusiform infrarenal abdominal aortic aneurysm measuring up to 5.7 x 6.5 cm redemonstrated with large associated retroperitoneal hematoma. The hematoma has mildly decreased in size from the 12/18/2021 study. 2. Suboptimal evaluation of the aorto right iliac stent graft without the use of IV contrast. 3. No bowel obstruction. 4. Colonic diverticulosis with unchanged sigmoid colon wall thickening, likely secondary to hypertrophy of the muscularis propria. 5. Mild nonspecific distal esophageal wall thickening with tiny hiatal hernia. 6. Probable hematoma of the subcutaneous right inguinal tissues is unchanged. 7. A Blas catheter is noted with associated urinary bladder wall thickening. Correlate with urinalysis. ACT 112: Negative or not required by law. The above report was generated using voice recognition software. It may contain grammatical, syntax or spelling errors. Electronically signed by: Luciano Moore M.D. 01/04/2022 2:31 PM Abdomen/Pelvis CTA 01/04/22 14:36 CT ANGIOGRAPHY OF THE ABDOMEN AND PELVIS CLINICAL HISTORY: ro aaa graft leak COMPARISON STUDY: CTA of the abdomen and pelvis December 18, 2021. CT of the abdomen and pelvis January 04, 2022. TECHNIQUE: Arterial and venous phase imaging of the abdomen and pelvis was performed following intravenous injection of 120 cc of Optiray 320 IV. Sagittal and coronal reconstructions were viewed as well as maximal intensity projections on an independent 3-D workstation. Automated exposure control was utilized for the study. A dose lowering technique was utilized adhering to the principles of ALARA. FINDINGS: No pneumatosis, free air or portal venous gas is present. Liver, spleen, adrenal glands are unremarkable. Numerous in burt-white parenchymal calcifications are noted. This may indicate chronic pancreatitis. There is no evidence for a bowel obstruction. Colonic diverticulosis is noted. Wall thickening of the sigmoid colon is noted. There is minimal pericolonic stranding. There is mild presacral/perirectal rectal stranding. Blas balloon within the bladder is present. Bladder is collapsed. There is no hydronephrosis. Right nephrogram is delayed. This is shown on CTA of December 18, 2021. Bilateral thickening is noted. Brachytherapy seeds within the prostate are present. Ruptured fusiform infrarenal abdominal aortic aneurysm is again noted. The associated hematoma has decreased in size since CT of December 18, 2021. The hematoma now measures 12.3 x 4.9 cm. It previously measured 14.7 x 5.1 cm. Aneurysm sac size is similar, measuring 6.5 x 6.3 cm. Aorto right iliac stent graft is in place. The graft is patent. Occlusion of the left common iliac artery is unchanged since prior CT of December 18, 2021. There is reconstitution at the level of the left external iliac artery. Moderate stenosis of the left external iliac artery is noted. There is severe stenosis of the proximal right renal artery. Moderate stenosis of the proximal left renal artery is noted. This extensive atherosclerotic plaque. No new hematomas are present. There is no evidence for active extravasation on these postcontrast images. A suspected right groin hematoma is again noted. This has decreased in size and attenuation. IMPRESSION: 1. Redemonstration of a ruptured fusiform infrarenal abdominal aortic aneurysm. Interval decrease in size and attenuation of the associated retroperitoneal hematoma since CT of December 18, 2021. No active extravasation. 2. Patent aorto right iliac stent graft, as described above. Occlusion of the left common iliac artery, unchanged. Severe stenosis at the origin the right renal artery and moderate stenosis at the origin of the left renal artery. Delayed right nephrogram, unchanged. 3. No hydronephrosis. Blas balloon within the bladder which is collapsed. Bladder wall thickening. 4. Extensive sigmoid diverticulosis. Mild sigmoid wall thickening could be due to underdistention or circular muscular hypertrophy. Mild diverticulitis is considered less likely but would be difficult to exclude. ACT 112: Negative or not required by law. Electronically signed by: Juanjose Stephens M.D. 01/04/2022 3:41 PM Code Status & VTE Plan VTE Prophylaxis Plan VTE Prophylaxis will be ordered: Yes PG Care Time/CCT Total # of Minutes Spent Total Time Spent with Patient: Total time spent is greater than 50% in coordination of care (as documented) at patient's floor/unit and/or counseling patient: Coding Level of Care Code INT OBSERVATION CARE 71M LVL 3 Diagnoses Urinary retention R33.9 Urinary tract infection N39.0 Hypertensive urgency I16.0 Type 2 diabetes mellitus E11.9 CAD (coronary artery disease) I25.10 Coronary Disease-Associated Artery/Lesion type: [place] artery [place] vs. transplanted heart: [place] heart Associated angina: without angina (1) CAD (coronary artery disease) Coronary Disease-Associated Artery/Lesion type: [place] artery [place] vs. transplanted heart: [place] heart Associated angina: without angina Qualified Code(s): I25.10 - Atherosclerotic heart disease of [place] coronary artery without angina pectoris
[2022-01-04] MEDS ORDERED: MoRPHine SULFATE 2 MG/ML CARP IV STA (18:47)
[2022-01-04] MEDS ORDERED: SODIUM CHLORIDE 0.9% 1000ML 1,000 ML IV SCH (19:03)
[2022-01-04] MEDS ORDERED: ONDANSETRON INJ 2 MG/ML 2 ML VIAL IV PRN (19:03)
[2022-01-04] MEDS ORDERED: ACETAMINOPHEN 325 MG TAB PO PRN (19:03)
[2022-01-04] MEDS ORDERED: TAMSULOSIN HCL 0.4 MG CAP PO SCH (21:00)
[2022-01-04] MEDS ORDERED: ATORVASTATIN 40 MG TAB PO SCH (21:00)
[2022-01-04] MEDS ORDERED: ENOXAPARIN INJ 40 MG/0.4 ML SYR SQ SCH (21:00)
[2022-01-04] MEDS ORDERED: METOPROLOL TARTRATE 25 MG TAB PO SCH (21:00)
[2022-01-04] MEDS ORDERED: CEFEPIME 2,000 MG in SYRINGE 0 ML IV SCH (21:00)
[2022-01-04] MEDS ORDERED: HYDROmorphone INJ 0.5 MG/0.5 ML SYR IV STA (22:00)
[2022-01-04] MEDS ORDERED: OXYBUTYNIN CHLORIDE 5 MG TAB PO STA (22:00)
[2022-01-05 08:39] LABS: Est GFR (African American) 92.4 ml/min; Est GFR (Non-African American) 79.8 ml/min
[2022-01-05] MEDS ORDERED: CLOPIDOGREL BISULFATE 75 MG TAB PO SCH (09:00)
[2022-01-05] MEDS ORDERED: METOPROLOL TARTRATE 25 MG TAB PO SCH (09:00)
[2022-01-05] MEDS ORDERED: hydroCHLOROthiazide 25 MG TAB PO SCH (09:00)
[2022-01-05] MEDS ORDERED: lisinopril 5 MG TAB PO SCH (09:00)
[2022-01-05] MEDS ORDERED: ASPIRIN 81 MG ECTAB PO SCH (09:00)
--- NOTE | 2022-01-05 09:51 | Urology Consultation ---
Date of Consultation January 05, 2022 Assessment & Plan (1) Hematuria: (2) Bladder obstruction: Currently with clear urine draining appropriately Given his history of radiation cystitis uncertain that his bleeding was from a minor irritation Fortunately this has been self-limited At this stage I think he is safe for discharge home from a standpoint He can follow-up as an outpatient to consider possible voiding trial History of Present Illness Attending Physician: Jason Colon MD History of Present Illness 71-year-old gentleman well-known to our service secondary to refractory radiation cystitis and prior urinary difficulties He has numerous comorbidities including cardiac issues and a recent AAA which ruptured and was subsequently repaired Who presented to the emergency room yesterday after difficulty with hematuria and obstruction of the catheter He had a catheter replaced which has been draining clear urine since that time Today he reports that he feels very well Allergies Allergy/AdvReac Type Severity Reaction Status Date / Time No Known Allergies Allergy Verified 01/04/22 13:19 Home Medications Medication Instructions Recorded Confirmed Type atorvastatin 80 mg tablet 80 mg PO HS 05/26/21 01/04/22 History clopidogrel 75 mg tablet (Plavix) 75 mg PO DAILY 09/01/21 01/04/22 History lisinopril 5 mg tablet 5 mg PO DAILY 09/01/21 01/04/22 History aspirin 81 mg tablet,delayed 81 mg PO DAILY 09/08/21 01/04/22 History release (Adult Aspirin Regimen) metformin 500 mg tablet 500 mg PO BID tab 09/16/21 01/04/22 History acetaminophen 500 mg tablet 500 mg PO Q8H tab 12/06/21 01/04/22 History (Tylenol Extra Strength) metoprolol tartrate 25 mg tablet 25 mg PO BID tab 12/06/21 01/04/22 History hydrochlorothiazide 25 mg tablet 25 mg PO DAILY 01/04/22 01/04/22 History Patient History Medical History Abdominal aortic aneurysm (AAA) 3.0 cm to 5.5 cm in diameter in male Acute blood loss anemia Acute kidney injury Acute Lyme disease Acute radiation cystitis Anemia Bladder rupture Bladder rupture CAD (coronary artery disease) Chronic pancreatitis HLD (hyperlipidemia) Hypertension NSTEMI (non-ST elevated myocardial infarction) Perforation of bladder Peripheral arterial disease Pre-diabetes Radiation cystitis Ruptured abdominal aortic aneurysm (AAA) Tobacco abuse Surgical History H/O nephrostomy History of bladder surgery History of endovascular stent graft for abdominal aortic aneurysm (AAA) History of heart artery stent Social History Smoking Status: Former smoker Tobacco Type: Cigars Number of Years Since Quit: 20; Second Hand Exposure: No; Hx Alcohol Use: Yes Alcohol type: wine Alcohol Intake Frequency: 4 or More x per/Week Alcohol Intake Frequency Comment: every night with dinner Hx Substance Use: No Preferred Language: Congolese Communication Ability: Effective Visual Impairment: Limited Hearing Ability: Hard of Hearing Employee'S Representative Required: No Beliefs That Will Affect Care: None marital status: Current Living Situation: Spouse current occupational status: retired How many Children do You have: 2 How many Children do You have Comment: one daughter local and able to assist with care as needed. also able to assist as needed with care. Feels Safe at Home: Yes Safety Concerns: Feels Safe At This Time during the past year weight has: decreased > 10 lbs Assistive Devices: Cane, Glasses and Walker Physical Exam Physical Exam: Urine clearFoley draining appropriately Constitutional: well developed and well nourished Respiratory: no respiratory distress Cardiovascular: Extremities: no pedal edema Gastrointestinal (Abdomen): Inspection/Auscultation: abdomen normal to inspection Results & Data ([facility]) Vital Signs (Past 12 Hours) Vital Signs Temp Pulse Resp BP Pulse Ox 01/05/22 09:19 36.6 C 68 16 164/71 H 96 01/04/22 23:57 36.8 C 80 16 161/76 H 96 PG Care Time/CCT Total # of Minutes Spent Total Time Spent with Patient: Total time spent is greater than 50% in coordination of care (as documented) at patient's floor/unit and/or counseling patient: Coding Level of Care Code 65256 Inpt Consult Level 3 Diagnoses Hematuria R31.9 Hematuria type: unspecified type Bladder obstruction N32.0 (1) Hematuria Hematuria type: unspecified type Qualified Code(s): R31.9 - Hematuria, unspec ified
[2022-01-05 10:41] LABS: Estimated Average Glucose 94 mg/dl; Hemoglobin A1C 4.9 % (4.5-5.6)
--- NOTE | 2022-01-05 11:10 | Discharge Summary ---
Date of Service January 05, 2022 Admission HPI Per Admitting Provider Alok Salgado is a 71 yo WM with a rather extensive pmhx including CAD with NSTEMI in Jun 2021 s/p LHC with SANTIAGO to LAD, on dual antiplatelet therapy, prostate cancer s/p brachytherapy and radiation cystitis, as well as AAA, type 2 DM, HTN, HLD, and PAD. Pt has been hospitalized multiple times since May 2021. Over the course of the past 6 months he has had gross hematuria, urinary retention, had a bladder rupture requiring operative repair. He follows closely with [facility] urology. He had a placement of bilateral nephrostomy tubes and hyperbaric treatment for the radiation cystitis. Had a known AAA that ruptured this spring, went [place] [facility] and underwent endovascular repair. Following that, he developed a retroperitoneal hematoma that required evacuation. He was last seen by urology on 12/28 and was voiding well w/o issue. Tuesday 01/02, he noted some blood in his urine. By Monday, he was unable to void and presented to the ER for blas insertion. Blas was inserted and he was discharged home. Within a few hours of returning home, his catheter began clogged and he presented back to the ER for a second time. Blas was flushed and he was again discharged home. He had another incidence this morning where his blas became clogged again, prompting him to return a third time to the ER. In the ER, his catheter was flushed and exchanged. It is now draining well without issue. His work up in the ER demonstrates a normal wbc count and is afebrile. Urine appears grossly infected with 2+ LE, >30 WBC. Chemistry panel demonstrates no electrolyte derangements and normal renal function. He was medicated with a dose of IV Rocephin 2g, Flagyl 500mg, a dose of Zofran, and Morphine. He is currently hypertensive with a BP of 180/100s. He did take his antihypertensive medications this morning. Presently, no other compl aints/concerns other than just wanting something to eat and drink. No chest pain, dyspnea, n/v/d, f/c, or headache. Hospitalists have been consulted for admission. Principal Diagnosis Urinary retention UTI Discharge Exam GENERAL: 71 yo well-developed, well-nourished WM. NAD. LUNGS: Clear to auscultation bilaterally. No W/R/R. CARDIOVASCULAR: Regular rate and rhythm. ABDOMEN: Soft, non-tender and non-distended. BS normal x 4 quad. EXTREMITIES: No edema. Non-tender. Peripheral pulses +2/4. NEUROLOGIC: A&O x3. PSYCHIATRIC: Cooperative. Appropriate mood and affect. SKIN: Warm, dry, intact. No rashes or lesions. Discharge Data Allergies Allergy/AdvReac Type Severity Reaction Status Date / Time No Known Allergies Allergy Verified 01/04/22 13:19 Consultations 01/04/22 15:59 ED Decision to Admit Stat 01/04/22 19:03 Consult Urology Routine Ordered Studies Abdomen/Pelvis CT 01/04/22 12:[address] WITHOUT CONTRAST CT DOSE: 255.67 mGy.cm HISTORY: Acute generalized abdominal pain with recent rupture of the abdominal aortic aneurysm. abd pain TECHNIQUE: Multiaxial CT images of the abdomen and pelvis were performed without contrast. A dose lowering technique was utilized adhering to the principles of ALARA. COMPARISON STUDY: CTA abdomen and pelvis 12/18/2021 FINDINGS: The imaged inferior cardiac chambers are unremarkable. Emphysema. The lung bases are generally clear. There are 2 subpleural solid nodules of the basal left lower lobe measuring up to 4 mm which are unchanged. No pneumatosis or pneumoperitoneum. The unenhanced spleen and adrenal glands are unremarkable. Pancreatic calcifications are redemonstrated suggestive of chronic pancreatitis. The gallbladder and liver appear unremarkable. Cysts of the kidneys are redemonstrated measuring up to 4.1 cm on the left. Vascular calcifications of the kidneys are again noted along with bilateral perinephric stranding. No definite hydronephrosis. Brachytherapy seeds of the prostate. Blas catheter is noted within a decompressed urinary bladder which demonstrates wall thickening with air in the bladder lumen. Perivesicular inflammatory stranding. Unchanged appearance of the aorta right iliac stent graft with atherosclerosis fusiform aneurysm dilation of the abdominal aorta measures up to 5.7 x 6.5 cm distally on image 193 which is unchanged along with a 3 cm defects within the right lateral aspect of the [place] abdominal aorta. There is adjacent retroperitoneal hematoma abutting the right aspect of the abdominal aorta measuring 13.6 x 6.8 x 11.5 cm, previously measured at 16.4 x 8.1 x 14 cm. No new areas of hemorrhage are identified. 2.8 cm hypodense collection within the right inguinal subcutaneous tissues redemonstrated. Nonspecific distal esophageal wall thickening with tiny hiatal hernia. Mild wall thickening involves loops of small bowel within the pelvis. Mild wall thickening of the duodenum may be reactive. Wall thickening with partial distention of the rectum. Unchanged sigmoid colon wall thickening. Colonic diverticulosis. There is mild to moderate fecal retention. Noninflamed appendix. Mild generalized body wall edema. Subcutaneous edema of the right anterior abdominal wall. No acute fracture. IMPRESSION: 1. Ruptured fusiform infrarenal abdominal aortic aneurysm measuring up to 5.7 x 6.5 cm redemonstrated with large associated retroperitoneal hematoma. The hematoma has mildly decreased in size from the 12/18/2021 study. 2. Suboptimal evaluation of the aorto right iliac stent graft without the use of IV contrast. 3. No bowel obstruction. 4. Colonic diverticulosis with unchanged sigmoid colon wall thickening, likely secondary to hypertrophy of the muscularis propria. 5. Mild nonspecific distal esophageal wall thickening with tiny hiatal hernia. 6. Probable hematoma of the subcutaneous right inguinal tissues is unchanged. 7. A Blas catheter is noted with associated urinary bladder wall thickening. Correlate with urinalysis. ACT 112: Negative or not required by law. The above report was generated using voice recognition software. It may contain grammatical, syntax or spelling errors. Electronically signed by: Luciano Moore M.D. 01/04/2022 2:31 PM Abdomen/Pelvis CTA 01/04/22 14:36 CT ANGIOGRAPHY OF THE ABDOMEN AND PELVIS CLINICAL HISTORY: ro aaa graft leak COMPARISON STUDY: CTA of the abdomen and pelvis December 18, 2021. CT of the abdomen and pelvis January 04, 2022. TECHNIQUE: Arterial and venous phase imaging of the abdomen and pelvis was performed following intravenous injection of 120 cc of Optiray 320 IV. Sagittal and coronal reconstructions were viewed as well as maximal intensity projections on an independent 3-D workstation. Automated exposure control was utilized for the study. A dose lowering technique was utilized adhering to the principles of ALARA. FINDINGS: No pneumatosis, free air or portal venous gas is present. Liver, spleen, adrenal glands are unremarkable. Numerous in burt-white parenchymal calcifications are noted. This may indicate chronic pancreatitis. There is no evidence for a bowel obstruction. Colonic diverticulosis is noted. Wall thickening of the sigmoid colon is noted. There is minimal pericolonic stranding. There is mild presacral/perirectal rectal stranding. Blas balloon within the bladder is present. Bladder is collapsed. There is no hydronephrosis. Right nephrogram is delayed. This is shown on CTA of December 18, 2021. Bilateral thickening is noted. Brachytherapy seeds within the prostate are present. Ruptured fusiform infrarenal abdominal aortic aneurysm is again noted. The associated hematoma has decreased in size since CT of December 18, 2021. The hematoma now measures 12.3 x 4.9 cm. It previously measured 14.7 x 5.1 cm. Aneurysm sac size is similar, measuring 6.5 x 6.3 cm. Aorto right iliac stent graft is in place. The graft is patent. Occlusion of the left common iliac artery is unchanged since prior CT of December 18, 2021. There is reconstitution at the level of the left external iliac artery. Moderate stenosis of the left external iliac artery is noted. There is severe stenosis of the proximal right renal artery. Moderate stenosis of the proximal left renal artery is noted. This extensive atherosclerotic plaque. No new hematomas are present. There is no evidence for active extravasation on these postcontrast images. A suspected right groin hematoma is again noted. This has decreased in size and attenuation. IMPRESSION: 1. Redemonstration of a ruptured fusiform infrarenal abdominal aortic aneurysm. Interval decrease in size and attenuation of the associated retroperitoneal hematoma since CT of December 18, 2021. No active extravasation. 2. Patent aorto right iliac stent graft, as described above. Occlusion of the left common iliac artery, unchanged. Severe stenosis at the origin the right renal artery and moderate stenosis at the origin of the left renal artery. Delayed right nephrogram, unchanged. 3. No hydronephrosis. Blas balloon within the bladder which is collapsed. Bladder wall thickening. 4. Extensive sigmoid diverticulosis. Mild sigmoid wall thickening could be due to underdistention or circular muscular hypertrophy. Mild diverticulitis is considered less likely but would be difficult to exclude. ACT 112: Negative or not required by law. Electronically signed by: Juanjose Stephens M.D. 01/04/2022 3:41 PM Hospital Course (1) Urinary retention: -Urinary retention in a patient with known complex urologic history -Place in observation to med/surg unit -Placement of blas catheter, urine appears grossly infected -Empirically treated with a dose of Rocephin and Flagyl from ER -Last urine culture demonstrates growth of pseudomonas in December 14, 2021 -Will change antibiotics to Cefepime for pseudomonal coverage -Urine cx demonstrating no growth but will still treat based on last culture -Hydrated with 1L of NSS at 80 ml/hr -Started Flomax 0.4mg po q hs -Consulted urology, appreciate assistance--see by Dr. Ferreira, advised f/u in office -Pt notes that he still has Cipro script at home that he didn't take from his prior infection, advised to complete the course as prescribed -Maintain blas and Will f/u with Dr. Morrison in the office within 1 week (2) Urinary tract infection: -Urine culture pending, tailor abx once finalized -Empiric Cefepime based on last urine culture (3) Hypertensive urgency: -Resume antihypertensive meds -Dose of IV Hydralazine 10mg x2 given -Follow up with primary care (4) Type 2 diabetes mellitus: -Metformin held while hospitalized -Accuchecks AC and HS, add SSI for glucose >180 -A1c 4.9% -Can resume Metformin upon dc (5) CAD (coronary artery disease): -Continue ASA/Plavix -No cp/angina Pt doing well this morning. No issues with blas draining since admission. Will plan to treat UTI as outlined above. He will have blas changed to leg bag for easier management and follow up with Dr. Morrison in the office. He is medically stable for discharge home at this time. Plan has been d/w Dr. Colon who has also seen and evaluated this patient prior to discharge and is in agreement. Total Time Total Time Spent Total Time Spent (In Minutes): <30 minutes Discharge Plan Discharge Items Patient Disposition: Home - Self-Care Reason For Visit: URINARY RETENTION Discharge Diagnosis: Urinary retention and urinary tract infection Activity: Resume your previous activity Non-emergency contact: Primary Care Provider Call non-emergency contact if: you have any medication questions and your symptoms worsen Follow-up/Referrals: Cheikh Morrison MD [Physician] - 01/13/22 10:20 am () Jeremy Kaiser DO [Primary Care Provider] - 01/17/22 10:30 am (Appointment will be with ) Diet: Carb Consistent or DM2 Addtl Attending Provider Instructions: You were hospitalized due to issues with your blas catheter draining properly. A urine was sent for analysis and it appears that you currently have a urinary tract infection. You were treated with a couple doses of IV antibiotics here in the hospital. It will be important for you to continue the antibiotic (Cipro 500mg, 1 tablet by mouth twice a day) that was prescribed to you by urology. Your urine culture is pending. In addition, you have been started on Flomax 0.4mg to take every evening. This will help relax the smooth muscle in your urinary tract and allow urine to flow better. Please continue taking this. You will also be sent home with a catheter, which has been changed to a leg bag for easier management. You will be arranged to follow up with Dr. Morrison in the office within 1 week of discharge. It is recommended that you follow up with your family doctor as scheduled. Please contact the [facility] number for any questions/concerns that you may have. In the event of a medical emergency, please call 911. Pending Studies at Discharge: Yes Studies:: urine culture Stand-Alone Forms: My [facility] tomoguides, Smoking Cessation Medications and DC Order Prescriptions: New tamsulosin 0.4 mg Capsule 0.4 mg PO HS Qty: 30 RF: 0 Continued aspirin [Adult Aspirin Regimen] 81 mg tablet,delayed release (DR/EC) 81 mg PO DAILY RF: 0 clopidogrel [Plavix] 75 mg tablet 75 mg PO DAILY RF: 0 lisinopril 5 mg tablet 5 mg PO DAILY RF: 0 metformin 500 mg tablet 500 mg PO BID RF: 0 metoprolol tartrate 25 mg tablet 25 mg PO BID RF: 0 acetaminophen [Tylenol Extra Strength] 500 mg tablet 500 mg PO Q8H RF: 0 atorvastatin 80 mg tablet 80 mg PO HS RF: 0 hydrochlorothiazide 25 mg tablet 25 mg PO DAILY RF: 0 Discharge Orders: Discharge Order (Routine); Ordered 01/05/22 Ordered By: Kianna Guevara/Other Patient Handouts: ED Urinary Retention, Male Admission Data Admit Date/Time: 01/04/22 17:08 Attending Provider: Jason Colon Admit Provider: Charlie Jiménez Primary Care Provider: Jeremy Kaiser Other Providers: Charlie Jiménez ; Vidal Sanches ; Brodie Cueva ; Freddy Ferreira ; Daksha Montalvo ; Luis Butler ; Cate Berry ; Taylor Minaya ; Raiza Marin ; Cheikh Morrison ; Jason Dawkins ; Emily Senior ; Nichole Marin ; Tristan Barrett Other Interventions: Discharge Summary Assessment (RN) Last Done: 01/05/22 12:08 Coding Level of Care Code 96072 OBS Care - Discharge Diagnoses Urinary retention R33.9 Urinary tract infection N39.0 Hypertensive urgency I16.0 Type 2 diabetes mellitus E11.9 CAD (coronary artery disease) I25.10 Associated angina: without angina Coronary Disease-Associated Artery/Lesion type: [place] artery [place] vs. transplanted heart: [place] heart
== END 2022-01-05 13:10 | disposition home or self-care (01) ==
LOC: ED 10:57 → EDINP 10:57 → SUATTDRO 17:08 → 3W 18:38

== ENCOUNTER 2024-01-26 18:32 | Inpatient (IN) ==
--- NOTE | 2024-01-26 19:16 | Emergency Department Note ---
Impression & Plan Acute pancreatitis, Leukocytosis, Anemia, GAURAV (acute kidney injury) ED Provider Note NAME: JOEL ROLDAN AGE: 73 SEX: M : 1950 ARRIVES VIA: Walk-In INFORMANT: Patient ED PROVIDER(S): Santos Leal DO CHIEF COMPLAINT: Abdominal pain HPI: Patient is a 73-year-old male with a past medical history of CKD, anemia, bladder rupture, AAA repair, diabetes who presents to the ER for supraumbilical abdominal pain associated with nausea and vomiting. This has been going on since 2:00. Unable to keep anything down. Patient denies any headache or change in vision. No chest pain or shortness of breath. No dysuria, urgency or frequency. Patient notes that only abdominal surgery is the AAA repair and bladder surgery from previous radiation. ADDITIONAL HISTORY OBTAINED: Per HPI Chronic Medical/Social Conditions Affecting Care: Per HPI PAST MEDICAL HISTORY:See Below PAST SURGICAL HISTORY:See Below FAMILY HISTORY:See Below SOCIAL HISTORY:See Below HOME MEDICATIONS:See Below ALLERGIES:See Below VITALS:See Below PHYSICAL EXAMINATION: GENERAL: Sitting up in bed, alert, mild distress, holding his abdomen EYE EXAM: normal conjunctiva. PERRL and EOM's grossly intact. OROPHARYNX: no exudate, no erythema, lips, buccal mucosa, and tongue normal and mucous membranes are moist NECK: supple, no nuchal rigidity, no adenopathy, non-tender LUNGS: Clear to auscultation. Normal chest wall mechanics HEART: no murmurs, S1 normal and S2 normal ABDOMEN: abdomen soft, non-tender, normo-active bowel sounds, no masses, no rebound or guarding. BACK: Back is symmetrical on inspection and there is no deformity, no midline tenderness, no CVA tenderness. SKIN: no rashes and no bruising UPPER EXTREMITIES: upper extremities are grossly normal. LOWER EXTREMITIES: No pitting edema. NEURO EXAM: Normal sensorium, cranial nerves II-XII grossly intact, normal speech, no gross weakness of arms, no gross weakness of legs. MEDICAL DECISION MAKING: Patient is a 73-year-old male who presents ER for the above-stated complaint. IV was established blood work was obtained. Labs show leukocytosis 17,000. No significant anemia. BMP with a creatinine of 2.4 up from baseline of 2. LFTs bilirubin was unremarkable. Lipase was significantly elevated at 27,000. CT abdomen pelvis shows likely pancreatitis. Patient was given IV fluids and morphine as well as Reglan. Patient was updated bedside. Patient was given multiple doses of narcotics. Discussed with the hospitalist for further evaluation management and treatment. Consults/Care Managements Discussions: Per MDM Triage Nursing notes reviewed. Limited review of prior medical records performed Vital Signs: reviewed and remarkable for no significant abnormalities Differential diagnosis: Differential diagnoses includes but is not limited to gastritis, peptic ulcer disease, GERD, gallbladder disease, pancreatitis, small bowel obstruction, appendicitis, diverticulitis, hernia, urinary tract infection, torsion, perforation, trauma, infectious. ER treatment provided: See below Diagnostics interpreted by me include EKG and cardiac monitoring as listed below: -Cardiac Monitoring: An order was placed for continuous cardiac monitoring. The monitor shows a rate of 70 with sinus rhythm. -ECG: Sinus rhythm rate 68 Normal axis No PVCs QTc 491 -Laboratory studies:Interpreted by me as stated above in MDM and shown below. Imaging studies: Xrays: As interpreted by me:none CTs show: CT abdomen pelvis shows shows no obvious obstruction CT abdomen pelvis as described above Procedures:none Critical Care: None Past Med/Surg History Problem List (Updated 01/27/24 @ 00:20 by Santos Leal DO) GAURAV (acute kidney injury) (Acute) Anemia (Acute) Leukocytosis (Acute) Acute pancreatitis (Acute) Frequent bowel movements Chronic kidney disease, stage III (moderate) Renal artery stenosis History of colon polyps Encounter for pre-operative examination Peripheral arterial disease (Acute) Anemia Mitral regurgitation Acute kidney injury Hydronephrosis Bladder rupture Central venous catheter in place Radiation cystitis Urinary retention Urinary tract infection Chronic abdominal pain Early satiety Weight loss Gastric erosions HTN (hypertension) Nocturia Heartburn Indigestion Type 2 diabetes mellitus NIDDM Sensorineural hearing loss of both ears Medical History Sleep apnea Peripheral arterial disease History of skin cancer History of prostate cancer Ruptured abdominal aortic aneurysm (AAA) Bladder rupture CAD (coronary artery disease) History of prostate cancer NSTEMI (non-ST elevated myocardial infarction) Claudication of left lower extremity Tobacco abuse Abdominal aortic aneurysm (AAA) 3.0 cm to 5.5 cm in diameter in male HLD (hyperlipidemia) Hypertension Surgical History History of esophagogastroduodenoscopy (EGD) S/P cataract surgery S/P prostatectomy History of brachytherapy History of colonoscopy with polypectomy History of vascular surgery History of endovascular stent graft for abdominal aortic aneurysm (AAA) H/O nephrostomy History of bladder surgery History of heart artery stent Family History Other Cancer Heart disease Hypertension No family history of adverse response to anesthesia Social History Smoking Status: Current some day smoker Tobacco Type: Cigars Cigarettes Per Day: smokes cigars intermittently (advised none day of procedure); Second Hand Exposure: No; Do You Dip or Chew Tobacco: No; Hx Alcohol Use: Yes Alcohol type: wine Alcohol Intake Frequency: 4 or More x per/Week Alcohol Intake Frequency Comment: every night with dinner Hx Substance Use: No Preferred Language: Kiswahili Communication Ability: Effective Visual Impairment: Limited Hearing Ability: Hard of Hearing 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 also able to assist as needed with care. Feels Safe at Home: Yes Diet: regular during the past year weight has: decreased > 10 lbs Assistive Devices: Cane, CPAP, Glasses and Hearing Aid - Bilateral Allergies Allergies Allergy/AdvReac Type Severity Reaction Status Date / Time No Known Allergies Allergy Verified 01/26/24 22:18 Home Meds Home Medications Medication Instructions Recorded Confirmed atorvastatin 80 mg tablet 80 mg PO HS 05/26/21 01/26/24 aspirin 81 mg tablet,delayed 81 mg PO QAM 09/08/21 01/26/24 release (Adult Aspirin Regimen) hydrochlorothiazide 25 mg tablet 25 mg PO QAM 02/11/22 01/26/24 metformin 500 mg tablet 500 mg PO QPM 02/11/22 01/26/24 metoprolol tartrate 25 mg tablet See Rx Instructions .Route .COMPLEX 02/15/22 01/26/24 tamsulosin 0.4 mg capsule 0.4 mg PO HS 06/23/23 01/26/24 pantoprazole 40 mg tablet,delayed 40 mg PO DAILY 01/22/24 01/26/24 release (Protonix) lisinopril 40 mg tablet 40 mg PO DAILY 01/26/24 01/26/24 Previous Rx's Medication Instructions Recorded nifedipine 90 mg tablet,extended 90 mg PO DAILY #90 tabs 08/18/23 release Results & Data (ED) Vital Signs Vital Signs - 24 hr 01/26/24 18:37 01/26/24 19:09 01/26/24 20:00 Temperature 36.4 C L Temperature Source Temporal Artery Scan Pulse Rate 67 67 Pulse Rate [Finger] 73 Pulse Rhythm [Finger] Pulse Strength [Finger] Respiratory Rate 16 20 Respiratory Effort / Characteristics Non-Labored Spontaneous Respiratory Depth Normal Respiratory Pattern Regular Blood Pressure 151/70 H Blood Pressure [Right Arm] 170/105 H Blood Pressure Mean 97 Blood Pressure Mean [Right Arm] 126 Pulse Oximetry 98 93 Oxygen Delivery Method Room Air Nasal Cannula Oxygen Flow Rate 2 Sepsis Recent Fever Within 48 Hours No Sepsis New/Unexplained Change in Mental Status N/A Sepsis Action Taken by Nursing No Action Required 01/26/24 22:00 01/26/24 22:16 01/26/24 23:55 Temperature Temperature Source Pulse Rate 81 Pulse Rate [Finger] 80 79 Pulse Rhythm [Finger] Regular Pulse Strength [Finger] Normal Respiratory Rate 24 20 Respiratory Effort / Characteristics Non-Labored Spontaneous Respiratory Depth Normal Respiratory Pattern Blood Pressure 195/90 H Blood Pressure [Right Arm] 197/90 H 197/90 H Blood Pressure Mean Blood Pressure Mean [Right Arm] 125 125 Pulse Oximetry 98 98 Oxygen Delivery Method Nasal Cannula Room Air Oxygen Flow Rate 2 Sepsis Recent Fever Within 48 Hours Sepsis New/Unexplained Change in Mental Status Sepsis Action Taken by Nursing Laboratory Data 01/26/24 19:05 01/26/24 19:05 Lab Results 01/26/24 Range/Units 19:05 WBC 17.79 H (4.8-10.8) K/ul RBC 4.52 L (4.70-6.10) M/uL Hgb 12.0 L (14.0-18.0) g/dl Hct 37.8 L (42.0-52.0) % MCV 83.6 (80.0-100.0) fL MCH 26.5 (25.0-34.0) pg MCHC 31.7 L (32.0-36.0) g/dL RDW Std Deviation 47.9 H (36.4-46.3) fL RDW Coeff of Matt 15.6 H (11.5-14.5) % Plt Count 287 (130-400) K/uL MPV 11.3 (9.4-12.4) fL Immature Gran % (Auto) 1.9 % Neut % (Auto) 84.8 % Lymph % (Auto) 6.2 % Citrus % (Auto) 6.7 % Eos % (Auto) 0.1 % Baso % (Auto) 0.3 % Neut # (Auto) 15.08 H (1.40-6.50) K/uL Lymph # (Auto) 1.11 L (1.20-3.40) K/uL Citrus # (Auto) 1.19 H (0.11-0.59) K/uL Eos # (Auto) 0.02 (0.00-0.50) K/uL Baso # (Auto) 0.05 (0.00-0.20) K/uL Immature Gran # (Auto) 0.34 H (0.01-0.20) K/uL Sodium 140 (136-145) mmol/L Potassium 4.2 (3.5-5.1) mmol/L Chloride 111 H (98-107) mmol/L Carbon Dioxide 21 (21-32) mmol/L Anion Gap 8 (3-11) BUN 37 H (6-23) mg/dl Creatinine 2.40 H (0.6-1.4) mg/dl Est Cr Clr Drug Dosing 25.1 ml/min Est GFR ( Amer) 30.1 ml/min Est GFR (Non-Af Amer) 26.0 ml/min BUN/Creatinine Ratio 15.4 (10-20) Glucose 187 H (70-99(Fasting)) mg/dl Calcium 8.8 (8.6-10.3) mg/dl Total Bilirubin 0.4 (0.2-1.0) mg/dl AST 12 L (13-39) U/L ALT 8 (7-52) U/L Alkaline Phosphatase 130 H (34-104) U/L Total Protein 7.5 (6.0-8.3) gm/dl Albumin 4.2 (3.4-5.0) gm/dl Globulin 3.3 (2.5-4.0) gm/dl Albumin/Globulin Ratio 1.3 (0.9-2) Lipase 20427 H (11-82) U/L Administered Medications Sodium Chloride (Nss) 1,000 mls @ 80 mls/hr IV .[id number] EDEN Stop: 01/28/24 00:29 Last Admin: 01/27/24 00:01 Dose: 80 mls/hr Documented By: IDD Discontinued Medications Sodium Chloride (Nss) 1,000 mls @ 999 mls/hr IV .Q1H1M ONE Stop: 01/26/24 20:19 Last Infusion: 01/26/24 20:26 Dose: Infused Documented By: Admin: 01/26/24 19:23 Dose: 999 mls/hr Documented By: REYNA Metoclopramide HCl (Metoclopramide Hcl Inj 5 Mg/Ml 2 Ml Vial) 10 mg IV NOW STA Stop: 01/26/24 19:17 Last Admin: 01/26/24 19:23 Dose: 10 mg Documented By: REYNA Metoprolol Tartrate (Metoprolol Tartrate 1 Mg/Ml Vial) 5 mg IV NOW STA Stop: 01/26/24 23:38 Last Admin: 01/26/24 23:55 Dose: 5 mg Documented By: IDD Morphine Sulfate (Morphine Sulfate 4 Mg/Ml 1 Ml Carp\Vial) 4 mg IV NOW STA Stop: 01/26/24 19:20 Last Admin: 01/26/24 19:23 Dose: 4 mg Documented By: REYNA Morphine Sulfate (Morphine Sulfate 10 Mg/Ml Carp/Vial) 6 mg IV NOW STA Stop: 01/26/24 22:19 Last Admin: 01/26/24 22:20 Dose: 6 mg Documented By: JORGE LUIS Imaging Data Radiologist's Impression: Abdomen/Pelvis CT 01/26/24 20:05 Exam(s): CT ABDOMEN + PELVIS Without Contrast EXAM: CT Abdomen and Pelvis Without Intravenous Contrast CLINICAL HISTORY: severe supraumbilical abdominal pain. TECHNIQUE: Axial computed tomography images of the abdomen and pelvis without intravenous contrast. CTDI is 18.29 mGy and DLP is 810.07 mGy-cm. Automated exposure control was utilized for the study. A dose lowering technique was utilized adhering to the principles of ALARA. COMPARISON: CT abdomen and pelvis with contrast 01/04/2022 FINDINGS: Lung bases: Unremarkable. No mass. No consolidation. ABDOMEN: Liver: Unremarkable. Gallbladder and bile ducts: Unremarkable. No calcified stones. No ductal dilation. Pancreas: Prominent fat stranding and edema noted surrounding the pancreas, with extension to the periduodenal region, minimally involving the anterior right pararenal fascia and the root of the mesentery. Scattered subcentimeter calcifications noted throughout the head, neck and proximal to mid tail the pancreas. No ductal dilation. Spleen: Unremarkable. No splenomegaly. Adrenals: Unremarkable. No mass. Kidneys and ureters: The right kidney is small in caliber, progressive from the previous examination. Renal vascular calcifications. No hydronephrosis. Cortical cysts involving the superior and anterior midpole are increased in size. The dominant cyst anteriorly, now measures 4.6 cm from 4.1 cm previously. Stomach and bowel: Stomach is mildly distended with fluid and gas. No gastric mucosal thickening. No bowel obstruction. No definite asymmetric bowel mucosal abnormality. Mild stool burden. Diverticulosis. PELVIS: Appendix: No findings to suggest acute appendicitis. Bladder: Unremarkable. No stones. Reproductive: Brachytherapy seeds in the prostate gland. The prostate gland is decompressed, limiting evaluation. ABDOMEN and PELVIS: Intraperitoneal space: See above. No pneumoperitoneum. Bones/joints: No acute fracture. No dislocation. Soft tissues: Unremarkable. Vasculature: The unilateral aortic stent graft with a solitary limb extending into the iliac artery remains. The [place] calcified aneurysm sac surrounding the aortic graft is smaller and somewhat contracted when compared to the previous examination, now measuring 4.7 x 5.5 cm from 5.3 x 6.5 cm. The previously noted encapsulated fluid collection to the right of the aorta in the retroperitoneum is markedly diminished in size, now measuring only 2.5 x 4.3 cm without inflammatory changes. Lymph nodes: Unremarkable. No enlarged lymph nodes. IMPRESSION: Prominent fat stranding and edema noted surrounding the pancreas, with extension to the periduodenal region, minimally involving the anterior right pararenal fascia and the root of the mesentery. Julee acute pancreatitis over alternate etiology, such as duodenitis. Please correlate with laboratory findings. Chronic subcentimeter calcifications scattered throughout the pancreas suggests an acute on chronic component. Electronically signed by: Cb Loving MD 01/26/24 22:26 PM Discharge Plan Visit Data Chief Complaint: Illness ED Provider: Santos Leal Discharge Problem: Acute pancreatitis, Leukocytosis, Anemia, GAURAV (acute kidney injury) Forms Stand Alone Forms: [facility] [place] Xtium Prescriptions Prescriptions: No Action aspirin [Adult Aspirin Regimen] 81 mg tablet,delayed release (DR/EC) 81 mg PO QAM nifedipine 90 mg tablet extended release 90 mg PO DAILY Qty: 90 3RF tamsulosin 0.4 mg capsule 0.4 mg PO HS pantoprazole [Protonix] 40 mg tablet,delayed release (DR/EC) 40 mg PO DAILY metformin 500 mg tablet 500 mg PO QPM atorvastatin 80 mg tablet 80 mg PO HS hydrochlorothiazide 25 mg tablet 25 mg PO QAM metoprolol tartrate 25 mg Tablet See Rx Instructions .ROUTE .COMPLEX Rx Instructions: TAKES 25 MG QAM, THEN 50 MG QHS. lisinopril 40 mg tablet 40 mg PO DAILY Referrals Referrals: Jeremy Kaiser DO [Primary Care Provider] - Discharge Problem: Acute pancreatitis Qualifiers: Pancreatitis type: unspecified pancreatitis type Acute pancreatitis complication: unspecified Qualified Code(s): K85.90 - Acute pancreatitis without necrosis or infection, unspecified Leukocytosis Qualifiers: Leukocytosis type: unspecified Qualified Code(s): D72.829 - Elevated white blood cell count, unspecified Anemia Qualifiers: Anemia type: unspecified type Qualified Code(s): D64.9 - Anemia, unspecified
[2024-01-26] MEDS: SODIUM CHLORIDE 0.9% 1,000 ML IV ONE (19:23)
[2024-01-26] MEDS: MoRPHine SULFATE 4 MG/ML 1 ML CARP\\VIAL IV STA (19:23)
[2024-01-26] MEDS: METOCLOPRAMIDE HCL INJ 5 MG/ML 2 ML VIAL IV STA (19:23)
[2024-01-26 19:49] LABS: BUN Creatinine Ratio 15.4 (10-20); Calcium 8.8 mg/dl (8.6-10.3); Creatinine Clr Calc Pharmacy 25.1 ml/min; Est GFR (African American) 30.1 ml/min; Potassium 4.2 mmol/L (3.5-5.1)
[2024-01-26 19:53] LABS: Albumin Globulin Ratio 1.3 (0.9-2); Albumin Level 4.2 gm/dl (3.4-5.0); Bilirubin,Total 0.4 mg/dl (0.2-1.0); Globulin 3.3 gm/dl (2.5-4.0); Total Protein 7.5 gm/dl (6.0-8.3)
[2024-01-26 19:55] LABS: Basophils # (auto) 0.05 K/uL (0.00-0.20); Basophils % (auto) 0.3 %; Eosinophils # (auto) 0.02 K/uL (0.00-0.50); Eosinophils % (auto) 0.1 %; Hematocrit (blood only) 37.8 % (42.0-52.0); Immature Granulocytes # (auto) 0.34 K/uL (0.01-0.20); Immature Granulocytes % (auto) 1.9 %; Lymphocytes # (auto) 1.11 K/uL (1.20-3.40); Lymphocytes % (auto) 6.2 %; Mean Corpuscular Hemoglobin 26.5 pg (25.0-34.0); Mean Corpuscular Hgb Conc 31.7 g/dL (32.0-36.0); Mean Corpuscular Volume 83.6 fL (80.0-100.0); Mean Platelet Volume 11.3 fL (9.4-12.4); Monocytes # (auto) 1.19 K/uL (0.11-0.59); Monocytes % (auto) 6.7 %; Neutrophils # (auto) 15.08 K/uL (1.40-6.50); Neutrophils % (auto) 84.8 %; Platelet Count 287 K/uL (130-400); RDW Coefficient of Variation 15.6 % (11.5-14.5); RDW Standard Deviation 47.9 fL (36.4-46.3); Red Blood Count 4.52 M/uL (4.70-6.10); White Blood Count 17.79 K/ul (4.8-10.8)
[2024-01-26] MEDS: MoRPHine SULFATE 10 MG/ML CARP/VIAL IV STA (22:20)
--- NOTE | 2024-01-26 22:27 | CT Scan Report ---
Exam(s): CT ABDOMEN + PELVIS Without Contrast EXAM: CT Abdomen and Pelvis Without Intravenous Contrast CLINICAL HISTORY: severe supraumbilical abdominal pain. TECHNIQUE: Axial computed tomography images of the abdomen and pelvis without intravenous contrast. CTDI is 18.29 mGy and DLP is 810.07 mGy-cm. Automated exposure control was utilized for the study. A dose lowering technique was utilized adhering to the principles of ALARA. COMPARISON: CT abdomen and pelvis with contrast 01/04/2022 FINDINGS: Lung bases: Unremarkable. No mass. No consolidation. ABDOMEN: Liver: Unremarkable. Gallbladder and bile ducts: Unremarkable. No calcified stones. No ductal dilation. Pancreas: Prominent fat stranding and edema noted surrounding the pancreas, with extension to the periduodenal region, minimally involving the anterior right pararenal fascia and the root of the mesentery. Scattered subcentimeter calcifications noted throughout the head, neck and proximal to mid tail the pancreas. No ductal dilation. Spleen: Unremarkable. No splenomegaly. Adrenals: Unremarkable. No mass. Kidneys and ureters: The right kidney is small in caliber, progressive from the previous examination. Renal vascular calcifications. No hydronephrosis. Cortical cysts involving the superior and anterior midpole are increased in size. The dominant cyst anteriorly, now measures 4.6 cm from 4.1 cm previously. Stomach and bowel: Stomach is mildly distended with fluid and gas. No gastric mucosal thickening. No bowel obstruction. No definite asymmetric bowel mucosal abnormality. Mild stool burden. Diverticulosis. PELVIS: Appendix: No findings to suggest acute appendicitis. Bladder: Unremarkable. No stones. Reproductive: Brachytherapy seeds in the prostate gland. The prostate gland is decompressed, limiting evaluation. ABDOMEN and PELVIS: Intraperitoneal space: See above. No pneumoperitoneum. Bones/joints: No acute fracture. No dislocation. Soft tissues: Unremarkable. Vasculature: The unilateral aortic stent graft with a solitary limb extending into the iliac artery remains. The [place] calcified aneurysm sac surrounding the aortic graft is smaller and somewhat contracted when compared to the previous examination, now measuring 4.7 x 5.5 cm from 5.3 x 6.5 cm. The previously noted encapsulated fluid collection to the right of the aorta in the retroperitoneum is markedly diminished in size, now measuring only 2.5 x 4.3 cm without inflammatory changes. Lymph nodes: Unremarkable. No enlarged lymph nodes. IMPRESSION: Prominent fat stranding and edema noted surrounding the pancreas, with extension to the periduodenal region, minimally involving the anterior right pararenal fascia and the root of the mesentery. Julee acute pancreatitis over alternate etiology, such as duodenitis. Please correlate with laboratory findings. Chronic subcentimeter calcifications scattered throughout the pancreas suggests an acute on chronic component. Electronically signed by: Cb Loving MD 01/26/24 22:26 PM
[2024-01-26] MEDS ORDERED: ACETAMINOPHEN 1,000 MG/100 ML VIAL IV PRN (23:20)
[2024-01-26] MEDS ORDERED: ONDANSETRON INJ 2 MG/ML 2 ML VIAL IV PRN (23:20)
--- NOTE | 2024-01-26 23:29 | History & Physical Report ---
Date of Service January 26, 2024 Assessment & Plan (1) Acute pancreatitis: (2) Acute kidney injury superimposed on CKD: (3) Chronic kidney disease, stage III (moderate): (4) Type 2 diabetes mellitus: (5) HTN (hypertension): (6) Urinary retention: Plan Acute pancreatitis- Lipase 27,850 CT scan abdomen pelvis consistent with acute pancreatitis N.p.o. Follow serial CBC with differential, chemistry profile and lipase levels Acetaminophen 1 g IV every 8 hours as needed for mild pain or fever Morphine sulfate 3 mg IV every 3 hours as needed for moderate pain Morphine sulfate 6 mg IV every 3 hours as needed for severe pain Pantoprazole 40 mg IV daily Zofran 4 mg IV every 6 hours as needed Status post 1 L normal saline in the ED continue NSS at 80 mL/h x 2 L Daily CBC with differential, chemistry profile and lipase levels Acute kidney injury superimposed on CKD- Creatinine 2.40, with base range 1.55-2.06 Received 1 L normal saline in the ED Continue NSS at 80 mL/h x 2 L Repeat laboratories in a.m. Hypertension/CAD/PAD- Lopressor 5 mg IV as needed every 4 hours for systolic blood pressure greater than 160 if heart rate greater than 70 Hydralazine 10 mg IV as needed every 4 hours for systolic blood pressure greater than 160 if heart rate less than or equal to 70 Diabetes mellitus Hold metformin Placed on Accu-Cheks with NovoLog SSI Check hemoglobin A1c Daily alcohol use- AWSS protocol with IV Ativan Thiamine 100 mg IV daily Folic acid 1 mg IV daily History of Present Illness Chief Complaint: The patient presents to the emergency department with complaint of acute onset at 230 this afternoon of nausea, vomiting and abdominal pain. Primary Care Provider: Jeremy Kaiser DO The patient is a 73-year-old male with medical history including CKD stage III, renal artery stenosis, PAD, bladder rupture, AAA, urinary retention, gastric erosions, hypertension, diabetes mellitus type 2 and SNHL bilaterally. He pr esents to the emergency department with symptoms as noted above. Allergies Allergy/AdvReac Type Severity Reaction Status Date / Time No Known Allergies Allergy Verified 01/26/24 22:18 Home Medications Medication Instructions Recorded Confirmed Type atorvastatin 80 mg tablet 80 mg PO HS 05/26/21 01/26/24 History aspirin 81 mg tablet,delayed 81 mg PO QAM 09/08/21 01/26/24 History release (Adult Aspirin Regimen) hydrochlorothiazide 25 mg tablet 25 mg PO QAM 02/11/22 01/26/24 History metformin 500 mg tablet 500 mg PO QPM 02/11/22 01/26/24 History metoprolol tartrate 25 mg tablet See Rx Instructions .Route .COMPLEX 02/15/22 01/26/24 History tamsulosin 0.4 mg capsule 0.4 mg PO HS 06/23/23 01/26/24 History nifedipine 90 mg tablet,extended 90 mg PO DAILY #90 tabs 08/18/23 01/26/24 Rx release pantoprazole 40 mg tablet,delayed 40 mg PO DAILY 01/22/24 01/26/24 History release (Protonix) lisinopril 40 mg tablet 40 mg PO DAILY 01/26/24 01/26/24 History Past Med/Surg History Problem List (Updated 01/27/24 @ 00:52 by Eliezer Sandoval MD) History of prostate cancer Sleep apnea CPAP Peripheral arterial disease SOME BLOCKAGE TO LEFT LEG Acute kidney injury superimposed on CKD GAURAV (acute kidney injury) (Acute) Anemia (Acute) Leukocytosis (Acute) Acute pancreatitis (Acute) Frequent bowel movements Chronic kidney disease, stage III (moderate) Renal artery stenosis History of colon polyps Encounter for pre-operative examination Peripheral arterial disease (Acute) Anemia Mitral regurgitation Acute kidney injury Hydronephrosis Bladder rupture Central venous catheter in place Radiation cystitis Urinary retention Urinary tract infection Chronic abdominal pain Early satiety Weight loss Gastric erosions HTN (hypertension) Nocturia Heartburn Indigestion Type 2 diabetes mellitus NIDDM Sensorineural hearing loss of both ears Medical History Sleep apnea Peripheral arterial disease History of skin cancer History of prostate cancer Ruptured abdominal aortic aneurysm (AAA) Bladder rupture CAD (coronary artery disease) History of prostate cancer NSTEMI (non-ST elevated myocardial infarction) Claudication of left lower extremity Tobacco abuse Abdominal aortic aneurysm (AAA) 3.0 cm to 5.5 cm in diameter in male HLD (hyperlipidemia) Hypertension Surgical History History of esophagogastroduodenoscopy (EGD) S/P cataract surgery S/P prostatectomy History of brachytherapy History of colonoscopy with polypectomy History of vascular surgery History of endovascular stent graft for abdominal aortic aneurysm (AAA) H/O nephrostomy History of bladder surgery History of heart artery stent Family History Other Cancer Heart disease Hypertension No family history of adverse response to anesthesia Social History Smoking Status: Current some day smoker Tobacco Type: Cigars Cigarettes Per Day: smokes cigars intermittently (advised none day of procedure); Second Hand Exposure: No; Do You Dip or Chew Tobacco: No; Hx Alcohol Use: Yes Alcohol type: wine Alcohol Intake Frequency: 4 or More x per/Week Alcohol Intake Frequency Comment: every night with dinner Hx Substance Use: No Preferred Language: Sammarinese Communication Ability: Effective Visual Impairment: Limited Hearing Ability: Hard of Hearing Investigative Research Specialist Required: No Beliefs That Will Affect Care: None marital status: Current Living Situation: Spouse current occupational status: retired How many Children do You have: 2 How many Children do You have Comment: one daughter local and able to assist with care as needed. also able to assist as needed with care. Feels Safe at Home: Yes Diet: regular during the past year weight has: decreased > 10 lbs Assistive Devices: Cane, CPAP, Glasses and Hearing Aid - Bilateral Review of Systems Review of Systems: the patient denies chest pain, palpitations, shortness of breath, dyspnea on exertion, cough, lower extremity swelling, sore throat, fevers, chills, sweats, weight change, fatigue, blood in urine or stool, dysuria, urinary frequency or urgency, lightheadedness, dizziness, headache, memory loss, loss of consciousness, rash, abnormal bruising or bleeding, imbalance, focal weakness, numbness or tingling in arms or legs, generalized arthralgias or myalgias, back or neck pain, or night sweats. The review of systems is otherwise negative other than for that already noted above, and at least 10 systems have been reviewed. Physical Exam Physical Exam: The patient is awake, alert and oriented 3, well developed and well nourished, normocephalic and atraumatic, lying in bed and in no acute distress. HEENT--PERRL, EOMI, mucous membranes and oropharynx mildly dry. Neck--supple. No JVD. No bruits. Thyroid normal, trachea midline, no adenopathy. Heart--normal S1 and S2. No murmurs, rubs or gallops. Lungs--clear bilaterally, no respiratory distress, no accessory muscle use. Abdomen--normal bowel sounds and soft. Nontender. Nondistended, no hernias or masses, no organomegaly. Extremities--no cyanosis or clubbing. No edema. Dermatologic--normal skin turgor, normal color, no abnormal lymph nodes, no rash. Neurologic--cranial nerves II through XII grossly intact. Rheumatologic--normal range of motion. Psychiatric--normal affect. Results & Data Results & Data Vital Signs (Past 12 Hours) Vital Signs Temp Pulse Pulse Resp BP BP Pulse Ox 01/26/24 22:16 79 20 197/90 H 98 01/26/24 22:00 80 24 197/90 H 98 01/26/24 20:00 73 20 170/105 H 93 01/26/24 19:09 67 01/26/24 18:37 36.4 C L 67 16 151/70 H 98 O2 Del Method O2 Flow Rate 01/26/24 22:16 Room Air 01/26/24 22:00 Nasal Cannula 2 01/26/24 20:00 Nasal Cannula 2 01/26/24 19:09 01/26/24 18:37 Room Air Laboratory Results Laboratory Results WBC 17.79 K/ul (4.8-10.8) H 01/26/24 19:05 RBC 4.52 M/uL (4.70-6.10) L 01/26/24 19:05 Hgb 12.0 g/dl (14.0-18.0) L 01/26/24 19:05 Hct 37.8 % (42.0-52.0) L 01/26/24 19:05 MCV 83.6 fL (80.0-100.0) 01/26/24 19:05 MCH 26.5 pg (25.0-34.0) 01/26/24 19:05 MCHC 31.7 g/dL (32.0-36.0) L 01/26/24 19:05 RDW Std Deviation 47.9 fL (36.4-46.3) H 01/26/24 19:05 RDW Coeff of Matt 15.6 % (11.5-14.5) H 01/26/24 19:05 Plt Count 287 K/uL (130-400) 01/26/24 19:05 MPV 11.3 fL (9.4-12.4) 01/26/24 19:05 Immature Gran % (Auto) 1.9 % 01/26/24 19:05 Neut % (Auto) 84.8 % 01/26/24 19:05 Lymph % (Auto) 6.2 % 01/26/24 19:05 Gilchrist % (Auto) 6.7 % 01/26/24 19:05 Eos % (Auto) 0.1 % 01/26/24 19:05 Baso % (Auto) 0.3 % 01/26/24 19:05 Neut # (Auto) 15.08 K/uL (1.40-6.50) H 01/26/24 19:05 Lymph # (Auto) 1.11 K/uL (1.20-3.40) L 01/26/24 19:05 Gilchrist # (Auto) 1.19 K/uL (0.11-0.59) H 01/26/24 19:05 Eos # (Auto) 0.02 K/uL (0.00-0.50) 01/26/24 19:05 Baso # (Auto) 0.05 K/uL (0.00-0.20) 01/26/24 19:05 Immature Gran # (Auto) 0.34 K/uL (0.01-0.20) H 01/26/24 19:05 Sodium 140 mmol/L (136-145) 01/26/24 19:05 Potassium 4.2 mmol/L (3.5-5.1) 01/26/24 19:05 Chloride 111 mmol/L (98-107) H 01/26/24 19:05 Carbon Dioxide 21 mmol/L (21-32) 01/26/24 19:05 Anion Gap 8 (3-11) 01/26/24 19:05 BUN 37 mg/dl (6-23) H 01/26/24 19:05 Creatinine 2.40 mg/dl (0.6-1.4) H 01/26/24 19:05 Est Cr Clr Drug Dosing 25.1 ml/min 01/26/24 19:05 Est GFR ( Amer) 30.1 ml/min 01/26/24 19:05 Est GFR (Non-Af Amer) 26.0 ml/min 01/26/24 19:05 BUN/Creatinine Ratio 15.4 (10-20) 01/26/24 19:05 Glucose 187 mg/dl (70-99(Fasting)) H 01/26/24 19:05 Calcium 8.8 mg/dl (8.6-10.3) 01/26/24 19:05 Total Bilirubin 0.4 mg/dl (0.2-1.0) 01/26/24 19:05 AST 12 U/L (13-39) L 01/26/24 19:05 ALT 8 U/L (7-52) 01/26/24 19:05 Alkaline Phosphatase 130 U/L (34-104) H 01/26/24 19:05 Total Protein 7.5 gm/dl (6.0-8.3) 01/26/24 19:05 Albumin 4.2 gm/dl (3.4-5.0) 01/26/24 19:05 Globulin 3.3 gm/dl (2.5-4.0) 01/26/24 19:05 Albumin/Globulin Ratio 1.3 (0.9-2) 01/26/24 19:05 Lipase 61409 U/L (11-82) H 01/26/24 19:05 Impressions Abdomen/Pelvis CT 01/26/24 20:05 Exam(s): CT ABDOMEN + PELVIS Without Contrast EXAM: CT Abdomen and Pelvis Without Intravenous Contrast CLINICAL HISTORY: severe supraumbilical abdominal pain. TECHNIQUE: Axial computed tomography images of the abdomen and pelvis without intravenous contrast. CTDI is 18.29 mGy and DLP is 810.07 mGy-cm. Automated exposure control was utilized for the study. A dose lowering technique was utilized adhering to the principles of ALARA. COMPARISON: CT abdomen and pelvis with contrast 01/04/2022 FINDINGS: Lung bases: Unremarkable. No mass. No consolidation. ABDOMEN: Liver: Unremarkable. Gallbladder and bile ducts: Unremarkable. No calcified stones. No ductal dilation. Pancreas: Prominent fat stranding and edema noted surrounding the pancreas, with extension to the periduodenal region, minimally involving the anterior right pararenal fascia and the root of the mesentery. Scattered subcentimeter calcifications noted throughout the head, neck and proximal to mid tail the pancreas. No ductal dilation. Spleen: Unremarkable. No splenomegaly. Adrenals: Unremarkable. No mass. Kidneys and ureters: The right kidney is small in caliber, progressive from the previous examination. Renal vascular calcifications. No hydronephrosis. Cortical cysts involving the superior and anterior midpole are increased in size. The dominant cyst anteriorly, now measures 4.6 cm from 4.1 cm previously. Stomach and bowel: Stomach is mildly distended with fluid and gas. No gastric mucosal thickening. No bowel obstruction. No definite asymmetric bowel mucosal abnormality. Mild stool burden. Diverticulosis. PELVIS: Appendix: No findings to suggest acute appendicitis. Bladder: Unremarkable. No stones. Reproductive: Brachytherapy seeds in the prostate gland. The prostate gland is decompressed, limiting evaluation. ABDOMEN and PELVIS: Intraperitoneal space: See above. No pneumoperitoneum. Bones/joints: No acute fracture. No dislocation. Soft tissues: Unremarkable. Vasculature: The unilateral aortic stent graft with a solitary limb extending into the iliac artery remains. The lower brule calcified aneurysm sac surrounding the aortic graft is smaller and somewhat contracted when compared to the previous examination, now measuring 4.7 x 5.5 cm from 5.3 x 6.5 cm. The previously noted encapsulated fluid collection to the right of the aorta in the retroperitoneum is markedly diminished in size, now measuring only 2.5 x 4.3 cm without inflammatory changes. Lymph nodes: Unremarkable. No enlarged lymph nodes. IMPRESSION: Prominent fat stranding and edema noted surrounding the pancreas, with extension to the periduodenal region, minimally involving the anterior right pararenal fascia and the root of the mesentery. Julee acute pancreatitis over alternate etiology, such as duodenitis. Please correlate with laboratory findings. Chronic subcentimeter calcifications scattered throughout the pancreas suggests an acute on chronic component. Electronically signed by: Cb Loving MD 01/26/24 22:26 PM Code Status & VTE Plan Code Status Full code VTE Prophylaxis Plan VTE Prophylaxis will be ordered: Yes PG Care Time/CCT Total # of Minutes Spent Total Time Spent with Patient: Total time spent is greater than 50% in coordination of care (as documented) at patient's floor/unit and/or counseling patient: Coding Level of Care Code 68744 INT INP/OBS CARE 3/75MIN Diagnoses Acute pancreatitis K85.90 Acute pancreatitis complication: unspecified Pancreatitis type: unspecified pancreatitis type Acute kidney injury superimposed on CKD N17.9; N18.9 Chronic kidney disease, stage III (moderate) N18.30 Type 2 diabetes mellitus E11.9 HTN (hypertension) I10 Urinary retention R33.9 (1) Acute pancreatitis Acute pancreatitis complication: unspecified Pancreatitis type: unspecified pancreatitis type Qualified Code(s): K85.90 - Acute pancreatitis without necrosis or infection, unspecified
[2024-01-26] MEDS: METOPROLOL TARTRATE 1 MG/ML VIAL IV STA (23:55)
[2024-01-27] MEDS: SODIUM CHLORIDE 0.9% 1,000 ML IV SCH (00:01)
[2024-01-27] MEDS: MoRPHine SULFATE 4 MG/ML 1 ML CARP\\VIAL IV PRN (00:15)
[2024-01-27] MEDS ORDERED: LORazepam 2 MG in SYRINGE 1 ML IV PRN (00:46)
[2024-01-27] MEDS ORDERED: Ativan IV Alcohol Withdrawal--Active Protocol IV PRN (00:46)
[2024-01-27] MEDS ORDERED: LORazepam 3 MG in SYRINGE 1.5 ML IV PRN (00:46)
[2024-01-27] MEDS ORDERED: LORazepam 1 MG in SYRINGE 0.5 ML IV PRN (00:46)
[2024-01-27] MEDS ORDERED: DEXTROSE 50% 50 ML SYRINGE IV PRN (00:55)
[2024-01-27] MEDS ORDERED: GLUCOSE 40% GEL 15 GM TUBE PO PRN (00:55)
[2024-01-27] MEDS ORDERED: GLUCAGON FOR INJ 1 MG VIAL SQ PRN (00:55)
[2024-01-27] MEDS ORDERED: GLUCOSE 10 TAB/TUBE PO PRN (00:55)
[2024-01-27] MEDS ORDERED: CARBOHYDRATES FOR HYPOGLYCEMIA PO PRN (00:55)
[2024-01-27] MEDS: PANTOprazole 40 MG in SYRINGE 0 ML IV ONE (01:49)
[2024-01-27] MEDS: MoRPHine SULFATE 10 MG/ML CARP/VIAL IV PRN (02:30)
[2024-01-27] MEDS: hydrALAZINE HCL 20 MG/ML VIAL IV PRN (02:34)
[2024-01-27 02:36] LABS: BUN Creatinine Ratio 13.5 (10-20); Calcium 8.1 mg/dl (8.6-10.3); Creatinine Clr Calc Pharmacy 20.4 ml/min; Est GFR (African American) 23.4 ml/min; Est GFR (Non-African American) 20.2 ml/min
[2024-01-27 02:54] LABS: Albumin Globulin Ratio 1.4 (0.9-2); Albumin Level 4.1 gm/dl (3.4-5.0); Bilirubin,Total 0.4 mg/dl (0.2-1.0); Magnesium 2.2 mg/dl (1.7-2.4); Total Protein 7.1 gm/dl (6.0-8.3)
[2024-01-27 02:56] LABS: Hematocrit (blood only) 37.7 % (42.0-52.0); Hemoglobin 11.8 g/dl (14.0-18.0); Mean Corpuscular Hemoglobin 26.5 pg (25.0-34.0); Mean Corpuscular Hgb Conc 31.3 g/dL (32.0-36.0); Mean Corpuscular Volume 84.7 fL (80.0-100.0); Mean Platelet Volume 11.5 fL (9.4-12.4); Platelet Count 253 K/uL (130-400); RDW Coefficient of Variation 15.7 % (11.5-14.5); RDW Standard Deviation 48.2 fL (36.4-46.3); Red Blood Count 4.45 M/uL (4.70-6.10); White Blood Count 15.27 K/ul (4.8-10.8)
[2024-01-27 03:36] LABS: Basophils # (auto) 0.03 K/uL (0.00-0.20); Basophils % (auto) 0.2 %; Immature Granulocytes # (auto) 0.05 K/uL (0.01-0.20); Immature Granulocytes % (auto) 0.3 %; Lymphocytes # (auto) 0.43 K/uL (1.20-3.40); Lymphocytes % (auto) 2.8 %; Monocytes # (auto) 0.59 K/uL (0.11-0.59); Monocytes % (auto) 3.9 %; Neutrophils # (auto) 14.17 K/uL (1.40-6.50); Neutrophils % (auto) 92.8 %
[2024-01-27] MEDS: METOPROLOL TARTRATE 1 MG/ML VIAL IV PRN (04:20)
[2024-01-27] MEDS: INSULIN ASPART PER UNIT CHARGE SC SCH (06:08)
[2024-01-27] MEDS: cloNIDine HCL 0.1 MG TAB PO ONE (06:18)
[2024-01-27] MEDS: NIFEdipine EXTENDED REL 30 MG TABCR PO STA (06:19)
[2024-01-27 07:40] LABS: Estimated Average Glucose 143 mg/dl; Hemoglobin A1C 6.6 % (4.5-5.6)
[2024-01-27] MEDS: THIAMINE HCL 100 MG in SYRINGE 9 ML IV SCH (08:05)
[2024-01-27] MEDS: FOLIC ACID 1 MG in SYRINGE 9.8 ML IV SCH (08:06)
[2024-01-27] MEDS ORDERED: NIFEdipine EXTENDED REL 30 MG TABCR PO SCH (09:00)
[2024-01-27] MEDS: PLASMA-LYTE A 1,000 ML IV SCH (09:28)
--- NOTE | 2024-01-27 10:53 | Emergency Department Note ---
ED Visit Note I was alerted to bedside after a CODE ANDERSON was called the emergency room. This patient is an inpatient hold who initially presented for acute pancreatitis. Patient reportedly went from sinus rhythm to sinus bradycardia and then asystole. CODE BLUE was called and patient was found unresponsive by bedside nurse. Upon entering the room, chest compressions had to be initiated by bedside nurse. Patient placed on pads showing no organized cardiac activity on first pulse check. -Patient had an episode of emesis and was suctioned immediately. [id number] was used to provide breaths. -Intubation was attempted with difficulty due to compressions/positioning. Eventually this was aborted due to patient status. -Patient given total of 6 rounds of epinephrine, multiple rounds of sodium bicarb, calcium chloride and magnesium. -Ultrasound was performed after around [address] Hodge and myself. Dr. Hodge ultrasound of the abdomen was limited but did not have any free fluid in Morison's pouch. -Ultrasound of subxiphoid view by myself did not reveal any cardiac activity on pulse check. He had an occasional quiver, but essentially cardiac standstill. -Another round of ACLS was performed including epinephrine, compressions. -On final pulse check, another subxiphoid view was done with ultrasound showing no cardiac activity, complete cardiac standstill. No pericardial effusions noted. -At this time, resuscitative efforts were ceased due to cardiac standstill and around 20 minutes of resuscitation. Time of 1039. -Dr. Rucker, primary MD, to notify the family. .
[2024-01-27] MEDS ORDERED: PANTOprazole 40 MG in SYRINGE 0 ML IV SCH (11:00)
--- NOTE | 2024-01-27 16:06 | Discharge Summary ---
Date of Service January 27, 2024 Admission HPI Per Admitting Provider The patient is a 73-year-old male with medical history including CKD stage III, renal artery stenosis, PAD, bladder rupture, AAA, urinary retention, gastric erosions, hypertension, diabetes mellitus type 2 and SNHL bilaterally. He presents to the emergency department with symptoms as noted above. Principal Diagnosis Cardiac arrest secondary to SIRS/? aspiration event. Discharge Exam I had not seen the patient before or during resuscitation. Discharge Data Allergies Allergy/AdvReac Type Severity Reaction Status Date / Time No Known Allergies Allergy Verified 01/26/24 22:18 Consultations 01/26/24 22:32 ED Decision to Admit Stat Ordered Studies 01/26/24 20:05 CT abd pelvis wo con Stat Hospital Course (1) Cardiac arrest: (2) SIRS (systemic inflammatory response syndrome): (3) Acute pancreatitis: (4) Severe alcohol use disorder: (5) GAURAV (acute kidney injury): (6) Aspiration into airway: Plan Patient presented overnight for intractable vomiting and abdominal pain and was admitted overnight for acute pancreatitis after ED evaluation noting elevated lipase and CT abdomen findings consistent with acute pancreatitis. He was also noted to have acute kidney injury with creatinine of 2.4. He received IV fluids and was kept n.p.o. Next morning he attempted to go to the restroom and his heart rate dropped into the 30s. He then became pulseless. Code blue call. He did vomit and was suctioned. He was resuscitated by ED team for 3 rounds of ACLS protocol. He was not able to be revived. Bedside POCUS done after initial resuscitation showed no movement in the heart, no free fluid in the abdomen. He was pronounced at 10:39 AM. I called and notified the family and met with family on their arrival to ED. Total Time Total Time Spent Total Time Spent (In Minutes): 35 Discharge Plan Discharge Items Patient Disposition: Other Date/Time: 01/27/24 10:45
[2024-01-27] MEDS ORDERED: cloNIDine HCL 0.1 MG TAB PO SCH (21:00)
[2024-01-28] MEDS ORDERED: NIFEdipine EXTENDED REL 30 MG TABCR PO SCH ×2 (09:00)
--- NOTE | 2024-01-29 10:06 | Electrocardiogram Report ---
Test Reason : Blood Pressure : / mmHG Vent. Rate : 068 BPM Atrial Rate : 068 BPM P-R Int : 162 ms QRS Dur : 084 ms QT Int : 462 ms P-R-T Axes : 057 041 087 degrees QTc Int : 491 ms Normal sinus rhythm Normal ECG When compared with ECG of 18-DEC-2021 11:55, No significant change was found Confirmed by Trevon Sevilla ([id number]) on 01/29/2024 10:06:29 AM Referred By: REFERRED SELF Confirmed By:Trevon Sevilla
--- NOTE | 2024-01-30 13:01 | Death Pronouncement Note ---
Date of Service January 30, 2024 Pronouncement Note Admission Date January 26, 2024 Date and Time of Date of : 01/27/24 Time of : 10:39 Preliminary Cause of (1) Cardiac arrest: (2) SIRS (systemic inflammatory response syndrome): (3) Acute pancreatitis: Acute pancreatitis complication: unspecified Pancreatitis type: unspecified pancreatitis type Qualified Code(s): K85.90 - Acute pancreatitis without necrosis or infection, unspecified (4) Severe alcohol use disorder: (5) GAURAV (acute kidney injury): (6) Aspiration into airway: Encounter type: initial encounter Qualified Code(s): T17.908A - Unspecified foreign body in respiratory tract, part unspecified causing other injury, initial encounter Summary Patient presented overnight for intractable vomiting and abdominal pain and was admitted overnight for acute pancreatitis after ED evaluation noting elevated lipase and CT abdomen findings consistent with acute pancreatitis. He was also noted to have acute kidney injury with creatinine of 2.4. He received IV fluids and was kept n.p.o. Next morning he attempted to go to the restroom and his heart rate dropped into the 30s. He then became pulseless. Code blue call. He did vomit and was suctioned. He was resuscitated by ED team for 3 rounds of ACLS protocol. He was not able to be revived. Bedside POCUS done after initial resuscitation showed no movement in the heart, no free fluid in the abdomen. Pronounced at 10:39 AM. I called and notified the family and met with family on their arrival to ED. Additional Data Confirmation of : no pulse, no respirations, no heart sounds and pupils fixed and dilated Pronouncement Performed By: Attending Physician Attending physician: Sierra Rucker MD Was code activated?: Yes Autopsy requested?: No garment examiner notified?: Yes
== END 2024-01-27 10:45 | disposition expired | DRG 439 ==
LOC: ED 18:32 → SUATTDRO 23:28 → EDINP 23:28